=== PATIENT | female | born 1965 | race Caucasian/White ===

== ENCOUNTER → 2017-12-31 12:06 | Outpatient (CLI) | payer OTHER, SELFPAY ==
--- NOTE | 2017-12-31 12:18 | MRI_ITS ---
STUDY: MRI CERVICAL SPINE WITHOUT CONTRAST REASON FOR EXAM: Female, 52 years old. neck pain, arm pain,weakness. TECHNIQUE: Standardized fat and water weighted pulse sequences were obtained in the sagittal and axial planes. COMPARISON: November 05, 2014 FINDINGS: Normal foramen magnum and brainstem-cervical cord junction. Normal craniovertebral junction. Normal anterior atlantoaxial articulation. Normal odontoid process. Normal cervical lordosis. C2-3: Normal endplates. Normal disc height, signal and morphology. Normal central canal and intervertebral neural foramina. C3-4: There is minimal disc space narrowing and endplate spondylosis. There is a minimal disc osteophyte complex and uncovertebral arthropathy without significant central canal or foraminal stenosis. C4-5: There is mild disc space narrowing and endplate spondylosis. There is a minimal disc osteophyte complex without significant central canal stenosis. There is uncovertebral facet arthropathy with mild right and mild left foraminal stenosis. Findings are stable since prior examination C5-6: There is moderate disc space narrowing and endplate spondylosis. There is a minimal disc osteophyte complex with mild central canal stenosis. There is uncovertebral and facet arthropathy with mild right and moderate left foraminal stenosis. Findings are stable since prior examination C6-7: There is minimal disc space narrowing and endplate spondylosis. There is a minimal disc osteophyte complex and uncovertebral arthropathy without significant central canal or foraminal stenosis. C7-T1: Normal endplates. Normal disc height, signal and morphology. Normal central canal and intervertebral neural foramina. Normal cervical cord. Normal visualized soft tissue structures. MRI/Spine Cervical (Routine) IMPRESSION: Stable examination. C4/C5: Mild bilateral foraminal stenosis. C5/C6: Moderate left foraminal stenosis. Electronically Signed: Glenys Del Rosario MD at 9:27 EST Tel , Service support ,
== END ==
LOC: MRI 12:07
PROVIDERS: Family Provider Family Medicine; PCP Family Medicine; Visit Provider Anesthesiology Pain Medicine
DX: M54.2 Cervicalgia (principal); M79.601 Pain in right arm; R29.898 Other symptoms and signs involving the musculoskeletal system
CPT/HCPCS: 72141

== ENCOUNTER → 2018-03-08 12:49 | Outpatient (CLI) | payer OTHER, SELFPAY ==
--- NOTE | 2018-03-08 12:51 | CDU_ITS ---
Reason For Study: carotid stenosis Rt. Velocities/BP Lt. Velocities/BP Prox CCA 78.6/21.7 cm/sec. Prox CCA 83.8/25.2 cm/sec. Mid CCA 74.5/25.8 cm/sec. Mid CCA 89.1/28.7 cm/sec. Dist CCA 90.3/38.7 cm/sec. Dist CCA 92.0/31.7 cm/sec. Prox ICA 130.0/40.1 cm/sec. Prox ICA 85.6/27.6 cm/sec. Mid ICA 83.3/34.6 cm/sec. Mid ICA 92.6/32.8 cm/sec. Dist ICA 76.2/31.1 cm/sec. Dist ICA 99.1/35.2 cm/sec. Rt. ICA/CCA = 130.0/74.5=1.7. Lt. ICA/CCA = 99.1/89.1=1.1. Prox ECA 108.0/31.1 cm/sec. Prox ECA 157.0/32.2 cm/sec. Rt. Vert. 24.0/10.7 cm/sec. Lt. Vert. 45.6/12.2 cm/sec. Right Extracranial There is intimal thickening but no significant atherosclerotic plaque noted in the right common carotid artery. There is heterogeneous, irregular atherosclerotic plaque noted in the right internal carotid artery. There is no significant atherosclerotic plaque noted in the right external carotid artery. Antegrade flow is noted in the right vertebral artery. Left Extracranial There is intimal thickening but no significant atherosclerotic plaque noted in the left common carotid artery. There is heterogeneous, irregular atherosclerotic plaque noted in the left internal carotid artery. There is intimal thickening but no significant atherosclerotic plaque noted in the left external carotid artery. Antegrade flow is noted in the left vertebral artery. Procedure Carotid Duplex [id number]. The exam was diagnostic. Exam performed in department. Interpretation Summary Moderate (50-69%) stenosis right extracranial internal carotid. Mild (<50%) stenosis left extracranial internal carotid. Flow within the vertebral arteries is antegrade bilaterally. Ordering Physician: Wilbur Maldonado Referring Physician: Reynaldo Gregg Performed By: Esther Devlin, CARYN, RVT
--- NOTE | 2018-03-13 08:16 | UEAS ---
Arterial Study - Arterial Study Arterial Study: Date of scan 03/08/[address] Maldonado History: Patient with previous subclavian stenosis status post subclavian stent with also a history of hypertension hyperlipidemia and tobacco abuse. Interpretation: Right upper extremity normal pulsatile flow noted from the upper arm down to the forearm wrist and out through the digits segmental pressures throughout the arm are maintained all the way throughout with wrist brachial index of 1.02 and a digit brachial index 0.84 Left upper extremity with normal pulsatile flow from the upper arm down to the forearm wrist and digits segmental pressures are maintained throughout with wrist brachial index 1.01 and a digit brachial index 0.85 Impression: 1. Bilateral upper extremities with no evidence of significant arterial occlusive disease with normal wrist brachial index of 1.02 and 1.01
== END ==
LOC: CVS 12:50
PROVIDERS: Family Provider Family Medicine; PCP Family Medicine; Visit Provider Surgery Vascular Surgery
DX: I65.23 Occlusion and stenosis of bilateral carotid arteries (principal); I77.1 Stricture of artery; F17.200 Nicotine dependence, unspecified, uncomplicated; E78.00 Pure hypercholesterolemia, unspecified; Z96.89 Presence of other specified functional implants
CPT/HCPCS: 93880; 93923

== ENCOUNTER 2018-07-02 12:16 | Observation (INO) | payer OTHER, SELFPAY ==
[2018-07-02] VITALS (19 sets, daily range): BP systolic 125–154; BP diastolic 61–94; PULSE 82–108; RESP 16–24; TEMP 36.7–37.1; O2SAT 88–96; BMI 34.1; BMI 34.9
[2018-07-02] MEDS: Albuterol 2.5 MG/3 ML VIAL.NEB. INHALATION ×2 (13:12)
[2018-07-02] MEDS: Ipratropium/Albuterol Sulfate 3 ML AMPUL.NEB INHALATION ×3 (13:12→23:33)
[2018-07-02] MEDS: MethylPREDNISolone 125 MG/2 ML Vial IV (13:35)
[2018-07-02] MEDS: 0.9% Normal Saline 1,000 ML 150 ML IV (13:36)
[2018-07-02 13:40] LABS: Absolute Lymphocyte Count 2.07 X10^3/ul (0.83-4.51); Absolute Neutrophil Count 5.1 X10^3/uL (2.0-7.7); Basophil# 0.04 X10^3/uL; Basophil% 0.5 % (0-1); Eosinophil# 0.21 X10^3/uL; Eosinophils% 2.6 % (0-5); Hematocrit 43.1 % (37-47); Hemoglobin 13.8 g/dl (12.0-15.0); Lymphocyte # 2.07 X10^3/ul (4.0); Lymphocyte % 25.8 % (19-41); Mean Corpuscular Hgb 30.5 pg (27.0-32.0); Mean Corpuscular Volume 95.1 fL (81-99); Mean Platelet Vol. 10.4 fl (6.2-12.0); Monocyte% 7.5 % (0-10); Neutrophil # 5.09 X10^3/uL (2.7-7.7); Neutrophil % 63.4 % (47-70); POSITIVE COUNT NO; POSITIVE DIFFERENTIAL NO; POSITIVE MORPHOLOGY NO; Platelet Count 220 K/mm3 (150-450); RBC Distribution Width CV 14.2 % (11.6-14.6); RBC Distribution Width SD 48.9 fl (35.1-43.9); Red Blood Count 4.53 M/mm3 (4.2-5.4)
[2018-07-02 13:55] LABS: Anion Gap 10 (5-15); BUN 12 mg/dL (7-18); Calcium,Total 9.2 mg/dL (8.5-10.1); Chloride 107 mmol/L (98-107); Creatinine, Serum 0.67 mg/dL (0.55-1.02); EST Glomerular Filtration Rate 99 mL/min (>60); Est Glom Filt Rate - Afr Amer 120 mL/min (>60); Estimated Creatinine Clearance 120.21 ml/min; Glucose 123 mg/dL (74-106); Sodium Level 147 mmol/L (136-145)
--- NOTE | 2018-07-02 14:53 | ED.VISSUMM ---
- ER Visit Summary Date of Service: 07/02/18 Chief Complaint: Shortness of breath] History of Present Illness: The patient is a 52 F [presents the emergency department complaint of shortness of breath that started 8 days ago. Patient's been coughing but no sputum production. She has had fever at home and some chills with temperature up to 101. Patient describes chest tightness. Patient was seen in the urgent care and referred to the ER for a low O2 saturation of 82%. Patient denies any sick contacts. She describes exertional dyspnea. Patient did travel to [place] several weeks ago via car. Patient denies any swelling in her legs out of the ordinary. She denies any chest pain.] Physical Examination: [HEENT-PERRLA, EOMI. Cranial nerves II through XII grossly intact. TMs clear. Mucous membranes moist. No adenopathy. Cardiovascular-regular rate and rhythm without murmur or ectopy Lungs-decreased breath sounds bilaterally with rhonchi and expiratory wheezes bilaterally. Patient is tachypneic. No accessory muscle use or retractions. Abdomen-normoactive bowel sounds, soft, nontender, no rebound or rigidity, no peritoneal signs. Extremities-intact ?4, normal range of motion, normal pulses, atraumatic]. No edema. Negative Homans sign. Test Results: [EKG obtained arrival shows sinus rhythm with a ventricular rate of 91 bpm with some nonspecific ST changes. CBC with differential showed a white count of 8.0, hemoglobin 13.8, hematocrit 43, platelets 220. Chemistries unremarkable other than decreased potassium at 3.0. Troponin is less than 0.015. Lactate was 1.0. Chest x-ray showed some bibasilar atelectasis] Emergency Department Course and Treatment: [Patient was given DuoNeb aerosol as well as albuterol. She was started on Solu-Medrol 125 mill grams IV patient was placed on oxygen.] Treatment Plan: [Admit] Disposition: [Admit] Impression: [Asthmatic bronchitis Hypoxemia] This note was generated with [employer] .fr [place] dictation software. It may contain incorrect words, spelling, and punctuation that were not noted in review of the chart prior to signing ED Disposition - Plan for ED Patient: Chief Complaint: Shortness of Breath Referrals: Reynaldo Gregg MD [Primary Care Provider] -
--- NOTE | 2018-07-02 15:00 | PCM.HP.STD ---
<Susan Cardozo - Last Filed: 07/02/18 16:20> Problem List (1) Family history of colon cancer in father Status: Chronic (2) Carotid artery disease Status: Chronic (3) Hyperlipemia Status: Chronic (4) Subclavian arterial stenosis Status: Chronic Comment: s/p stent (5) Hypertension Status: Chronic (6) TIA (transient ischemic attack) Status: Chronic History of Present Illness Date of Admission: 07/02/18 Chief Complaint: Shortness of breath The patient is a 52 year old F who presents with shortness of breath, fever, cough and general malaise. Patient states symptoms began approximately 1 week ago after returning from a trip to [place]. She denies sick contacts. She states she went to urgent care today and was sent to ER due to oxygen level 82%. Patient complains of cough with chest tightness. No sputum production. She states she was placed on an inhaler in the past by her primary care physician for asthma. She has a [id number] smoking history and currently smokes 1 pack per day. Has never had pulmonary function testing. She states her max temperature at home has been 101. She denies dizziness, lightheadedness, presyncope. Her past medical history includes hypertension, hyperlipidemia, carotid artery disease/subclavian arterial stenosis status post stent, TIA, asthma. Past Medical History Past Medical History (Chronic Problems): Chronic Problems TIA (transient ischemic attack) (Chronic) Family history of colon cancer in father (Chronic) Carotid artery disease (Chronic) Hyperlipemia (Chronic) Subclavian arterial stenosis (Chronic) s/p stent Hypertension (Chronic) Allergies Penicillins Allergy (Unknown, Verified 07/02/18 12:20) Hives tramadol Allergy (Verified 07/02/18 12:20) Swelling Home Medications: Ambulatory Orders Medication Instructions Recorded Amlodipine [Norvasc] 5 mg PO DAILY 11/24/15 Lovastatin [Mevacor] 20 mg PO DAILY 11/24/15 Metoprolol Tartrate [Lopressor 50 mg PO DAILY 11/24/15 (beta noé)] Tizanidine HCl 4 mg PO DAILY 11/24/15 Triamterene 37.5MG/Hctz 25MG 1 cap PO DAILY 11/24/15 [Dyazide (G)] Celecoxib [Celebrex] 200 mg PO DAILY 05/28/17 Mupirocin [Bactroban] 1 applic TOPICAL TID #1 tube 03/25/17 Acetaminophen [Tylenol Arthritis] 1,300 mg PO PRN PRN 07/02/18 Albuterol Sulfate [Ventolin Hfa] 1 - 2 puff IH BID 07/02/18 Aspirin E.C. 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 Denies: Chest Pain, Edema, Light Headedness, Palpitations, Syncope Respiratory: Reports: Cough, Shortness of Breath, Wheezing. Denies: Sputum production Gastrointestinal: Denies: Abdominal Pain, Nausea, Vomiting Genitourinary: Denies: Dysuria Musculoskeletal: Denies: Joint Pain, Joint Tenderness Skin: Denies: Rash, Wounds Neurological: Denies: Numbness, Tingling, Focal weakness Psychiatric: Denies: Anxiety, Depression, Homicidal Ideations, Suicidal Ideations Hematologic/ Lymphatic: Denies: Easy Bruising, Easy Bleeding VTE Information - Inpt Only VTE Present on Admission: No VTE Mechan Device Prophylaxis: None VTE Pharm Prophylaxis ordered?: Yes - Physical Exam General: Alert, Oriented x3, Cooperative HEENT: Atraumatic, PERRLA, EOMI, Normocephalic Neck: Supple, No JVD, Negative Carotid Bruits Lungs: Diminished, Wheezes Cardiovascular: Regular Rhythm, Normal S1, Normal S2, No murmurs, Tachycardic Abdomen: Bowel Sounds Present, Soft, Non Tender, Non-Distended, Obese Extremities: No clubbing, No cyanosis, No edema, Capillary Refill Less than 3 Seconds Skin: No rashes, No breakdown Musculoskeletal: No Tenderness to Palpation of Joints or Extremities Neurological: Cranial nerves II-XII grossly intact, Neuro grossly intact Psych/Mental Status: Normal Affect, Appropriate Vital Signs Temp Pulse Resp BP Pulse Ox 98.7 F 102 H 20 H 138/87 H 92 07/02/18 12:17 07/02/18 14:00 07/02/18 14:00 07/02/18 14:00 07/02/18 14:45 Oxygen Flow Rate (L/min) 5 Oxygen Delivery Method Nasal Cannula Weight: 169 lb Body Mass Index (BMI) 34.1 Laboratory Tests Past 24 Hrs 07/02/18 07/02/18 07/02/18 13:29 13:29 13:29 WBC 8.0 RBC 4.53 Hgb 13.8 Hct 43.1 MCV 95.1 MCH 30.5 MCHC 32.0 RDW 14.2 RDW Differential 48.9 H Plt Count 220 MPV 10.4 Immature Gran % (Auto) 0.200 Neut % (Auto) 63.4 Lymph % (Auto) 25.8 [place] % (Auto) 7.5 Eos % (Auto) 2.6 Baso % (Auto) 0.5 Absolute Neuts (auto) 5.1 Absolute Lymphs (auto) 2.07 Total Counted Not Reportable Sodium 147 H Potassium 3.0 L Chloride 107 Carbon Dioxide 30.0 Anion Gap 10 BUN 12 Creatinine 0.67 Estim Creat Clear Calc 120.21 Est GFR (MDRD) Af Amer 120 Est GFR (MDRD) Non-Af 99 BUN/Creatinine Ratio 18.0 Glucose 123 H Lactic Acid 1.0 Calcium 9.2 Troponin I < 0.015 Assessment/Plan 1. Presumed COPD exacerbation with associated acute hypoxia-chest x-ray on admission with mild degree of increased markings at the lung bases suggestive of bibasilar scarring. No acute infiltrate. Check respiratory panel. IV Solu-Medrol. Albuterol and DuoNeb aerosol. Tylenol as needed for fever. Recommend outpatient follow-up with pulmonary medicine for pulmonary function testing. 2. Hypokalemia-suspect secondary to triamterene regimen, hold. Replace orally. Trend BMP. 3. Hypertension-stable, continue home amlodipine and metoprolol regimen. Hold triamterene regimen. 4. Hyperlipidemia-continue statin. 5. History of TIA-continue aspirin, statin. 6. Carotid artery stenosis/subclavian stenosis-subclavian stenosis status post subclavian stent. Follows with vascular, Dr. Maldonado. 7. Tobacco dependence-encourage smoking cessation. Nicotine replacement patch if desired. 8. Obesity-encourage diet and lifestyle modifications. Nutrition consult. This patient was seen by JOSE Schaefer under the supervision of Dr. Hill. <Anish Hill F - Last Filed: 07/02/18 16:46> History of Present Illness The patient is a 52 year old F [] Past Medical History Allergies Penicillins Allergy (Unknown, Verified 07/02/18 12:20) Hives tramadol Allergy (Verified 07/02/18 12:20) Swelling - Physical Exam Vital Signs Temp Pulse Resp BP Pulse Ox 98.0 F 103 H 20 H 147/94 H 90 07/02/18 16:33 07/02/18 16:33 07/02/18 16:33 07/02/18 16:33 07/02/18 16:33 Oxygen Flow Rate (L/min) 5 Oxygen Delivery Method Nasal Cannula Weight: 173 lb 4.533 oz Body Mass Index (BMI) 34.9 Assessment/Plan Addendum: Dr. Hill I personally examined the patient and reviewed the chart. I agree with the above. 52 yo F with a h/o tobacco use presents with a 1 week h/o SOB and a cough. she state that she has also had a fevers, however these were subjective and she has been afebrile in the ER and has no leukocytosis. She does not carry a COPD diagnosis formally but she is on albuterol. General: Alert, Oriented x3, Cooperative, No apparent distress HEENT: Atraumatic, EOMI, Normocephalic Oral: Moist Mucosa Neck: Supple, No JVD Lungs: Normal air movement with wheezing throughout Cardiovascular: tachycardic, Regular Rhythm, Normal S1, Normal S2, No murmurs Abdomen: Soft, Non Tender, Non-Distended, No Hepato-splenomegaly Extremities: No edema, Capillary Refill Less than 3 Seconds Skin: No rashes, No breakdown Psych/Mental Status: Normal Affect, Appropriate 1. COPD exacerbation - Given her PE findings and her h/o smoking this is the likely diagnosis - CXR negative for pneumonia - Solumedrol 40 mg BID - Jeff q4 [place] - She will need PFTs as an outpatient 2. Hypokalemia - Will replace and check a magnesium as well Diet: Cardiac DVT: Lovenox Code Visit Inpatient E&M: 81629 Init Hosp L3
[2018-07-02 16:29] LABS: Magnesium 2.1 mg/dL (1.6-2.6)
[2018-07-02] MEDS: Metoprolol Tartrate 50 MG Tablet PO (17:58)
[2018-07-02] MEDS: amLODIPine 5 MG Tablet PO (17:58)
[2018-07-02] MEDS: Acetaminophen 500 MG Tablet PO (20:08)
[2018-07-02] MEDS: Atorvastatin Calcium 10 MG Tablet 5 MG PO (22:09)
[2018-07-03] VITALS (12 sets, daily range): BP systolic 108–130; BP diastolic 62–72; PULSE 65–89; RESP 16–20; TEMP 36.6–37; O2SAT 90–99
[2018-07-03 05:29] LABS: Absolute Lymphocyte Count 0.82 X10^3/ul (0.83-4.51); Absolute Neutrophil Count 10.6 X10^3/uL (2.0-7.7); Eosinophil# 0.01 X10^3/uL; Eosinophils% 0.1 % (0-5); Hematocrit 45.4 % (37-47); Hemoglobin 14.6 g/dl (12.0-15.0); Lymphocyte # 0.82 X10^3/ul (4.0); Mean Corp Hgb Conc 32.2 g/gl (32-36); Mean Corpuscular Hgb 30.8 pg (27.0-32.0); Mean Corpuscular Volume 95.8 fL (81-99); Mean Platelet Vol. 10.8 fl (6.2-12.0); Monocyte# 0.33 X10^3/uL; Monocyte% 2.8 % (0-10); Neutrophil % 89.8 % (47-70); Platelet Count 272 K/mm3 (150-450); RBC Distribution Width CV 14.1 % (11.6-14.6); RBC Distribution Width SD 49.1 fl (35.1-43.9); Red Blood Count 4.74 M/mm3 (4.2-5.4); White Blood Count 11.8 K/mm3 (4.4-11.0)
[2018-07-03 05:30] LABS: POSITIVE COUNT NO; POSITIVE DIFFERENTIAL NO; POSITIVE MORPHOLOGY NO
[2018-07-03 06:50] LABS: Anion Gap 9 (5-15); BUN 14 mg/dL (7-18); BUN/Creat Ratio 20.4 RATIO (10-20); Calcium,Total 9.5 mg/dL (8.5-10.1); Chloride 106 mmol/L (98-107); Creatinine, Serum 0.69 mg/dL (0.55-1.02); EST Glomerular Filtration Rate 96 mL/min (>60); Est Glom Filt Rate - Afr Amer 116 mL/min (>60); Estimated Creatinine Clearance 119.69 ml/min; Glucose 188 mg/dL (74-106); Potassium 4.5 mmol/L (3.5-5.1); Sodium Level 144 mmol/L (136-145)
[2018-07-03] MEDS: Ipratropium/Albuterol Sulfate 3 ML AMPUL.NEB INHALATION ×5 (07:12→23:25)
[2018-07-03] MEDS: Metoprolol Tartrate 50 MG Tablet PO (08:04)
[2018-07-03] MEDS: Aspirin E.C. 81 MG Tablet PO (08:04)
[2018-07-03] MEDS: Celecoxib 200 MG Capsule PO (08:04)
[2018-07-03] MEDS: Acetaminophen 500 MG Tablet PO (08:04)
[2018-07-03] MEDS: amLODIPine 5 MG Tablet PO (08:05)
[2018-07-03] MEDS: Enoxaparin 40 MG/0.4 ML Syringe SC (08:06)
--- NOTE | 2018-07-03 10:14 | PCM.PN.HOSP ---
Subjective: Patient is short of breath. Coughing and wheezing. Patient has progressive worsening of shortness of breath for last 4 days, started with URI symptoms of sinusitis, sore throat, rhinorrhea and postnasal drip. Patient pulse ox in urgent care was 82% on room air. Vitals/I&O's: Vital Signs Temp Pulse Resp BP Pulse Ox 98.1 F 89 18 129/64 H 94 07/03/18 08:00 07/03/18 08:04 07/03/18 08:00 07/03/18 08:00 07/03/18 08:00 Oxygen Flow Rate (L/min) 3 Oxygen Delivery Method Nasal Cannula Weight: 173 lb 4.533 oz Body Mass Index (BMI) 34.9 Intake and Output for Last 24 Hours 07/01/18 07/02/18 07/03/18 23:59 23:59 23:59 Intake Total 270 / 270 400 / 400 Balance 270 / 270 400 / 400 General: Alert, Oriented x3, Cooperative HEENT: Atraumatic, PERRLA, EOMI, Normocephalic Oral: - - No deep oropharyngeal inflammation/ulcer noticed Neck: Supple, No JVD, Negative Carotid Bruits Lungs: Diminished, Rhonchi, Short of Breath, - Cardiovascular: Regular rate, Normal S1, Normal S2, No murmurs Abdomen: Bowel Sounds Present, Soft, Non Tender Extremities: Capillary Refill Less than 3 Seconds, Edema Skin: No rashes, No breakdown Musculoskeletal: No Tenderness to Palpation of Joints or Extremities, Arthritic Changes Neurological: Cranial nerves II-XII grossly intact, Neuro grossly intact Psych/Mental Status: Normal Affect, Appropriate Microbiology Past 72 Hours 07/02/18 19:45 Mucosa - Nose Respiratory Panel (PCR) - Final Rhinovirus Laboratory Results 07/03/18 05:00: WBC 11.8 H, RBC 4.74, Hgb 14.6, Hct 45.4, MCV 95.8, MCH 30.8, MCHC 32.2, RDW 14.1, RDW Differential 49.1 H, Plt Count 272, MPV 10.8, Immature Gran % (Auto) 0.300, Neut % (Auto) 89.8 H, Lymph % (Auto) 7.0 L, [place] % (Auto) 2.8, Eos % (Auto) 0.1, Baso % (Auto) 0.0, Absolute Neuts (auto) 10.6 H, Absolute Lymphs (auto) 0.82 L, Total Counted Not Reportable 07/03/18 05:00: Sodium 144, Potassium 4.5, Chloride 106, Carbon Dioxide 29.0, Anion Gap 9, BUN 14, Creatinine 0.69, Estim Creat Clear Calc 119.69, Est GFR (MDRD) Af Amer 116, Est GFR (MDRD) Non-Af 96, BUN/Creatinine Ratio 20.4 H, Glucose 188 H, Calcium 9.5 Current Medications Acetaminophen (Tylenol) 500 mg PO Q4H PRN PRN PRN Reason: FEVER Last Admin: 07/03/18 08:04 Dose: 500 mg Albuterol Sulfate (Ventolin Aerosols) 2.5 mg INHALATION Q2H PRN PRN PRN Reason: SHORTNESS OF BREATH Albuterol/Ipratropium (Duoneb) 3 ml INHALATION Q4HWA.RT [facility] Last Admin: 07/03/18 07:12 Dose: 3 ml Amlodipine Besylate (Norvasc) 5 mg PO DAILY [facility] Last Admin: 07/03/18 08:05 Dose: 5 mg Aspirin (Ecotrin) 81 mg PO DAILY@0800 [facility] Last Admin: 07/03/18 08:04 Dose: 81 mg Atorvastatin Calcium (Lipitor) 5 mg PO QHS [facility] Last Admin: 07/02/18 22:09 Dose: 5 mg Celecoxib (Celebrex) 200 mg PO DAILY [facility] Last Admin: 07/03/18 08:04 Dose: 200 mg Enoxaparin Sodium (Lovenox) 40 mg SC DAILY@1000 [facility] Last Admin: 07/03/18 08:06 Dose: 40 mg Loratadine (Claritin) 10 mg PO DAILY PRN PRN PRN Reason: ALLERGIES Magnesium Hydroxide (Milk Of Magnesia) 30 ml PO DAILY PRN PRN PRN Reason: Constipation Methylprednisolone (Solu-Medrol) 40 mg IV BID [facility] Last Admin: 07/02/18 22:06 Dose: 40 mg Metoprolol Tartrate (Lopressor (Beta Meeta)) 50 mg PO DAILY [facility] Last Admin: 07/03/18 08:04 Dose: 50 mg Nicotine (Nicoderm Cq (Pbkc)) 21 mg TRANSDERM. DAILY [facility] Last Admin: 07/03/18 08:06 Dose: Not Given Sodium Chloride () 5 - 30 ml IV UD PRN PRN Reason: SALINE FLUSH Tizanidine HCl (Zanaflex) 4 mg PO QHS [facility] Medical Necessity - Tobacco Use Smoking Status: Current every day smoker Tobacco Use: Cigarettes Assessment/Plan This is 52-year-old female with history of smoking cigarette is admitted with URI symptoms, shortness of breath and wheezing consistent with COPD exacerbation. 1. COPD exacerbation with associated acute hypoxia, secondary to rhinovirus viral bronchitis-chest x-ray on admission with mild degree of increased markings at the lung bases suggestive of bibasilar scarring. No acute infiltrate. IV Solu-Medrol. Albuterol and DuoNeb aerosol. Tylenol as needed for fever. Respiratory panel is positive of rhinovirus recommend outpatient follow-up with pulmonary medicine for pulmonary function testing. 2. Hypokalemia-suspect secondary to triamterene regimen, hold. Corrected. 3. Hypertension-stable, continue home amlodipine and metoprolol regimen. Hold triamterene regimen. 4. Hyperlipidemia-continue statin. 5. History of TIA-continue aspirin, statin. 6. Carotid artery stenosis/subclavian stenosis-subclavian stenosis status post subclavian stent. Follows with vascular, Dr. Maldonado. 7. Tobacco dependence-encourage smoking cessation. Nicotine replacement patch if desired. 8. Obesity-encourage diet and lifestyle modifications. Nutrition consult. Microbiology Past 72 Hours 07/02/18 19:45 Mucosa - Nose Respiratory Panel (PCR) - Final Rhinovirus Laboratory Results RD) Non-Af 99, BUN/Creatinine Ratio 18.0, Glucose 123 H, Calcium 9.2, Troponin I < 0.015 07/02/18 13:29: Lactic Acid 1.0 07/02/18 13:29: Magnesium 2.1 07/03/18 05:00: WBC 11.8 H, RBC 4.74, Hgb 14.6, Hct 45.4, MCV 95.8, MCH 30.8, MCHC 32.2, RDW 14.1, RDW Differential 49.1 H, Plt Count 272, MPV 10.8, Immature Gran % (Auto) 0.300, Neut % (Auto) 89.8 H, Lymph % (Auto) 7.0 L, [place] % (Auto) 2.8, Eos % (Auto) 0.1, Baso % (Auto) 0.0, Absolute Neuts (auto) 10.6 H, Absolute Lymphs (auto) 0.82 L, Total Counted Not Reportable 07/03/18 05:00: Sodium 144, Potassium 4.5, Chloride 106, Carbon Dioxide 29.0, Anion Gap 9, BUN 14, Creatinine 0.69, Estim Creat Clear Calc 119.69, Est GFR (MDRD) Af Amer 116, Est GFR (MDRD) Non-Af 96, BUN/Creatinine Ratio 20.4 H, Glucose 188 H, Calcium 9.5 Clinical Impression(s) from Imaging Studies Chest X-Ray 07/02/18 12:21 IMPRESSION: Mild degree of increased markings at the lung bases suggestive of bibasilar scarring. No acute infiltrate is seen. Active Medications Acetaminophen (Tylenol) 500 mg PO Q4H PRN PRN PRN Reason: FEVER Last Admin: 07/03/18 08:04 Dose: 500 mg Albuterol Sulfate (Ventolin Aerosols) 2.5 mg INHALATION Q2H PRN PRN PRN Reason: SHORTNESS OF BREATH Albuterol/Ipratropium (Duoneb) 3 ml INHALATION Q4HWA.RT [facility] Last Admin: 07/03/18 14:54 Dose: 3 ml Amlodipine Besylate (Norvasc) 5 mg PO DAILY [facility] Last Admin: 07/03/18 08:05 Dose: 5 mg Aspirin (Ecotrin) 81 mg PO DAILY@0800 [facility] Last Admin: 07/03/18 08:04 Dose: 81 mg Atorvastatin Calcium (Lipitor) 5 mg PO QHS [facility] Last Admin: 07/02/18 22:09 Dose: 5 mg Celecoxib (Celebrex) 200 mg PO DAILY [facility] Last Admin: 07/03/18 08:04 Dose: 200 mg Enoxaparin Sodium (Lovenox) 40 mg SC DAILY@1000 [facility] Last Admin: 07/03/18 08:06 Dose: 40 mg Loratadine (Claritin) 10 mg PO DAILY PRN PRN PRN Reason: ALLERGIES Magnesium Hydroxide (Milk Of Magnesia) 30 ml PO DAILY PRN PRN PRN Reason: Constipation Methylprednisolone (Solu-Medrol) 40 mg IV BID [facility] Last Admin: 07/03/18 10:52 Dose: 40 mg Metoprolol Tartrate (Lopressor (Beta Meeta)) 50 mg PO DAILY [facility] Last Admin: 07/03/18 08:04 Dose: 50 mg Nicotine (Nicoderm Cq (Pbkc)) 21 mg TRANSDERM. DAILY [facility] Last Admin: 07/03/18 08:06 Dose: Not Given Sodium Chloride () 5 - 30 ml IV UD PRN PRN Reason: SALINE FLUSH Last Admin: 07/03/18 10:52 Dose: 10 ml Tizanidine HCl (Zanaflex) 4 mg PO QHS [facility] Code Visit Inpatient E&M: 28939 Subs Hosp L2
[2018-07-03] MEDS: 0.9% NaCl Peripheral Flush Adult/Peds IV ×2 (10:52→21:24)
--- NOTE | 2018-07-03 11:25 | CASEMGMT ---
RN CM Face to Face with patient for initial transition planning/care coordination assessment. RN CM introduced self and role at [facility]. Patient sitting in chair, alert and oriented. Patient willing to participate in assessment and is able to answer all questions appropriately. Care providers, pharmacy, and demographics verified. Patient lives with sister in mobile home. Patient is independent at home. Patient states that she has a nebulizer at home. Patient wishes to discharge home, denies need for home health at this time. Patient states she has no further needs or concerns at this time. CM will monitor need for home oxygen. CM to follow for discharge planning needs that may arise. Disposition Plan: Patient to discharge home with family support and follow-up plans in place.
[2018-07-03] MEDS: tiZANidine HCl 2 MG Tablet 4 MG PO (21:22)
[2018-07-03] MEDS: Atorvastatin Calcium 10 MG Tablet 5 MG PO (21:22)
[2018-07-04] VITALS (11 sets, daily range): BP systolic 113–140; BP diastolic 65–89; PULSE 73–92; RESP 18; TEMP 36.5–37.2; O2SAT 92–96
[2018-07-04] MEDS: Ipratropium/Albuterol Sulfate 3 ML AMPUL.NEB INHALATION ×5 (07:55→23:01)
[2018-07-04] MEDS: 0.9% NaCl Peripheral Flush Adult/Peds IV ×2 (08:44→22:09)
[2018-07-04] MEDS: Aspirin E.C. 81 MG Tablet PO (08:44)
[2018-07-04] MEDS: amLODIPine 5 MG Tablet PO (08:45)
[2018-07-04] MEDS: Enoxaparin 40 MG/0.4 ML Syringe SC (08:45)
[2018-07-04] MEDS: Metoprolol Tartrate 50 MG Tablet PO (08:45)
[2018-07-04] MEDS: Celecoxib 200 MG Capsule PO (08:54)
--- NOTE | 2018-07-04 15:50 | PCM.PN.HOSP ---
Subjective: Patient is mild short of breath. Still wheezing. On 2 L of oxygen. Vitals/I&O's: Vital Signs Temp Pulse Resp BP Pulse Ox 97.7 F L 79 18 113/89 H 93 07/04/18 09:35 07/04/18 15:18 07/04/18 15:18 07/04/18 09:35 07/04/18 09:35 Oxygen Flow Rate (L/min) 1.5 Oxygen Delivery Method Nasal Cannula Weight: 173 lb 4.533 oz Body Mass Index (BMI) 34.9 Intake and Output for Last 24 Hours 07/02/18 07/03/18 07/04/18 23:59 23:59 23:59 Intake Total 270 / 270 400 / 400 1000 / 1000 Balance 270 / 270 400 / 400 1000 / 1000 General: Alert, Oriented x3, Cooperative HEENT: Atraumatic, PERRLA, EOMI, Normocephalic Neck: Supple, No JVD, Negative Carotid Bruits Lungs: Diminished, Rhonchi, Short of Breath, Wheezes Cardiovascular: Regular rate, Normal S1, Normal S2, No murmurs Abdomen: Bowel Sounds Present, Soft, Non Tender, Non-Distended Extremities: No edema, Capillary Refill Less than 3 Seconds Skin: No rashes, No breakdown Musculoskeletal: No Tenderness to Palpation of Joints or Extremities Neurological: Cranial nerves II-XII grossly intact Psych/Mental Status: Normal Affect, Appropriate Microbiology Past 72 Hours 07/02/18 19:45 Mucosa - Nose Respiratory Panel (PCR) - Final Rhinovirus Current Medications Acetaminophen (Tylenol) 500 mg PO Q4H PRN PRN PRN Reason: FEVER Last Admin: 07/03/18 08:04 Dose: 500 mg Albuterol Sulfate (Ventolin Aerosols) 2.5 mg INHALATION Q2H PRN PRN PRN Reason: SHORTNESS OF BREATH Albuterol/Ipratropium (Duoneb) 3 ml INHALATION Q4HWA.RT [facility] Last Admin: 07/04/18 15:17 Dose: 3 ml Amlodipine Besylate (Norvasc) 5 mg PO DAILY [facility] Last Admin: 07/04/18 08:45 Dose: 5 mg Aspirin (Ecotrin) 81 mg PO DAILY@0800 [facility] Last Admin: 07/04/18 08:44 Dose: 81 mg Atorvastatin Calcium (Lipitor) 5 mg PO QHS [facility] Last Admin: 07/03/18 21:22 Dose: 5 mg Celecoxib (Celebrex) 200 mg PO DAILY [facility] Last Admin: 07/04/18 08:54 Dose: 200 mg Enoxaparin Sodium (Lovenox) 40 mg SC DAILY@1000 [facility] Last Admin: 07/04/18 08:45 Dose: 40 mg Loratadine (Claritin) 10 mg PO DAILY PRN PRN PRN Reason: ALLERGIES Magnesium Hydroxide (Milk Of Magnesia) 30 ml PO DAILY PRN PRN PRN Reason: Constipation Methylprednisolone (Solu-Medrol) 40 mg IV BID [facility] Last Admin: 07/04/18 08:46 Dose: 40 mg Metoprolol Tartrate (Lopressor (Beta Meeta)) 50 mg PO DAILY [facility] Last Admin: 07/04/18 08:45 Dose: 50 mg Nicotine (Nicoderm Cq (Pbkc)) 21 mg TRANSDERM. DAILY [facility] Last Admin: 07/04/18 08:49 Dose: Not Given Sodium Chloride () 5 - 30 ml IV UD PRN PRN Reason: SALINE FLUSH Last Admin: 07/04/18 08:44 Dose: 10 ml Tizanidine HCl (Zanaflex) 4 mg PO QHS [facility] Last Admin: 07/03/18 21:22 Dose: 4 mg Medical Necessity - Tobacco Use Smoking Status: Current every day smoker Tobacco Use: Cigarettes Assessment/Plan This is 52-year-old female with history of smoking cigarette is admitted with URI symptoms, shortness of breath and wheezing consistent with COPD exacerbation. Patient requires oxygen consistent with acute hypoxic respiratory failure secondary to COPD exacerbation. Patient not on home oxygen. 1. COPD exacerbation with associated acute hypoxia, secondary to rhinovirus viral bronchitis-chest x-ray on admission with mild degree of increased markings at the lung bases suggestive of bibasilar scarring. No acute infiltrate. IV Solu-Medrol. Albuterol and DuoNeb aerosol. Tylenol as needed for fever. Respiratory panel is positive of rhinovirus recommend outpatient follow-up with pulmonary medicine for pulmonary function testing. 2. Acute hypoxic respiratory failure secondary to COPD exacerbation; present on admission: On day of admission, patient was on 3-5 L of oxygen which is new for her. Currently she is on about 2 L of oxygen. Walking pulse oximetry tomorrow and if it gets normal: Anticipate discharge tomorrow Hypokalemia-suspect secondary to triamterene regimen, hold. Corrected. 3. Hypertension-stable, continue home amlodipine and metoprolol regimen. Hold triamterene regimen. 4. Hyperlipidemia-continue statin. 5. History of TIA-continue aspirin, statin. 6. Carotid artery stenosis/subclavian stenosis-subclavian stenosis status post subclavian stent. Follows with vascular, Dr. Maldonado. 7. Tobacco dependence-encourage smoking cessation. Nicotine replacement patch if desired. 8. Obesity-encourage diet and lifestyle modifications. Nutrition consult. Microbiology Past 72 Hours 07/02/18 19:45 Mucosa - Nose Respiratory Panel (PCR) - Final Rhinovirus Laboratory Results RD) Non-Af 99, BUN/Creatinine Ratio 18.0, Glucose 123 H, Calcium 9.2, Troponin I < 0.015 07/02/18 13:29: Lactic Acid 1.0 07/02/18 13:29: Magnesium 2.1 07/03/18 05:00: WBC 11.8 H, RBC 4.74, Hgb 14.6, Hct 45.4, MCV 95.8, MCH 30.8, MCHC 32.2, RDW 14.1, RDW Differential 49.1 H, Plt Count 272, MPV 10.8, Immature Gran % (Auto) 0.300, Neut % (Auto) 89.8 H, Lymph % (Auto) 7.0 L, Butler % (Auto) 2.8, Eos % (Auto) 0.1, Baso % (Auto) 0.0, Absolute Neuts (auto) 10.6 H, Absolute Lymphs (auto) 0.82 L, Total Counted Not Reportable 07/03/18 05:00: Sodium 144, Potassium 4.5, Chloride 106, Carbon Dioxide 29.0, Anion Gap 9, BUN 14, Creatinine 0.69, Estim Creat Clear Calc 119.69, Est GFR (MDRD) Af Amer 116, Est GFR (MDRD) Non-Af 96, BUN/Creatinine Ratio 20.4 H, Glucose 188 H, Calcium 9.5 Clinical Impression(s) from Imaging Studies Chest X-Ray 07/02/18 12:21 IMPRESSION: Mild degree of increased markings at the lung bases suggestive of bibasilar scarring. No acute infiltrate is seen. Active Medications Acetaminophen (Tylenol) 500 mg PO Q4H PRN PRN PRN Reason: FEVER Last Admin: 07/03/18 08:04 Dose: 500 mg Albuterol Sulfate (Ventolin Aerosols) 2.5 mg INHALATION Q2H PRN PRN PRN Reason: SHORTNESS OF BREATH Albuterol/Ipratropium (Duoneb) 3 ml INHALATION Q4HWA.RT [facility] Last Admin: 07/03/18 14:54 Dose: 3 ml Amlodipine Besylate (Norvasc) 5 mg PO DAILY [facility] Last Admin: 07/03/18 08:05 Dose: 5 mg Aspirin (Ecotrin) 81 mg PO DAILY@0800 [facility] Last Admin: 07/03/18 08:04 Dose: 81 mg Atorvastatin Calcium (Lipitor) 5 mg PO QHS [facility] Last Admin: 07/02/18 22:09 Dose: 5 mg Celecoxib (Celebrex) 200 mg PO DAILY [facility] Last Admin: 07/03/18 08:04 Dose: 200 mg Enoxaparin Sodium (Lovenox) 40 mg SC DAILY@1000 [facility] Last Admin: 07/03/18 08:06 Dose: 40 mg Loratadine (Claritin) 10 mg PO DAILY PRN PRN PRN Reason: ALLERGIES Magnesium Hydroxide (Milk Of Magnesia) 30 ml PO DAILY PRN PRN PRN Reason: Constipation Methylprednisolone (Solu-Medrol) 40 mg IV BID [facility] Last Admin: 07/03/18 10:52 Dose: 40 mg Metoprolol Tartrate (Lopressor (Beta Meeta)) 50 mg PO DAILY [facility] Last Admin: 07/03/18 08:04 Dose: 50 mg Nicotine (Nicoderm Cq (Pbkc)) 21 mg TRANSDERM. DAILY [facility] Last Admin: 07/03/18 08:06 Dose: Not Given Sodium Chloride () 5 - 30 ml IV UD PRN PRN Reason: SALINE FLUSH Last Admin: 07/03/18 10:52 Dose: 10 ml Tizanidine HCl (Zanaflex) 4 mg PO QHS [facility] Code Visit Inpatient E&M: 59853 Subs Hosp L2
[2018-07-04] MEDS: tiZANidine HCl 2 MG Tablet 4 MG PO (22:08)
[2018-07-04] MEDS: Atorvastatin Calcium 10 MG Tablet 5 MG PO (22:08)
[2018-07-05] VITALS (8 sets, daily range): BP systolic 94–132; BP diastolic 63–83; PULSE 75–85; RESP 16–18; TEMP 36.4–36.7; O2SAT 87–96
[2018-07-05] MEDS: Ipratropium/Albuterol Sulfate 3 ML AMPUL.NEB INHALATION ×2 (07:23→11:05)
[2018-07-05] MEDS: Metoprolol Tartrate 50 MG Tablet PO (08:45)
[2018-07-05] MEDS: Aspirin E.C. 81 MG Tablet PO (08:45)
[2018-07-05] MEDS: Celecoxib 200 MG Capsule PO ×2 (08:45)
[2018-07-05] MEDS: amLODIPine 5 MG Tablet PO (08:46)
[2018-07-05] MEDS: 0.9% NaCl Peripheral Flush Adult/Peds IV (09:59)
[2018-07-05] MEDS: Enoxaparin 40 MG/0.4 ML Syringe SC (09:59)
--- NOTE | 2018-07-05 10:12 | PCM.DC ---
- Discharge Diagnoses Current Active Problems: Current Active and Chronic Problems TIA (transient ischemic attack) (Chronic) You will use the following diet at home:: Cardiac Your food should be the consistency of: Regular Discharge Activity: May not drive while taking narcotic pain medications. Call your doctor if you observe: Fever of 101 or Higher, Shortness of breath, Swelling in the ankles, Chest pain Allergies/Adverse Reactions: Allergies Penicillins Allergy (Unknown, Verified 07/02/18 12:20) Hives tramadol Allergy (Verified 07/02/18 12:20) Swelling Medications to take at Discharge Amlodipine [Norvasc] 5 mg PO DAILY 11/24/15 Lovastatin [Mevacor] 20 mg PO DAILY 11/24/15 Metoprolol Tartrate [Lopressor (beta noé)] 50 mg PO DAILY 11/24/15 Tizanidine HCl 4 mg PO DAILY 11/24/15 Triamterene 37.5MG/Hctz 25MG [Dyazide (G)] 1 cap PO DAILY 11/24/15 Celecoxib [Celebrex] 200 mg PO DAILY 03/25/17 Mupirocin [Bactroban] 1 applic TOPICAL TID #1 tube 03/25/17 Acetaminophen [Tylenol Arthritis] 1,300 mg PO PRN PRN 07/02/18 Aspirin E.C. [Ecotrin] 81 mg PO DAILY@0800 07/02/18 Loratadine 10 mg PO PRN PRN 07/02/18 Mv,Ca,Min/Folic Acid/Vit K1 [One-A-Day Women's 50 Plus Tab] 1 each PO DAILY 07/02/18 Albuterol Sulfate [Ventolin Hfa] 2 puff IH Q4H PRN PRN #1 hfa.aer.ad 07/05/18 Budesonide/Formoterol 80-4.5 [Symbicort 80-4.5 Mcg Inhaler] 2 puff INHALATION BID #1 inhaler 07/05/18 Nicotine [Nicoderm Cq] 21 mg TRANSDERM. DAILY patch 07/05/18 Prednisone 10 mg PO UD #30 tab 07/05/18 The following prescriptions were given: Albuterol Sulfate [Ventolin Hfa] 2 puff IH Q4H PRN PRN #1 hfa.aer.ad PRN Reason: sob/wheezing Prednisone 10 mg PO UD #30 tab Budesonide/Formoterol 80-4.5 [Symbicort 80-4.5 Mcg Inhaler] 2 puff INHALATION BID #1 inhaler Primary Care Physician: Reynaldo Gregg MD [Primary Care Provider] - Please follow up with your Primary Care Physician in: in 2 weeks Test Results: Test results from this visit will be discussed in further detail at your follow-up appointment, if applicable. Please Follow Up With: Joe Ocampo MD When: in 4 weeks for COPD with acute hypoxic resp failure
--- NOTE | 2018-07-05 10:14 | PCM.DC.SUM ---
Discharge Date and Diagnosis Date of Admission: 07/02/18 Date of Discharge: 07/05/18 - Primary Discharge Diagnosis 1. COPD exacerbation with associated acute hypoxic respiratory failure secondary to rhinovirus viral bronchitis- 2. Acute hypoxic respiratory failure secondary to COPD exacerbation; present on admission: Hypokalemia secondary to diuretic - Secondary Discharge Diagnosis Chronic Problems TIA (transient ischemic attack) (Chronic) Family history of colon cancer in father (Chronic) Carotid artery disease (Chronic) Hyperlipemia (Chronic) Subclavian arterial stenosis (Chronic) s/p stent Hypertension (Chronic) Hospital Course and Treatment Operations: None Summary of Care Provided: This is 52-year-old female with history of smoking cigarette is admitted with URI symptoms, shortness of breath and wheezing consistent with COPD exacerbation. Patient requires oxygen consistent with acute hypoxic respiratory failure secondary to COPD exacerbation. Patient not on home oxygen. Patient seen and examined today. Shortness of breath much better. Still on 1-2 L of oxygen through nasal cannula. General: Alert, Oriented x3, Cooperative HEENT: Atraumatic, PERRLA, EOMI, Normocephalic Neck: Supple, No JVD, Negative Carotid Bruits Lungs: Diminished, Rhonchi, mild expiratory wheezes Cardiovascular: Regular rate, Normal S1, Normal S2, No murmurs Abdomen: Bowel Sounds Present, Soft, Non Tender, Non-Distended Extremities: No edema, Capillary Refill Less than 3 Seconds Skin: No rashes, No breakdown Musculoskeletal: No Tenderness to Palpation of Joints or Extremities Neurological: Cranial nerves II-XII grossly intact Psych/Mental Status: Normal Affect, Appropriate 1. COPD exacerbation with associated acute hypoxia, secondary to rhinovirus viral bronchitis-chest x-ray on admission with mild degree of increased markings at the lung bases suggestive of bibasilar scarring. No acute infiltrate. IV Solu-Medrol. Albuterol and DuoNeb aerosol. Tylenol as needed for fever. Respiratory panel is positive of rhinovirus. recommend outpatient follow-up with pulmonary medicine for pulmonary function testing. 2. Acute hypoxic respiratory failure secondary to COPD exacerbation; present on admission: On day of admission, patient was on 3-5 L of oxygen which is new for her. Currently she is on about 1 to 2 L of oxygen. Walking pulse oximetry was done and patient dropped oxygen 87% on ambulation on room air and 88% at rest on room air. Patient requires portable home oxygen for ambulation at home and in community. Paperwork for oxygen supply signed. Hypokalemia-suspect secondary to triamterene regimen, hold. Corrected. 3. Hypertension-stable, continue home amlodipine and metoprolol regimen. Hold triamterene regimen. 4. Hyperlipidemia-continue statin. 5. History of TIA-continue aspirin, statin. 6. Carotid artery stenosis/subclavian stenosis-subclavian stenosis status post subclavian stent. Follows with vascular, Dr. Maldonado. 7. Tobacco dependence-encourage smoking cessation. Nicotine replacement patch if desired. 8. Obesity-encourage diet and lifestyle modifications. Nutrition consult. Discharge medication reconciliation done. Discharge follow-up which was completed. Total time spent, exact 35 minutes on discharge meds reconciliation, examination, review of imaging and blood test and discussion with the patient on follow-up instructions. Discharge Activity: May not drive while taking narcotic pain medications. Call your doctor if you observe: Fever of 101 or Higher, Shortness of breath, Swelling in the ankles, Chest pain Home Medications: Medications to take at Discharge RX: Amlodipine [Norvasc] 5 mg PO DAILY 11/24/15 RX: Lovastatin [Mevacor] 20 mg PO DAILY 11/24/15 RX: Metoprolol Tartrate [Lopressor (beta noé)] 50 mg PO DAILY 11/24/15 RX: Tizanidine HCl 4 mg PO DAILY 11/24/15 RX: Triamterene 37.5MG/Hctz 25MG [Dyazide (G)] 1 cap PO DAILY 11/24/15 RX: Celecoxib [Celebrex] 200 mg PO DAILY 03/25/17 RX: Mupirocin [Bactroban] 1 applic TOPICAL TID #1 tube 03/25/17 RX: Acetaminophen [Tylenol Arthritis] 1,300 mg PO PRN PRN 07/02/18 RX: Aspirin E.C. [Ecotrin] 81 mg PO DAILY@0800 07/02/18 RX: Loratadine 10 mg PO PRN PRN 07/02/18 RX: Mv,Ca,Min/Folic Acid/Vit K1 [One-A-Day Women's 50 Plus Tab] 1 each PO DAILY 07/02/18 Budesonide/Formoterol 80-4.5 [Symbicort 80-4.5 Mcg Inhaler] 2 puff INHALATION BID #1 inhaler 07/05/18 RX: Albuterol Sulfate [Ventolin Hfa] 2 puff IH Q4H PRN PRN #1 hfa.aer.ad 07/05/18 RX: Nicotine [Nicoderm Cq] 21 mg TRANSDERM. DAILY patch 07/05/18 RX: Prednisone 10 mg PO UD #30 tab 07/05/18 Following Prescrptions Were Given to Patient: RX: Albuterol Sulfate [Ventolin Hfa] 2 puff IH Q4H PRN PRN #1 hfa.aer.ad PRN Reason: sob/wheezing RX: Prednisone 10 mg PO UD #30 tab Budesonide/Formoterol 80-4.5 [Symbicort 80-4.5 Mcg Inhaler] 2 puff INHALATION BID #1 inhaler Primary Care Physician: Reynaldo Gregg MD [Primary Care Provider] - Please follow up with your Primary Care Physician in: in 2 weeks Please Follow Up With: Joe Ocampo MD When: in 4 weeks for COPD with acute hypoxic resp failure Medical Necessity - Tobacco Use Smoking Status: Current every day smoker Tobacco Use: Cigarettes Meaningful Use Info Meaningful Use Diagnoses (Choose all that apply): None applicable Code Visit Inpatient E&M: 31277 [facility] Hosp
--- NOTE | 2018-07-08 16:02 | CASEMGMT ---
MARVIN CONDON Discharge Follow-up Phone Call: SUSY: 11 Strata: 3 Call Date: 07/08/18 Discharge Date: 07/05/18 Time of Call: 1600 Duration: 1 min Admitting Diagnosis: COPD exacerbation MARVIN CONDON attempted to complete follow-up phone call after recent hospitalization. No answer, voice message left with return contact information.
== END 2018-07-05 13:26 | disposition home or self-care (01) | DRG 190 ==
LOC: ED 14:03 → MS3 16:06
PROVIDERS: Admitting Provider Family Medicine; Emergency Provider Emergency Medicine; Family Provider Family Medicine; PCP Family Medicine; Visit Provider Internal Medicine
DX: J44.1 Chronic obstructive pulmonary disease with (acute) exacerbation (principal); J96.01 Acute respiratory failure with hypoxia; J44.0 Chronic obstructive pulmonary disease with (acute) lower respiratory infection; I10 Essential (primary) hypertension; E87.6 Hypokalemia; E78.5 Hyperlipidemia, unspecified; E66.9 Obesity, unspecified; F17.210 Nicotine dependence, cigarettes, uncomplicated; I65.29 Occlusion and stenosis of unspecified carotid artery; J20.6 Acute bronchitis due to rhinovirus; Z95.828 Presence of other vascular implants and grafts; Z86.73 Personal history of transient ischemic attack (TIA), and cerebral infarction without residual deficits; Z79.82 Long term (current) use of aspirin; Z68.34 Body mass index [BMI] 34.0-34.9, adult; Z79.899 Other long term (current) drug therapy; T50.2X5A Adverse effect of carbonic-anhydrase inhibitors, benzothiadiazides and other diuretics, initial encounter
CPT/HCPCS: 36415; 71046; 80048; 83605; 83735; 84484; 85025; 87040; 87633; 93005; 94640; 96361; 96372; 96374; 96376; 99218; 99284; 99406; J7030; A4216; G0378

== ENCOUNTER → 2018-08-15 08:02 | Outpatient (CLI) | payer OTHER, SELFPAY ==
--- NOTE | 2018-08-15 16:08 | PFTCOMP_ITS ---
COMPLETE PULMONARY FUNCTION TEST INTERPRETATION Brief HPI: Patient is a 52 year old male, currently under the care of Dr. Gregg, who presents to [facility] for complete pulmonary function tests secondary to diagnosis of COPD. Respiratory therapist reports good effort and reproducible results. Interpretation: Forced expiration spirometry shows a severe large airways obstructive ventilatory defect with an FEV1 of 54% predicted. There is no significant bronchodilator response by strict ATS criteria. Spirograms are of good quality and plateau slowly, indicating slowly emptying areas of the lungs. The respiratory flow volume loop shows decreased expiratory flow rates at all lung volumes consistent with airway obstruction. Lung volumes by body plethysmography show a normal total lung capacity at 3.63 L, 92% predicted. FRC and RV are elevated out of proportion. Lung volume measurements are consistent with air-trapping. Diffusion capacity by carbon monoxide is decreased at 41% predicted. The airway resistance is elevated. No previous pulmonary function tests were available for review. Impression: Irreversible severe large airways obstructive ventilatory defect with a symmetric reduction diffusing capacity consistent with a diagnosis of COPD.
== END ==
LOC: PSN 08:03
PROVIDERS: Family Provider Family Medicine; PCP Family Medicine; Visit Provider Family Medicine
DX: J44.9 Chronic obstructive pulmonary disease, unspecified (principal)
CPT/HCPCS: 94060; 94726; 94729

== ENCOUNTER 2019-03-08 23:53 | Emergency (ER) | payer OTHER, SELFPAY ==
[2019-03-08 23:53] VITALS: BP 130/79; PULSE 105; RESP 18; TEMP 35.5; O2SAT 92; BMI 33.3
--- NOTE | 2019-03-09 01:35 | CT_ITS ---
STUDY: CT ABDOMEN AND PELVIS WITH CONTRAST REASON FOR EXAM: Female, 53 years old. Abdominal pain RADIATION DOSAGE (If Supplied By Facility): CTDIvol = ( 22.16 ) mGy, DLP = ( 1026.43 ) mGycm TECHNIQUE: Transaxial images were obtained from the dome of the diaphragm to the symphysis pubis without oral contrast. 100ml IV/Oral Isovue 300 was administered. Sagittal and coronal images were reconstructed. Individualized dose optimization techniques were used for this CT. COMPARISON: None. FINDINGS: There calcified granulomas at the LEFT lung base. The visualized portions of the heart are within normal limits. Normal liver. There has been a cholecystectomy. There calcified granulomas in the spleen. There is NO mass. Normal pancreas. Normal bilateral adrenal glands. There is a 1 cm cyst in the upper pole of the RIGHT kidney. There are NO kidney stones. There is NO hydronephrosis. Normal visualized stomach. There is thickening and distortion of the small bowel suggesting enteritis. There is NO obstruction. Normal colon. There is non-visualization of the appendix. Normal abdominal aorta. Normal inferior vena cava. There is minimal ascites. There is NO free air. There is NO abscess. Normal urinary bladder. There has been a hysterectomy. Normal abdominal wall. Normal osseous structures. CT/Abdomen/Pelvis WITH Contrast IMPRESSION: There has been a cholecystectomy. There is a 1 cm cyst in the upper pole of the RIGHT kidney. There are NO kidney stones. There is NO hydronephrosis. There is thickening and distortion of the small bowel suggesting enteritis. There is NO obstruction. There is minimal ascites. There is NO free air. There is NO abscess. Normal urinary bladder. There has been a hysterectomy. Electronically Signed: Ravin Ramsay MD at 4:46 EDT , Service support ,
[2019-03-09 01:53] VITALS: BP 110/65; PULSE 87; RESP 18; O2SAT 92
[2019-03-09 02:10] LABS: Absolute Lymphocyte Count 1.14 X10^3/ul (0.83-4.51); Absolute Neutrophil Count 11.5 X10^3/uL (2.0-7.7); Basophil# 0.02 X10^3/uL; Basophil% 0.1 % (0-1); Eosinophil# 0.05 X10^3/uL; Eosinophils% 0.4 % (0-5); Hematocrit 48.7 % (37-47); Hemoglobin 16.9 g/dl (12.0-15.0); Lymphocyte # 1.14 X10^3/ul (4.0); Lymphocyte % 8.2 % (19-41); Mean Corp Hgb Conc 34.7 g/gl (32-36); Mean Corpuscular Hgb 30.5 pg (27.0-32.0); Mean Corpuscular Volume 87.7 fL (81-99); Mean Platelet Vol. 11.2 fl (6.2-12.0); Monocyte# 1.17 X10^3/uL; Monocyte% 8.4 % (0-10); Neutrophil # 11.49 X10^3/uL (2.7-7.7); Neutrophil % 82.8 % (47-70); Platelet Count 271 K/mm3 (150-450); RBC Distribution Width CV 14.4 % (11.6-14.6); RBC Distribution Width SD 46.7 fl (35.1-43.9); Red Blood Count 5.55 M/mm3 (4.2-5.4); White Blood Count 13.9 K/mm3 (4.4-11.0)
[2019-03-09 02:16] LABS: POSITIVE COUNT NO; POSITIVE DIFFERENTIAL NO; POSITIVE MORPHOLOGY NO
[2019-03-09] MEDS: Morphine 4 MG/ML Syringe IV (02:46)
[2019-03-09] MEDS: Ondansetron 4 MG/2 ML Vial IV (02:47)
[2019-03-09] MEDS: 0.9% Normal Saline 1,000 ML 1000 ML IV (02:47)
[2019-03-09 03:00] VITALS: PULSE 87; RESP 18; O2SAT 92
[2019-03-09 03:43] LABS: ALB/GLOB Ratio 0.9 RATIO (0.9-2.4); AST(SGOT) 13 U/L (15-37); Alanine Aminotransfer ALT/SGPT 23 U/L (13-56); Albumin, Serum 3.7 g/dL (3.2-5.0); Alkaline Phosphatase 96 U/L (45-117); Anion Gap 9 (5-15); BUN 19 mg/dL (7-18); BUN/Creat Ratio 28.6 RATIO (10-20); Calcium,Total 9.7 mg/dL (8.5-10.1); Chloride 102 mmol/L (98-107); Creatinine, Serum 0.66 mg/dL (0.55-1.02); EST Glomerular Filtration Rate 99 mL/min (>60); Est Glom Filt Rate - Afr Amer 120 mL/min (>60); Estimated Creatinine Clearance 117.81 ml/min; Globulin 4.2 g/dL (2.2-4.2); Glucose 137 mg/dL (74-106); Lipase 84 U/L (73-393); Potassium 3.4 mmol/L (3.5-5.1); Protein, Total 7.9 g/dL (6.4-8.2); Sodium Level 138 mmol/L (136-145)
--- NOTE | 2019-03-09 04:58 | ED.DCSUM_ITS ---
- ER Visit Summary Date of Service: 03/09/19 Chief Complaint: Abdominal pain History of Present Illness: The patient is a 53 F who presents with abdominal pain. This is been present for 2 days. She describes it as mid abdominal cramping and twisting. It has become severe today. She reports mild nausea w ithout vomiting. She had a one episode of small amount of watery diarrhea today. No fevers chest pain shortness of breath. She has had prior cholecystectomy and . Physical Examination: Initial heart rate 105 vitals otherwise unremarkable No distress Moist mucous membranes Heart regular rhythm slightly tachycardic Lungs clear Abdomen soft nondistended she does have some diffuse abdominal tenderness without guarding without rebound Alert Test Results: Labs notable for white blood cell count 13.9. Total bilirubin 2.5 remainder of the LFTs and lipase normal. CT the abdomen shows prior cholecystectomy, right renal cyst there is some thickening of the small bowel most consistent with enteritis. Emergency Department Course and Treatment: Patient was treated here with IV fluids morphine and Zofran. Work-up as above. On reevaluation patient does feel better and is resting comfortably. We discussed hospital observation versus close outpatient follow-up. The patient feels better and would prefer to go home. However I did stress the importance of returning for any new or worsening symptoms including but not limited to fevers or vomiting. I advised she follow-up closely as an outpatient. Patient discharged home in improved condition. Treatment Plan: [] Disposition: Discharge Impression: Enteritis This note was generated with [employer] dictation software. It may contain incorrect words, spelling, and punctuation that were not noted in review of the chart prior to signing ED Disposition - Plan for ED Patient: Referrals: Reynaldo Gregg MD [Primary Care Provider] -
--- NOTE | 2019-03-09 05:02 | ED.DEP ---
ED Disposition - Plan for ED Patient: Instructions: ED Gastroenteritis Non Infec Referrals: Reynaldo Gregg MD [Primary Care Provider] -
[2019-03-09 05:11] VITALS: BP 117/69; PULSE 80; RESP 17; RESP 18; O2SAT 94
[2019-03-09] MEDS: Dicyclomine 10 MG Capsule 20 MG PO (05:12)
== END 2019-03-09 05:13 | disposition home or self-care (01) ==
PROVIDERS: Emergency Provider Emergency Medicine; Family Provider Family Medicine; PCP Family Medicine
DX: K52.9 Noninfective gastroenteritis and colitis, unspecified (principal); I10 Essential (primary) hypertension; Z72.0 Tobacco use; Z79.899 Other long term (current) drug therapy
CPT/HCPCS: 74177; 80053; 83690; 85025; 96374; 96375; 99285; J7030; Q9967; A4216; J2405

== ENCOUNTER → 2019-07-28 | Outpatient (CLI) | payer OTHER, SELFPAY ==
[2019-07-28 12:28] LABS: Absolute Neutrophil Count 3.8 X10^3/uL (2.0-7.7); Basophil# 0.07 X10^3/uL; Basophil% 1.1 % (0-1); Eosinophil# 0.22 X10^3/uL; Eosinophils% 3.3 % (0-5); Hematocrit 48.9 % (37-47); Hemoglobin 15.8 g/dL (12.0-15.0); Lymphocyte % 30.1 % (19-41); Mean Corp Hgb Conc 32.3 g/dL (32-36); Mean Corpuscular Hgb 30.7 pg (27.0-32.0); Mean Platelet Vol. 11.4 fl (6.2-12.0); Monocyte# 0.57 X10^3/uL; Monocyte% 8.6 % (0-10); NRBC Flagged by Analyzer 0 % (0-5); Neutrophil # 3.76 X10^3/uL (2.7-7.7); Neutrophil % 56.4 % (47-70); Platelet Count 271 K/mm3 (150-450); RBC Distribution Width CV 13.5 % (11.6-14.6); RBC Distribution Width SD 47.3 fl (35.1-43.9); Red Blood Count 5.15 M/mm3 (4.2-5.4); White Blood Count 6.7 K/mm3 (4.4-11.0)
[2019-07-28 13:03] LABS: Hemoglobin A1c 6.4 % (4.2-6.3)
[2019-07-28 13:25] LABS: ALB/GLOB Ratio 0.9 RATIO (0.9-2.4); AST(SGOT) 19 U/L (15-37); Alanine Aminotransfer ALT/SGPT 40 U/L (13-56); Albumin, Serum 3.7 g/dL (3.2-5.0); Alkaline Phosphatase 104 U/L (45-117); Anion Gap 5 (5-15); BUN 11 mg/dL (7-18); BUN/Creat Ratio 15.2 RATIO (10-20); Calcium,Total 9.7 mg/dL (8.5-10.1); Chloride 102 mmol/L (98-107); Cholesterol 152 mg/dL (200); Creatinine, Serum 0.72 mg/dL (0.55-1.02); EST Glomerular Filtration Rate 90 mL/min (>60); Est Glom Filt Rate - Afr Amer 108 mL/min (>60); Glucose 127 mg/dL (74-106); High Density Lipoprotein 32 mg/dL; Potassium 3.5 mmol/L (3.5-5.1); Protein, Total 7.7 g/dL (6.4-8.2); Sodium Level 138 mmol/L (136-145); Thyroid Stim Hormone (TSH) 1.71 uIU/mL (0.358-3.74); Triglycerides 501 mg/dL
== END | disposition home or self-care (01) ==
LOC: BFHLAB 08:10
PROVIDERS: Family Provider Family Medicine; PCP Family Medicine; Visit Provider Family Medicine
DX: R73.01 Impaired fasting glucose (principal); E78.5 Hyperlipidemia, unspecified; I10 Essential (primary) hypertension
CPT/HCPCS: 36415; 80053; 80061; 83036; 84443; 85025

== ENCOUNTER → 2019-08-02 | Outpatient (CLI) | payer OTHER, SELFPAY ==
--- NOTE | 2019-08-02 08:49 | BI_ITS ---
MAMMOGRAPHY - BILATERAL SCREENING 3-D TOMOSYNTHESIS REASON FOR EXAM: Female, 53 years old. Screening PERTINENT HISTORY: No significant family history. BILATERAL DIGITAL MAMMOGRAM WITH TOMOSYNTHESIS: Mediolateraloblique and craniocaudal views demonstrate no evidence of dominant parenchymal masses. No cluster of microcalcifications or architectural distortion is seen. No evidence of skin thickening is identified There has been no significant change since 02/02/2015 . Breast Density: The breast tissue is heterogeneously dense, which may obscure small masses. CAD was used to assist in final assessment. IMPRESSION: NORMAL MAMMOGRAM BILATERALLY. FINAL ASSESSMENT: BIRAD 1 (NEGATIVE) YEARLY MAMMOGRAM RECOMMENDED Approximately 10% of breast cancers are not detected by mammography. A normal mammogram should not delay biopsy of a clinically suspicious abnormality. Electronically Signed: Melvin Ruiz, at 9:15 EDT Tel , Service support , BI/SCREEN MAMM (CAD) W/JOSELIN VALDEZ
== END | disposition home or self-care (01) ==
LOC: OPBI 08:48
PROVIDERS: Family Provider Family Medicine; PCP Family Medicine; Referring Provider Family Medicine; Visit Provider Family Medicine
DX: Z12.31 Encounter for screening mammogram for malignant neoplasm of breast (principal)
CPT/HCPCS: 77063; 77067

== ENCOUNTER → 2019-11-05 09:21 | Outpatient (CLI) | payer OTHER, SELFPAY ==
[2019-11-05 12:33] LABS: Cholesterol 179 mg/dL (200); High Density Lipoprotein 35 mg/dL; Triglycerides 408 mg/dL
[2019-11-06 08:10] LABS: LDL, Direct 120295 83 mg/dL (0-99)
== END ==
LOC: LAB.FUTURE 09:22 → BFHLAB 09:23
PROVIDERS: Family Provider Family Medicine; PCP Family Medicine; Visit Provider Family Medicine
DX: E78.5 Hyperlipidemia, unspecified (principal)
CPT/HCPCS: 36415; 80061; 83721

== ENCOUNTER 2019-11-19 16:28 | Emergency (ER) | payer OTHER, SELFPAY ==
[2019-11-19 16:32] VITALS: BP 140/81; PULSE 72; RESP 18; TEMP 36.3; O2SAT 94; BMI 35.6
--- NOTE | 2019-11-19 17:17 | CT_ITS ---
STUDY: CT CERVICAL SPINE WITHOUT CONTRAST REASON FOR EXAM: Female, 53 years old. Trauma RADIATION DOSAGE (If Supplied By Facility): CTDIvol = ( 26.96 ) mGy, DLP = ( 607.65 ) mGycm TECHNIQUE: High resolution transaxial imaging was performed without contrast material. Sagittal and coronal images were reconstructed. Individualized dose optimization techniques were used for this CT. COMPARISON: 01/28/2014 FINDINGS: There is no evidence of fracture or dislocation in the cervical spine. The dens is intact. Alignment is normal. The vertebral body heights are well-maintained. There are stable mild degenerative changes. The visualized paraspinal soft tissues are within normal limits. CT/Spine Cervical without Contras IMPRESSION: No fracture or dislocation in the cervical spine. Stable mild degenerative changes. Electronically Signed: Azeem Ann, at 18:33 EST Tel , Service support ,
--- NOTE | 2019-11-19 17:17 | RAD_ITS ---
STUDY: X-RAY - RIGHT SHOULDER REASON FOR EXAM: Female, 53 years old. Trauma TECHNIQUE: 2 view(s) of the shoulder. COMPARISON: None. FINDINGS: There is no evidence of fracture or dislocation. There are mild degenerative changes in the glenohumeral joint and acromioclavicular joint. There are no radiodense foreign bodies. RAD/Shoulder min 2 Views IMPRESSION: No fracture or dislocation in the right shoulder. Mild degenerative change. Electronically Signed: Azeem Ann, at 18:41 EST Tel , Service support ,
--- NOTE | 2019-11-19 17:17 | CT_ITS ---
STUDY: CT BRAIN WITHOUT CONTRAST REASON FOR EXAM: Female, 53 years old. Trauma RADIATION DOSAGE (If Supplied By Facility): CTDIvol = ( 44.99 ) mGy, DLP = ( 779.24 ) mGycm TECHNIQUE: Transaxial CT imaging of the brain was performed without administration of intravenous contrast material. Individualized dose optimization techniques were used for this CT. COMPARISON: 11/24/2015. FINDINGS: There is no acute bleed or infarct. There are normal white matter tracts. The ventricles are normal in configuration. There is no hydrocephalus. The visualized paranasal sinuses are clear. The mastoid air cells are well aerated. There is no skull fracture. CT/Brain/Head without Contrast IMPRESSION: No acute intracranial abnormality. Electronically Signed: Azeem Ann, at 18:25 EST Tel , Service support ,
--- NOTE | 2019-11-19 17:17 | RAD_ITS ---
STUDY: X-RAY - UNILATERAL RIBS ( RIGHT ) WITH CHEST REASON FOR EXAM: Female, 53 years old. Trauma. Pain. TECHNIQUE - RIBS: 4 view(s) of the ribs. TECHNIQUE - CHEST: Frontal view COMPARISON: 07/02/2018 FINDINGS - RIBS: There are no displaced rib fractures identified. FINDINGS - CHEST: The lungs are clear. There are no pleural effusions. There is no pneumothorax. The heart is normal in size. RAD/Ribs Uni Min 3V w/PA Chest IMPRESSION: RIBS: No displaced rib fracture identified. CHEST: Clear lungs. Electronically Signed: Azeem Ann, at 18:40 EST Tel , Service support ,
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
[2019-11-19] MEDS: Morphine 4 MG/ML Syringe SC (17:36)
[2019-11-19 17:42] VITALS: O2SAT 97
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
[2019-11-19 19:21] VITALS: BP 144/67; PULSE 82; RESP 15; O2SAT 98
== END 2019-11-19 19:22 | disposition home or self-care (01) ==
PROVIDERS: Emergency Provider Emergency Medicine; PCP Family Medicine
DX: S16.1XXA Strain of muscle, fascia and tendon at neck level, initial encounter (principal); M79.18 Myalgia, other site; I10 Essential (primary) hypertension; Z86.73 Personal history of transient ischemic attack (TIA), and cerebral infarction without residual deficits; Z72.0 Tobacco use; V43.52XA Car driver injured in collision with other type car in traffic accident, initial encounter; Y93.I9 Activity, other involving external motion; Y92.410 Unspecified street and highway as the place of occurrence of the external cause; Y99.8 Other external cause status
CPT/HCPCS: 70450; 71101; 72125; 73030; 73564; 96372; 99282

== ENCOUNTER → 2020-03-03 | Outpatient (CLI) | payer OTHER, SELFPAY ==
--- NOTE | 2020-03-03 08:53 | CDU_ITS ---
Version 2 Reason For Study: Carotid stenosis Rt. Velocities/BP Lt. Velocities/BP Prox CCA 60.4/21.3 cm/sec. Prox CCA 84.9/31.1 cm/sec. Mid CCA 65.2/25.6 cm/sec. Mid CCA 75/30 cm/sec. Dist CCA 61.9/23.4 cm/sec. Dist CCA 75/32.2 cm/sec. Prox ICA 99.2/22.5 cm/sec. Prox ICA 94.9/32.3 cm/sec. Mid ICA 275.5/95.2 cm/sec. Mid ICA 87.6/31.1 cm/sec. Dist ICA 86.3/38.4 cm/sec. Dist ICA 91.2/34.8 cm/sec. Rt. ICA/CCA = 4.45. Lt. ICA/CCA = 1.27. Prox ECA 90.4/20.1 cm/sec. Prox ECA 135.7/35.3 cm/sec. Rt. Vert. 18.2 cm/sec. Lt. Vert. 48.3/15.1 cm/sec. Right Extracranial There is homogeneous, smooth atherosclerotic plaque noted in the right common carotid artery. There is heterogeneous, irregular atherosclerotic plaque noted in the right internal carotid artery. There is intimal thickening but no significant atherosclerotic plaque noted in the right external carotid artery. Antegrade flow is noted in the right vertebral artery. Left Extracranial There is homogeneous, smooth atherosclerotic plaque noted in the left common carotid artery. There is heterogeneous, irregular atherosclerotic plaque noted in the left internal carotid artery. There is intimal thickening but no significant atherosclerotic plaque noted in the left external carotid artery. Antegrade flow is noted in the left vertebral artery. Procedure Carotid Duplex 47733. Prelim to Erica. Exam performed in department. Interpretation Summary Severe (>70%) stenosis right extracranial internal carotid. Mild (<50%) stenosis left extracranial internal carotid. Flow within the vertebral arteries is antegrade bilaterally. Ordering Physician: Wilbur Maldonado Referring Physician: Reynaldo Gregg Performed By: Lisa Tuttle RVT
--- NOTE | 2020-03-03 08:54 | ART_ITS ---
Reason For Study: Subclavian stenosis Procedure A bilateral upper extremity continuous wave Doppler with analog waveform analysis and segmental pressures. Left Segmental Pressures Left brachial= 137mmHg. Left ulnar= 142mmHg. Left radial= 144mmHg. Left digit = 128 mmHg. The left radial waveforms are triphasic. The left ulnar waveforms are triphasic. Right Segmental Pressures Right brachial= 129mmHg. Right ulnar= 139mmHg. Right radial= 143mmHg. Right digit = 135 mmHg. The right radial waveforms are triphasic. The right ulnar waveforms are triphasic. Indices Right wrist brachial index by the radial artery is 1.04. Right wrist brachial index by the ulnar artery is 1.01. Right finger brachial index is 0.99. Left wrist brachial index by the radial artery is 1.05. Left wrist brachial index by the ulnar artery is 1.04. Left finger brachial index is 0.93. Interpretation Summary Bilateral triphasic flow and normal WBI. Ordering Physician: Wilbur Maldonado Referring Physician: Reynaldo Gregg Performed By: Lisa Tuttle RVT
== END | disposition home or self-care (01) ==
PROVIDERS: PCP Family Medicine; Referring Provider Surgery Vascular Surgery; Visit Provider Surgery Vascular Surgery
DX: I65.23 Occlusion and stenosis of bilateral carotid arteries (principal); I77.1 Stricture of artery; Z96.89 Presence of other specified functional implants; Z72.0 Tobacco use
CPT/HCPCS: 93880; 93922; 93931

== ENCOUNTER → 2020-04-01 | Outpatient (CLI) | payer OTHER, SELFPAY ==
--- NOTE | 2020-04-01 14:35 | CT_ITS ---
STUDY: CTA NECK WITH CONTRAST REASON FOR EXAM: Female, 54 years old. CAROTID STENOSIS RADIATION DOSAGE (If Supplied By Facility): CTDIvol = ( 14.45 ) mGy, DLP = ( 437.86 ) mGycm TECHNIQUE: CT angiography with multi-detector data acquisition was performed from the aortic arch to the skull base following intravenous administration of 100 CC ISOVUE 370. MIP images were reconstructed from the axial data set. Post-processing of the angiographic images was performed, with multiplanar reformation and 3D reconstruction. Individualized dose optimization techniques were used for this CT. COMPARISON: Comparison is made with prior study dated May 24, 2016. FINDINGS: There is evidence of a left-sided superior vena cava. Diffusely enlarged thyroid with heterogeneous appearance. AORTIC ARCH: There is mild atherosclerotic calcific plaque formation of the aortic arch and great vessels arising from the aortic arch, without a hemodynamically significant stenosis. There is a normal origin of the brachiocephalic, left common carotid, and left subclavian arteries. A covered stent is seen in the proximal portion of the right brachiocephalic artery. Once again, there is evidence of noncalcified plaque formation within the stent. RIGHT CAROTID ARTERIES: Normal right common carotid artery (CCA). Normal right common carotid bulb. There is extensive atherosclerotic plaque formation of the origin of the right internal carotid artery with an estimated stenosis of greater than 70%. Normal visualized cervical portion of the right internal carotid artery. Normal origin of the right external carotid artery (ECA). LEFT CAROTID ARTERIES: Normal left common carotid artery (CCA). Normal left common carotid bulb. There is mild atherosclerotic plaque formation of the origin of the left internal carotid artery with less than 50% cross sectional diameter stenosis. Normal visualized cervical portion of the left internal carotid artery. Normal origin of the left external carotid artery (ECA). VERTEBRAL ARTERIES: There is enhancement within the bilateral vertebral arteries with a small left vertebral artery, and a dominant right vertebral artery. CT/CTA Neck W/WO Contrast IMPRESSION: Greater than 70% narrowing at the origin of the right internal carotid arteries due to calcific plaque. Electronically Signed: Jagjit Garcia, at 15:54 EDT , Service support ,
== END | disposition home or self-care (01) ==
LOC: CT 14:34
PROVIDERS: PCP Family Medicine; Referring Provider Surgery Vascular Surgery; Visit Provider Surgery Vascular Surgery
DX: I65.23 Occlusion and stenosis of bilateral carotid arteries (principal)
CPT/HCPCS: 70498; Q9967

== ENCOUNTER → 2020-05-27 | Outpatient (CLI) | payer OTHER, SELFPAY ==
[2020-05-05 16:15] VITALS: BMI 35.7
--- NOTE | 2020-05-27 12:48 | ECHOCS_ITS ---
Reason For Study: CAD/ASHD Procedure This was a 2D Doppler, Color Flow transthoracic echocardiogram. Contrast injection was performed. Exam performed in department. Left Ventricle Normal LV size. Left ventricular systolic function is normal. The estimated ejection fraction is 65 %. Stage 1 diastolic dysfunction. No regional wall motion abnormalities noted. Right Ventricle Normal RV size. Normal systolic function. Atria Normal left atrium. Normal right atrium. Mitral Valve Normal mitral valve. Tricuspid Valve The tricuspid valve is not well visualized. Aortic Valve Trisinus/trileaflet aortic valve. Pulmonic Valve Normal pulmonic valve. Great Vessels Normal aortic root. The pulmonary artery is normal size. Normal inferior vena cava. Pericardium/Pleural No pericardial effusion. Medication Diluted definity 3ml given slow IV push to enhance endocardial definition. MMode/2D Measurements & Calculations LVIDd: 4.3 cm IVSd: 0.95 cm Ao root diam: 2.5 cm LVIDs: 2.7 cm LVPWd: 1.2 cm RVDd: 2.9 cm FS: 37.5 % LAV(MOD-bp): 16.5 ml LA A4 area: 11.6 cm2 LA dimension(2D): 3.1 cm LAV(MOD-bp) Indexed: 9.5 ml/m2 LAV(MOD-sp2): 11.9 ml LAV(MOD-sp4): 23.0 ml RA A4 area: 6.2 cm2 Doppler Measurements & Calculations MV E max robert: 88.4 cm/sec Lat Peak E' Robert: 9.0 cm/sec Med Peak E' Robert: 6.3 cm/sec MV A max robert: 107.3 cm/sec E/E' lat: 9.8 E/E' med: 14.1 MV E/A: 0.82 Ao V2 max: 174.3 cm/sec LV V1 max: 120.0 cm/sec PA V2 max: 96.4 cm/sec Ao max P.1 mmHg LV V1 max P.8 mmHg Ao V2 mean: 120.8 cm/sec Ao mean P.4 mmHg Ao V2 VTI: 28.1 cm Interpretation Summary Normal LV size. Left ventricular systolic function is normal. The estimated ejection fraction is 65 %. Stage 1 diastolic dysfunction. Contrast injection was performed. Ordering Physician: Marty Alcocer Referring Physician: Reynaldo Gregg Performed By: Cristy Rodríguez, CARYN, RVT
--- NOTE | 2020-05-27 16:58 | STRESSREP ---
Stress Test Report Exercise stress test. Preop evaluation. Medications: Metoprolol, Norvasc, Ecotrin, lovastatin. Stress protocol: Resting EKG demonstrates normal sinus rhythm with a rate of 88 bpm. Normal intervals are noted resting blood pressure is 124/80 mmHg. The patient exercised according to regular Joe protocol for total duration of 4 minutes and 30 seconds. The maximum heart rate attained 144 bpm which was 86% of maximum predicted heart rate the maximum workload was 6.4 metabolic equivalents. At rest there were no ST or T wave changes noted suggest ischemia at peak exercise there was approximately 1.[address] depression noted in lead II and III. The above that was suggestive but not diagnostic of ischemia there was rapid reversal to upward sloping. The resting blood pressure 124/80 with a peak blood pressure 148/74 mmHg. The test was terminated due to dyspnea and leg fatigue. Conclusion: Exercise stress test with nonspecific ST-T wave changes noted not suggestive of ischemia at a moderate workload of 6.4 metabolic equivalents.
== END | disposition home or self-care (01) ==
PROVIDERS: PCP Family Medicine; Referring Provider Internal Medicine Cardiovascular Disease; Visit Provider Internal Medicine Cardiovascular Disease
DX: Z01.810 Encounter for preprocedural cardiovascular examination (principal); R06.00 Dyspnea, unspecified; E78.5 Hyperlipidemia, unspecified; F17.200 Nicotine dependence, unspecified, uncomplicated; I65.21 Occlusion and stenosis of right carotid artery; I77.1 Stricture of artery; I10 Essential (primary) hypertension
CPT/HCPCS: 93017; 93306; Q9957; A4216; C8929

== ENCOUNTER → 2020-12-01 08:52 | Outpatient (CLI) | payer OTHER, SELFPAY ==
[2020-05-05 16:15] VITALS: BMI 35.7
[2020-12-01 12:11] LABS: Absolute Lymphocyte Count 1.23 X10^3/uL (0.83-4.51); Absolute Neutrophil Count 5.3 X10^3/uL (2.0-7.7); Basophil# 0.09 X10^3/uL; Basophil% 1.2 % (0-1); Eosinophil# 0.16 X10^3/uL; Eosinophils% 2.2 % (0-5); Hematocrit 47.1 % (37-47); Hemoglobin 15.8 g/dL (12.0-15.0); Lymphocyte # 1.23 X10^3/ul (4.0); Lymphocyte % 16.7 % (19-41); Mean Corp Hgb Conc 33.5 g/dL (32-36); Mean Corpuscular Hgb 31.5 pg (27.0-32.0); Mean Corpuscular Volume 93.8 fL (81-99); Mean Platelet Vol. 11.5 fl (6.2-12.0); Monocyte# 0.58 X10^3/uL; Monocyte% 7.9 % (0-10); NRBC Flagged by Analyzer 0 % (0-5); Neutrophil # 5.28 X10^3/uL (2.7-7.7); Neutrophil % 71.6 % (47-70); Platelet Count 243 K/mm3 (150-450); RBC Distribution Width CV 13.8 % (11.6-14.6); RBC Distribution Width SD 47.1 fl (35.1-43.9); Red Blood Count 5.02 M/mm3 (4.2-5.4); White Blood Count 7.4 K/mm3 (4.4-11.0)
[2020-12-01 12:42] LABS: ALB/GLOB Ratio 0.9 RATIO (0.9-2.4); AST(SGOT) 58 U/L (15-37); Alanine Aminotransfer ALT/SGPT 61 U/L (13-56); Albumin, Serum 3.7 g/dL (3.2-5.0); Alkaline Phosphatase 86 U/L (45-117); Anion Gap 4 (5-15); BUN 17 mg/dL (7-18); BUN/Creat Ratio 23.8 RATIO (10-20); Calcium,Total 9.6 mg/dL (8.5-10.1); Chloride 103 mmol/L (98-107); Cholesterol 196 mg/dL (200); Creatinine, Serum 0.71 mg/dL (0.55-1.02); EST Glomerular Filtration Rate 91 mL/min (>60); Est Glom Filt Rate - Afr Amer 110 mL/min (>60); Globulin 4.3 g/dL (2.2-4.2); Glucose 142 mg/dL (74-106); High Density Lipoprotein 29 mg/dL; Potassium 3.2 mmol/L (3.5-5.1); Sodium Level 136 mmol/L (136-145); Triglycerides 727 mg/dL
== END ==
PROVIDERS: PCP Family Medicine; Referring Provider Family Medicine; Visit Provider Family Medicine
DX: E11.9 Type 2 diabetes mellitus without complications (principal); E78.5 Hyperlipidemia, unspecified; I10 Essential (primary) hypertension; D72.829 Elevated white blood cell count, unspecified
CPT/HCPCS: 36415; 80053; 80061; 85025

== ENCOUNTER 2020-12-19 11:38 | Emergency (ER) | payer OTHER, SELFPAY ==
[2020-05-05 16:15] VITALS: BMI 35.7
[2020-12-19] VITALS (10 sets, daily range): BP systolic 121–160; BP diastolic 65–111; PULSE 90–109; RESP 16–94; TEMP 36.1–36.9; O2SAT 2–97; BMI 34.1
--- NOTE | 2020-12-19 11:55 | RAD_ITS ---
STUDY: X-RAY CHEST REASON FOR EXAM: Female, 54 years old. cough, food stuck in esophagus per patient TECHNIQUE: Single AP portable view of the chest. COMPARISON: 11/19/2019 FINDINGS: The lungs are clear and expanded. There is no demonstrated pleural abnormality. Normal size heart. Normal mediastinum and josy. Normal visualized pulmonary arteries. Normal visualized aortic arch and descending thoracic aorta. Normal visualized thoracic spine. Normal visualized ribs, clavicles, and shoulders. There is no demonstrated abnormality of the visualized soft tissue structures of the upper abdomen. RAD/Chest 1 View (Portable) IMPRESSION: Normal x-ray examination of the chest. Electronically Signed: Lexx Garcia MD at 12:52 EST Tel , Service support ,
--- NOTE | 2020-12-19 12:04 | ED.DCSUM_ITS ---
- ER Visit Summary Date of Service: 12/19/20 Chief Complaint: Esophageal food impaction History of Present Illness: The patient is a 54 F who presents with an esophageal food impaction that began yesterday. Patient states she was eating steak yesterday afternoon and felt something get stuck. Patient states she tried drinking soda and water. Patient states she has been unable to swallow anything since yesterday afternoon. Patient states she has an uncomfortable feeling in her chest. Patient denies any shortness of breath. Patient denies any fevers or chills. Patient denies any prior history of food impaction. Physical Examination: Vital signs are stable. Patient is afebrile. Patient is in no acute distress. Oral mucosa is pink and moist. Oropharynx is clear. Airway is patent. Neck is supple. Trachea is midline. There is no JVD noted. Heart was regular rate and rhythm. Lungs are clear and equal bilaterally. Abdomen is soft. Bowel sounds are normal. There is no tenderness. There is no rebound or guarding noted. Skin is warm dry. Cranial nerves II through XII are intact. There are no focal motor or sensory deficits noted. Extremities are intact. There is no calf tenderness or edema. Test Results: Portable 1 view chest x-ray was obtained. On my interpretation, lung goodwin are clear. There is normal cardiac silhouette. Bony thorax is normal. There is no acute process noted. Radiologist also interpreted the x- ray and agrees. Emergency Department Course and Treatment: Patient was given a dose of IV glucagon here. Patient had no improvement of her symptoms. Case was discussed with Dr. Cunningham. She will be in to perform endoscopy. Endoscopy was performed. Patient was given a total of 100 mg of propofol. Patient had a questionable hypoxic episode. Patient's oxygen saturation did drop however, the pulse oximeter was on the same hand as her blood pressure cuff. Patient's pulse oximeter improved after the low pressure cuff deflated. The food bolus was pushed into the stomach. Patient tolerated procedure well. Patient was awake and alert. Patient was given a dose of Pepcid here. Patient will be given a prescription for Pepcid. Patient was instructed to follow-up with her primary care physician in 5 to 7 days. Patient was instructed to return if worse in any way. Patient understood and was agreeable with the plan. All questions were answered. Disposition: Discharge home Impression: 1. Esophageal food impaction This note was generated with Dinn[employer] dictation software. It may contain incorrect words, spelling, and punctuation that were not noted in review of the chart prior to signing ED Disposition - Plan for ED Patient: Disposition: Home or Assisted Living Diagnosis: Esophageal obstruction due to food impaction Instructions: ED Esophageal Foreign Body, Resolved Prescriptions: Famotidine [Pepcid] 20 mg PO BID #28 tab Prescription Printed Referrals: Reynaldo Gregg MD [Primary Care Provider] - 5-7 Days
[2020-12-19] MEDS: Glucagon 1 MG/ML Syringe IV (12:15)
--- NOTE | 2020-12-19 13:20 | CON.PCM_ITS ---
Reason for Consult Date of Consultation: 12/19/20 History of Present Illness: The patient is a 54 year old F to the ER due to steak impaction in her esophagus. Was eating steak last night while swallowing small piece of the larger piece did go down her esophagus. Patient has been unable to swallow her saliva all night and was trying to get the large piece out but did not work. Patient is never had an EGD in the past. And denies any issues with dysphagia. Past Medical History Past Medical History (Chronic Problems): Chronic Problems (Last Reviewed 05/05/20 @ 16:[address] Marty Alcocer MD) Essential (primary) hypertension (Chronic) Hyperlipemia (Chronic) Carotid stenosis, right (Chronic) Subclavian arterial stenosis (Chronic) right subclavian 8 x 30 mm everflex stent 05/2015 Nicotine dependence (Chronic) Medical History: Medical History (Last Reviewed 05/05/20 @ 16:[address] Marty Alcocer MD) Essential (primary) hypertension (Chronic) I10 Hyperlipemia (Chronic) E78.5 Carotid stenosis, right (Chronic) I65.21 Subclavian arterial stenosis (Chronic) I77.1 right subclavian 8 x 30 mm everflex stent 05/2015 Nicotine dependence (Chronic) F17.200 COPD (chronic obstructive pulmonary disease) J44.9 Family history of colon cancer in father Z80.0 TIA (transient ischemic attack) G45.9 Allergies Penicillins Allergy (Unknown, Verified 12/19/20 11:39) Hives tramadol Allergy (Verified 12/19/20 11:39) Swelling Home Medications: Ambulatory Orders Medication Instructions Recorded Amlodipine [Norvasc] 5 mg PO DAILY 11/24/15 Metoprolol Tartrate [Lopressor 50 mg PO DAILY 11/24/15 (beta noé)] Tizanidine HCl 4 mg PO DAILY 11/24/15 Triamterene 37.5MG/Hctz 25MG 1 cap PO DAILY 11/24/15 [Dyazide (G)] Acetaminophen [Tylenol Arthritis] 1,300 mg PO PRN PRN 07/02/18 Aspirin E.C. [Ecotrin] 81 mg PO DAILY@0800 07/02/18 Multivit/Folic Acid/Vit K1 1 ea PO DAILY 07/02/18 [One-A-Day Women's 50 Plus Tab] Albuterol Sulfate [Ventolin Hfa] 2 puff IH Q4H PRN PRN #1 hfa.aer.ad 07/05/18 cycloBENZAPRine HCl [Flexeril] 10 mg PO TID PRN PRN #10 tab 11/19/19 budesonide-formoterol HFA 80 2 puff INHALATION BID inhaler 05/05/20 mcg-4.5 mcg/actuation aerosol inhaler celecoxib 200 mg capsule 200 mg PO DAILY 05/05/20 lovastatin 40 mg tablet 40 mg PO QHS tab 05/05/20 Surgical History: Surgical History (Last Reviewed 05/05/20 @ 16:[address] 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 Denies: Fever Eyes: Denies: Blurred vision HEENT: Reports: Dysphasia Cardiovascular: Reports: Chest Tightness Respiratory: Denies: Cough Gastrointestinal: Denies: Abdominal Pain Genitourinary: Denies: Dysuria Psychiatric: Denies: Depression Hematologic/ Lymphatic: Denies: Easy Bruising, Easy Bleeding Patient Problems: Active and Suspected Problems (Last Reviewed 05/05/20 @ 16:[address] Marty Alcocer MD) Esophageal obstruction due to food impaction (Acute) - Physical Exam Vitals/I&O's: Vital Signs Temp Pulse Resp BP Pulse Ox 97 F L 109 H 16 147/86 H 93 12/19/20 11:39 12/19/20 11:39 12/19/20 11:39 12/19/20 11:39 12/19/20 11:39 Oxygen Delivery Method Room Air Weight: 169 lb Body Mass Index (BMI) 34.1 General: Alert, Oriented x3, Cooperative, No apparent distress HEENT: Atraumatic Neck: Supple Lungs: Normal air movement Cardiovascular: Regular rate Abdomen: Soft, Non Tender, Non-Distended Extremities: No clubbing, No cyanosis, No edema Neurological: Cranial nerves II-XII grossly intact Assessment/Plan All Active Problems (Last Reviewed 05/05/20 @ 16:[address] Marty Alcocer MD) Esophageal obstruction due to food impaction (Acute) Preop cardiovascular exam (Acute) 54-year-old female with food impaction I have discussed the above with the patient. I have offered the patient EGD with possible removal of foreign body for evaluation. I have explained the risks/benefits of the procedure and described the procedure. I have discussed the risks with the patient, including but not limited to: infection, bleeding, perforation of the GI tract requiring emergency surgery, inability to complete the procedure, injury to any internal organs, complications of anesthesia, etc. - the patient understands and agrees to proceed. Also discussed patient unable to her move the food may need to be transferred to another hospital with GI. I have answered all the patient's questions to the patient's satisfaction and the patient has no further questions. Stacie Cunningham M.D. Pager: [phone] [facility] [address] [place] [address], [address] [place] [address] Office: [phone] Office Visits / Consults: [phone] OP Consult L3
[2020-12-19] MEDS: Propofol 200 MG/20 ML Vial IV BOLUS (13:34)
[2020-12-19] MEDS: Famotidine 200 MG/20 ML MDV 20 MG in 0.9% Normal Saline (Pres. free 8 ML 300 MG IV (14:32)
== END 2020-12-19 14:40 | disposition home or self-care (01) ==
PROVIDERS: Surgery; Emergency Provider Emergency Medicine; PCP Family Medicine
PROC: 0DJ08ZZ Inspection of Upper Intestinal Tract, Via Natural or Artificial Opening Endoscopic (ICD-10-PCS; CPT 43235; principal; 2020-12-19 14:00)
DX: T18.128A Food in esophagus causing other injury, initial encounter (principal); I10 Essential (primary) hypertension; E78.5 Hyperlipidemia, unspecified; J44.9 Chronic obstructive pulmonary disease, unspecified; F17.200 Nicotine dependence, unspecified, uncomplicated; Z79.51 Long term (current) use of inhaled steroids; Z79.899 Other long term (current) drug therapy
CPT/HCPCS: 43247; 71045; 96374; 96375; 99251; 99285; A4216; G0463; J1610; J3490

== ENCOUNTER → 2020-12-22 09:25 | Outpatient (CLI) | payer OTHER, SELFPAY ==
[2020-05-05 16:15] VITALS: BMI 35.7
[2020-12-19 11:39] VITALS: BMI 34.1
[2020-12-22 12:58] LABS: ALB/GLOB Ratio 0.9 RATIO (0.9-2.4); AST(SGOT) 49 U/L (15-37); Alanine Aminotransfer ALT/SGPT 59 U/L (13-56); Albumin, Serum 3.7 g/dL (3.2-5.0); Alkaline Phosphatase 88 U/L (45-117); Anion Gap 6 (5-15); BUN 16 mg/dL (7-18); BUN/Creat Ratio 20.5 RATIO (10-20); Calcium,Total 9.7 mg/dL (8.5-10.1); Chloride 103 mmol/L (98-107); Cholesterol 154 mg/dL (200); Creatinine, Serum 0.78 mg/dL (0.55-1.02); EST Glomerular Filtration Rate 82 mL/min (>60); Est Glom Filt Rate - Afr Amer 99 mL/min (>60); Globulin 3.9 g/dL (2.2-4.2); Glucose 124 mg/dL (74-106); High Density Lipoprotein 32 mg/dL; Lipase 128 U/L (73-393); Potassium 3.2 mmol/L (3.5-5.1); Protein, Total 7.6 g/dL (6.4-8.2); Sodium Level 138 mmol/L (136-145); Triglycerides 384 mg/dL; Very Low Density Lipoprotein 77 mg/dL (5-40)
[2020-12-23 08:19] LABS: LDL, Direct 120295 76 mg/dL (0-99)
== END ==
PROVIDERS: PCP Family Medicine; Visit Provider Family Medicine
DX: E78.1 Pure hyperglyceridemia (principal); R94.5 Abnormal results of liver function studies
CPT/HCPCS: 36415; 80053; 80061; 83690; 83721

== ENCOUNTER → 2020-12-31 09:40 | Outpatient (CLI) | payer OTHER, SELFPAY ==
[2020-12-19 11:39] VITALS: BMI 34.1
== END ==
PROVIDERS: PCP Family Medicine; Visit Provider Family Medicine
DX: N39.0 Urinary tract infection, site not specified (principal)
CPT/HCPCS: 87086; 87088

== ENCOUNTER → 2021-01-12 12:47 | Outpatient (CLI) | payer OTHER, SELFPAY ==
[2020-12-19 11:39] VITALS: BMI 34.1
--- NOTE | 2021-01-12 12:50 | CDU_ITS ---
Reason For Study: Carotid artery stenosis Rt. Velocities/BP Lt. Velocities/BP Prox CCA 69.5/23.9 cm/sec. Prox CCA 77.3/21.2 cm/sec. Mid CCA 65.6/23.9 cm/sec. Mid CCA 65.1/19 cm/sec. Dist CCA 93/33 cm/sec. Dist CCA 81.6/28.9 cm/sec. Prox ICA 66.3/13.3 cm/sec. Prox ICA 101/27.9 cm/sec. Mid ICA 79.1/26.1 cm/sec. Mid ICA 79.1/27.9 cm/sec. Dist ICA 65.4/28.6 cm/sec. Dist ICA 79.1/29.8 cm/sec. Rt. ICA/CCA = 1.1. Lt. ICA/CCA = 1.3. Prox ECA 122.9/26.1 cm/sec. Prox ECA 124.7/24.3 cm/sec. Rt. Vert. 23.3/8.7 cm/sec. Lt. Vert. 59/17 cm/sec. Right Extracranial There is homogeneous, smooth atherosclerotic plaque noted in the right common carotid artery. There is intimal thickening but no significant atherosclerotic plaque noted in the right internal carotid artery. There is intimal thickening but no significant atherosclerotic plaque noted in the right external carotid artery. Antegrade flow is noted in the right vertebral artery. Left Extracranial There is homogeneous, smooth atherosclerotic plaque noted in the left common carotid artery. There is heterogeneous, irregular atherosclerotic plaque noted in the left internal carotid artery. There is heterogeneous, irregular atherosclerotic plaque noted in the left external carotid artery. Antegrade flow is noted in the left vertebral artery. Procedure Carotid Duplex 89070. This is a Carotid Duplex examination using B-mode, color flow and specral Doppler. Exam performed in department. Interpretation Summary Mild (<50%) stenosis right extracranial internal carotid. Mild (<50%) stenosis left extracranial internal carotid. Flow within the vertebral arteries is antegrade bilaterally. Ordering Physician: Wilbur Maldonado Referring Physician: Reynaldo Gregg Performed By: Lisa Tuttle RVT
== END ==
PROVIDERS: PCP Family Medicine; Referring Provider Surgery Vascular Surgery; Visit Provider Surgery Vascular Surgery
DX: I65.23 Occlusion and stenosis of bilateral carotid arteries (principal); F17.200 Nicotine dependence, unspecified, uncomplicated
CPT/HCPCS: 93880

== ENCOUNTER → 2021-01-24 09:13 | Outpatient (CLI) | payer OTHER, SELFPAY ==
[2020-12-19 11:39] VITALS: BMI 34.1
[2021-01-24 10:30] LABS: Anion Gap 2 (5-15); BUN 21 mg/dL (7-18); BUN/Creat Ratio 27.2 RATIO (10-20); Calcium,Total 9.6 mg/dL (8.5-10.1); Chloride 101 mmol/L (98-107); Creatinine, Serum 0.77 mg/dL (0.55-1.02); EST Glomerular Filtration Rate 83 mL/min (>60); Est Glom Filt Rate - Afr Amer 100 mL/min (>60); Glucose 160 mg/dL (74-106); Potassium 3.4 mmol/L (3.5-5.1); Sodium Level 137 mmol/L (136-145)
== END ==
PROVIDERS: PCP Family Medicine; Referring Provider Family Medicine; Visit Provider Family Medicine
DX: E87.6 Hypokalemia (principal)
CPT/HCPCS: 36415; 80048

== ENCOUNTER → 2021-06-27 14:21 | Outpatient (CLI) | payer OTHER, SELFPAY ==
--- NOTE | 2021-06-27 14:24 | CT_ITS ---
STUDY: CT CHEST WITHOUT CONTRAST- LOW DOSE SCREENING PROTOCOL REASON FOR EXAM: Female, 55 years old. Current smoker. 35 pack per year history. No current symptoms of lung cancer or pulmonary infection. Shared decision-making with referring PCP documented in patient''s record. RADIATION DOSAGE (If Supplied By Facility): CTDIvol = ( 2.39 ) mGy, DLP = ( 69.68 ) mGycm TECHNIQUE: Low dose screening CT examination performed from the base of the neck to the upper abdomen. Sagittal and coronal reformatted images performed. Sagittal and coronal MIP images provided. The measurements provided are average, rounded measurements per ACR guidelines. COMPARISON: None. FINDINGS: Mild bilateral apical scarring. There is no demonstrated pleural abnormality. Normal heart and pericardium. There are calcifications of the coronary arteries. Normal mediastinum. Normal hilar regions. Normal unenhanced pulmonary arteries. Normal aorta arch and descending thoracic aorta. Mild pectus excavatum deformity of the chest wall. There is no demonstrated abnormality of the visualized upper abdomen. CT/Low Dose CT Lung Screening IMPRESSION: 1. No significant indeterminate incidental findings requiring additional imaging. 2. Incidental findings include mild bilateral apical scarring.. ASSESSMENT CATEGORY: LungRADS 1 - Negative. Continue annual screening with LDCT in 12 months, per established ACR guidelines. Electronically Signed: Lexx Garcia MD at 16:48 EDT Tel , Service support ,
== END ==
PROVIDERS: PCP Family Medicine; Referring Provider Family Medicine; Visit Provider Family Medicine
DX: Z72.0 Tobacco use (principal); Z12.2 Encounter for screening for malignant neoplasm of respiratory organs
CPT/HCPCS: 71271

== ENCOUNTER → 2021-07-08 15:25 | Outpatient (CLI) | payer OTHER, SELFPAY ==
--- NOTE | 2021-07-08 15:26 | BI_ITS ---
MAMMOGRAPHY - BILATERAL SCREENING REASON FOR EXAM: Female, 55 years old. Routine annual screening examination. PERTINENT HISTORY: Non-contributory. TECHNIQUE: Digital bilateral breast joselin (3D mammographic acquisition) in the CC and MLO projections. 2-D mediolateral oblique (MLO) and craniocaudad (CC) views of both breasts were obtained. CAD: Full Field Digital Mammography with Computer Added Detection was performed. COMPARISON: Comparison is made with prior study dated 08/02/2019 and 02/02/2015. FINDINGS: Breast Composition: There are scattered areas of fibroglandular density. There are no dominant masses or suspicious calcifications. No other significant abnormalities are identified. There has been no significant change since the prior study. BI/SCRN MAMM (CAD)W/JOSELIN BILAT IMPRESSION: Stable bilateral screening mammogram. Yearly follow-up mammogram recommended. (A) ASSESSMENT CATEGORY: BIRADS Category 2: Benign. A letter regarding these results will be sent to the patient by the facility within 30 days. Approximately 10% of breast cancers are not detected by mammography. A normal mammogram should not delay biopsy of a clinically suspicious abnormality. [id number] Electronically Signed: Jagjit Garcia MD at 8:59 EDT , Service support ,
== END ==
PROVIDERS: PCP Family Medicine; Visit Provider Family Medicine
DX: Z12.31 Encounter for screening mammogram for malignant neoplasm of breast (principal)
CPT/HCPCS: 77063; 77067

== ENCOUNTER → 2021-07-29 16:24 | Outpatient (CLI) | payer OTHER, SELFPAY ==
[2021-07-29 17:45] LABS: Absolute Neutrophil Count 4.5 X10^3/uL (2.0-7.7); Basophil# 0.06 X10^3/uL; Basophil% 0.8 % (0-1); Eosinophil# 0.15 X10^3/uL; Hematocrit 49.9 % (37-47); Hemoglobin 16.4 g/dL (12.0-15.0); Lymphocyte % 28.3 % (19-41); Mean Corp Hgb Conc 32.9 g/dL (32-36); Mean Corpuscular Hgb 31.5 pg (27.0-32.0); Mean Corpuscular Volume 95.8 fL (81-99); Mean Platelet Vol. 11.5 fl (6.2-12.0); Monocyte# 0.62 X10^3/uL; Monocyte% 8.3 % (0-10); NRBC Flagged by Analyzer 0 % (0-5); Neutrophil # 4.47 X10^3/uL (2.7-7.7); Neutrophil % 60.2 % (47-70); Platelet Count 244 K/mm3 (150-450); RBC Distribution Width CV 13.6 % (11.6-14.6); RBC Distribution Width SD 48.3 fl (35.1-43.9); Red Blood Count 5.21 M/mm3 (4.2-5.4); White Blood Count 7.4 K/mm3 (4.4-11.0)
[2021-07-29 17:51] LABS: AST(SGOT) 100 U/L (15-37); Alanine Aminotransfer ALT/SGPT 93 U/L (13-56); Albumin, Serum 3.6 g/dL (3.2-5.0); Alkaline Phosphatase 98 U/L (45-117); Anion Gap 8 (5-15); BUN 16 mg/dL (7-18); BUN/Creat Ratio 21.2 RATIO (10-20); Bilirubin, Direct 0.19 mg/dL (0.00-0.30); Calcium,Total 9.9 mg/dL (8.5-10.1); Chloride 100 mmol/L (98-107); Creatinine, Serum 0.75 mg/dL (0.55-1.02); EST Glomerular Filtration Rate 85 mL/min (>60); Est Glom Filt Rate - Afr Amer 103 mL/min (>60); Globulin 4.5 g/dL (2.2-4.2); Glucose 185 mg/dL (74-106); Potassium 3.6 mmol/L (3.5-5.1); Protein, Total 8.1 g/dL (6.4-8.2); Sodium Level 140 mmol/L (136-145)
[2021-08-01 09:27] LABS: Hepatitis B Surface Antibody Non-Reactive; Hepatitis B Surface Antigen Non-Reactive (Nonreactive); Hepatitis C Antibody Non-Reactive (Nonreactive)
[2021-08-04 18:08] LABS: QNTFERON TB Mitogen Value > 10.00 IU/mL (.); QNTFERON TB Nil Value 0.11 IU/mL (.); QNTFERON TB1+ Ag Value 0.06 IU/mL (.); QNTFERON TB2+ Ag Value 0.05 IU/mL (.)
[2021-08-04 18:22] LABS: Hepatitis B Core AB IgM Negative (Negative); QNTIFERON TB Positive Criteria Negative (Negative)
== END ==
PROVIDERS: PCP Family Medicine; Referring Provider Physician Assistant Medical; Visit Provider Physician Assistant Medical
DX: L40.8 Other psoriasis (principal); L40.0 Psoriasis vulgaris; Z79.899 Other long term (current) drug therapy
CPT/HCPCS: 36415; 80048; 80076; 85025; 86480; 86705; 86706; 86803; 87340

== ENCOUNTER → 2021-08-22 09:37 | Outpatient (CLI) | payer OTHER, SELFPAY ==
--- NOTE | 2021-08-22 09:40 | RAD_ITS ---
STUDY: X-RAY - LUMBAR SPINE REASON FOR EXAM: Female, 55 years old. SEVERE LOWER BACK/TAILBONE PAIN TECHNIQUE: 5 view(s) of the lumbar spine were obtained. COMPARISON: None FINDINGS: Normal lumbar lordosis. There is no substantial scoliosis. There is a normal alignment of the vertebrae. There is endplate spondylosis of the lumbar vertebrae. Mild degree of disc space narrowing at the L1-L2 level. The soft tissue structures are unremarkable. RAD/L/S Spine Min 4 Views IMPRESSION: Degenerative changes of the spine, as detailed above. Electronically Signed: Jagjit Garcia MD at 11:06 EDT , Service support ,
--- NOTE | 2021-08-22 09:40 | RAD_ITS ---
STUDY: X-RAY - SACRUM/COCCYX REASON FOR EXAM: Female, 55 years old. SEVERE LOWER BACK/TAILBONE PAIN TECHNIQUE: 3 view(s) of the sacrum and coccyx were obtained. COMPARISON: None. FINDINGS: Normal bilateral sacroiliac joints. Normal visualized sacral ala and fused sacral bodies. Normal sacrococcygeal junction with a normal angulation. Normal coccygeal segments. The presacral soft tissue structures are unremarkable. RAD/Sacrum-Coccyx min 2 Views IMPRESSION: Normal x-rays of the sacrum and coccyx. Electronically Signed: Lexx Garcia MD at 8:15 EDT Tel , Service support ,
== END ==
PROVIDERS: PCP Family Medicine; Referring Provider Family Medicine; Visit Provider Family Medicine
DX: M54.50 Low back pain, unspecified (principal); M53.3 Sacrococcygeal disorders, not elsewhere classified
CPT/HCPCS: 72110; 72220

== ENCOUNTER → 2022-05-08 | Outpatient (CLI) | payer OTHER, SELFPAY ==
--- NOTE | 2022-05-08 08:33 | ADUUE_ITS ---
Reason For Study: subclavian stent RIGHT Subclavian prox 76.4 cm/s. Subclavian mid 67.3 cm/s. Subclavian dist 96.0 cm/s. Right Axillary velocity = 74.5 cm/sec. Right Brachial velocity = 97.2 cm/sec. Right Radial velocity = 38.8 cm/sec. Right Ulnar velocity = 57.8 cm/sec. VL/US Art Duplex Unilat UP Extrem Interpretation Summary Right upper extremity with triphasic flow noted throughout no stenosis noted. Ordering Physician: Wilbur Maldonado Performed By: Pedro Martin, RVT
--- NOTE | 2022-05-08 08:33 | CDU_ITS ---
Reason For Study: carotid stenosis Rt. Velocities/BP Lt. Velocities/BP Prox CCA 85.1/20.0 cm/sec. Prox CCA 68.4/22.3 cm/sec. Mid CCA 61.7/25.2 cm/sec. Mid CCA 67.3/14.6 cm/sec. Dist CCA 60.4/23.9 cm/sec. Dist CCA 54.2/13.5 cm/sec. Prox ICA 73.4/27.8 cm/sec. Prox ICA 114.6/31.1 cm/sec. Mid ICA 57.8/13.4 cm/sec. Mid ICA 94.9/28.6 cm/sec. Dist ICA 74.7/29.1 cm/sec. Dist ICA 75.3/29.8 cm/sec. Rt. ICA/CCA = 1.2. Lt. ICA/CCA = 1.7. Prox ECA 85.2/17.3 cm/sec. Prox ECA 143.0/27.9 cm/sec. Rt. Vert. 22.3/8.0 cm/sec. Lt. Vert. 75.4/13.3 cm/sec. Right Extracranial There is homogeneous, smooth atherosclerotic plaque noted in the right common carotid artery. There is intimal thickening but no significant atherosclerotic plaque noted in the right internal carotid artery. There is intimal thickening but no significant atherosclerotic plaque noted in the right external carotid artery. Antegrade flow is noted in the right vertebral artery. Left Extracranial There is homogeneous, smooth atherosclerotic plaque noted in the left common carotid artery. There is heterogeneous, irregular atherosclerotic plaque noted in the left internal carotid artery. There is heterogeneous, irregular atherosclerotic plaque noted in the left external carotid artery. Antegrade flow is noted in the left vertebral artery. Procedure Carotid Duplex 09252. This is a Carotid Duplex examination using B-mode, color flow and specral Doppler. The exam was diagnostic. Exam performed in department. VL/Carotid Duplex Ultrasound Interpretation Summary Mild (<50%) stenosis right extracranial internal carotid. Mild (<50%) stenosis left extracranial internal carotid. Flow within the vertebral arteries is antegrade bilaterally. Ordering Physician: Wilbur Maldonado Performed By: Pedro Martin RVT
--- NOTE | 2022-05-08 08:33 | ART_ITS ---
Reason For Study: subclavian stenosis Procedure A bilateral upper extremity continuous wave Doppler with analog waveform analysis and segmental pressures. Left Segmental Pressures Left brachial= 139mmHg. Left radial= 139mmHg. Left ulnar= 151mmHg. The left radial waveforms are triphasic. The left ulnar waveforms are triphasic. Right Segmental Pressures Right brachial= 143mmHg. Right ulnar= 151mmHg. Right radial= 155mmHg. The right radial waveforms are triphasic. The right ulnar waveforms are triphasic. Indices The right wrist-brachial index is 1.08. The left wrist-brachial index is 1.06. VL/Ankle Brachial Index Interpretation Summary Bilateral upper extremities no significant occlusive disease at rest. Wrist bra chial index of 1.08 and 1.06. Ordering Physician: Wilbur Maldonado Performed By: Pedro Martin RVT
== END | disposition home or self-care (01) ==
LOC: CVS 08:30
PROVIDERS: PCP Family Medicine; Referring Provider Surgery Vascular Surgery; Visit Provider Surgery Vascular Surgery
DX: I65.23 Occlusion and stenosis of bilateral carotid arteries (principal); I77.1 Stricture of artery; F17.200 Nicotine dependence, unspecified, uncomplicated; Z98.890 Other specified postprocedural states
CPT/HCPCS: 93880; 93922; 93931

== ENCOUNTER → 2022-06-28 | Outpatient (CLI) | payer OTHER, SELFPAY ==
[2022-07-01 08:09] LABS: QNTFERON TB Mitogen Value > 10.00 IU/mL (.); QNTFERON TB Nil Value 0.02 IU/mL (.); QNTFERON TB1+ Ag Value 0.01 IU/mL (.); QNTFERON TB2+ Ag Value 0.01 IU/mL (.)
[2022-07-02 14:28] LABS: Hepatitis B Core Ab Total Negative (Negative); QNTIFERON TB Positive Criteria Negative (Negative)
== END | disposition home or self-care (01) ==
LOC: MTLAB 15:14
PROVIDERS: PCP Family Medicine; Referring Provider Physician Assistant Medical; Visit Provider Physician Assistant Medical
DX: L40.0 Psoriasis vulgaris (principal); L40.59 Other psoriatic arthropathy; Z79.899 Other long term (current) drug therapy
CPT/HCPCS: 36415; 86480; 86704

== ENCOUNTER → 2022-06-30 | Outpatient (CLI) | payer OTHER, SELFPAY | END | disposition home or self-care (01) | PROVIDERS: PCP Family Medicine; Visit Provider Family Medicine | DX: N39.0 Urinary tract infection, site not specified (principal) | CPT/HCPCS: 87077; 87086; 87088; 87186 ==

== ENCOUNTER 2022-08-14 08:07 | Day surgery (SDC) | payer OTHER, SELFPAY ==
[2022-08-14] VITALS (7 sets, daily range): BP systolic 105–128; BP diastolic 64–81; PULSE 63–67; RESP 16; TEMP 36.1–36.6; O2SAT 91–95; BMI 32.4
--- NOTE | 2022-08-14 | GASB_PTH ---
PATIENT: GRAHAM LOVING LOC: EN U#:[id number] AGE/SX: 56/F ROOM: RE08/14/[address]: Dr. Stacie Cunningham MD : 1965 BED: DIS: 08/14/2022 SPEC #: [id number] RECD: 08/14/22 10:54 STATUS: LOGAN BEULAH #: [id number] JOSHUA: 08/14/22 00:[address]: Stacie Cunningham DEPT: SURGICAL PATHOLOGY RECD BY: Peyman Bonner ENTERED: 08/14/22 10:54 SP TYPE: Gastric Bx OTHR DR: Dr. Reynaldo Gregg MD Tissues: A - Gastric mucous membrane B - Gastric mucous membrane C - Sigmoid colon biopsy D - Rectum, NOS Procedures: Special Stain Group II Surgery Specimen Level IV Alcian Blue/PAS (control) HEADER OPERATION: Colonoscopy, EGD ([facility]) with biopsies PRE-OP DIAGNOSIS: GERD, family history colon cancer TISSUE SUBMITTED: A - Pre-pyloric ulcer biopsy for H. pylori and path, B - Gastroesophageal junction biopsy, C - Sigmoid polyp biopsy, D - Rectum polyp biopsy MICROSCOPIC DIAGNOSIS A. Pre-pyloric ulcer, biopsy: Mild gastritis. See microscopic description and comment. B. Gastroesophageal junction, biopsy: A fragment of gastric mucosa with chronic inflammation. Intestinal metaplasia (goblet cell metaplasia) not identified. See comment. C. Sigmoid polyp, biopsy: Fragments of hyperplastic polyp. D. Rectum polyp, biopsy: Fragments of hyperplastic polyp. SJ:coral 08/15/2022 COMMENT A. The results of immunohistochemistry for Helicobacter pylori will be reported separately ([id number]). B. Alcian blue/PAS stain with matched control is used in the evaluation of the specimen. MICROSCOPIC DESCRIPTION Slides are reviewed. A. The specimen shows fragments of gastric mucosa with chronic inflammatory cell infiltrates in the lamina propria consisting of lymphocytes and plasma cells, consistent with mild chronic gastritis. GROSS DESCRIPTION A - Received in fixative is one container labeled with the patient's name and designated pre-pyloric ulcer biopsy. The specimen consists of one irregular fragment of light frias soft tissue that measures 0.4 x 0.2 x 0.1 cm. The specimen is totally submitted in one cassette. B - Received in fixative is one container labeled with the patient's name and designated GE junction biopsy. The specimen consists of one irregular fragment of light frias soft tissue that measures 0.3 x 0.3 x 0.1 cm. The specimen is totally submitted in one cassette. C - Received in fixative is one container labeled with the patient's name and designated sigmoid polyp biopsy. The specimen consists of multiple irregular fragments of light frias soft tissue that in aggregate measure 0.9 x 0.2 x 0. cm. The specimen is totally submitted in one cassette. D - Received in fixative is one container labeled with the patient's name and designated rectum polyp biopsy. The specimen consists of two irregular fragments of light frias soft tissue that in aggregate measure 0.5 x 0.4 x 0.1 cm. The specimen is totally submitted in one cassette. / SJ:rg 08/14/2022 TC:1 [facility]: [id number] x4, [id number]
--- NOTE | 2022-08-14 09:30 | HP.PCM_ITS ---
HPI - General HPI Narrative GRAHAM LOVING, is a 56 F who presents for an EGD and colonoscopy. Patient still denies any reflux or heartburn symptoms and is continued on her Pepcid. Patient's father diagnosed with colon cancer in his late 50s. Patient's last colonoscopy 5 years ago. Patient states she still has bowel moods about every other day denies any blood or chronic abdominal pain/nausea/vomiting/reflux. From office visit 07/10/2022. HPI: 56-year-old female presents for EGD and colonoscopy.? Patient previously had emergent EGD due to food impaction 12/19/2020 due to steak.? Patient states since then she has been taking Pepcid daily denies any symptoms on Pepcid.? Patient's last colonoscopy was 5 years ago she does have family history of colon cancer her father was in her late 50s when he was diagnosed.? Patient states her last colonoscopy was negative.? Patient has bowel movements about every other day denies any blood denies any chronic abdominal pain/nausea/vomiting/reflux. [facility] Medical History (Updated 08/10/22 @ 16:25 by Vicky Rossi) CAD (coronary artery disease) Cardiology follow-up encounter Carotid stenosis, right COPD (chronic obstructive pulmonary disease) Degenerative disc disease Essential (primary) hypertension Family history of colon cancer in father Gastric reflux Heartburn High cholesterol History of echocardiogram History of IBS History of stress test Hyperlipemia Hypertension Nicotine dependence Obesity Persistent left superior vena cava Post-menopausal Rheumatoid arthritis Smoker Subclavian arterial stenosis TIA (transient ischemic attack) Wears dentures Wears glasses Home Medications amlodipine 5 mg tablet 5 mg PO DAILY 11/24/15 [History Last Taken 11/19/19] metoprolol tartrate 50 mg tablet 50 mg PO DAILY 11/24/15 [History Last Taken 08/14/22 07:00] tizanidine 4 mg tablet 4 mg PO DAILY 11/24/15 [History Last Taken 11/18/19] triamterene 37.5 mg-hydrochlorothiazide 25 mg capsule 1 cap PO DAILY 11/24/15 [History Last Taken 11/19/19] acetaminophen 650 mg tablet,extended release 1,300 mg PO PRN PRN Pain 07/02/18 [History Last Taken 1 Week Ago ~03/02/19] aspirin 81 mg tablet,delayed release 81 mg PO DAILY@0800 [facility] 07/02/18 [History Last Taken 11/19/19] uggkcgdovsji-fktnpskg-ieuyzyx-folic acid 400 mcg-vit K1 20 mcg tablet 1 ea PO DAILY supplement 07/02/18 [History Last Taken 11/19/19] albuterol sulfate 90 mcg/actuation aerosol inhaler 2 puff IH Q4H PRN PRN sob/wheezing ##1 07/05/18 [Rx Last Taken 11/19/19] budesonide-formoterol HFA 80 mcg-4.5 mcg/actuation aerosol inhaler 2 puff inhalation BID 05/05/20 [History Last Taken Unknown] celecoxib 200 mg capsule 200 mg PO DAILY 05/05/20 [History Last Taken Unknown] lovastatin 40 mg tablet 40 mg PO QHS 05/05/20 [History Last Taken Unknown] famotidine 20 mg tablet 20 mg PO BID #28 tabs 12/19/20 [Rx Last Taken Unknown] cyclobenzaprine 10 mg tablet 10 mg PO HS Muscle Spasm 06/22/22 [History Last Taken Unknown] potassium chloride 8 mEq tablet,extended release 8 meq PO DAILY 06/22/22 [H istory Last Taken Unknown] Allergy/AdvReac Type Severity Reaction Status Date / Time Penicillins Allergy Unknown Hives Verified 08/14/22 09:18 tramadol Allergy Swelling Verified 08/14/22 09:18 Surgical History (Updated 08/10/22 @ 16:25 by Vicky Rossi) History of angioplasty of peripheral vessel (02/24/15) History of cardiac catheterization History of colonoscopy (~2016) History of coronary artery stent placement History of esophagogastroduodenoscopy (EGD) (~11/2020) History of right-sided carotid endarterectomy (06/2020) Social History Smoking Status: Current every day smoker tobacco type: cigarettes Tobacco: How many years used: 33 alcohol intake: never substance use type: does not use caffeine: No Past Medical/Surgical History Planned Operation Planned Operative Procedure/s: CSCOPE, EGD S.O.S: No Previous Hospitalizations/Surgeries HX Hospitalizations: No HX of Surgeries: CAESAREAN SECTION X 3 CHOLECYSTECTOMY-OPEN HERNORRHOIDECTOMY INTRAOCULAR LENS IMPLANT-RIGHT HYSTERECTOMY OVARY REMOVAL Any Problems With Anesthesia: No You/Your Family Experience Fever (Hyperthermia) With Anes: No Cholinesterase deficiency: No Cardiovascular Hx Chest Pain within Last 2 months: No Hx of Irregular Heartbeat and/or Afib: No Hx Heart Attack: No Hx Congestive Heart Failure: No Hx Rheumatic Fever: No Hx Hypertension: Yes (CONTROLLED WITH MED) Hx Internal Defibrillator: No Hx Pacemaker: No Hx Cardiac Catheterization: No Hx Cardiac Surgery/Stents/Etc.: Yes (STENT IN SUBCLAVIAN) Hx Stress Test: No Hx Pain in Legs when Walking/Leg Cramps: No Respiratory Chronic Cough: No HX of Shortness of Breath: No Hoarseness: No Hx Chronic Obstructive Pulmonary Disease (COPD): Yes Hx Asthma: Yes Hx Emphysema: No Hx Sleep Apnea: No CPAP: No BIPAP: No Hx Respiratory Tract Infection/Cold (presently): No Do You Snore Loudly (louder than talking or can be heard): No Do You Often Feel Tired/ Fatigued/ Sleepy Dring Daytime?: No Has Anyone Observed You Stop Breathing During Sleep?: No Result (for STOP score): Negative Hx Smoking: Yes Smoking Status: Current every day smoker Gastrointestinal Hx Gastroesophageal Reflux: No Hx Gastrointestinal Disorders: No Hx Gastrointestinal Bleed: No Hx Ulcer: No Hx Hiatal Hernia: No Difficulty Chewing/Swallowing: No Special diet followed at home: No Hx Unplanned Weight Loss of 20#: No HX Unplanned Weight Gain of 20#: No Neurological Hx Seizures: No HX Syncope/Blackout Spells/Unconsciousness: No Hx Transient Ischemic Attacks (TIA): No Hx Multiple Sclerosis: No Hx Parkinson's Disease: No Hx Head/Neck Injury: Yes Hx Headaches: No Hx Back Injury/Pain: No Recent Onset of Speech Difficulty: No Restless Legs: No Does patient have nerve stimulator: No Blood Disorder Hx Leukemia: No Bleeding Tendencies: No Hx Deep Vein Thrombosis: No Hx High Cholesterol: Yes Blood Transmitted Disease: No Hx Hepatitis: No Hx Cirrhosis: No Hx Anemia: Yes Hx Blood Disorders: No Reproduction : No Is Patient Lactating: No Hx Hysterectomy: Yes Hx Tubal Ligation: No Are You Post Menopause: Yes Genitourinary Hx Renal Disease: No Hx Dialysis: No Musculoskeletal Hx Arthritis: Yes Hx Rheumatoid Arthritis: No Hx Gout: No Recent Onset of an Orthopedic Problem: No Endocrine Hx Diabetes: No Thyroid Disease: No Hx Steroid Therapy: No Psycho/Social Hx Substance Use: No Hx Alcohol Use: No Hx Anxiety: No Hx Depression: No Mental Illness: No Hx Dementia: No Miscellaneous Hx Cancer: No Recent Exposure to Contagious Disease: No Hx of C-Diff: No Any Loose Teeth: Yes (DENTURES BUT DOESN'T WEAR) Allergies Penicillins Allergy (Unknown, Verified 08/14/22 09:18) Hives tramadol Allergy (Verified 08/14/22 09:18) Swelling Maternal: No pertinent history Paternal: No pertinent history Discharge Is Pt Admitted From a Correction, or a Senior Care: No After D/C, Where Do you Plan to Go: Return Home Vital Signs Vital Signs Vital Signs: 08/14/22 09:15 08/14/22 09:15 Temperature 97.8 F Temperature Source Temporal Pulse Rate 64 Respiratory Rate 16 Respiratory Pattern Normal Blood Pressure 128/81 H Blood Pressure Mean 96 Blood Pressure Source Monitor Blood Pressure Position Semi-Fowlers Blood Pressure Location Left Arm Pulse Ox 95 Oxygen Delivery Method Room Air Weight Weight: 160 lb 11.472 oz Body Mass Index (BMI) 32.4 Physical Exam Const alert, oriented x3 and no apparent distress HEENT normocephalic and head/scalp atraumatic Resp normal respiratory effort Cardio regular rate GI soft to palpation and non-tender; Negative for non-distended Palpation: Negative for guarding Extremity no clubbing, cyanosis or edema Neuro CN's II-XII intact bilaterally Psych mental status grossly normal Assessment & Plan Assessment/Plan (1) GERD (gastroesophageal reflux disease): (2) Family history of colon cancer: Surgery Risks - Colonoscopy Risks Include but are not Limited To: Risks include but are not limited to: Bleeding, perforation requiring further surgery, inability to complete colonoscopy requiring barium enema.
--- NOTE | 2022-08-14 09:45 | IMM_PTH ---
PATIENT: GRAHAM LOVING LOC: EN U#:[id number] AGE/SX: 56/F ROOM: RE08/14/[address]: Dr. Stacie Cunningham MD : 1965 BED: DIS: 08/14/2022 SPEC #: [id number] RECD: 08/14/22 11:30 STATUS: LOGAN REQ #: [id number] JOSHUA: 08/14/22 09:[address]: Stacie Cunningham DEPT: IMMUNOHISTOCHEMISTRY RECD BY: Loraine Guerrero ENTERED: 08/14/22 11:31 SP TYPE: IMMUNO OTHR DR: Dr. Reynaldo Gregg MD Tissues: A - Pyloric antrum Procedures: H Pylori (initial) PHYSICIAN & INSTITUTION [place] [id number] SPECIMEN INFORMATION: Tissue Source: A ? Pre-pyloric ulcer biopsy Clinical Info: GERD, family history colon cancer Specimen Number: [id number] CPT code: 00752 METHODOLOGY: Deparaffinized sections of prefer/formalin-fixed tissue or PAP/DQ stained slides are incubated with monoclonal/polyclonal antibodies/oligonucleotide probes. Localization is made via biotin free immunoperoxidase method. Appropriate controls are performed and reacted as expected. Results on target cell population are indicated in the following table: RESULTS: ANTIBODY / CLONE RESULT Block A H Pylori (polyclonal) negative These tests were developed and their performance characteristics determined by [facility]. They may not have been cleared or approved by the U.S. Food and Drug Administration. The FDA has determined that such clearance or approval is not necessary. The above immunohistochemical/dualISH markers are ordered and reviewed by the Pathologist. INTERPRETATION: A. Pre-pyloric ulcer, biopsy: Negative for Helicobacter pylori organisms. SJ:coral 08/15/2022
--- NOTE | 2022-08-14 10:22 | OP.CCLET_ITS ---
08/14/2022 Reynaldo Gregg Re : Upper GI endoscopy procedure for Neli Mauro Dear Cristino This procedure was performed on Sunday, August 14, 2022. My impressions and recommendations are as follows: Impressions : - Z-line variable, 37 cm from the incisors. Biopsied. - Non-bleeding gastric ulcer with adherent clot. Biopsied. - Normal examined duodenum. - Gastritis. Recommendations : - Await pathology results. - Discharge patient to home. - Resume previous diet. - Continue present medications. - Use Protonix (pantoprazole) 40 mg PO daily. - Use sucralfate tablets 1 gram PO QID for 4 weeks. My findings are described in the full procedure note, which is enclosed. If I can be of further assistance, please feel free to contact me at Doctor phone number(s): , Work: . Sincerely, MD Stacie Moreira MD 08/14/2022 10:21:52 AM This report has been signed electronically.
--- NOTE | 2022-08-14 10:22 | OP.EGD_ITS ---
Patient Name: Neli Mauro Procedure Date: 08/14/2022 9:39 AM Date of : 1965 Age: 56 Procedure: Upper GI endoscopy Indications: Heartburn Providers: Stacie Cunningham MD Medicines: Monitored Anesthesia Care Patient Profile: This is a 56 year old female. Complications: No immediate complications. Procedure: Pre-Anesthesia Assessment: - Prior to the procedure, a History and Physical was performed, and patient medications and allergies were reviewed. The patient's tolerance of previous anesthesia was also reviewed. The risks and benefits of the procedure and the sedation options and risks were discussed with the patient. All questions were answered, and informed consent was obtained. Prior Anticoagulants: The patient has taken aspirin, last dose was 1 day prior to procedure. ASA Grade Assessment: Per anesthesia. After reviewing the risks and benefits, the patient was deemed in satisfactory condition to undergo the procedure. After obtaining informed consent, the endoscope was passed under direct vision. Throughout the procedure, the patient's blood pressure, pulse, and oxygen saturations were monitored continuously. The Colonoscope was introduced through the mouth, and advanced to the second part of duodenum. The upper GI endoscopy was accomplished without difficulty. The patient tolerated the procedure well. Scope In: 9:46:49 AM Scope Out: 9:53:42 AM Total Procedure Duration Time 0 hours 6 minutes 53 seconds Findings: The Z-line was variable and was found 37 cm from the incisors. Biopsies were taken with a cold forceps for histology. One non-bleeding cratered and superficial gastric ulcer with adherent clot was found in the prepyloric region of the stomach. The lesion was 5 mm in largest dimension. Biopsies were taken with a cold forceps for histology. Biopsies were taken with a cold forceps for Helicobacter pylori cultures. The examined duodenum was normal. The cardia and gastric fundus were normal on retroflexion. Scattered moderate inflammation characterized by adherent blood and erythema was found in the gastric antrum and in the prepyloric region of the stomach. Impression: - Z-line variable, 37 cm from the incisors. Biopsied. - Non-bleeding gastric ulcer with adherent clot. Biopsied. - Normal examined duodenum. - Gastritis. Recommendation: - Await pathology results. - Discharge patient to home. - Resume previous diet. - Continue present medications. - Use Protonix (pantoprazole) 40 mg PO daily. - Use sucralfate tablets 1 gram PO QID for 4 weeks. Procedure Code(s): --- Professional --- 25989, Esophagogastroduodenoscopy, flexible, transoral; with biopsy, single or multiple Diagnosis Code(s): --- Professional --- K22.8, Other specified diseases of esophagus K25.4, Chronic or unspecified gastric ulcer with hemorrhage K29.70, Gastritis, unspecified, without bleeding R12, Heartburn CPT copyright 2017 [employer]. All rights reserved. The codes documented in this report are preliminary and upon contract preparer review may be revised to meet current compliance requirements. MD Stacie Moreira MD 08/14/2022 10:21:52 AM This report has been signed electronically. Number of Addenda: 0 Note Initiated On: 08/14/2022 9:39 AM
--- NOTE | 2022-08-14 10:28 | OP.COLON_ITS ---
Patient Name: Neli Mauro Procedure Date: 08/14/2022 9:53 AM Date of : 1965 Age: 56 Procedure: Colonoscopy Indications: Family history of colon cancer in a first-degree relative Providers: Stacie Cunningham MD Medicines: Monitored Anesthesia Care Patient Profile: This is a 56 year old female. Last Colonoscopy: 5 years ago. Complications: No immediate complications. Procedure: Pre-Anesthesia Assessment: - Prior to the procedure, a History and Physical was performed, and patient medications and allergies were reviewed. The patient's tolerance of previous anesthesia was also reviewed. The risks and benefits of the procedure and the sedation options and risks were discussed with the patient. All questions were answered, and informed consent was obtained. Prior Anticoagulants: The patient has taken aspirin, last dose was 1 day prior to procedure. ASA Grade Assessment: Per anesthesia. After reviewing the risks and benefits, the patient was deemed in satisfactory condition to undergo the procedure. After I obtained informed consent, the scope was passed under direct vision. Throughout the procedure, the patient's blood pressure, pulse, and oxygen saturations were monitored continuously. The Colonoscope was introduced through the anus and advanced to the cecum, identified by appendiceal orifice and ileocecal valve. The colonoscopy was performed without difficulty. The patient tolerated the procedure well. The quality of the bowel preparation was good. Scope In: 9:54:48 AM Scope Withdrawal Time 0 hours 14 minutes 40 seconds Scope Out: 10:15:28 AM Total Procedure Duration Time 0 hours 20 minutes 40 seconds Findings: Hemorrhoids were found on perianal exam. Non-bleeding internal hemorrhoids were found. The hemorrhoids were Grade I (internal hemorrhoids that do not prolapse). Two sessile polyps were found in the rectum and sigmoid colon. The polyps were less than 5 mm in size. These polyps were removed with a cold biopsy forceps. Resection and retrieval were complete. The exam was otherwise without abnormality. Impression: - Hemorrhoids found on perianal exam. - Non-bleeding internal hemorrhoids. - Two less than 5 mm polyps in the rectum and in the sigmoid colon, removed with a cold biopsy forceps. Resected and retrieved. - The examination was otherwise normal. Recommendation: - Discharge patient to home. - Resume previous diet. - Continue present medications. - Await pathology results. - Repeat colonoscopy in 3 years for surveillance based on pathology results. Procedure Code(s): --- Professional --- 72845, PT, Colonoscopy, flexible; with biopsy, single or multiple Diagnosis Code(s): --- Professional --- K64.0, First degree hemorrhoids K62.1, Rectal polyp D12.5, Benign neoplasm of sigmoid colon Z80.0, Family history of malignant neoplasm of digestive organs CPT copyright 2017 [employer]. All rights reserved. The codes documented in this report are preliminary and upon herbarium worker review may be revised to meet current compliance requirements. MD Stacie Moreira MD 08/14/2022 10:27:45 AM This report has been signed electronically. Number of Addenda: 0 Note Initiated On: 08/14/2022 9:53 AM
--- NOTE | 2022-08-14 10:28 | OP.CCLET_ITS ---
08/14/2022 Reynaldo Gregg Re : Colonoscopy procedure for Neli Mauro Dear Cristino This procedure was performed on Sunday, August 14, 2022. My impressions and recommendations are as follows: Impressions : - Hemorrhoids found on perianal exam. - Non-bleeding internal hemorrhoids. - Two less than 5 mm polyps in the rectum and in the sigmoid colon, removed with a cold biopsy forceps. Resected and retrieved. - The examination was otherwise normal. Recommendations : - Discharge patient to home. - Resume previous diet. - Continue present medications. - Await pathology results. - Repeat colonoscopy in 3 years for surveillance based on pathology results. My findings are described in the full procedure note, which is enclosed. If I can be of further assistance, please feel free to contact me at Doctor phone number(s): , Work: . Sincerely, MD Stacie Moreira MD 08/14/2022 10:27:45 AM This report has been signed electronically.
== END 2022-08-14 11:17 | disposition home or self-care (01) ==
LOC: EN 08:08 → AC 09:03
PROVIDERS: PCP Family Medicine; Referring Provider Family Medicine; Visit Provider Surgery
PROC: 0DJD8ZZ Inspection of Lower Intestinal Tract, Via Natural or Artificial Opening Endoscopic (ICD-10-PCS; CPT 45378; principal; 2022-08-14 09:40)
DX: K63.5 Polyp of colon (principal); M06.9 Rheumatoid arthritis, unspecified; J44.9 Chronic obstructive pulmonary disease, unspecified; E78.5 Hyperlipidemia, unspecified; K25.9 Gastric ulcer, unspecified as acute or chronic, without hemorrhage or perforation; K64.0 First degree hemorrhoids; K29.50 Unspecified chronic gastritis without bleeding; K62.1 Rectal polyp; K21.9 Gastro-esophageal reflux disease without esophagitis; I25.10 Atherosclerotic heart disease of native coronary artery without angina pectoris; I10 Essential (primary) hypertension; E66.9 Obesity, unspecified; F17.210 Nicotine dependence, cigarettes, uncomplicated; Z90.49 Acquired absence of other specified parts of digestive tract; Z79.899 Other long term (current) drug therapy; Z79.84 Long term (current) use of oral hypoglycemic drugs; Z80.0 Family history of malignant neoplasm of digestive organs; Z79.82 Long term (current) use of aspirin; Z78.0 Asymptomatic menopausal state; Z86.73 Personal history of transient ischemic attack (TIA), and cerebral infarction without residual deficits; Z68.32 Body mass index [BMI] 32.0-32.9, adult; Z95.5 Presence of coronary angioplasty implant and graft
CPT/HCPCS: 45380; 43239; 88305; 88313; 88342; J7120; J2405

== ENCOUNTER → 2023-03-06 | Outpatient (CLI) | payer OTHER, SELFPAY ==
[2023-03-06 12:36] LABS: Absolute Lymphocyte Count 2.97 X10^3/uL (0.83-4.51); Absolute Neutrophil Count 4.2 X10^3/uL (2.0-7.7); Basophil# 0.08 X10^3/uL; Eosinophil# 0.24 X10^3/uL; Eosinophils% 2.9 % (0-5); Hematocrit 49.9 % (37-47); Hemoglobin 16.5 g/dL (12.0-15.0); Lymphocyte # 2.97 X10^3/ul (0.83-4.51); Mean Corp Hgb Conc 33.1 g/dL (32-36); Mean Corpuscular Hgb 31.5 pg (27.0-32.0); Mean Corpuscular Volume 95.2 fL (81-99); Mean Platelet Vol. 11.6 fl (6.2-12.0); Monocyte# 0.77 X10^3/uL; Monocyte% 9.3 % (0-10); NRBC Flagged by Analyzer 0 % (0-5); Neutrophil # 4.16 X10^3/uL (2.7-7.7); Neutrophil % 50.3 % (47-70); Platelet Count 239 K/mm3 (150-450); RBC Distribution Width CV 13.6 % (11.6-14.6); RBC Distribution Width SD 47.6 fl (35.1-43.9); Red Blood Count 5.24 M/mm3 (4.2-5.4); White Blood Count 8.3 K/mm3 (4.4-11.0)
[2023-03-06 13:01] LABS: Vitamin D,25 Hydroxy 49.2 ng/mL
[2023-03-06 13:12] LABS: ALB/GLOB Ratio 0.8 RATIO (0.9-2.4); AST(SGOT) 49 U/L (15-37); Alanine Aminotransfer ALT/SGPT 53 U/L (13-56); Albumin, Serum 3.7 g/dL (3.2-5.0); Alkaline Phosphatase 81 U/L (45-117); Anion Gap 4 (5-15); BUN 16 mg/dL (7-18); BUN/Creat Ratio 20.4 RATIO (10-20); Calcium,Total 10.5 mg/dL (8.5-10.1); Chloride 103 mmol/L (98-107); Cholesterol 211 mg/dL (200); Creatinine, Serum 0.78 mg/dL (0.55-1.02); EST Glomerular Filtration Rate 81 mL/min (>60); Est Glom Filt Rate - Afr Amer 98 mL/min (>60); Globulin 4.5 g/dL (2.2-4.2); Glucose 151 mg/dL (74-106); High Density Lipoprotein 36 mg/dL; Potassium 3.7 mmol/L (3.5-5.1); Protein, Total 8.2 g/dL (6.4-8.2); Sodium Level 139 mmol/L (136-145); Triglycerides 554 mg/dL
== END | disposition home or self-care (01) ==
LOC: BFHLAB 11:09
PROVIDERS: PCP Nurse Practitioner Family; Referring Provider Nurse Practitioner Family; Visit Provider Nurse Practitioner Family
DX: Z00.00 Encounter for general adult medical examination without abnormal findings (principal); E11.9 Type 2 diabetes mellitus without complications; E55.9 Vitamin D deficiency, unspecified; E78.5 Hyperlipidemia, unspecified; I10 Essential (primary) hypertension
CPT/HCPCS: 36415; 80053; 80061; 82306; 85025

== ENCOUNTER → 2023-03-12 | Outpatient (CLI) | payer OTHER, SELFPAY ==
--- NOTE | 2023-03-12 14:59 | BI_ITS ---
MAMMOGRAPHY - BILATERAL SCREENING REASON FOR EXAM: Female, 57 years old. Routine annual screening examination. PERTINENT HISTORY: Non-contributory. TECHNIQUE: Digital bilateral breast joselin (3D mammographic acquisition) in the CC and MLO projections. 2-D mediolateral oblique (MLO) and craniocaudad (CC) views of both breasts were obtained. CAD: Full Field Digital Mammography with Computer Added Detection was performed. COMPARISON: Comparison is made with prior study July 08, 2021 and August 02, 2019. FINDINGS: Breast Composition: There are scattered areas of fibroglandular density. There are no dominant masses or suspicious calcifications. No other significant abnormalities are identified. There has been no significant change since the prior study. BI/SCRN MAMM (CAD)W/JOSELIN BILAT IMPRESSION: Stable bilateral screening mammogram. Yearly follow-up mammogram recommended. (A) ASSESSMENT CATEGORY: BIRADS Category 1: Negative. A letter regarding these results will be sent to the patient by the facility within 30 days. Approximately 10% of breast cancers are not detected by mammography. A normal mammogram should not delay biopsy of a clinically suspicious abnormality. [id number] Electronically Signed: Jagjit Garcia MD at 9:02 EDT ,
== END | disposition home or self-care (01) ==
LOC: OPBI 14:57
PROVIDERS: PCP Nurse Practitioner Family; Referring Provider Nurse Practitioner Family; Visit Provider Nurse Practitioner Family
DX: Z12.31 Encounter for screening mammogram for malignant neoplasm of breast (principal)
CPT/HCPCS: 77063; 77067

== ENCOUNTER → 2023-03-14 | Outpatient (CLI) | payer OTHER, SELFPAY ==
[2023-03-16 15:08] LABS: Hepatitis B Core Ab Total Negative (Negative); QNTFERON TB Mitogen Value > 10.00 IU/mL (.); QNTFERON TB Nil Value 0 IU/mL (.); QNTFERON TB1+ Ag Value 0 IU/mL (.); QNTFERON TB2+ Ag Value 0.01 IU/mL (.); QNTIFERON TB Positive Criteria Negative (Negative)
== END | disposition home or self-care (01) ==
LOC: MTLAB 15:06
PROVIDERS: PCP Nurse Practitioner Family; Referring Provider Physician Assistant Medical; Visit Provider Physician Assistant Medical
DX: L40.0 Psoriasis vulgaris (principal); L40.59 Other psoriatic arthropathy; F17.200 Nicotine dependence, unspecified, uncomplicated; Z79.899 Other long term (current) drug therapy
CPT/HCPCS: 36415; 86480; 86704

== ENCOUNTER → 2023-03-16 | Outpatient (CLI) | payer OTHER, SELFPAY ==
--- NOTE | 2023-03-16 10:21 | RAD_ITS ---
INDICATION: PAIN EXAMINATION/TECHNIQUE: X-RAY - XR Pelvis 1 or 2 Views COMPARISON: None. FINDINGS: Moderate left and mild right hip joint space narrowing. There is moderate osteophytic spurring of the lateral left acetabular roof and mild of the right lateral acetabular roof. Mild osteitis symphysis. SOFT TISSUES: No soft tissue swelling or gas. RAD/Pelvis 1 or 2 Views IMPRESSION: Degenerative changes as above. Electronically Signed: Yifan Haney MD, RADHA at 20:23 EDT ,
== END | disposition home or self-care (01) ==
LOC: MTRAD 10:20
PROVIDERS: PCP Nurse Practitioner Family; Referring Provider Internal Medicine Rheumatology; Visit Provider Internal Medicine Rheumatology
DX: L40.59 Other psoriatic arthropathy (principal); L40.8 Other psoriasis
CPT/HCPCS: 72170

== ENCOUNTER → 2023-03-31 | Outpatient (CLI) | payer OTHER, SELFPAY ==
--- NOTE | 2023-03-31 10:30 | US_ITS ---
EXAM: US ABDOMEN LIMITED, RIGHT UPPER QUADRANT CLINICAL INDICATION: ELEVATED LIVER ENZYMES TECHNIQUE: Real-time ultrasound of the right upper quadrant with image documentation. COMPARISON: No relevant prior studies available. FINDINGS: LIVER: Increased echogenicity of the liver is nonspecific but most commonly associated with hepatic steatosis. The liver is enlarged measuring 18.1 cm. Focal hypoechogenicity adjacent to the ladonna hepatis without mass effect, likely represents focal fatty sparing. GALLBLADDER: Gallbladder is absent. No gallbladder wall thickening is demonstrated. No pericholecystic fluid. Negative sonographic Aguirre''s sign. COMMON BILE DUCT: Unremarkable as visualized. The proximal common bile duct is within normal limits for the patient''s age. PANCREAS: Unremarkable as visualized. No focal abnormality is demonstrated in the pancreas. No pancreatic ductal dilatation. RIGHT KIDNEY: Hypoechoic cyst of the superior right kidney measures 1.7 cm with relatively well-defined margins and partial visualization of posterior acoustic enhancement, although is not well seen. The lesion is similar since cyst of the upper right kidney on CT 03/09/2019. No required imaging follow-up needed given high likelihood of benign nature. US/Abdomen Limited IMPRESSION: Increased echogenicity of the liver is nonspecific but most commonly associated with hepatic steatosis. Hepatomegaly. Electronically Signed: Mark Small (Brooks), at 17:02 EDT ,
[2023-03-31 11:17] LABS: Absolute Lymphocyte Count 2.84 X10^3/uL (0.83-4.51); Absolute Neutrophil Count 3.3 X10^3/uL (2.0-7.7); Basophil% 1.4 % (0-1); Eosinophil# 0.23 X10^3/uL; Eosinophils% 3.2 % (0-5); Hematocrit 45.5 % (37-47); Hemoglobin 14.6 g/dL (12.0-15.0); Lymphocyte # 2.84 X10^3/ul (0.83-4.51); Lymphocyte % 39.9 % (19-41); Mean Corp Hgb Conc 32.1 g/dL (32-36); Mean Corpuscular Hgb 31.3 pg (27.0-32.0); Mean Corpuscular Volume 97.6 fL (81-99); Mean Platelet Vol. 11.3 fl (6.2-12.0); Monocyte# 0.66 X10^3/uL; Monocyte% 9.3 % (0-10); NRBC Flagged by Analyzer 0 % (0-5); Neutrophil # 3.26 X10^3/uL (2.7-7.7); Neutrophil % 45.9 % (47-70); Platelet Count 189 K/mm3 (150-450); RBC Distribution Width CV 13.5 % (11.6-14.6); RBC Distribution Width SD 48.5 fl (35.1-43.9); Red Blood Count 4.66 M/mm3 (4.2-5.4); White Blood Count 7.1 K/mm3 (4.4-11.0)
[2023-03-31 11:29] LABS: Erythrocyte Sedimentation Rate 9 mm/hr (0-30)
[2023-03-31 11:49] LABS: AST(SGOT) 53 U/L (15-37); Alanine Aminotransfer ALT/SGPT 53 U/L (13-56); Albumin, Serum 3.6 g/dL (3.2-5.0); Alkaline Phosphatase 74 U/L (45-117); Anion Gap 6 (5-15); BUN 21 mg/dL (7-18); BUN/Creat Ratio 34.5 RATIO (10-20); CRP < 2.90 mg/L (0.0-3.0); Calcium,Total 9.1 mg/dL (8.5-10.1); Chloride 105 mmol/L (98-107); Creatinine, Serum 0.61 mg/dL (0.55-1.02); EST Glomerular Filtration Rate 108 mL/min (>60); Est Glom Filt Rate - Afr Amer 131 mL/min (>60); Globulin 3.7 g/dL (2.2-4.2); Glucose 164 mg/dL (74-106); Potassium 3.4 mmol/L (3.5-5.1); Protein, Total 7.3 g/dL (6.4-8.2); Rheumatoid Factor < 10.0 IU/mL (<15); Sodium Level 139 mmol/L (136-145)
[2023-04-02 09:00] LABS: Hepatitis B Surface Antibody Non-Reactive; Hepatitis B Surface Antigen Non-Reactive (Nonreactive); Hepatitis C Antibody Non-Reactive (Nonreactive)
[2023-04-02 17:07] LABS: ANTINUCLEAR ANTIBODIES DIRECT Negative (Negative)
== END | disposition home or self-care (01) ==
PROVIDERS: PCP Nurse Practitioner Family; Referring Provider Internal Medicine Rheumatology; Visit Provider Internal Medicine Rheumatology
DX: L40.59 Other psoriatic arthropathy (principal); L40.8 Other psoriasis
CPT/HCPCS: 36415; 76705; 80053; 85025; 85652; 86038; 86140; 86431; 86706; 86803; 87340

== ENCOUNTER → 2023-06-11 | Outpatient (CLI) | payer OTHER, SELFPAY ==
--- NOTE | 2023-06-11 07:39 | ADUUE_ITS ---
Reason For Study: Subclavian Stenosis RIGHT Right Subclavian velocity = 77 cm/sec. Right Axillary velocity = 69 cm/sec. Right Brachial velocity = 88 cm/sec. Right Radial velocity = 53 cm/sec. Right Ulnar velocity = 70 cm/sec. /US Art Duplex Unilat UP Extrem Interpretation Summary Right arm no stenosis and all triphasic flow. Ordering Physician: Wilbur Maldonado Referring Physician: Cristy Raphael Performed By: Cristy Rodríguez, RDALEYDA, RVT
--- NOTE | 2023-06-11 07:39 | ART_ITS ---
Reason For Study: Subclavian Stent Procedure A bilateral upper extremity continuous wave Doppler with analog waveform analysis and segmental pressures. Left Segmental Pressures Left brachial= 126mmHg. Left radial= 131mmHg. Left ulnar= 127mmHg. Left digit = 109 mmHg. Right Segmental Pressures Right brachial= 120mmHg. Right radial= 134mmHg. Right ulnar= 139mmHg. Right digit = 125 mmHg. Indices The right wrist-brachial index is 1.10. The right digital-brachial index is 0.99. The left wrist- brachial index is 1.04. The left digital-brachial index is 0.87. VL/Ankle Brachial Index Interpretation Summary Bilateral arms normal at rest with WBI 1.1 and 1.04. Ordering Physician: Wilbur Maldonado Referring Physician: Cristy Raphael Performed By: Cristy Rodríguez RDALEYDA/RVT
--- NOTE | 2023-06-11 07:39 | CDU_ITS ---
Reason For Study: Carotid Stenosis Rt. Velocities/BP Lt. Velocities/BP Prox CCA 87/23 cm/sec. Prox CCA 86/28 cm/sec. Mid CCA 70/21 cm/sec. Mid CCA 71/16 cm/sec. Dist CCA 71/27 cm/sec. Dist CCA 68/25 cm/sec. Prox ICA 56/16 cm/sec. Prox ICA 67/19 cm/sec. Mid ICA 75/30 cm/sec. Mid ICA 88/29 cm/sec. Dist ICA 75/31 cm/sec. Dist ICA 93/35 cm/sec. Rt. ICA/CCA = 1.1. Lt. ICA/CCA = 1.3. Prox ECA 89/13 cm/sec. Prox ECA 118/18 cm/sec. Rt. Vert. 18/8 cm/sec. Lt. Vert. 0 cm/sec. Right Extracranial There is heterogeneous, irregular atherosclerotic plaque noted in the right common carotid artery. There is heterogeneous, smooth atherosclerotic plaque noted in the right internal carotid artery. There is intimal thickening but no significant atherosclerotic plaque noted in the right external carotid artery. Antegrade flow is noted in the right vertebral artery. Left Extracranial There is heterogeneous, irregular atherosclerotic plaque noted in the left common carotid artery. There is heterogeneous, irregular atherosclerotic plaque noted in the left internal carotid artery. There is heterogeneous, irregular atherosclerotic plaque noted in the left external carotid artery. No flow noted Lt Vert A. Procedure Carotid Duplex 71078. This is a Carotid Duplex examination using B-mode, color flow and specral Doppler. Exam performed in department. VL/Carotid Duplex Ultrasound Interpretation Summary Mild (<50%) stenosis right extracranial internal carotid. Mild (<50%) stenosis left extracranial internal carotid. Flow within the right verterbral artery is antegrade. Left ve rtebral occluded. Ordering Physician: Wilbur Maldonado Referring Physician: Cristy Raphael Performed By: Cristy Rodríguez, RDCS, RVT
== END | disposition home or self-care (01) ==
LOC: CVS 07:37
PROVIDERS: PCP Nurse Practitioner Family; Referring Provider Surgery Vascular Surgery; Visit Provider Surgery Vascular Surgery
DX: I65.23 Occlusion and stenosis of bilateral carotid arteries (principal); I77.1 Stricture of artery; F17.200 Nicotine dependence, unspecified, uncomplicated; Z96.89 Presence of other specified functional implants
CPT/HCPCS: 93880; 93922; 93931

== ENCOUNTER → 2023-07-23 | Outpatient (CLI) | payer OTHER, SELFPAY ==
[2023-07-23 12:21] LABS: Absolute Lymphocyte Count 3.14 X10^3/uL (0.83-4.51); Absolute Neutrophil Count 5.2 X10^3/uL (2.0-7.7); Basophil# 0.11 X10^3/uL; Basophil% 1.1 % (0-1); Eosinophil# 0.29 X10^3/uL; Hematocrit 53.1 % (37-47); Hemoglobin 16.7 g/dL (12.0-15.0); Lymphocyte # 3.14 X10^3/ul (0.83-4.51); Lymphocyte % 32.7 % (19-41); Mean Corp Hgb Conc 31.5 g/dL (32-36); Mean Corpuscular Hgb 31.5 pg (27.0-32.0); Mean Platelet Vol. 11.4 fl (6.2-12.0); Monocyte# 0.82 X10^3/uL; Monocyte% 8.5 % (0-10); NRBC Flagged by Analyzer 0 % (0-5); Neutrophil # 5.21 X10^3/uL (2.7-7.7); Neutrophil % 54.3 % (47-70); Platelet Count 224 K/mm3 (150-450); RBC Distribution Width CV 13.8 % (11.6-14.6); RBC Distribution Width SD 50.4 fl (35.1-43.9); Red Blood Count 5.31 M/mm3 (4.2-5.4); White Blood Count 9.6 K/mm3 (4.4-11.0)
[2023-07-23 12:52] LABS: ALB/GLOB Ratio 0.9 RATIO (0.9-2.4); AST(SGOT) 36 U/L (15-37); Alanine Aminotransfer ALT/SGPT 47 U/L (13-56); Albumin, Serum 3.7 g/dL (3.2-5.0); Alkaline Phosphatase 85 U/L (45-117); Anion Gap 3 (5-15); BUN 15 mg/dL (7-18); BUN/Creat Ratio 21.7 RATIO (10-20); Chloride 106 mmol/L (98-107); Creatinine, Serum 0.69 mg/dL (0.55-1.02); EST Glomerular Filtration Rate 93 mL/min (>60); Est Glom Filt Rate - Afr Amer 113 mL/min (>60); Globulin 4.3 g/dL (2.2-4.2); Glucose 127 mg/dL (74-106); Potassium 3.3 mmol/L (3.5-5.1); Sodium Level 139 mmol/L (136-145)
== END | disposition home or self-care (01) ==
LOC: LAB 11:14
PROVIDERS: PCP Nurse Practitioner Family; Referring Provider Internal Medicine Rheumatology; Visit Provider Internal Medicine Rheumatology
DX: L40.59 Other psoriatic arthropathy (principal); L40.8 Other psoriasis; M79.7 Fibromyalgia
CPT/HCPCS: 36415; 80053; 85025

== ENCOUNTER → 2023-08-20 | Outpatient (CLI) | payer OTHER, SELFPAY ==
[2023-08-20 15:17] LABS: Absolute Lymphocyte Count 3.38 X10^3/uL (0.83-4.51); Absolute Neutrophil Count 4.4 X10^3/uL (2.0-7.7); Basophil# 0.09 X10^3/uL; Eosinophil# 0.24 X10^3/uL; Eosinophils% 2.7 % (0-5); Hematocrit 49.5 % (37-47); Hemoglobin 15.9 g/dL (12.0-15.0); Lymphocyte # 3.38 X10^3/ul (0.83-4.51); Lymphocyte % 37.7 % (19-41); Mean Corp Hgb Conc 32.1 g/dL (32-36); Mean Corpuscular Hgb 30.9 pg (27.0-32.0); Mean Corpuscular Volume 96.1 fL (81-99); Mean Platelet Vol. 11.8 fl (6.2-12.0); Monocyte# 0.78 X10^3/uL; Monocyte% 8.7 % (0-10); NRBC Flagged by Analyzer 0 % (0-5); Neutrophil # 4.43 X10^3/uL (2.7-7.7); Neutrophil % 49.5 % (47-70); Platelet Count 236 K/mm3 (150-450); RBC Distribution Width CV 13.4 % (11.6-14.6); RBC Distribution Width SD 48.1 fl (35.1-43.9); Red Blood Count 5.15 M/mm3 (4.2-5.4)
[2023-08-20 15:59] LABS: ALB/GLOB Ratio 0.9 RATIO (0.9-2.4); AST(SGOT) 31 U/L (15-37); Alanine Aminotransfer ALT/SGPT 42 U/L (13-56); Albumin, Serum 3.7 g/dL (3.2-5.0); Alkaline Phosphatase 84 U/L (45-117); Anion Gap 5 (5-15); BUN 19 mg/dL (7-18); BUN/Creat Ratio 25.7 RATIO (10-20); Chloride 102 mmol/L (98-107); Cholesterol 159 mg/dL (200); Creatinine, Serum 0.74 mg/dL (0.55-1.02); EST Glomerular Filtration Rate 86 mL/min (>60); Est Glom Filt Rate - Afr Amer 105 mL/min (>60); Globulin 4.3 g/dL (2.2-4.2); Glucose 122 mg/dL (74-106); High Density Lipoprotein 37 mg/dL; Sodium Level 139 mmol/L (136-145); Triglycerides 349 mg/dL; Very Low Density Lipoprotein 70 mg/dL (5-40)
== END | disposition home or self-care (01) ==
PROVIDERS: PCP Nurse Practitioner Family; Referring Provider Internal Medicine Rheumatology; Visit Provider Nurse Practitioner Family
DX: E78.5 Hyperlipidemia, unspecified (principal); L40.59 Other psoriatic arthropathy; L40.8 Other psoriasis; M79.7 Fibromyalgia; Z79.899 Other long term (current) drug therapy
CPT/HCPCS: 36415; 80053; 80061; 85025

== ENCOUNTER → 2023-11-19 | Outpatient (CLI) | payer OTHER, SELFPAY ==
[2023-11-19 16:09] LABS: ALB/GLOB Ratio 0.9 RATIO (0.9-2.4); AST(SGOT) 33 U/L (15-37); Alanine Aminotransfer ALT/SGPT 36 U/L (13-56); Albumin, Serum 3.6 g/dL (3.2-5.0); Alkaline Phosphatase 86 U/L (45-117); Anion Gap 6 (5-15); BUN 12 mg/dL (7-18); BUN/Creat Ratio 18.4 RATIO (10-20); Calcium,Total 9.8 mg/dL (8.5-10.1); Chloride 103 mmol/L (98-107); Creatinine, Serum 0.65 mg/dL (0.55-1.02); EST Glomerular Filtration Rate 100 mL/min (>60); Est Glom Filt Rate - Afr Amer 121 mL/min (>60); Globulin 4.1 g/dL (2.2-4.2); Glucose 164 mg/dL (74-106); Potassium 3.6 mmol/L (3.5-5.1); Protein, Total 7.7 g/dL (6.4-8.2); Sodium Level 137 mmol/L (136-145)
[2023-11-19 16:24] LABS: Absolute Neutrophil Count 5.9 X10^3/uL (2.0-7.7); Basophil# 0.08 X10^3/uL; Basophil% 0.8 % (0-1); Eosinophil# 0.18 X10^3/uL; Eosinophils% 1.8 % (0-5); Hematocrit 47.6 % (37-47); Hemoglobin 15.5 g/dL (12.0-15.0); Lymphocyte % 31.5 % (19-41); Mean Corp Hgb Conc 32.6 g/dL (32-36); Mean Corpuscular Hgb 30.9 pg (27.0-32.0); Mean Corpuscular Volume 94.8 fL (81-99); Monocyte# 0.74 X10^3/uL; Monocyte% 7.3 % (0-10); NRBC Flagged by Analyzer 0.2 % (0-5); Neutrophil # 5.92 X10^3/uL (2.7-7.7); Neutrophil % 58.1 % (47-70); Platelet Count 213 K/mm3 (150-450); RBC Distribution Width CV 13.9 % (11.6-14.6); RBC Distribution Width SD 48.4 fl (35.1-43.9); Red Blood Count 5.02 M/mm3 (4.2-5.4); White Blood Count 10.2 K/mm3 (4.4-11.0)
== END | disposition home or self-care (01) ==
PROVIDERS: PCP Nurse Practitioner Family; Visit Provider Internal Medicine Rheumatology
DX: L40.59 Other psoriatic arthropathy (principal); L40.8 Other psoriasis; M79.7 Fibromyalgia; Z79.899 Other long term (current) drug therapy
CPT/HCPCS: 36415; 80053; 85025

== ENCOUNTER → 2024-04-29 | Outpatient (CLI) | payer OTHER, SELFPAY ==
[2024-05-02 11:08] LABS: QNTFERON TB Mitogen Value > 10.00 IU/mL (.); QNTFERON TB Nil Value 0.01 IU/mL (.); QNTFERON TB1+ Ag Value 0.01 IU/mL (.); QNTFERON TB2+ Ag Value 0.01 IU/mL (.); QNTIFERON TB Positive Criteria Negative (Negative)
== END | disposition home or self-care (01) ==
LOC: MTLAB 09:50
PROVIDERS: PCP Nurse Practitioner Family; Referring Provider Physician Assistant Medical; Visit Provider Physician Assistant Medical
DX: L40.0 Psoriasis vulgaris (principal); Z79.899 Other long term (current) drug therapy
CPT/HCPCS: 36415; 86480

== ENCOUNTER 2024-05-20 08:18 | Emergency (ER) | payer OTHER, SELFPAY ==
[2024-05-20 08:20] VITALS: BP 124/69; PULSE 79; RESP 18; TEMP 36.1; O2SAT 80; BMI 32.5
--- NOTE | 2024-05-20 08:37 | EKG12_ITS ---
Test Reason : SOB Blood Pressure : / mmHG Vent. Rate : 075 BPM Atrial Rate : 075 BPM P-R Int : 136 ms QRS Dur : 082 ms QT Int : 408 ms P-R-T Axes : 076 044 066 degrees QTc Int : 455 ms Normal sinus rhythm Nonspecific ST abnormality Abnormal ECG Confirmed by ABRIL STUART, MARV ([id number]), editor managing newspaper SHEILA HIGGINS ([id number]) on 05/21/2024 10:17:17 AM Referred By: Confirmed By:MARV SAMUELS MD
--- NOTE | 2024-05-20 08:38 | EDS_ITS ---
HPI History of Present Illness Chief Complaint: Shortness of Breath Informant: patient Onset/Context/Timing Onset: Days Context: gradual Timing: Continuous Quality: Positive for Wheezing Current Severity: Moderate Maximum Severity: Moderate Worsened by: Coughing Relieved by: Rest and Oxygen Associated Symptoms cough and white sputum Chest Pain: Positive for None Narrative Narrative: 58-year-old female history of COPD on 2 L of oxygen at home. Said the last couple weeks she is in URI symptoms. And then since Sunday she has had increasing shortness of breath. Cough of cream-colored sputum. Intermittent fevers. No vomiting or diarrhea. No hemoptysis. No chest pain. No history of DVT or PE or risk factors. No cardiac history. PE Risk Factors: Negative for Cancer, OCP + Smoking + > 35, Prior DVT or PE, Recent immobilization, Recent surgery or Recent travel Prior similar symptoms: Yes Recent Illness/Hospitalization: No PFSH PFSH Medical History Wears glasses Wears dentures Post-menopausal Rheumatoid arthritis High cholesterol CAD (coronary artery disease) Degenerative disc disease History of IBS Heartburn Gastric reflux Smoker History of echocardiogram History of stress test Hypertension Cardiology follow-up encounter Persistent left superior vena cava Obesity Nicotine dependence COPD (chronic obstructive pulmonary disease) Carotid stenosis, right Essential (primary) hypertension TIA (transient ischemic attack) Family history of colon cancer in father Hyperlipemia Subclavian arterial stenosis Home Medications ?Medication ?Instructions ?Recorded ?Last Taken ?Type amlodipine 5 mg tablet 5 mg PO DAILY 11/24/15 11/19/19 History metoprolol tartrate 50 mg tablet 50 mg PO DAILY 11/24/15 08/14/22 07:00 History tizanidine 4 mg tablet 4 mg PO DAILY 11/24/15 11/18/19 History triamterene 37.5 1 cap PO DAILY 11/24/15 11/19/19 History mg-hydrochlorothiazide 25 mg capsule acetaminophen 650 mg 1,300 mg PO PRN PRN Pain 07/02/18 1 Week Ago History tablet,extended release ~03/02/19 aspirin 81 mg tablet,delayed 81 mg PO DAILY@0800 heart health 07/02/18 11/19/19 History release kegyrvvbqzza-wuwleqvk-whffqzw-folic 1 ea PO DAILY supplement 07/02/18 11/19/19 History acid 400 mcg-vit K1 20 mcg tablet albuterol sulfate 90 mcg/actuation 2 puff IH Q4H PRN PRN sob/wheezing 07/05/18 11/19/19 Rx aerosol inhaler ##1 budesonide-formoterol HFA 80 2 puff inhalation BID 05/05/20 Unknown History mcg-4.5 mcg/actuation aerosol inhaler celecoxib 200 mg capsule 200 mg PO DAILY 05/05/20 Unknown History lovastatin 40 mg tablet 40 mg PO QHS 05/05/20 Unknown History cyclobenzaprine 10 mg tablet 10 mg PO HS Muscle Spasm 06/22/22 Unknown History potassium chloride 8 mEq 8 meq PO DAILY 06/22/22 Unknown History tablet,extended release pantoprazole 40 mg tablet,delayed 40 mg PO DAILY #30 tabs 08/14/22 Unknown Rx release sucralfate 1 gram tablet 1 g PO 4X/DAY #120 tabs 08/14/22 Unknown Rx albuterol sulfate 2.5 mg/3 mL 2.5 mg (3 mL) inhalation Q4H PRN 05/20/24 Unknown Rx (0.083 %) solution for nebulization #25 vials prednisone 20 mg tablet 40 mg (2 x 20 mg) PO DAILY 7 days 05/20/24 Unknown Rx #14 tabs Allergy/AdvReac Type Severity Reaction Status Date / Time Penicillins Allergy Unknown Hives Verified 05/20/24 08:22 tramadol Allergy Swelling Verified 05/20/24 08:22 Surgical History History of coronary artery stent placement History of cardiac catheterization History of colonoscopy (~2016) History of esophagogastroduodenoscopy (EGD) (~11/2020) History of right-sided carotid endarterectomy (06/2020) History of angioplasty of peripheral vessel (02/24/15) Social History Smoking Status: Current every day smoker tobacco type: cigarettes Tobacco: How many years used: 33 alcohol intake: never substance use type: does not use caffeine: No ROS ROS ED ROS Narrative Cough. Shortness of breath. Wheezing. Review of Systems ROS Unobtainable: Denies due to encephalopathy Constitutional Constitutional ED: Reports fever(s); Denies chills Eyes Eyes: Denies blurry vision ENT ENT ED: Denies ear pain Cardiovascular Cardiovascular: Denies chest pain Respiratory/Chest Respiratory/Chest: Reports cough, dyspnea and sputum Gastrointestinal Gastrointestinal: Denies abdominal pain, constipation, diarrhea or melena Genitourinary Genitourinary ED: Denies dysuria or hematuria Musculoskeletal Musculoskeletal: Denies arthralgias Integumentary Denies abscess Neurologic Neurologic: Denies headache(s) Psychiatric Psychiatric: Denies anxiety Endocrine Endocrinology: Denies cold intolerance Hematologic/Lymphatic Hematologic/Lymphatic: Denies easy bleeding Allergic/Immunologic Allergic/Immunologic ED: Denies mouth swelling EXAM Physical Exam Narrative Exam Narrative: 58-year-old female vital signs are stable. Pulse ox on room air was 80% in triage on 2 L she is 91%. Is typically what she is on. Hypoxic without oxygen. H EENT exam unremarkable. Neck nontender. Lungs inspiratory expiratory wheezing throughout. Bilateral. No rales or rhonchi. Equal and symmetrical. Heart regular rhythm rate about 80 no murmur. Chest wall and ribs nontender. Abdomen soft nontender. Moving all 4 extremities. Calves are nontender without edema or cords. Normal strength. She is awake alert. Answering questions and following commands. Const Vital Signs: 05/20/24 08:19 05/20/24 08:20 05/20/24 08:37 Temperature 97.0 F L Temperature Source Temporal Pulse Rate 79 Respiratory Rate 18 Respiratory Effort Normal Non-Labored Respiratory Depth Normal Respiratory Pattern Normal Blood Pressure 124/69 H Blood Pressure Mean 87 Pulse Ox 80 Oxygen Delivery Method Nasal Cannula Room Air Room Air Oxygen Flow Rate (L/min) 2 05/20/24 08:48 05/20/24 08:56 05/20/24 09:08 Temperature Temperature Source Pulse Rate 72 76 80 Respiratory Rate 16 16 16 Respiratory Effort Respiratory Depth Respiratory Pattern Normal Normal Normal Blood Pressure Blood Pressure Mean Pulse Ox Oxygen Delivery Method Oxygen Flow Rate (L/min) Positive well nourished and well developed; Negative for obese, cachectic, contractures or unkempt General Appearance ED: well developed and NAD; Negative for unkempt, cachectic, contractures or pallor Nutritional Appearance: Negative for cachectic or obese HEENT Reports moist mucous membranes; Denies dry mucous membranes atraumatic; Negative for trauma or tenderness Mouth ED: No dry mucous membranes Mouth: No dry mucous membranes Eyes PERRL and EOMs intact bilaterally General Eye ED: Negative for pale conjunctiva, scleral icterus or other Neck no lymphadenopathy, supple, no meningeal signs and no JVD General: Negative for tenderness Lymph Lymphatic: Negative for other Chest Wall Chest: Negative for other Resp No normal respiratory effort and No clear to auscultation bilaterally Resp Narrative: Bilateral wheezing. Prolonged expiratory phase. Auscultation: wheezes Cardio regular rate, regular rhythm, S1 normal heart sound, S2 normal heart sound and no murmurs Rate: Negative for bradycardia or tachycardic Rhythm: Negative for abnormal rhythm GI non-tender, non-distended and no masses Inspection: Negative for other Palpation: soft; Negative for tender, guarding or rebound tenderness present Back/Spine no CVA tenderness and normal to inspection General Back: Negative for CVA tenderness Extremity normal to inspection General Extremety ED: Negative for edema or tenderness General Extremity: Negative for edema Neuro oriented x3 and CN's II-XII intact bilaterally Sensorium / Orientation: alert, oriented to person, oriented to place and oriented to time; Negative for orientation impaired, confused, lethargic or stuporous Speech: speech normal Motor Exam: strength 5/5 throughout Psych mental status grossly normal Appearance: Negative for unkempt Attitude: No agitated Mood & Affect: Negative for depressed Thought Process: normal thought process Skin no wounds and skin turgor normal General Skin Exam: Negative for jaundice or pallor Lesions: no lesions Rashes: no rashes MDM MDM MDM Narrative Medical decision making narrative: 58-year-old female history of COPD I suspect a COPD flare rule out pneumonia rule out COVID. Chest x-ray labs will be obtained. 125 IV Solu-Medrol and DuoNeb and albuterol aerosols. Repeat exam at 10:05 a.m. patient doing much better. Wheezing currently is resolved. She is comfortable being discharged home. We went over her test results. Possible nodule in the chest x-ray with follow-up evaluation for that in the future. Should be discharged home with prednisone. Albuterol for her nebulizer. She has an inhaler. She was encouraged to stop smoking. History & Record Review Discussion w/independent historian: Patient Additional record(s) reviewed:: Prior inpatient record, Prior outpatient record, Prior ED visit and Prior labs Lab Data Attestation: I reviewed the patient's lab results. Lab results narrative: CBC shows no elevated white count of 14.4. H&H is 16 and 46. Platelets 264. Chemistry shows a sodium 133. Potassium 2.7. Gap 7. Normal BUN and creatinine. Glucose 222. Troponin 6. Viral swab negative for COVID, flu and RSV. Labs: Laboratory Results - last 24 hr 05/20/24 08:40 WBC 14.4 H RBC 4.99 Hgb 16.0 H Hct 46.6 MCV 93.4 MCH 32.1 H MCHC 34.3 RDW Std Deviation 48.4 H RDW Coeff of Janett 14.4 Plt Count 264 MPV 10.5 Immature Gran % (Auto) 0.600 Neut % (Auto) 83.1 H Lymph % (Auto) 9.9 L [place] % (Auto) 5.5 Eos % (Auto) 0.3 Baso % (Auto) 0.6 Absolute Neuts (auto) 12.0 H Absolute Lymphs (auto) 1.42 Nucleated RBC % 0 Sodium 133 L Potassium 2.7 L* Chloride 95 L Carbon Dioxide 31.0 Anion Gap 7 BUN 18 Creatinine 0.94 Estim Creat Clear Calc 58.94 Est GFR (MDRD) Af Amer 79 Est GFR (MDRD) Non-Af 66 BUN/Creatinine Ratio 19.2 Glucose 222 H Calcium 10.3 H Troponin I High Sens 6 Radiography Chest X-Ray - ED: 2 View, Read by ED Physician, Normal, Heart, Lungs, Mediastinum, Bony Structures, No Acute Disease and Chronic Changes Diagnostic Testing: Clinical Impression(s) from Imaging Studies Chest X-Ray 05/20/24 09:30 IMPRESSION: Questionable 8.6 mm x 6.3 mm nodule in the lateral aspect of the right upper lobe. An IV tubing is seen overlying scattered calcified granulomas. Repeat PA chest radiograph recommended with the removing the overlying tubing from the chest radiograph. Electronically Signed: Jagjit Garcia MD at 9:46 EDT , Chest x-ray, 2 views, AP and lateral interpreted by myself and radiologist shows chronic changes consistent with COPD possible right upper lobe lung nodule was noted by the radiologist. No pneumonia. No pneumothorax. No effusions. Discharge Plan Triage Chief Complaint: Shortness of Breath ED Provider: Jose Elliott Dx/Rx/DC Orders Clinical Impression: COPD with acute exacerbation, History of psoriasis Instructions: COPD Quit Smoking, ED COPD Flare Prescriptions: New prednisone 20 mg tablet 40 mg PO DAILY 7 Days Qty: 14 0RF albuterol sulfate 2.5 mg /3 mL (0.083 %) solution for nebulization 2.5 mg inhalation Q4H PRN Qty: 25 0RF Rx Instructions: Use q4 hours and PRN for wheezing No Action budesonide-formoterol 80-4.5 mcg/actuation HFA aerosol inhaler 2 puff INHALATION BID lovastatin 40 mg tablet 40 mg PO QHS cyclobenzaprine 10 mg tablet 10 mg PO HS potassium chloride 8 mEq tablet extended release 8 meq PO DAILY tizanidine 4 MG tablet 4 mg PO DAILY Patient Comments: muscle relaxer amlodipine 5 MG tablet 5 mg PO DAILY Patient Comments: blood pressure/heart triamterene-hydrochlorothiazid 1 CAP capsule 1 cap PO DAILY Patient Comments: water pill/blood pressure metoprolol tartrate 50 MG tablet 50 mg PO DAILY Patient Comments: heart/blood pressure celecoxib 200 mg capsule 200 mg PO DAILY aspirin 81 MG tablet 81 mg PO DAILY@0800 acetaminophen 650 MG tablet extended release 1,300 mg PO PRN PRN (Reason: Pain) mv,Ca,min-folic acid-vit K1 1 EACH tablet 1 ea PO DAILY albuterol sulfate 18 GM HFA aerosol inhaler 2 puff IH Q4H PRN PRN (Reason: sob/wheezing) Qty: 1 0RF sucralfate [sucralfate] 1 gram tablet 1 g PO 4X/DAY Qty: 120 0RF Rx Instructions: Take 1 hour before meals and at bedtime pantoprazole 40 mg tablet,delayed release (DR/EC) 40 mg PO DAILY Qty: 30 5RF Primary Care Provider: Cristy Raphael Referrals: Cristy Raphael, [employer]OM WORKER-[employer] [Primary Care Provider] - 3-5 Days if not improving Activity Restrictions/Additional Instructions: Use your inhaler or nebulizer at home as needed. Follow-up with your primary care provider as needed. Daily prednisone 40 mg a day starting tomorrow to help decrease inflammation in your lungs, improve your breathing and stop the wheezing. Long-term try to stop smoking. There may or may not have been a nodule in your right upper lung. You should follow-up with your primary care provider they can get a repeat chest x-ray on that in the next month or so. Print Language: [place] Disposition Disposition: Home, Self Care
[2024-05-20] MEDS: Albuterol 2.5 MG/3 ML VIAL.NEB. INHALATION ×3 (08:43)
[2024-05-20] MEDS: Ipratropium/Albuterol Sulfate 3 ML AMPUL.NEB INHALATION (08:43)
[2024-05-20 08:48] VITALS: PULSE 72; RESP 16
[2024-05-20 08:48] LABS: Absolute Lymphocyte Count 1.42 X10^3/uL (0.83-4.51); Basophil# 0.09 X10^3/uL; Basophil% 0.6 % (0-1); Eosinophil# 0.05 X10^3/uL; Eosinophils% 0.3 % (0-5); Hematocrit 46.6 % (37-47); Lymphocyte # 1.42 X10^3/ul (0.83-4.51); Lymphocyte % 9.9 % (19-41); Mean Corp Hgb Conc 34.3 g/dL (32-36); Mean Corpuscular Hgb 32.1 pg (27.0-32.0); Mean Corpuscular Volume 93.4 fL (81-99); Mean Platelet Vol. 10.5 fl (6.2-12.0); Monocyte# 0.79 X10^3/uL; Monocyte% 5.5 % (0-10); NRBC Flagged by Analyzer 0 % (0-5); Neutrophil # 11.96 X10^3/uL (2.7-7.7); Neutrophil % 83.1 % (47-70); Platelet Count 264 K/mm3 (150-450); RBC Distribution Width CV 14.4 % (11.6-14.6); RBC Distribution Width SD 48.4 fl (35.1-43.9); Red Blood Count 4.99 M/mm3 (4.2-5.4); White Blood Count 14.4 K/mm3 (4.4-11.0)
[2024-05-20] MEDS: MethylPREDNISolone 125 MG/2 ML Vial IV (08:48)
[2024-05-20 08:56] VITALS: PULSE 76; RESP 16
[2024-05-20 09:08] VITALS: PULSE 80; RESP 16
[2024-05-20 09:23] LABS: Anion Gap 7 (5-15); BUN 18 mg/dL (7-18); BUN/Creat Ratio 19.2 RATIO (10-20); Calcium,Total 10.3 mg/dL (8.5-10.1); Chloride 95 mmol/L (98-107); Creatinine, Serum 0.94 mg/dL (0.55-1.02); EST Glomerular Filtration Rate 66 mL/min (>60); Est Glom Filt Rate - Afr Amer 79 mL/min (>60); Estimated Creatinine Clearance 58.94 ml/min; Glucose 222 mg/dL (74-106); Potassium 2.7 mmol/L (3.5-5.1); Sodium Level 133 mmol/L (136-145); Troponin-I HS 6 pg/mL (3.0-54.0)
--- NOTE | 2024-05-20 09:30 | RAD_ITS ---
STUDY: X-RAY CHEST REASON FOR EXAM: Female, 58 years old. Cough. TECHNIQUE: PA and lateral views of the chest. COMPARISON: Comparison is made with prior study dated December 19, 2020. FINDINGS: EKG electrodes are seen. Hyperinflation. Questionable 8.6 mm x 6.3 mm nodule in the lateral aspect of the right upper lobe. There is no demonstrated pleural abnormality. Normal size heart. Normal mediastinum and josy. Normal visualized pulmonary arteries. There is atherosclerotic calcification of the aortic arch with tortuosity. Normal visualized thoracic spine. Normal visualized ribs, clavicles, and shoulders. There is no demonstrated abnormality of the visualized soft tissue structures of the upper abdomen. RAD/Chest PA and Lateral IMPRESSION: Questionable 8.6 mm x 6.3 mm nodule in the lateral aspect of the right upper lobe. An IV tubing is seen overlying scattered calcified granulomas. Repeat PA chest radiograph recommended with the removing the overlying tubing from the chest radiograph. Electronically Signed: Jagjit Garcia MD at 9:46 EDT ,
[2024-05-20] MEDS: Potassium Chloride Oral Tablet 20 MEQ 40 MEQ PO (09:45)
[2024-05-20 10:19] VITALS: BP 123/77; PULSE 81; O2SAT 93
[2024-05-20 11:28] VITALS: BP 117/68; PULSE 78; RESP 19; TEMP 36.6; O2SAT 92
== END 2024-05-20 11:28 | disposition home or self-care (01) ==
PROVIDERS: Emergency Provider Emergency Medicine; PCP Nurse Practitioner Family; Visit Provider Emergency Medicine
DX: J44.1 Chronic obstructive pulmonary disease with (acute) exacerbation (principal); I10 Essential (primary) hypertension; R50.9 Fever, unspecified; I25.10 Atherosclerotic heart disease of native coronary artery without angina pectoris; F17.210 Nicotine dependence, cigarettes, uncomplicated; Z99.81 Dependence on supplemental oxygen; E78.00 Pure hypercholesterolemia, unspecified; K21.9 Gastro-esophageal reflux disease without esophagitis; J98.4 Other disorders of lung; Z87.2 Personal history of diseases of the skin and subcutaneous tissue
CPT/HCPCS: 71046; 80048; 84484; 85025; 87631; 93005; 94640; 96374; 99284; A4216

== ENCOUNTER 2024-05-24 07:04 | Inpatient (IN) | payer OTHER, SELFPAY ==
[2024-05-24] VITALS (16 sets, daily range): BP systolic 117–132; BP diastolic 60–74; PULSE 72–98; RESP 17–27; TEMP 36.3–36.7; O2SAT 88–95; BMI 34.0; BMI 32.1
--- NOTE | 2024-05-24 07:09 | EKG12_ITS ---
Test Reason : SOB Blood Pressure : / mmHG Vent. Rate : 092 BPM Atrial Rate : 092 BPM P-R Int : 124 ms QRS Dur : 070 ms QT Int : 376 ms P-R-T Axes : 073 038 050 degrees QTc Int : 464 ms Normal sinus rhythm Nonspecific ST and T wave abnormality Abnormal ECG Confirmed by TRISH STUART, RICHI ([id number]), primer expeditor and drier JOHN CASTILLO ([id number]) on 05/27/2024 2:06:44 PM Referred By: LORI Confirmed By:SAUL CHAMBERS MD
--- NOTE | 2024-05-24 07:10 | ED.VIS.DYS ---
HPI History of Present Illness Chief Complaint: Shortness of Breath Narrative Narrative: 58-year-old female past medical history of COPD, hypertension hyperlipidemia, presents with respiratory distress since this morning. She relates history that she has been sick for about 2 weeks with intermittent fevers and cough productive of yellow sputum. While she has history of COPD, she states she does not see a strategic [facility] specialist. She usually wears 2 to 3 L of oxygen at home. However, she states that she has been without oxygen for the last few days because her machine is broken. She continues to smoke. Per EMS, they found her with a pulse ox in the 60s with mild respiratory distress. She was given DuoNeb aerosolized treatments but no steroids because they were unable to obtain IV access. They put her on CPAP, and her pulse ox improved to 97%. She states she is never been intubated for her breathing difficulty, but was admitted 3 to 4 years ago. [facility] Medical History Wears glasses Wears dentures Post-menopausal Rheumatoid arthritis High cholesterol CAD (coronary artery disease) Degenerative disc disease History of IBS Heartburn Gastric reflux Smoker History of echocardiogram History of stress test Hypertension Cardiology follow-up encounter Persistent left superior vena cava Obesity Nicotine dependence COPD (chronic obstructive pulmonary disease) Carotid stenosis, right Essential (primary) hypertension TIA (transient ischemic attack) Family history of colon cancer in father Hyperlipemia Subclavian arterial stenosis Home Medications ?Medication ?Instructions ?Recorded ?Last Taken ?Type amlodipine 5 mg tablet 5 mg PO DAILY 11/24/15 05/24/24 History metoprolol tartrate 50 mg tablet 50 mg PO DAILY 11/24/15 05/24/24 History tizanidine 4 mg tablet 4 mg PO DAILY 11/24/15 05/24/24 History triamterene 37.5 1 cap PO DAILY 11/24/15 05/24/24 History mg-hydrochlorothiazide 25 mg capsule acetaminophen 650 mg 1,300 mg PO PRN PRN Pain 07/02/18 1 Week Ago History tablet,extended release ~03/02/19 aspirin 81 mg tablet,delayed 81 mg PO DAILY@0800 heart health 07/02/18 05/24/24 History release oilfzmlinjig-xykxvtjq-wrvwbbg-folic 1 ea PO DAILY supplement 07/02/18 05/24/24 History acid 400 mcg-vit K1 20 mcg tablet albuterol sulfate 90 mcg/actuation 2 puff IH Q4H PRN PRN sob/wheezing 07/05/18 11/19/19 Rx aerosol inhaler ##1 budesonide-formoterol HFA 80 2 puff inhalation BID 05/05/20 05/24/24 History mcg-4.5 mcg/actuation aerosol inhaler celecoxib 200 mg capsule 200 mg PO DAILY 05/05/20 Unknown History lovastatin 40 mg tablet 40 mg PO QHS 05/05/20 05/23/24 History cyclobenzaprine 10 mg tablet 10 mg PO HS Muscle Spasm 06/22/22 05/23/24 History potassium chloride 8 mEq 8 meq PO DAILY 06/22/22 05/24/24 History tablet,extended release pantoprazole 40 mg tablet,delayed 40 mg PO DAILY #30 tabs 08/14/22 Unknown Rx release albuterol sulfate 2.5 mg/3 mL 2.5 mg (3 mL) inhalation Q4H PRN 05/20/24 Unknown Rx (0.083 %) solution for nebulization #25 vials prednisone 20 mg tablet 40 mg (2 x 20 mg) PO DAILY 7 days 05/20/24 05/24/24 Rx #14 tabs clobetasol 0.05 % topical cream 1 applic topical DAILY 05/24/24 05/24/24 History duloxetine 20 mg capsule,delayed 20 mg PO DAILY 05/24/24 05/24/24 History release tramadol 50 mg tablet 50 mg PO TID PRN PRN pain 05/24/24 Unknown History Allergy/AdvReac Type Severity Reaction Status Date / Time Penicillins Allergy Unknown Hives Verified 05/24/24 07:15 tramadol Allergy Swelling Verified 05/24/24 07:15 Surgical History History of coronary artery stent placement History of cardiac catheterization History of colonoscopy (~2016) History of esophagogastroduodenoscopy (EGD) (~11/2020) History of right-sided carotid endarterectomy (06/2020) History of angioplasty of peripheral vessel (02/24/15) Social History Smoking Status: Current every day smoker tobacco type: cigarettes Tobacco: How many years used: 33 alcohol intake: never substance use type: does not use caffeine: No ROS ROS ED ROS Narrative Constitutional: Intermittent fever, no chills. HEENT: No sore throat. No neck pain. No loss of vision. No rhinorrhea. Cardiovascular: No chest pain. No palpitations. No pedal edema. Respiratory: Positive cough with yellow sputum production, positive shortness of breath. Abdominal: No abdominal pain. No nausea. No vomiting. Genitourinary: No dysuria. No hematuria. Musculoskeletal: No myalgias. No arthralgias. Neurologic: No headaches. No dizziness. No lightheadedness. Skin: No rash. No change in color. Psychiatric: No depression. No anxiety. EXAM Physical Exam Narrative Exam Narrative: Afebrile. Vital signs noted. Patient arrives on CPAP with positive tachypnea. Cardiovascular examination regular rate and rhythm. Respiratory examination does reveal moderate tachypnea with decreased breath sounds bilateral bases left greater than right with rales. She is in mild to moderate respiratory distress. Abdomen soft nontender with normal active bowel sounds. No pedal edema bilaterally. Neurological examination shows her to be awake, alert, and responsive. Const Vital Signs: 05/24/24 07:05 05/24/24 07:05 05/24/24 07:24 Temperature 97.4 F L Temperature Source Temporal Pulse Rate 98 Respiratory Rate 27 H Respiratory Effort Respiratory Depth Respiratory Pattern Blood Pressure Blood Pressure Mean Pulse Ox 92 88 94 Oxygen Delivery Method High Flow High Flow High Flow Oxygen Flow Rate (L/min) 8 8 6 05/24/24 07:24 05/24/24 07:28 05/24/24 07:31 Temperature Temperature Source Pulse Rate 81 86 Respiratory Rate 22 H 17 Respiratory Effort Respiratory Depth Respiratory Pattern Tachypnea Blood Pressure 122/63 H Blood Pressure Mean 82 Pulse Ox 94 94 Oxygen Delivery Method Nasal Cannula Nasal Cannula Oxygen Flow Rate (L/min) 4 4 05/24/24 07:37 05/24/24 08:00 05/24/24 08:09 Temperature 97.8 F Temperature Source Temporal Pulse Rate 74 72 Respiratory Rate 25 H 19 H Respiratory Effort Short of Breath Labored Respiratory Depth Shallow Respiratory Pattern Tachypnea Blood Pressure 117/66 132/74 H Blood Pressure Mean 81 93 Pulse Ox 91 92 Oxygen Delivery Method Nasal Cannula Nasal Cannula Oxygen Flow Rate (L/min) 4 5 05/24/24 09:00 Temperature 98.1 F Temperature Source Temporal Pulse Rate 74 Respiratory Rate 20 H Respiratory Effort Respiratory Depth Respiratory Pattern Blood Pressure 122/60 H Blood Pressure Mean 80 Pulse Ox 91 Oxygen Delivery Method Nasal Cannula Oxygen Flow Rate (L/min) 6 MDM MDM MDM Narrative Medical decision making narrative: In the differential diagnosis is COPD exacerbation versus pneumonia versus pneumothorax. I have low suspicion for pneumothorax because the history and physical does not support this. CHF is also in the differential but she does not have a history of this. She was changed from CPAP to high flow oxygen at 8 L and is satting around 92%. She will be given another DuoNeb aerosolized treatment and Solu-Medrol. Chest x-ray and laboratory work will be obtained including EKG. EKG obtained to rule out STEMI/non-STEMI, and was interpreted by myself independently as normal sinus rhythm at 92 bpm without ectopy or acute ST changes. No evidence of STEMI. I reviewed her laboratory work and she has a leukocytosis of 15.8, hemoglobin 14.9 with hematocrit 46.1, platelet count normal at 359. Sodium normal at 139 but potassium 3.2. In comparison with previous labs she always has a chronic hypokalemia. I did check a magnesium which is normal at 2.1. AST slightly elevated at 39 which I think is nonspecific. Glucose is elevated at 257, but anion gap low at 2 so I doubt diabetic ketoacidosis. High-sensitivity troponin is 6. I do not feel she needs serial enzymes, she states she has been short of breath and sick for 2 weeks. Her respiratory swabs are negative for COVID, influenza, and RSV. Chest x-ray in 1 view interpreted by myself independently shows bibasilar atelectasis versus pneumonia. Given her leukocytosis, she will be treated as pneumonia. I reviewed the radiology report which confirms my independent interpretation. I chose Levaquin and obtain blood cultures because she has allergy to penicillin which is hives. BNP is normal at 45 so I doubt CHF as a cause of her shortness of breath and hypoxia. Per respiratory therapy, she was able to be weaned down to nasal cannula oxygen. Repeat examination shows her resting comfortably. I discussed patient with the hospitalist, Dr. Gonzalez, for admission to the PCU. Patient is in stable condition. History & Record Review Discussion w/independent historian: Patient Lab Data Attestation: I reviewed the patient's lab results. Labs: Laboratory Results - last 24 hr 05/24/24 07:15 WBC 15.8 H RBC 4.73 Hgb 14.9 Hct 46.1 MCV 97.5 MCH 31.5 MCHC 32.3 D RDW Std Deviation 51.8 H RDW Coeff of Janett 14.6 Plt Count 359 MPV 9.9 Neut % (Auto) Not Reportable Absolute Neuts (auto) 11.9 H Absolute Lymphs (auto) 2.68 Total Counted 100 Neutrophils % (Manual) 73 H Band Neutrophils % 2 Lymphocytes % (Manual) 17 L Monocytes % (Manual) 6 Metamyelocytes % 1 Myelocytes % 1 H Diff Path Review May foll Platelet Estimate ADEQUATE RBC Morphology NORM C+C Sodium 139 Potassium 3.2 L Chloride 99 Carbon Dioxide 38.0 H Anion Gap 2 L BUN 18 Creatinine 0.85 Estim Creat Clear Calc 66.70 Est GFR (MDRD) Af Amer 89 Est GFR (MDRD) Non-Af 74 BUN/Creatinine Ratio 21.3 H Glucose 257 H Calcium 9.8 Magnesium 2.1 Total Bilirubin 1.10 H AST 39 H ALT 43 Alkaline Phosphatase 101 Troponin I High Sens 6 B-Natriuretic Peptide 45.5 Total Protein 8.1 Albumin 3.3 Globulin 4.8 H Albumin/Globulin Ratio 0.7 L Radiography Diagnostic Testing: Clinical Impression(s) from Imaging Studies Chest X-Ray 05/24/24 07:31 IMPRESSION: Subtle ill-defined opacities within the lower lung, may be secondary to confluence of shadows however cannot exclude atelectasis and/or pneumonia. Stable prominent interstitial markings, may reflect edema. Electronically Signed: Jewell Lima MD at 8:15 EDT , Management Discussion w/another healthcare provider: Hospitalist (Dr. Gonzalez) Discharge Plan Dx/Rx/DC Orders Clinical Impression: Pneumonia, Hypoxia, COPD (chronic obstructive pulmonary disease), Hypokalemia Disposition Disposition: Acute Care Hospital [facility]
[2024-05-24] MEDS: Ipratropium/Albuterol Sulfate 3 ML AMPUL.NEB INHALATION ×3 (07:23→19:19)
[2024-05-24] MEDS: MethylPREDNISolone 125 MG/2 ML Vial IV (07:23)
--- NOTE | 2024-05-24 07:31 | RAD_ITS ---
INDICATION: RESPIRATORY FAILURE EXAMINATION/TECHNIQUE: X-RAY - XR Chest 1 View COMPARISON: May 20, 2024 FINDINGS: LUNGS: There are few ill-defined opacities within the lower lungs. There are stable prominent interstitial markings. No pneumothorax. MEDIASTINUM AND CARDIOVASCULAR STRUCTURES: Cardiac silhouette not enlarged. There is a stable hazy opacity of the right cardiophrenic angle suggestive of a pericardial fat pad. Central airways and mediastinal contour are unremarkable. BONES AND SOFT TISSUES: Unremarkable. RAD/Chest 1 View (Portable) IMPRESSION: Subtle ill-defined opacities within the lower lung, may be secondary to confluence of shadows however cannot exclude atelectasis and/or pneumonia. Stable prominent interstitial markings, may reflect edema. Electronically Signed: Jewell Lima MD at 8:15 EDT ,
[2024-05-24 07:42] LABS: ALB/GLOB Ratio 0.7 RATIO (0.9-2.4); AST(SGOT) 39 U/L (15-37); Alanine Aminotransfer ALT/SGPT 43 U/L (13-56); Albumin, Serum 3.3 g/dL (3.2-5.0); Alkaline Phosphatase 101 U/L (45-117); Anion Gap 2 (5-15); BUN 18 mg/dL (7-18); BUN/Creat Ratio 21.3 RATIO (10-20); Calcium,Total 9.8 mg/dL (8.5-10.1); Chloride 99 mmol/L (98-107); Creatinine, Serum 0.85 mg/dL (0.55-1.02); EST Glomerular Filtration Rate 74 mL/min (>60); Est Glom Filt Rate - Afr Amer 89 mL/min (>60); Globulin 4.8 g/dL (2.2-4.2); Glucose 257 mg/dL (74-106); Potassium 3.2 mmol/L (3.5-5.1); Protein, Total 8.1 g/dL (6.4-8.2); Sodium Level 139 mmol/L (136-145); Troponin-I HS 6 pg/mL (3.0-54.0)
[2024-05-24 07:53] LABS: Hematocrit 46.1 % (37-47); Hemoglobin 14.9 g/dL (12.0-15.0); Mean Corp Hgb Conc 32.3 g/dL (32-36); Mean Corpuscular Hgb 31.5 pg (27.0-32.0); Mean Corpuscular Volume 97.5 fL (81-99); Mean Platelet Vol. 9.9 fl (6.2-12.0); POSITIVE COUNT YES; POSITIVE MORPHOLOGY YES; Platelet Count 359 K/mm3 (150-450); RBC Distribution Width CV 14.6 % (11.6-14.6); RBC Distribution Width SD 51.8 fl (35.1-43.9); Red Blood Count 4.73 M/mm3 (4.2-5.4); White Blood Count 15.8 K/mm3 (4.4-11.0)
[2024-05-24 07:54] LABS: Differential Indicated MANUAL DIFF
[2024-05-24 08:12] LABS: BNP,B-Type NATRIURETIC PEPTIDE 45.5 pg/mL (0-100)
[2024-05-24 08:15] LABS: Magnesium 2.1 mg/dL (1.6-2.6)
[2024-05-24 08:24] LABS: Lymphocyte 17 % (19-41); Metamyelocyte 1 % (0-1); Monocyte 6 % (0-10); Myelocyte 1 % (0-0); Neutrophil-Band 2 % (0-5); Neutrophil-Segmented 73 % (47-70); Platelet Estimate ADEQUATE (ADEQ); Red Cell Morphology NORM C+C NORMAL (NORM C&C); Total Cells Counted 100 (MANUAL DIFF)
[2024-05-24 08:25] LABS: Absolute Lymphocyte Count 2.68 X10^3/uL (0.83-4.51); Absolute Neutrophil Count 11.9 X10^3/uL (2.0-7.7)
--- NOTE | 2024-05-24 08:44 | HP.PCM.HOS_ITS ---
HPI - General General Date of Admission: 05/24/24 Date of Service: 05/24/24 Chief Complaint: shortness of breath HPI Narrative GRAHAM LOVING, is a 58 F with a PMH as outlined who presents via the ED on 05/24/2024 with a complaint of shortness of breath. She had not been feeling well for about 2 weeks, with intermittent fever and a cough productive of yellowish sputum. She says she usually wears oxygen at home but her oxygen machine broke at home a few days ago. SHe denied any chest pain, palpitations, dizziness, nausea, vomiting or any other symptoms. REview of systems was otherwise negative. When the squad found her, she was saturating at 62%on room air, and was immediately placed on BIPAP. Vitals in the ED where temperature of 98.1 Fahrenheit, pulse rate of 80, blood pressure of 118/62, respiratory rate of 20 and pulse ox of 92% on 10 L of oxygen. She has been weaned off of BiPAP to 10 L of oxygen at time of review. CBC showed hemoglobin of 14.9 with WBC of 15.8 and platelets of 359. Chemistry showed sodium of 139 with potassium of 3.2 and creatinine of 0.85 with bicarb of 38. Total bilirubin is 1.1 and AST slightly elevated at 39. ALT and ALP were within normal limits. Chest x-ray showed subtle ill-defined opacities within the lower lung which may be secondary to confluence of shadows however cannot exclude atelectasis and/or pneumonia. She has been admitted to be managed for acute hypoxic respiratory failure due to probable COPD exacerbation and community-acquired pneumonia. [facility] Medical History Wears glasses Wears dentures Post-menopausal Rheumatoid arthritis High cholesterol CAD (coronary artery disease) Degenerative disc disease History of IBS Heartburn Gastric reflux Smoker History of echocardiogram History of stress test Hypertension Cardiology follow-up encounter Persistent left superior vena cava Obesity Nicotine dependence COPD (chronic obstructive pulmonary disease) Carotid stenosis, right Essential (primary) hypertension TIA (transient ischemic attack) Family history of colon cancer in father Hyperlipemia Subclavian arterial stenosis Home Medications ?Medication ?Instructions ?Recorded ?Last Taken ?Type amlodipine 5 mg tablet 5 mg PO DAILY 11/24/15 05/24/24 History metoprolol tartrate 50 mg tablet 50 mg PO DAILY 11/24/15 05/24/24 History tizanidine 4 mg tablet 4 mg PO DAILY 11/24/15 05/24/24 History triamterene 37.5 1 cap PO DAILY 11/24/15 05/24/24 History mg-hydrochlorothiazide 25 mg capsule acetaminophen 650 mg 1,300 mg PO PRN PRN Pain 07/02/18 1 Week Ago History tablet,extended release ~03/02/19 aspirin 81 mg tablet,delayed 81 mg PO DAILY@0800 heart health 07/02/18 05/24/24 History release lfiyszplfasz-ediazldv-svmdazq-folic 1 ea PO DAILY supplement 07/02/18 05/24/24 History acid 400 mcg-vit K1 20 mcg tablet albuterol sulfate 90 mcg/actuation 2 puff IH Q4H PRN PRN sob/wheezing 07/05/18 11/19/19 Rx aerosol inhaler ##1 budesonide-formoterol HFA 80 2 puff inhalation BID 05/05/20 05/24/24 History mcg-4.5 mcg/actuation aerosol inhaler celecoxib 200 mg capsule 200 mg PO DAILY 05/05/20 Unknown History lovastatin 40 mg tablet 40 mg PO QHS 05/05/20 05/23/24 History cyclobenzaprine 10 mg tablet 10 mg PO HS Muscle Spasm 06/22/22 05/23/24 History potassium chloride 8 mEq 8 meq PO DAILY 06/22/22 05/24/24 History tablet,extended release pantoprazole 40 mg tablet,delayed 40 mg PO DAILY #30 tabs 08/14/22 Unknown Rx release albuterol sulfate 2.5 mg/3 mL 2.5 mg (3 mL) inhalation Q4H PRN 05/20/24 Unknown Rx (0.083 %) solution for nebulization #25 vials prednisone 20 mg tablet 40 mg (2 x 20 mg) PO DAILY 7 days 05/20/24 05/24/24 Rx #14 tabs clobetasol 0.05 % topical cream 1 applic topical DAILY 05/24/24 05/24/24 History duloxetine 20 mg capsule,delayed 20 mg PO DAILY 05/24/24 05/24/24 History release tramadol 50 mg tablet 50 mg PO TID PRN PRN pain 05/24/24 Unknown History Allergy/AdvReac Type Severity Reaction Status Date / Time Penicillins Allergy Unknown Hives Verified 05/24/24 07:15 tramadol Allergy Swelling Verified 05/24/24 07:15 Surgical History History of coronary artery stent placement History of cardiac catheterization History of colonoscopy (~2016) History of esophagogastroduodenoscopy (EGD) (~11/2020) History of right-sided carotid endarterectomy (06/2020) History of angioplasty of peripheral vessel (02/24/15) Social History Smoking Status: Current every day smoker tobacco type: cigarettes Tobacco: How many years used: 33 alcohol intake: never substance use type: does not use caffeine: No ROS Constitutional Constitutional: Reports fatigue, fever(s), malaise and weakness; Denies anorexia, change in weight or chills Eyes Eyes: Denies change in vision ENT HEENT: Denies dysphagia or headache(s) Cardiovascular Cardiovascular: Denies chest pain, dyspnea on exertion, edema, lightheadedness, orthopnea, palpitations, paroxysmal nocturnal dyspnea, rapid heart rate or syncope Respiratory/Chest Respiratory/Chest: Reports cough, dyspnea, productive cough, shortness of breath at rest and shortness of breath with exertion; Denies excessive phlegm production, hemoptysis or wheezing Gastrointestinal Gastrointestinal: Denies abdominal pain, constipation, diarrhea, nausea or vomiting Genitourinary Genitourinary: Denies dysuria Neurologic Neurologic: Denies confusion, dizziness, focal weakness, headache(s), numbness, seizure-like activity or seizures Psychiatric Psychiatric: Denies anxiety or depression Vital Signs Vital Signs Vital Signs: 05/24/24 07:05 05/24/24 07:05 05/24/24 07:24 Temperature 97.4 F L Temperature Source Temporal Pulse Rate 98 Respiratory Rate 27 H Respiratory Effort Respiratory Depth Respiratory Pattern Blood Pressure Blood Pressure Mean Pulse Ox 92 88 94 Oxygen Delivery Method High Flow High Flow High Flow Oxygen Flow Rate (L/min) 8 8 6 05/24/24 07:24 05/24/24 07:28 05/24/24 07:31 Temperature Temperature Source Pulse Rate 81 86 Respiratory Rate 22 H 17 Respiratory Effort Respiratory Depth Respiratory Pattern Tachypnea Blood Pressure 122/63 H Blood Pressure Mean 82 Pulse Ox 94 94 Oxygen Delivery Method Nasal Cannula Nasal Cannula Oxygen Flow Rate (L/min) 4 4 05/24/24 07:37 05/24/24 08:00 05/24/24 08:09 Temperature 97.8 F Temperature Source Temporal Pulse Rate 74 72 Respiratory Rate 25 H 19 H Respiratory Effort Short of Breath Labored Respiratory Depth Shallow Respiratory Pattern Tachypnea Blood Pressure 117/66 132/74 H Blood Pressure Mean 81 93 Pulse Ox 91 92 Oxygen Delivery Method Nasal Cannula Nasal Cannula Oxygen Flow Rate (L/min) 4 5 Weight Weight: 168 lb 6.931 oz Body Mass Index (BMI) 34.0 Physical Exam Const alert, oriented x3 and average body habitus Constitutional Narrative: frail General Appearance: cooperative HEENT normocephalic, head/scalp atraumatic, hearing grossly normal bilaterally and moist oral mucous membranes Eyes PERRL, EOMs intact bilaterally and conjunctivae normal Resp Resp Narrative: moderately diminished breath sounds bibasally, mild wheezes and few crackles bilaterally. On 10L of oxygen by nasal canula Cardio regular rate, regular rhythm, S1 normal heart sound, S2 normal heart sound and no murmurs GI normal to inspection, nondistended, normoactive bowel sounds, soft to palpation, non-tender and non-distended Extremity normal to inspection, full ROM and no clubbing, cyanosis or edema Neuro oriented x3, CN's II-XII intact bilaterally, moves all extremities and no focal motor deficits Sensorium / Orientation: awake and alert Motor Exam: strength 5/5 throughout Psych affect normal Results Lab / Micro Data 05/24/24 07:15 05/24/24 07:15 Labs: Laboratory Results - last 24 hr 05/24/24 07:15: WBC 15.8 H, RBC 4.73, Hgb 14.9, Hct 46.1, MCV 97.5, MCH 31.5, M CHC 32.3 D, RDW Std Deviation 51.8 H, RDW Coeff of Janett 14.6, Plt Count 359, MPV 9.9, Neut % (Auto) Not Reportable, Absolute Neuts (auto) 11.9 H, Absolute Lymphs (auto) 2.68, Total Counted 100, Neutrophils % (Manual) 73 H, Band Neutrophils % 2, Lymphocytes % (Manual) 17 L, Monocytes % (Manual) 6, Metamyelocytes % 1, M yelocytes % 1 H, Diff Path Review May foll, Platelet Estimate ADEQUATE, RBC Morphology NORM C+C, Sodium 139, Potassium 3.2 L, Chloride 99, Carbon Dioxide 38.0 H, Anion Gap 2 L, BUN 18, Creatinine 0.85, Estim Creat Clear Calc 66.70, Est GFR (MDRD) Af Amer 89, Est GFR (MDRD) Non-Af 74, BUN/Creatinine Ratio 21.3 H , Glucose 257 H, Calcium 9.8, Magnesium 2.1, Total Bilirubin 1.10 H, AST 39 H, ALT 43, Alkaline Phosphatase 101, Troponin I High Sens 6, B-Natriuretic Peptide 45.5, Total Protein 8.1, Albumin 3.3, Globulin 4.8 H, Albumin/Globulin Ratio 0.7 L Micro: Microbiology 05/24/24 07:30 Mucosa - Nose SARS-CoV-2, Influenza & RSV (PCR) - Final Imaging Radiology Impression Chest X-Ray 05/24/24 07:31 IMPRESSION: Subtle ill-defined opacities within the lower lung, may be secondary to confluence of shadows however cannot exclude atelectasis and/or pneumonia. Stable prominent interstitial markings, may reflect edema. Electronically Signed: Jewell Lima MD at 8:15 EDT , Assessment & Plan Assessment/Plan (1) Acute respiratory failure with hypoxia: (2) COPD exacerbation: (3) Pneumonia: (4) Hypoxia: (5) COPD with acute exacerbation: PLAN: Plan #Acute hypoxic respiratory failure * Likely due to COPD exacerbation, community-acquired pneumonia and malfunctioning oxygen cylinder. * Usually wears 2 to 3 L of oxygen at home but says oxygen machine has not been working for several days. She also developed a fever with chills as well as productive cough and also had some wheezing. * She was saturating at 69% on room air when the EMS arrived and she was immediately placed on BiPAP. * She is not being weaned to 10 L of oxygen. * Chest x-ray showed subtle ill-defined opacities within the lower lung which was secondary to confluence of shadows but could not exclude atelectasis and no pneumonia. * Patient allergic to penicillin so started on IV levofloxacin. * Hide on IV Solu-Medrol for COPD exacerbation. * Breathing treatments bronchodilators. Titrate oxygen to maintain saturation above 90%. * Urine for strep and Legionella. Sputum cultures. * #COPD exacerbation: As above #Community-acquired pneumonia: As above #Hypertension: on amlodipine and metoprolol as well as Maxzide #Hyperlipidemia: on statin #Depression; on duloxetine #Hyperglycemia: * A1c back in 2019 was 6.4. * Patient does not seem to be on any diabetes medications. * Blood sugar was 257 on admission. * However she has been on p.o. steroids and this could be contributing. Will check A1c. * DVT prophylaxis; lovenox CODE STATUS: Full code * Patient counseled extensively about different types of CODE STATUS including full code, DNR CCA and DNR CCA. Patient elects to be full code. * Total [id number] time 17 minutes. Charges/Coding Visit Charges Inpatient E&M: 77352 Init Hosp L3 Procedures Hospitalists Procedures: 19379 Advncd Care Plan 30 Min
[2024-05-24] MEDS: levoFLOXacin IV 750 MG in Empty Viaflex Q24 100 MG IV (09:12)
[2024-05-24] MEDS: Acetaminophen 325 MG Tablet 650 MG PO (09:56)
[2024-05-24] MEDS: Potassium Chloride Oral Tablet 20 MEQ 40 MEQ PO (12:18)
[2024-05-24] MEDS: 0.9% Normal Saline (1000mL) 1,000 ML 125 ML IV ×2 (12:19→19:32)
--- NOTE | 2024-05-24 12:31 | CASEMGMT ---
Social Work As per admitting RN, pt does not have LW/POA, declined further information at this time. ALEXANDRA Hodgson
[2024-05-24 12:33] LABS: Hemoglobin A1c 8.6 % (3.8-5.6)
[2024-05-24] MEDS: cycloBENZAPRine HCl 10 MG Tablet PO (21:02)
[2024-05-24] MEDS: 0.9% Saline Lock 10 ML Syringe IV (21:02)
[2024-05-24] MEDS: Atorvastatin Calcium 10 MG Tablet PO (21:03)
[2024-05-25] VITALS (12 sets, daily range): BP systolic 100–146; BP diastolic 56–72; PULSE 65–105; RESP 18–24; TEMP 36.1–37; O2SAT 89–95
[2024-05-25] MEDS: Ipratropium/Albuterol Sulfate 3 ML AMPUL.NEB INHALATION ×4 (01:42→17:49)
[2024-05-25] MEDS: 0.9% Saline Lock 10 ML Syringe IV ×4 (05:06→20:23)
[2024-05-25 05:13] LABS: Hematocrit 40.6 % (37-47); Mean Corp Hgb Conc 34.5 g/dL (32-36); Mean Corpuscular Hgb 35.2 pg (27.0-32.0); Mean Platelet Vol. 10.4 fl (6.2-12.0); POSITIVE COUNT YES; POSITIVE MORPHOLOGY YES; Platelet Count 318 K/mm3 (150-450); RBC Distribution Width CV 15.3 % (11.6-14.6); RBC Distribution Width SD 52.5 fl (35.1-43.9); Red Blood Count 3.98 M/mm3 (4.2-5.4); White Blood Count 15.9 K/mm3 (4.4-11.0)
[2024-05-25 05:24] LABS: Differential Indicated MANUAL DIFF
[2024-05-25 05:43] LABS: Anion Gap 2 (5-15); BUN 19 mg/dL (7-18); BUN/Creat Ratio 26.3 RATIO (10-20); Calcium,Total 9.5 mg/dL (8.5-10.1); Chloride 105 mmol/L (98-107); Creatinine, Serum 0.72 mg/dL (0.55-1.02); EST Glomerular Filtration Rate 88 mL/min (>60); Est Glom Filt Rate - Afr Amer 107 mL/min (>60); Estimated Creatinine Clearance 76.51 ml/min; Glucose 348 mg/dL (74-106); Sodium Level 139 mmol/L (136-145)
[2024-05-25 06:01] LABS: Neutrophil-Band 1 % (0-5); Neutrophil-Segmented 90 % (47-70); Total Cells Counted 100 (MANUAL DIFF)
[2024-05-25 06:02] LABS: Lymphocyte 5 % (19-41); Metamyelocyte 2 % (0-1); Myelocyte 2 % (0-0)
[2024-05-25 06:03] LABS: Platelet Estimate ADEQUATE (ADEQ); Red Cell Morphology NORM C+C NORMAL (NORM C&C)
[2024-05-25 06:04] LABS: Absolute Lymphocyte Count 0.79 X10^3/uL (0.83-4.51); Absolute Neutrophil Count 14.5 X10^3/uL (2.0-7.7)
[2024-05-25] MEDS: Triamterene 37.5MG/Hctz 25MG Capsule 1 CAP PO (10:21)
[2024-05-25] MEDS: Potassium Chloride Oral Tablet 10 MEQ PO (10:21)
[2024-05-25] MEDS: DULoxetine Hcl 20 MG Capsule PO (10:21)
[2024-05-25] MEDS: Celecoxib 200 MG Capsule PO (10:21)
[2024-05-25] MEDS: Aspirin E.C. 81 MG Tablet PO (10:21)
[2024-05-25] MEDS: levoFLOXacin IV 750 MG in Empty Viaflex Q24 100 MG IV (10:22)
[2024-05-25] MEDS: Metoprolol Tartrate 50 MG Tablet PO (10:22)
[2024-05-25] MEDS: Enoxaparin 40 MG/0.4 ML Syringe SC (10:22)
[2024-05-25] MEDS: tiZANidine HCl 2 MG Tablet 4 MG PO (10:23)
[2024-05-25] MEDS: amLODIPine 5 MG Tablet PO (10:23)
[2024-05-25] MEDS: Pantoprazole Sodium 40 MG Tablet PO (10:23)
--- NOTE | 2024-05-25 12:09 | PN_ITS ---
Subjective Subjective Patient seen and examined. She says she feels better today. She is still coughing, bringing up yellowish-greenish sputum. She denies any wheezing. Review of systems is otherwise negative. Objective Data Objective Data Vital Signs: Vital Signs Temp Pulse Resp BP Pulse Ox O2 Del Method O2 Flow Rate 97.9 F 100 18 120/56 L 94 Nasal Cannula 6 05/25/24 08:21 05/25/24 10:22 05/25/24 08:21 05/25/24 10:22 05/25/24 08:21 05/25/24 10:30 05/25/24 10:30 Oxygen Flow Rate (L/min) 6 Oxygen Delivery Method Nasal Cannula Weight: 159 lb 6.307 oz Body Mass Index (BMI) 32.1 Intake & Output: Intake and Output for Last 24 Hours 05/23/24 05/24/24 05/25/24 23:59 23:59 23:59 Intake Total 1892.08 / 1892.08 989.58 / 989.58 Output Total 200 / 500 300 / 300 Balance 1692.08 / 1392.08 689.58 / 689.58 Lab / Micro Data 05/25/24 04:25 05/25/24 04:25 Labs: Laboratory Results - last 24 hr 05/24/24 12:00: Hemoglobin A1c 8.6 H 05/25/24 04:25: WBC 15.9 H, RBC 3.98 L, Hgb 14.0, Hct 40.6, MCV 102.0 H, MCH 35.2 H, MCHC 34.5 D, RDW Std Deviation 52.5 H, RDW Coeff of Janett 15.3 H, Plt Count 318, MPV 10.4, Neut % (Auto) Not Reportable, Absolute Neuts (auto) 14.5 H, Absolute Lymphs (auto) 0.79 L, Total Counted 100, Neutrophils % (Manual) 90 H, Band Neutrophils % 1, Lymphocytes % (Manual) 5 L, Metamyelocytes % 2 H, M yelocytes % 2 H, Diff Path Review February, Platelet Estimate ADEQUATE, RBC Morphology NORM C+C, Sodium 139, Potassium 5.0, Chloride 105, Carbon Dioxide 32.0, Anion Gap 2 L, BUN 19 H, Creatinine 0.72, Estim Creat Clear Calc 76.51, Est GFR (MDRD) Af Amer 107, Est GFR (MDRD) Non-Af 88, BUN/Creatinine Ratio 26.3 H, Glucose 348 H, Calcium 9.5 Micro: Microbiology 05/24/24 20:00 Urine, Random Legionella Antigen - Final 05/24/24 20:00 Urine, Random Streptococcus pneumoniae Antigen (M - Final 05/24/24 12:45 Sputum, Expectorated/Coughed Gram Stain - Final 05/24/24 07:30 Mucosa - Nose SARS-CoV-2, Influenza & RSV (PCR) - Final Physical Exam Const alert, oriented x3 and average body habitus Constitutional Narrative: frail General Appearance: cooperative HEENT normocephalic, head/scalp atraumatic, hearing grossly normal bilaterally and moist oral mucous membranes Eyes PERRL, EOMs intact bilaterally and conjunctivae normal Resp Resp Narrative: moderately diminished breath sounds bibasally, mild wheezes and few crackles bilaterally. On 6 L of oxygen by nasal canula Cardio regular rate, regular rhythm, S1 normal heart sound, S2 normal heart sound and no murmurs GI normal to inspection, nondistended, normoactive bowel sounds, soft to palpation, non-tender and non-distended Extremity normal to inspection, full ROM and no clubbing, cyanosis or edema Skin General Skin Exam: no breakdown Neuro oriented x3, CN's II-XII intact bilaterally, moves all extremities and no focal motor deficits Sensorium / Orientation: awake and alert Motor Exam: strength 5/5 throughout Psych thought process normal, cooperative and affect normal Appearance: appropriate Assessment & Plan Assessment/Plan (1) Acute respiratory failure with hypoxia: (2) COPD exacerbation: (3) Pneumonia: (4) Hypoxia: (5) COPD with acute exacerbation: PLAN: Plan #Acute hypoxic respiratory failure * Likely due to COPD exacerbation, community-acquired pneumonia and malfunctioning oxygen cylinder. * Usually wears 2 to 3 L of oxygen at home but says oxygen machine has not been working for several days. She also developed a fever with chills as well as productive cough and also had some wheezing. * she is now on 6L of oxygen, down from 10L of oxygen on admission. * Chest x-ray showed subtle ill-defined opacities within the lower lung which was secondary to confluence of shadows but could not exclude atelectasis and no pneumonia. * now on IV levofloxacin. * on IV Solu-Medrol for COPD exacerbation. * Breathing treatments bronchodilators. Titrate oxygen to maintain saturation above 90%. * Urine for strep and Legionella. Sputum cultures. * #COPD exacerbation: As above #Community-acquired pneumonia: As above #Hypertension: on amlodipine and metoprolol as well as Maxzide #Hyperlipidemia: on statin #Depression; on duloxetine #Diabetes mellitus * A1c back in 2019 was 6.4. * Patient does not seem to be on any diabetes medications. * Blood sugar was 257 on admission. * However she has been on p.o. steroids and this could be contributing. * A1C is 8.6 * will start patient on PO metformin 500mg bid * ISS. Accuchecks ACHS * DVT prophylaxis; lovenox CODE STATUS: Full code * Charges/Coding Visit Charges Inpatient E&M: 38035 Subs Hosp L2
[2024-05-25 13:16] LABS: Bedside Glucose 346 mg/dL (74-106)
[2024-05-25] MEDS: Insulin Lispro 100 UNIT/ML INSULN.PEN SC ×3 (13:18→20:23)
[2024-05-25 17:05] LABS: Bedside Glucose 295 mg/dL (74-106)
--- NOTE | 2024-05-25 18:41 | NURSING ---
Reviewed and agreed on charting with Murray Farias RN
[2024-05-25] MEDS: Atorvastatin Calcium 10 MG Tablet PO (20:23)
[2024-05-25] MEDS: cycloBENZAPRine HCl 10 MG Tablet PO (20:23)
[2024-05-25 21:57] LABS: Bedside Glucose 398 mg/dL (74-106)
[2024-05-26] VITALS (14 sets, daily range): BP systolic 103–119; BP diastolic 57–75; PULSE 61–79; RESP 14–20; TEMP 36.4–36.7; O2SAT 91–98
[2024-05-26] MEDS: Ipratropium/Albuterol Sulfate 3 ML AMPUL.NEB INHALATION ×4 (02:19→19:16)
[2024-05-26] MEDS: 0.9% Saline Lock 10 ML Syringe IV (06:06)
[2024-05-26] MEDS: Insulin Lispro 100 UNIT/ML INSULN.PEN SC ×4 (06:06→23:46)
[2024-05-26 06:53] LABS: Bedside Glucose 280 mg/dL (74-106)
[2024-05-26] MEDS: levoFLOXacin IV 750 MG in Empty Viaflex Q24 100 MG IV (09:34)
[2024-05-26] MEDS: Metoprolol Tartrate 50 MG Tablet PO (09:36)
[2024-05-26] MEDS: Pantoprazole Sodium 40 MG Tablet PO (09:36)
[2024-05-26] MEDS: tiZANidine HCl 2 MG Tablet 4 MG PO (09:36)
[2024-05-26] MEDS: DULoxetine Hcl 20 MG Capsule PO (09:37)
[2024-05-26] MEDS: Aspirin E.C. 81 MG Tablet PO (09:37)
[2024-05-26] MEDS: Celecoxib 200 MG Capsule PO (09:37)
[2024-05-26] MEDS: Triamterene 37.5MG/Hctz 25MG Capsule 1 CAP PO (09:37)
[2024-05-26] MEDS: Enoxaparin 40 MG/0.4 ML Syringe SC (09:37)
[2024-05-26] MEDS: amLODIPine 5 MG Tablet PO (09:37)
[2024-05-26] MEDS: Potassium Chloride Oral Tablet 10 MEQ PO (09:37)
--- NOTE | 2024-05-26 10:22 | PN_ITS ---
Subjective Subjective Patient seen and examined. She feels much better. Her cough is improving. She is down to 4 L of oxygen. She denies any wheezing, fever or chills or any other symptoms. Review of systems otherwise negative. Objective Data Objective Data Vital Signs: Vital Signs Temp Pulse Resp BP Pulse Ox O2 Del Method O2 Flow Rate 98.0 F 79 18 117/70 92 Nasal Cannula 4 05/26/24 09:30 05/26/24 09:36 05/26/24 09:30 05/26/24 09:30 05/26/24 09:30 05/26/24 09:30 05/26/24 09:30 Oxygen Flow Rate (L/min) 4 Oxygen Delivery Method Nasal Cannula Weight: 159 lb 6.307 oz Body Mass Index (BMI) 32.1 Intake & Output: Intake and Output for Last 24 Hours 05/24/24 05/25/24 05/26/24 23:59 23:59 23:59 Intake Total 1892.08 / 1892.08 2039.58 / 2039.58 Output Total 200 / 500 300 / 300 Balance 1692.08 / 1392.08 1739.58 / 1739.58 Lab / Micro Data 05/25/24 04:25 05/25/24 04:25 Labs: Laboratory Results - last 24 hr 05/25/24 12:57: POC Glucose 346 H 05/25/24 16:48: POC Glucose 295 H 05/25/24 20:20: POC Glucose 398 H 05/26/24 06:04: POC Glucose 280 H Micro: Microbiology 05/24/24 20:00 Urine, Random Legionella Antigen - Final 05/24/24 20:00 Urine, Random Streptococcus pneumoniae Antigen (M - Final 05/24/24 12:45 Sputum, Expectorated/Coughed Gram Stain - Final 05/24/24 07:30 Mucosa - Nose SARS-CoV-2, Influenza & RSV (PCR) - Final Physical Exam Const alert, oriented x3 and average body habitus Constitutional Narrative: frail General Appearance: cooperative HEENT normocephalic, head/scalp atraumatic, hearing grossly normal bilaterally and moist oral mucous membranes Eyes PERRL, EOMs intact bilaterally and conjunctivae normal Resp Resp Narrative: moderately diminished breath sounds bibasally, mild wheezes and few crackles bilaterally. On 4 L of oxygen by nasal canula Cardio regular rate, regular rhythm, S1 normal heart sound, S2 normal heart sound and no murmurs GI normal to inspection, nondistended, normoactive bowel sounds, soft to palpation, non-tender and non-distended Extremity normal to inspection, full ROM and no clubbing, cyanosis or edema Skin General Skin Exam: no breakdown Neuro oriented x3, CN's II-XII intact bilaterally, moves all extremities and no focal motor deficits Sensorium / Orientation: awake and alert Motor Exam: strength 5/5 throughout Psych thought process normal, cooperative and affect normal Appearance: appropriate Assessment & Plan Assessment/Plan (1) Acute respiratory failure with hypoxia: (2) COPD exacerbation: (3) Pneumonia: (4) Hypoxia: (5) COPD with acute exacerbation: PLAN: Plan #Acute hypoxic respiratory failure * Likely due to COPD exacerbation, community-acquired pneumonia and malfunctioning oxygen cylinder. * Usually wears 2 to 3 L of oxygen at home but says oxygen machine has not been working for several days. * She is feeling much better, and is now down to 4L of oxygen. * Chest x-ray showed subtle ill-defined opacities within the lower lung which was secondary to confluence of shadows but could not exclude atelectasis and no pneumonia. * continue IV levofloxacin. * on IV Solu-Medrol for COPD exacerbation. * Breathing treatments bronchodilators. Titrate oxygen to maintain saturation above 90%. * Urine for strep and Legionella. Sputum cultures. * #COPD exacerbation: As above #Community-acquired pneumonia: As above #Hypertension: on amlodipine and metoprolol as well as Maxzide #Hyperlipidemia: on statin #Depression; on duloxetine #Diabetes mellitus * A1c back in 2019 was 6.4. * Patient does not seem to be on any diabetes medications. * Blood sugar was 257 on admission. * However she has been on p.o. steroids and this could be contributing. * A1C is 8.6 * Patient now says she is on glipizide and mounjaro * ISS. Accuchecks ACHS * DVT prophylaxis; lovenox CODE STATUS: Full code * Disposition: for likely dc over the next 1-2 days. Charges/Coding Visit Charges Inpatient E&M: 28050 Subs Hosp L2
--- NOTE | 2024-05-26 11:20 | CASEMGMT ---
RN CM Face to Face with patient for initial transition planning/care coordination assessment. RN CM introduced self and role at [facility]. Patient sitting in chair, alert and oriented. Patient willing to participate in assessment and is able to answer all questions appropriately. Care providers, pharmacy, and demographics verified. PCP: [facility] Specialists: RA Damir; [facility] Preferred Pharmacy: [facility] Insurance: MMO Prescription Benefit: yes Living Will/HPOA: none LNOK: sister Living Arrangements: Patient lives with sister in a mobile home with 3-4 steps and railing to enter the home. Patient states she is independent at home. Transportation: self, sister DME/HHC: Patient has nebulizer, pulse ox, and glucometer with supplies at home. Patient prefers [employer] for home oxygen, will monitor. Patient wishes to discharge home, denies need for home health at this time. Patient states he has no further needs or concerns at this time. CM to follow for discharge planning needs that may arise. Disposition Plan: Patient to discharge home with family support and follow-up plans in place. Lisa SEGAL, RN, CM
[2024-05-26 11:57] LABS: Bedside Glucose 333 mg/dL (74-106)
[2024-05-26 14:33] LABS: Pathologist Review Reviewed
[2024-05-26 14:35] LABS: Pathologist Review Reviewed
--- NOTE | 2024-05-26 15:25 | CHAPLAIN ---
Type of Pastoral Visit _x__ Initial Visit ___ Follow-up Visit ___ On-call Visit ___ General Patient Visit ___ Spiritual Assessment ___ Family Conference ___ Bereavement ___ Rapid Response ___ Code Blue ___ Other (describe below) Pastoral Care Referral From _x__ Patient ___ Family ___ Nurse ___ Physician ___ Commissioning Manager ___ Residential Supervisor ___ Other (describe below) Sacrament/Intervention _x__ Active listening ___ Anointing ___ Denominational ___ Bereavement ___ Communion ___ Ani exploration ___ ___ Life review _x__ Prayer ___ Reconciliation ___ Sacrament of Sick ___ Supportive presence ___ Wedding ___ Other (describe below) Pastoral Comments patient gives some life review and 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
[2024-05-26 16:47] LABS: Bedside Glucose 343 mg/dL (74-106)
[2024-05-26] MEDS: Atorvastatin Calcium 10 MG Tablet PO (21:48)
[2024-05-26] MEDS: cycloBENZAPRine HCl 10 MG Tablet PO (21:48)
[2024-05-27] VITALS (13 sets, daily range): BP systolic 108–137; BP diastolic 61–77; PULSE 60–88; RESP 14–20; TEMP 36.3–36.7; O2SAT 86–94
[2024-05-27] MEDS: Ipratropium/Albuterol Sulfate 3 ML AMPUL.NEB INHALATION ×3 (01:06→13:04)
[2024-05-27] MEDS: Insulin Lispro 100 UNIT/ML INSULN.PEN SC ×5 (05:51→20:56)
[2024-05-27 06:28] LABS: Bedside Glucose 334 mg/dL (74-106)
[2024-05-27 08:30] LABS: Absolute Lymphocyte Count 1.29 X10^3/uL (0.83-4.51); Absolute Neutrophil Count 14.5 X10^3/uL (2.0-7.7); Basophil# 0.09 X10^3/uL; Basophil% 0.5 % (0-1); Hematocrit 44.3 % (37-47); Hemoglobin 15.1 g/dL (12.0-15.0); Lymphocyte # 1.29 X10^3/ul (0.83-4.51); Lymphocyte % 7.5 % (19-41); Mean Corp Hgb Conc 34.1 g/dL (32-36); Mean Corpuscular Hgb 33.4 pg (27.0-32.0); Mean Platelet Vol. 10.1 fl (6.2-12.0); Monocyte# 0.65 X10^3/uL; Monocyte% 3.8 % (0-10); NRBC Flagged by Analyzer 0 % (0-5); Neutrophil # 14.53 X10^3/uL (2.7-7.7); Platelet Count 330 K/mm3 (150-450); RBC Distribution Width CV 14.8 % (11.6-14.6); RBC Distribution Width SD 47.9 fl (35.1-43.9); Red Blood Count 4.52 M/mm3 (4.2-5.4); White Blood Count 17.3 K/mm3 (4.4-11.0)
[2024-05-27] MEDS: levoFLOXacin IV 750 MG in Empty Viaflex Q24 100 MG IV (08:46)
[2024-05-27] MEDS: Triamterene 37.5MG/Hctz 25MG Capsule 1 CAP PO (08:46)
[2024-05-27] MEDS: Celecoxib 200 MG Capsule PO (08:46)
[2024-05-27] MEDS: Enoxaparin 40 MG/0.4 ML Syringe SC (08:47)
[2024-05-27] MEDS: amLODIPine 5 MG Tablet PO (08:47)
[2024-05-27] MEDS: Metoprolol Tartrate 50 MG Tablet PO (08:47)
[2024-05-27] MEDS: Potassium Chloride Oral Tablet 10 MEQ PO (08:47)
[2024-05-27] MEDS: DULoxetine Hcl 20 MG Capsule PO (08:47)
[2024-05-27] MEDS: tiZANidine HCl 2 MG Tablet 4 MG PO (08:47)
[2024-05-27] MEDS: glipiZIDE 5 MG Tablet PO (08:47)
[2024-05-27] MEDS: Pantoprazole Sodium 40 MG Tablet PO (08:47)
[2024-05-27] MEDS: Aspirin E.C. 81 MG Tablet PO (08:47)
[2024-05-27 08:52] LABS: Anion Gap 1 (5-15); BUN 28 mg/dL (7-18); BUN/Creat Ratio 28.7 RATIO (10-20); Calcium,Total 10.1 mg/dL (8.5-10.1); Chloride 96 mmol/L (98-107); Creatinine, Serum 0.97 mg/dL (0.55-1.02); EST Glomerular Filtration Rate 63 mL/min (>60); Est Glom Filt Rate - Afr Amer 76 mL/min (>60); Estimated Creatinine Clearance 56.79 ml/min; Glucose 337 mg/dL (74-106); Potassium 4.5 mmol/L (3.5-5.1); Sodium Level 134 mmol/L (136-145)
--- NOTE | 2024-05-27 11:36 | PN_ITS ---
Subjective Subjective Patient seen and examined. She had no active complaints and said she was feeling better. She denied any fever, chills, chest pain, nausea, vomiting or diarrhea. Review of systems is otherwise negative. She feels her breathing has improved. SHe wants to stay one more day to be better optimised. Objective Data Objective Data Vital Signs: Vital Signs Temp Pulse Resp BP Pulse Ox O2 Del Method O2 Flow Rate 97.6 F L 88 18 120/77 93 Nasal Cannula 4 05/27/24 08:39 05/27/24 08:47 05/27/24 08:39 05/27/24 08:39 05/27/24 08:39 05/27/24 08:39 05/27/24 08:39 Oxygen Flow Rate (L/min) [ 6 AMBULATING with Oxygen #4] Oxygen Flow Rate (L/min) [ 4 AMBULATING with Oxygen #3] Oxygen Flow Rate (L/min) [ 4 AMBULATING with Oxygen #2] Oxygen Flow Rate (L/min) [ 4 AMBULATING with Oxygen #1] Oxygen Flow Rate (L/min) [At 4 REST with Oxygen] Oxygen Flow Rate (L/min) 4 Oxygen Delivery Method Nasal Cannula Weight: 159 lb 6.307 oz Body Mass Index (BMI) 32.1 Intake & Output: Intake and Output for Last 24 Hours 05/25/24 05/26/24 05/27/24 23:59 23:59 23:59 Intake Total 2039.58 / 2039.58 150 / 150 150 / 150 Output Total 300 / 300 Balance 1739.58 / 1739.58 150 / 150 150 / 150 Lab / Micro Data 05/27/24 08:13 05/27/24 08:13 Labs: Laboratory Results - last 24 hr 05/24/24 07:15: Diff Path Review Reviewed 05/25/24 04:25: Diff Path Review Reviewed 05/26/24 11:26: POC Glucose 333 H 05/26/24 16:14: POC Glucose 343 H 05/27/24 05:49: POC Glucose 334 H 05/27/24 08:13: WBC 17.3 H, RBC 4.52, Hgb 15.1 H, Hct 44.3, MCV 98.0, MCH 33.4 H , MCHC 34.1, RDW Std Deviation 47.9 H, RDW Coeff of Janett 14.8 H, Plt Count 330, MPV 10.1, Immature Gran % (Auto) 4.200 H, Neut % (Auto) 84.0 H, Lymph % (Auto) 7.5 L, [place] % (Auto) 3.8, Eos % (Auto) 0.0, Baso % (Auto) 0.5, Absolute Neuts (auto) 14.5 H, Absolute Lymphs (auto) 1.29, Nucleated RBC % 0, Sodium 134 L, Potassium 4.5, Chloride 96 L, Carbon Dioxide 37.0 H, Anion Gap 1 L, BUN 28 H, Creatinine 0.97, Estim Creat Clear Calc 56.79, Est GFR (MDRD) Af Amer 76, Est GFR (MDRD) Non-Af 63, BUN/Creatinine Ratio 28.7 H, Glucose 337 H, Calcium 10.1 Micro: Microbiology 05/24/24 12:45 Sputum, Expectorated/Coughed Gram Stain - Final 05/24/24 12:45 Sputum, Expectorated/Coughed Respiratory Culture - Final Staphylococcus aureus 05/24/24 07:15 Blood Culture (Wb) - Anticubital Right Blood Culture - Preliminary No growth in 48 hours. 05/24/24 20:00 Urine, Random Legionella Antigen - Final 05/24/24 20:00 Urine, Random Streptococcus pneumoniae Antigen (M - Final 05/24/24 07:30 Mucosa - Nose SARS-CoV-2, Influenza & RSV (PCR) - Final Physical Exam Const alert, oriented x3, no apparent distress and average body habitus General Appearance: cooperative HEENT normocephalic, head/scalp atraumatic, hearing grossly normal bilaterally and moist oral mucous membranes Eyes PERRL, EOMs intact bilaterally and conjunctivae normal Resp Resp Narrative: moderately diminished breath sounds bibasally, mild wheezes and few crackles bilaterally. Still on 4 L of oxygen by nasal canula Cardio regular rate, regular rhythm, S1 normal heart sound, S2 normal heart sound and no murmurs GI normal to inspection, nondistended, normoactive bowel sounds, soft to palpation, non-tender and non-distended Extremity normal to inspection, full ROM and no clubbing, cyanosis or edema Skin General Skin Exam: no breakdown Neuro oriented x3, CN's II-XII intact bilaterally, moves all extremities and no focal motor deficits Sensorium / Orientation: awake and alert Motor Exam: strength 5/5 throughout Psych thought process normal, cooperative and affect normal Appearance: appropriate Assessment & Plan Assessment/Plan (1) Acute respiratory failure with hypoxia: (2) COPD exacerbation: (3) Pneumonia: (4) Hypoxia: (5) COPD with acute exacerbation: PLAN: Plan #Acute hypoxic respiratory failure * Likely due to COPD exacerbation, community-acquired pneumonia and malfunctioning oxygen cylinder. * Usually wears 2 to 3 L of oxygen at home but says oxygen machine has not been working for several days. * She is feeling much better, and remains on 4L of oxygen. * Chest x-ray showed subtle ill-defined opacities within the lower lung which was secondary to confluence of shadows but could not exclude atelectasis and no pneumonia. * continue IV levofloxacin. * on IV Solu-Medrol for COPD exacerbation. * Breathing treatments bronchodilators. Titrate oxygen to maintain saturation above 90%. * Urine for strep and Legionella. Sputum cultures are neative * She had walking pulse ox today and she required up to 6 L of oxygen with ambulation. Will therefore plan to discharge tomorrow and keep it today to further optimize her. * #COPD exacerbation: As above #Community-acquired pneumonia: As above #Hypertension: on amlodipine and metoprolol as well as Maxzide #Hyperlipidemia: on statin #Depression; on duloxetine #Diabetes mellitus * A1c back in 2019 was 6.4. * Patient does not seem to be on any diabetes medications. * Blood sugar was 257 on admission. * However she has been on p.o. steroids and this could be contributing. * A1C is 8.6 * Patient now says she is on glipizide and mounjaro. Glipizide resumed. Mounjaro held as it is not on formulary * ISS. Accuchecks ACHS * DVT prophylaxis; lovenox CODE STATUS: Full code * Disposition: Anticipate discharge tomorrow. Charges/Coding Visit Charges Inpatient E&M: 19544 Subs Hosp L2
[2024-05-27 11:47] LABS: Bedside Glucose 468 mg/dL (74-106)
[2024-05-27 12:08] LABS: Glucose 458 mg/dL (74-106)
[2024-05-27 12:40] LABS: Bedside Glucose 395 mg/dL (74-106)
[2024-05-27 16:50] LABS: Bedside Glucose 222 mg/dL (74-106)
[2024-05-27] MEDS: Albuterol 2.5 MG/3 ML VIAL.NEB. INHALATION (20:13)
[2024-05-27] MEDS: Atorvastatin Calcium 10 MG Tablet PO (20:56)
[2024-05-27] MEDS: cycloBENZAPRine HCl 10 MG Tablet PO (20:56)
[2024-05-27 22:55] LABS: Bedside Glucose 336 mg/dL (74-106)
[2024-05-28] VITALS (16 sets, daily range): BP systolic 108–149; BP diastolic 53–71; PULSE 66–89; RESP 14–18; TEMP 35.8–36.8; O2SAT 4–95
[2024-05-28] MEDS: Ipratropium/Albuterol Sulfate 3 ML AMPUL.NEB INHALATION ×4 (01:21→19:31)
[2024-05-28] MEDS: Insulin Lispro 100 UNIT/ML INSULN.PEN SC ×4 (06:25→22:21)
[2024-05-28 07:04] LABS: Bedside Glucose 299 mg/dL (74-106)
[2024-05-28] MEDS: Pantoprazole Sodium 40 MG Tablet PO (08:32)
[2024-05-28] MEDS: DULoxetine Hcl 20 MG Capsule PO (08:32)
[2024-05-28] MEDS: Furosemide 40 MG/4 ML Vial IV (08:32)
[2024-05-28] MEDS: Enoxaparin 40 MG/0.4 ML Syringe SC (08:33)
[2024-05-28] MEDS: amLODIPine 5 MG Tablet PO (08:33)
[2024-05-28] MEDS: tiZANidine HCl 2 MG Tablet 4 MG PO (08:33)
[2024-05-28] MEDS: Aspirin E.C. 81 MG Tablet PO (08:34)
[2024-05-28] MEDS: glipiZIDE 5 MG Tablet PO (08:34)
[2024-05-28] MEDS: Celecoxib 200 MG Capsule PO (08:34)
[2024-05-28] MEDS: Potassium Chloride Oral Tablet 10 MEQ PO (08:34)
[2024-05-28] MEDS: Triamterene 37.5MG/Hctz 25MG Capsule 1 CAP PO (08:34)
[2024-05-28] MEDS: 0.9% Saline Lock 10 ML Syringe IV (08:35)
[2024-05-28] MEDS: Metoprolol Tartrate 50 MG Tablet PO (08:36)
[2024-05-28] MEDS: levoFLOXacin IV 750 MG/150 ML BAG 100 MG IV (09:29)
[2024-05-28 11:28] LABS: Bedside Glucose 493 mg/dL (74-106)
--- NOTE | 2024-05-28 13:55 | PN_ITS ---
Subjective Subjective Patient seen and examined. She says she feels better and had no complaints. She is still coughing but it is improving and is not as productive. She denies any chills. Review of systems otherwise negative. She has remained hemodynamically stable. Objective Data Objective Data Vital Signs: Vital Signs Temp Pulse Resp BP Pulse Ox O2 Del Method O2 Flow Rate 97.2 F L 79 16 149/67 H 90 Nasal Cannula 2 05/28/24 08:28 05/28/24 12:32 05/28/24 12:32 05/28/24 08:28 05/28/24 11:21 05/28/24 10:00 05/28/24 11:21 Oxygen Flow Rate (L/min) [At 0 REST on Room Air] Oxygen Flow Rate (L/min) [ 6 AMBULATING with Oxygen #4] Oxygen Flow Rate (L/min) [ 6 AMBULATING with Oxygen #3] Oxygen Flow Rate (L/min) [ 4 AMBULATING with Oxygen #2] Oxygen Flow Rate (L/min) [ 3 AMBULATING with Oxygen #1] Oxygen Flow Rate (L/min) [At 2 REST with Oxygen] Oxygen Flow Rate (L/min) 2 Oxygen Delivery Method Nasal Cannula Weight: 159 lb 6.307 oz Body Mass Index (BMI) 32.1 Intake & Output: Intake and Output for Last 24 Hours 05/26/24 05/27/24 05/28/24 23:59 23:59 23:59 Intake Total 150 / 150 150 / 390 870 / 870 Output Total 0 / 0 Balance 150 / 150 150 / 390 870 / 870 Lab / Micro Data 05/27/24 08:13 05/27/24 11:25 Labs: Laboratory Results - last 24 hr 05/27/24 16:25: POC Glucose 222 H 05/27/24 20:53: POC Glucose 336 H 05/28/24 06:21: POC Glucose 299 H 05/28/24 11:06: POC Glucose 493 H* Micro: Microbiology 05/24/24 12:45 Sputum, Expectorated/Coughed Gram Stain - Final 05/24/24 12:45 Sputum, Expectorated/Coughed Respiratory Culture - Final Staphylococcus aureus 05/24/24 07:15 Blood Culture (Wb) - Anticubital Right Blood Culture - Preliminary No growth in 48 hours. 05/24/24 20:00 Urine, Random Legionella Antigen - Final 05/24/24 20:00 Urine, Random Streptococcus pneumoniae Antigen (M - Final 05/24/24 07:30 Mucosa - Nose SARS-CoV-2, Influenza & RSV (PCR) - Final Physical Exam Const alert, oriented x3, no apparent distress and average body habitus Constitutional Narrative: frail General Appearance: cooperative HEENT normocephalic, head/scalp atraumatic, hearing grossly normal bilaterally and moist oral mucous membranes Eyes PERRL, EOMs intact bilaterally and conjunctivae normal Resp Resp Narrative: moderately diminished breath sounds bibasally, mild wheezes and few crackles bilaterally. now on 2 L of oxygen by nasal canula Cardio regular rate, regular rhythm, S1 normal heart sound, S2 normal heart sound and no murmurs GI normal to inspection, nondistended, normoactive bowel sounds, soft to palpation, non-tender and non-distended Extremity normal to inspection, full ROM and no clubbing, cyanosis or edema Skin General Skin Exam: no breakdown Neuro oriented x3, CN's II-XII intact bilaterally, moves all extremities and no focal motor deficits Sensorium / Orientation: awake and alert Motor Exam: strength 5/5 throughout Psych thought process normal, cooperative and affect normal Appearance: appropriate Assessment & Plan Assessment/Plan (1) Acute respiratory failure with hypoxia: (2) COPD exacerbation: (3) Pneumonia: (4) Hypoxia: (5) COPD with acute exacerbation: PLAN: Plan #Acute hypoxic respiratory failure * Likely due to COPD exacerbation, community-acquired pneumonia and malfunctioning oxygen cylinder. * Usually wears 2 to 3 L of oxygen at home but says oxygen machine has not been working for several days. * now down to 2L of oxygen, though with ambulation she required 6L of oxygen again. * continue IV levofloxacin. * solu-medrol discontinued due to hyperglycemia. * Breathing treatments bronchodilators. Titrate oxygen to maintain saturation above 90%. * Urine for strep and Legionella. Sputum cultures are negative * She had walking pulse ox today and she required up to 6 L of oxygen with ambulation. Will therefore plan to discharge tomorrow and keep it today to further optimize her. * #COPD exacerbation: As above #Community-acquired pneumonia: As above #Hypertension: on amlodipine and metoprolol as well as Maxzide #Hyperlipidemia: on statin #Depression; on duloxetine #Diabetes mellitus * A1c back in 2019 was 6.4. * Patient does not seem to be on any diabetes medications. * has been hyperglycemic. Likely due to IV solumedrol. * solumedrol discontinued * A1C is 8.6. * ISS. Accuchecks ACHS * On glipizide and mounjaro. Mounjaro on hold as it is not on [facility] formulary. * * DVT prophylaxis; lovenox CODE STATUS: Full code * Disposition: Patient still requiring up to 6 L of oxygen with ambulation and tires out easily. Charges/Coding Visit Charges Inpatient E&M: 49638 Subs Hosp L2
[2024-05-28 16:23] LABS: Bedside Glucose 271 mg/dL (74-106)
[2024-05-28] MEDS: Atorvastatin Calcium 10 MG Tablet PO (22:21)
[2024-05-28] MEDS: cycloBENZAPRine HCl 10 MG Tablet PO (22:21)
[2024-05-28 22:42] LABS: Bedside Glucose 214 mg/dL (74-106)
[2024-05-29] VITALS (8 sets, daily range): BP systolic 115–126; BP diastolic 69–77; PULSE 75–86; RESP 16–18; TEMP 35.9–36.6; O2SAT 87–100
[2024-05-29] MEDS: Ipratropium/Albuterol Sulfate 3 ML AMPUL.NEB INHALATION ×3 (01:44→13:40)
[2024-05-29] MEDS: Insulin Lispro 100 UNIT/ML INSULN.PEN SC ×2 (06:46→12:15)
[2024-05-29 07:07] LABS: Bedside Glucose 191 mg/dL (74-106)
[2024-05-29] MEDS: glipiZIDE 5 MG Tablet PO (08:31)
[2024-05-29] MEDS: Enoxaparin 40 MG/0.4 ML Syringe SC (08:31)
[2024-05-29] MEDS: Potassium Chloride Oral Tablet 10 MEQ PO (08:31)
[2024-05-29] MEDS: DULoxetine Hcl 20 MG Capsule PO (08:31)
[2024-05-29] MEDS: amLODIPine 5 MG Tablet PO (08:31)
[2024-05-29] MEDS: Pantoprazole Sodium 40 MG Tablet PO (08:32)
[2024-05-29] MEDS: Metoprolol Tartrate 50 MG Tablet PO (08:32)
[2024-05-29] MEDS: Celecoxib 200 MG Capsule PO (08:32)
[2024-05-29] MEDS: Aspirin E.C. 81 MG Tablet PO (08:32)
[2024-05-29] MEDS: Triamterene 37.5MG/Hctz 25MG Capsule 1 CAP PO (08:32)
--- NOTE | 2024-05-29 09:58 | CASEMGMT ---
Addendum entered by Luther Kemp 05/29/24 13:00: Home O2 testing has been completed. Pt qualifies for O2 @ 2 L/M @ rest and 4 L/M w/exertion. Script for O2 sent to [employer] [facility] via [employer]. Call placed to Susan @ [employer] and she was made aware of need of portable O2 tank delivery to pt's room. Original Note: MARVIN CONDON NOTE: Per Dr Gonzalez note, pt states she had oxygen @ home but her machine is not working. MARVIN CONDON to room. Introduced self and role. Pt states she was using oxygen @ home, but the machine broke about 4 days ago. She states she had oxygen through a [facility] company that her physician had ordered years ago but then when the DME co removed her O2 from her home when she no longer needed it, she purchased one on her own (about 4 years ago) so she could use it as needed/when she had flare ups. She states she was wearing it @ 1-2 L/M PRN. She states she did let her PCP at that time, Dr Gregg, know. Pt is aware home O2 ambulatory testing will be completed on day of discharge. She was made aware of home O2 set-up process, if she qualifies for O2, and aware to call [facility] prior to leaving [facility] to have arrangements made for home O2 set-up/delivery. She verifies she would like to get it from [facility] [facility]. She confirms she has a pulse ox and nebulizer @ home. 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 Discussed Pt Link and she is interested in referral. Referral placed. She denies having other discharge needs/concerns. Yasmany THOMASN MARVIN CONDON
[2024-05-29] MEDS: levoFLOXacin IV 750 MG/150 ML BAG 100 MG IV (10:46)
[2024-05-29] MEDS: 0.9% Saline Lock 10 ML Syringe IV (10:46)
[2024-05-29 12:55] LABS: Bedside Glucose 197 mg/dL (74-106)
--- NOTE | 2024-05-29 13:42 | DS.PCM_ITS ---
Providers Date of Admission: 05/24/24 Date of Discharge: 05/29/24 Primary Care Physician: JOSE Maria Reason For Visit: ACUTE HYPOXIC RESP FAILURE, PNEUMONIA Diagnosis Discharge Diagnosis (1) Acute respiratory failure with hypoxia: Status: Acute Code(s): J96.01 - Acute respiratory failure with hypoxia (2) COPD exacerbation: Status: Chronic Code(s): J44.1 - Chronic obstructive pulmonary disease with (acute) exacerbation (3) Pneumonia: Status: Acute Code(s): J18.9 - Pneumonia, unspecified organism (4) Hypoxia: Status: Acute Code(s): R09.02 - Hypoxemia (5) COPD with acute exacerbation: Status: Inactive Code(s): J44.1 - Chronic obstructive pulmonary disease with (acute) exacerbation Plan #Acute hypoxic respiratory failure * Likely due to COPD exacerbation, community-acquired pneumonia and malfunctioning oxygen cylinder. * Usually wears 2 to 3 L of oxygen at home but says oxygen machine has not been working for several days. * now down to 2L of oxygen, though with ambulation she required 6L of oxygen again. * continue IV levofloxacin. * solu-medrol discontinued due to hyperglycemia. * Breathing treatments bronchodilators. Titrate oxygen to maintain saturation above 90%. * Urine for strep and Legionella. Sputum cultures are negative * She had walking pulse ox today and she required up to 6 L of oxygen with ambulation. Will therefore plan to discharge tomorrow and keep it today to further optimize her. * #COPD exacerbation: As above #Community-acquired pneumonia: As above #Hypertension: on amlodipine and metoprolol as well as Maxzide #Hyperlipidemia: on statin #Depression; on duloxetine #Diabetes mellitus * A1c back in 2019 was 6.4. * Patient does not seem to be on any diabetes medications. * has been hyperglycemic. Likely due to IV solumedrol. * solumedrol discontinued * A1C is 8.6. * ISS. Accuchecks ACHS * On glipizide and mounjaro. Mounjaro on hold as it is not on [facility] formulary. * * DVT prophylaxis; lovenox CODE STATUS: Full code * Disposition: Patient still requiring up to 6 L of oxygen with ambulation and tires out easily. Medications at Discharge Home Medications amlodipine 5 mg tablet 5 mg PO DAILY 11/24/15 metoprolol tartrate 50 mg tablet 50 mg PO DAILY 11/24/15 tizanidine 4 mg tablet 4 mg PO DAILY 11/24/15 triamterene 37.5 mg-hydrochlorothiazide 25 mg capsule 1 cap PO DAILY 11/24/15 acetaminophen 650 mg tablet,extended release 1,300 mg PO PRN PRN Pain 07/02/18 aspirin 81 mg tablet,delayed release 81 mg PO DAILY@0800 heart health 07/02/18 dfrykfmokmrx-xrxaxdoz-ichqlma-folic acid 400 mcg-vit K1 20 mcg tablet 1 ea PO DAILY supplement 07/02/18 albuterol sulfate 90 mcg/actuation aerosol inhaler 2 puff IH Q4H PRN PRN sob/wheezing ##1 07/05/18 budesonide-formoterol HFA 80 mcg-4.5 mcg/actuation aerosol inhaler 2 puff inhalation BID 05/05/20 celecoxib 200 mg capsule 200 mg PO DAILY 05/05/20 lovastatin 40 mg tablet 40 mg PO QHS 05/05/20 cyclobenzaprine 10 mg tablet 10 mg PO HS Muscle Spasm 06/22/22 potassium chloride 8 mEq tablet,extended release 8 meq PO DAILY 06/22/22 pantoprazole 40 mg tablet,delayed release 40 mg PO DAILY #30 tabs 08/14/22 albuterol sulfate 2.5 mg/3 mL (0.083 %) solution for nebulization 2.5 mg (3 mL) inhalation Q4H PRN #25 vials 05/20/24 prednisone 20 mg tablet 40 mg (2 x 20 mg) PO DAILY 7 days #14 tabs 05/20/24 clobetasol 0.05 % topical cream 1 applic topical DAILY 05/24/24 duloxetine 20 mg capsule,delayed release 20 mg PO DAILY 05/24/24 tramadol 50 mg tablet 50 mg PO TID PRN PRN pain 05/24/24 glipizide 5 mg tablet 5 mg PO DAILY diabetes 05/25/24 tirzepatide 5 mg/0.5 mL subcutaneous pen injector (Mounjaro) 5 mg subcut QWEEK diabetes 05/25/24 levofloxacin 750 mg tablet 750 mg PO DAILY #4 tabs 05/29/24 prednisone 5 mg tablets in a dose pack See Taper PO UD #21 tabs 05/29/24 Hospital Course Operations None Procedures None Summary of Care Provided Minutes Spent on Discharge: 55 Hospital Course: GRAHAM LOVING, is a 58 F with a PMH as outlined who presents via the ED on 05/24/2024 with a complaint of shortness of breath. She had not been feeling well for about 2 weeks, with intermittent fever and a cough productive of yellowish sputum. She says she usually wears oxygen at home but her oxygen machine broke at home a few days ago. SHe denied any chest pain, palpitations, dizziness, nausea, vomiting or any other symptoms. REview of systems was otherwise negative. When the squad found her, she was saturating at 62%on room air, and was immediately placed on BIPAP. Vitals in the ED where temperature of 98.1 Fahrenheit, pulse rate of 80, blood pressure of 118/62, respiratory rate of 20 and pulse ox of 92% on 10 L of oxygen. She has been weaned off of BiPAP to 10 L of oxygen at time of review. CBC showed hemoglobin of 14.9 with WBC of 15.8 and platelets of 359. Chemistry showed sodium of 139 with potassium of 3.2 and creatinine of 0.85 with bicarb of 38. Total bilirubin is 1.1 and AST slightly elevated at 39. ALT and ALP were within normal limits. Chest x-ray showed subtle ill-defined opacities within the lower lung which may be secondary to confluence of shadows however cannot exclude atelectasis and/or pneumonia. She has been admitted to be managed for acute hypoxic respiratory failure due to probable COPD exacerbation and community-acquired pneumonia. Patient was initially requiring BiPAP was weaned down to 10 L of oxygen. She was placed on IV Solu-Medrol and breathing treatments with bronchodilators. She was placed on IV levofloxacin. She was gently hydrated with IV fluids. Her shortness of breath improved and she was gradually weaned down on her oxygen to 6 L of oxygen and then 4 and then 2 L of oxygen. However she kept requiring up to 6 L of oxygen with ambulation. This led to a protracted hospital stay. Urine for strep and Legionella were negative and sputum cultures were negative. She eventually improved to the point where she required only 2 L of oxygen with ambulation. She was therefore discharged on 05/29/2024. She qualified for 2 to 3 L of oxygen at home with ambulation. She was discharged with a tapering dose of prednisone was also discharged with p.o. levofloxacin 750 mg daily for 4-day course to complete a 10-day course. She is to follow-up with her primary care doctor and pulmonology within 1 to 2 weeks. Patient seen and examined prior to discharge. She had no complaints and had an uneventful night. Review of systems otherwise negative. Labs and vitals reviewed. Home medication reviewed and reconciled. Physical Exam Const alert, oriented x3, no apparent distress and average body habitus Constitutional Narrative: frail General Appearance: cooperative and comfortable Orientation / Consciousness: awake HEENT normocephalic, head/scalp atraumatic, hearing grossly normal bilaterally and moist oral mucous membranes Mouth: oral and palatal mucosa normal Eyes PERRL, EOMs intact bilaterally and conjunctivae normal Resp Resp Narrative: moderately diminished breath sounds bibasally, mild wheezes and few crackles bilaterally. now on 2 L of oxygen by nasal canula Cardio regular rate, regular rhythm, S1 normal heart sound, S2 normal heart sound and no murmurs GI normal to inspection, nondistended, normoactive bowel sounds, soft to palpation, non-tender and non-distended Extremity normal to inspection, full ROM and no clubbing, cyanosis or edema Skin no rashes or lesions noted General Skin Exam: no breakdown Neuro oriented x3, CN's II-XII intact bilaterally, moves all extremities and no focal motor deficits Sensorium / Orientation: awake and alert Motor Exam: strength 5/5 throughout Psych thought process normal, cooperative and affect normal Appearance: appropriate Weight / BMI Weight Weight: 159 lb 6.307 oz Body Mass Index (BMI) 32.1 ABG / Lab / Microbiology Data 05/27/24 08:13 05/27/24 11:25 Laboratory: Laboratory Results - last 24 hr 05/28/24 16:05: POC Glucose 271 H 05/28/24 22:17: POC Glucose 214 H 05/29/24 06:42: POC Glucose 191 H 05/29/24 12:12: POC Glucose 197 H Microbiology: Microbiology 05/24/24 07:15 Blood Culture (Wb) - Anticubital Right Blood Culture - Final No growth in 5 days. 05/24/24 12:45 Sputum, Expectorated/Coughed Gram Stain - Final 05/24/24 12:45 Sputum, Expectorated/Coughed Respiratory Culture - Final Staphylococcus aureus 05/24/24 20:00 Urine, Random Legionella Antigen - Final 05/24/24 20:00 Urine, Random Streptococcus pneumoniae Antigen (M - Final 05/24/24 07:30 Mucosa - Nose SARS-CoV-2, Influenza & RSV (PCR) - Final D/C Instructions Discharge Diet: Low fat / Low cholesterol Discharge Activity: Return to Normal Activity Weight Bearing Status: Weight bearing as tolerated Call your doctor if you observe: Fever of 101 or Higher, Shortness of breath, Dizziness, Swelling in the ankles and Chest pain Meaningful Use Info Meaningful Use Meaningful Use Diagnoses (Choose all that apply): None applicable Ischemic Stroke Statin Dosing Therapy Reference: STATIN DOSE THERAPY REFERENCE: * Patients > 75 years receive moderate or high dose statin therapy. * Patients 75 years or YOUNGER should receive HIGH intensity statin dose unless contraindicated. You will be required to document reason for non-treatment if statin daily dose does not meet guidelines. HIGH DOSE STATIN THERAPY DAILY Atorvastatin > than or = to 40 mg Rosuvastatin > than or = to 20 mg Amlodipine + Atorvastatin > than or = to 2.5/40 mg Ezetimibe + Simvastatin 10/80 mg Simvastatin 80mg Discharge Plan Admission Admit Date/Time: 05/24/24 09:13 Primary Reason for Your Visit: pneumonia, hypoxia, COPD excerbation Attending Provider: Barbie Gonzalez Primary Care Provider: Cristy Raphael Instructions Patient Instructions: ED Pneumonia (Adult) Discharge Orders/Prescriptions Prescriptions: New levofloxacin 750 mg tablet 750 mg PO DAILY Qty: 4 0RF prednisone 5 mg tablets,dose pack See Taper PO UD Qty: 21 0RF Taper: Prednisone Taper 60 mg WITH BREAKFAST for 3 Days and 0 Hour 50 mg WITH BREAKFAST for 3 Days and 0 Hour 40 mg WITH BREAKFAST for 3 Days and 0 Hour 30 mg WITH BREAKFAST for 3 Days and 0 Hour 20 mg WITH BREAKFAST for 3 Days and 0 Hour 10 mg WITH BREAKFAST for 3 Days and 0 Hour Continued budesonide-formoterol 80-4.5 mcg/actuation HFA aerosol inhaler 2 puff INHALATION BID lovastatin 40 mg tablet 40 mg PO QHS cyclobenzaprine 10 mg tablet 10 mg PO HS potassium chloride 8 mEq tablet extended release 8 meq PO DAILY tizanidine 4 MG tablet 4 mg PO DAILY Patient Comments: muscle relaxer amlodipine 5 MG tablet 5 mg PO DAILY Patient Comments: blood pressure/heart triamterene-hydrochlorothiazid 1 CAP capsule 1 cap PO DAILY Patient Comments: water pill/blood pressure metoprolol tartrate 50 MG tablet 50 mg PO DAILY Patient Comments: heart/blood pressure celecoxib 200 mg capsule 200 mg PO DAILY aspirin 81 MG tablet 81 mg PO DAILY@0800 acetaminophen 650 MG tablet extended release 1,300 mg PO PRN PRN (Reason: Pain) mv,Ca,min-folic acid-vit K1 1 EACH tablet 1 ea PO DAILY albuterol sulfate 18 GM HFA aerosol inhaler 2 puff IH Q4H PRN PRN (Reason: sob/wheezing) Qty: 1 0RF pantoprazole 40 mg tablet,delayed release (DR/EC) 40 mg PO DAILY Qty: 30 5RF prednisone 20 mg tablet 40 mg PO DAILY 7 Days Qty: 14 0RF Patient Comments: pt started med on 05/21/24 albuterol sulfate 2.5 mg /3 mL (0.083 %) solution for nebulization 2.5 mg inhalation Q4H PRN Qty: 25 0RF Rx Instructions: Use q4 hours and PRN for wheezing clobetasol 0.05 % cream 1 applic topical DAILY tramadol 50 mg tablet 50 mg PO TID PRN PRN (Reason: pain) duloxetine 20 mg capsule,delayed release(DR/EC) 20 mg PO DAILY glipizide 5 mg tablet 5 mg PO DAILY Mounjaro 5 mg/0.5 mL pen injector 5 mg subcut QWEEK Patient Comments: takes on mondays Referrals / Follow Up: Cristy Raphael NP-C [Primary Care Provider] - 06/02/24 1:50 pm Disposition Disposition (needs filled in before D/C Order can be placed): Home, Self Care Charges/Coding Visit Charges Inpatient E&M: 81403 Disch Hosp >30min
== END 2024-05-29 15:44 | disposition home or self-care (01) | DRG 177 ==
LOC: ED 09:14 → PCU 09:23
PROVIDERS: Admitting Provider Student in an Organized Health Care Education/Training Program; Emergency Provider Emergency Medicine; PCP Nurse Practitioner Family; Visit Provider Student in an Organized Health Care Education/Training Program
DX: J15.211 Pneumonia due to Methicillin susceptible Staphylococcus aureus (principal); J96.21 Acute and chronic respiratory failure with hypoxia; J44.0 Chronic obstructive pulmonary disease with (acute) lower respiratory infection; J44.1 Chronic obstructive pulmonary disease with (acute) exacerbation; Z99.81 Dependence on supplemental oxygen; E11.65 Type 2 diabetes mellitus with hyperglycemia; I10 Essential (primary) hypertension; F32.A Depression, unspecified; E78.5 Hyperlipidemia, unspecified; E87.6 Hypokalemia; I25.10 Atherosclerotic heart disease of native coronary artery without angina pectoris; F17.210 Nicotine dependence, cigarettes, uncomplicated; Z95.5 Presence of coronary angioplasty implant and graft; Z79.82 Long term (current) use of aspirin; Z79.84 Long term (current) use of oral hypoglycemic drugs; Z79.85 Long-term (current) use of injectable non-insulin antidiabetic drugs; Z79.899 Other long term (current) drug therapy; Z86.73 Personal history of transient ischemic attack (TIA), and cerebral infarction without residual deficits
CPT/HCPCS: 36415; 71045; 80048; 80053; 82947; 82962; 83036; 83735; 83880; 84484; 85025; 87040; 87070; 87077; 87186; 87205; 87449; 87631; 93005; 94640; 97116; 97161; 97166; 97530; 97535; 97802; 97803; 99285; J7030; J7050; A4216; J1940

== ENCOUNTER → 2024-06-12 | Outpatient (CLI) | payer OTHER, SELFPAY ==
[2024-06-12 15:20] LABS: Absolute Lymphocyte Count 2.31 X10^3/uL (0.83-4.51); Absolute Neutrophil Count 4.9 X10^3/uL (2.0-7.7); Basophil# 0.09 X10^3/uL; Basophil% 1.1 % (0-1); Eosinophil# 0.31 X10^3/uL; Eosinophils% 3.7 % (0-5); Hematocrit 44.5 % (37-47); Hemoglobin 14.3 g/dL (12.0-15.0); Lymphocyte # 2.31 X10^3/ul (0.83-4.51); Lymphocyte % 27.8 % (19-41); Mean Corp Hgb Conc 32.1 g/dL (32-36); Mean Corpuscular Hgb 30.4 pg (27.0-32.0); Mean Corpuscular Volume 94.7 fL (81-99); Mean Platelet Vol. 10.7 fl (6.2-12.0); Monocyte# 0.62 X10^3/uL; Monocyte% 7.5 % (0-10); NRBC Flagged by Analyzer 0 % (0-5); Neutrophil # 4.94 X10^3/uL (2.7-7.7); Neutrophil % 59.3 % (47-70); Platelet Count 192 K/mm3 (150-450); RBC Distribution Width CV 14.1 % (11.6-14.6); RBC Distribution Width SD 48.8 fl (35.1-43.9); White Blood Count 8.3 K/mm3 (4.4-11.0)
[2024-06-12 15:45] LABS: ALB/GLOB Ratio 0.8 RATIO (0.9-2.4); AST(SGOT) 26 U/L (15-37); Alanine Aminotransfer ALT/SGPT 36 U/L (13-56); Albumin, Serum 3.1 g/dL (3.2-5.0); Alkaline Phosphatase 97 U/L (45-117); Anion Gap 8 (5-15); BUN 14 mg/dL (7-18); BUN/Creat Ratio 16.7 RATIO (10-20); Calcium,Total 9.8 mg/dL (8.5-10.1); Chloride 98 mmol/L (98-107); Creatinine, Serum 0.84 mg/dL (0.55-1.02); EST Glomerular Filtration Rate 74 mL/min (>60); Est Glom Filt Rate - Afr Amer 90 mL/min (>60); Globulin 3.9 g/dL (2.2-4.2); Glucose 319 mg/dL (74-106); Potassium 3.4 mmol/L (3.5-5.1); Sodium Level 135 mmol/L (136-145)
== END | disposition home or self-care (01) ==
PROVIDERS: PCP Nurse Practitioner Family; Referring Provider Internal Medicine Rheumatology; Visit Provider Internal Medicine Rheumatology
DX: L40.59 Other psoriatic arthropathy (principal); J44.9 Chronic obstructive pulmonary disease, unspecified; E11.9 Type 2 diabetes mellitus without complications; L40.8 Other psoriasis; M79.7 Fibromyalgia; M47.892 Other spondylosis, cervical region; M47.897 Other spondylosis, lumbosacral region; I10 Essential (primary) hypertension; E78.5 Hyperlipidemia, unspecified; K21.9 Gastro-esophageal reflux disease without esophagitis; K76.0 Fatty (change of) liver, not elsewhere classified
CPT/HCPCS: 36415; 80053; 85025

== ENCOUNTER → 2024-06-23 | Outpatient (CLI) | payer OTHER, SELFPAY ==
--- NOTE | 2024-06-23 08:57 | ART_ITS ---
Reason For Study: Subclavian stenosis Procedure A bilateral upper extremity continuous wave Doppler with analog waveform analysis and segmental pressures. Left Segmental Pressures Left brachial= 134mmHg. Left ulnar= 157mmHg. Left radial= 145mmHg. The left radial waveforms are triphasic. The left ulnar waveforms are triphasic. Right Segmental Pressures Right brachial= 136mmHg. Right ulnar= 151mmHg. Right radial= 140mmHg. The right radial waveforms are triphasic. The right ulnar waveforms are triphasic. Indices The right wrist-brachial index by the radial artery is 1.03. The right wrist-brachial index by the ulnar artery is 1.11. The left wrist-brachial index by the radial artery is 1.07. The left wrist- brachial index by the ulnar artery is 1.15. VL/Ankle Brachial Index Interpretation Summary Resting ankle-brachial indices appear bilaterally normal. Ordering Physician: Wilbur Maldonado Referring Physician: Cristy Raphael Performed By: Lisa Tuttle RVT
--- NOTE | 2024-06-23 08:57 | ADUUE_ITS ---
Reason For Study: Subclavian stenosis RIGHT Right Subclavian velocity = 88 cm/sec. Right Axillary velocity = 91.2 cm/sec. Right Brachial velocity = 86.3 cm/sec. Right Radial velocity = 56.9 cm/sec. Right Ulnar velocity = 86.3 cm/sec. /US Art Duplex Unilat UP Extrem Interpretation Summary Right arm with no stenosis. Ordering Physician: Wilbur Maldonado Referring Physician: Cristy Raphael Performed By: Lisa Tuttle RVT
--- NOTE | 2024-06-23 08:57 | CDU_ITS ---
Reason For Study: Carotid stenosis Rt. Velocities/BP Lt. Velocities/BP Prox CCA 68.3/22 cm/sec. Prox CCA 67.4/19 cm/sec. Mid CCA 62.6/22 cm/sec. Mid CCA 74/23.4 cm/sec. Dist CCA 64.5/21.1 cm/sec. Dist CCA 67.4/19 cm/sec. Prox ICA 57/14.5 cm/sec. Prox ICA 88.5/24.8 cm/sec. Mid ICA 75.9/21.1 cm/sec. Mid ICA 84.1/24.8 cm/sec. Dist ICA 71.1/24.8 cm/sec. Dist ICA 64.3/20.4 cm/sec. Rt. ICA/CCA = 1.21. Lt. ICA/CCA = 1.20. Prox ECA 85.3/15.4 cm/sec. Prox ECA 165.3/27 cm/sec. Rt. Vert. 21/9.2 cm/sec. Lt. Vert. 79.5/20.1 cm/sec. Right Extracranial There is heterogeneous, irregular atherosclerotic plaque noted in the right common carotid artery. There is homogeneous, smooth atherosclerotic plaque noted in the right internal carotid artery. There is intimal thickening but no significant atherosclerotic plaque noted in the right external carotid artery. Antegrade flow is noted in the right vertebral artery. Left Extracranial There is heterogeneous, irregular atherosclerotic plaque noted in the left common carotid artery. There is heterogeneous, irregular atherosclerotic plaque noted in the left internal carotid artery. There is heterogeneous, irregular atherosclerotic plaque noted in the left external carotid artery. Antegrade flow is noted in the left vertebral artery. Procedure Carotid Duplex [id number]. This is a Carotid Duplex examination using B-mode, color flow and specral Doppler. Exam performed in department. VL/Carotid Duplex Ultrasound Interpretation Summary Mild (<50%) stenosis right extracranial internal carotid. Mild (<50%) stenosis left extracranial internal carotid. Patent and antegrade vertebrals bilaterally. Ordering Physician: Wilbur Maldonado Referring Physician: Cristy Raphael Performed By: Lisa Tuttle RVT
== END | disposition home or self-care (01) ==
LOC: CVS 08:54
PROVIDERS: PCP Nurse Practitioner Family; Referring Provider Surgery Vascular Surgery; Visit Provider Surgery Vascular Surgery
DX: I65.23 Occlusion and stenosis of bilateral carotid arteries (principal); I77.71 Dissection of carotid artery; Z96.89 Presence of other specified functional implants; F17.200 Nicotine dependence, unspecified, uncomplicated
CPT/HCPCS: 93880; 93922; 93931

== ENCOUNTER → 2024-09-09 | Outpatient (CLI) | payer MEDICAID, SELFPAY ==
--- NOTE | 2024-09-09 13:45 | CT_ITS ---
STUDY: LOW DOSE CT LUNG CANCER SCREENING REASON FOR EXAM: Female, 58 years old. Lung cancer screening -- and gt;20 pk yr hx/current smoker/asymptomatic RADIATION DOSAGE (If Supplied By Facility): CTDIvol = ( 3.02 ) mGy, DLP = ( 90.63 ) mGycm TECHNIQUE: No contrast was administered. Low dose technique was utilized (average mAS-38 and kVp 120). 1.25 mm axial source images with a slice interval of 1.25-mm were reconstructed in lung windows. 2.5 mm axial source images with a slice interval of 2.5-mm were reconstructed in lung windows. 5.0 mm axial source images with a slice interval of 5.0-mm were reconstructed in soft tissue windows. COMPARISON: Comparison is made with prior study dated June 27, 2021. NODULES: No suspicious nodules are seen. Calcified granulomas in the left lower lobe. Emphysema: Mild degree of emphysematous changes. Endobronchial lesion: None Aorta: Atherosclerotic plaque formation. CORONARY ARTERIES: Coronary artery calcification is seen. Heart: Unremarkable Pulmonary artery: Unremarkable Mediastinal nodes: Calcified left hilar lymph nodes. Other chest and abdominal findings: CT/Low Dose CT Lung Screening IMPRESSION: Lung-RADS category 2 - Continue annual screening with LDCT in 12 months. IMPORTANT NOTES FOR USE: ACR Lung-RADS Version 1.1 Assessment Categories Release Date: 2018 Category: Coded 0-4 bases on nodule(s) with highest degree of suspicion. Negative screen is defined as categories 1 and 2; a positive screen is defined as categories 3 and 4. Category 3 and 4A nodules that are unchanged on interval CT should be coded as category 2, and individuals returned to screening in 12 months. Category 4X: Category 3 or 4 nodules with additional imaging findings that increase the suspicion of lung cancer, such as spiculation, GGN that doubles in size in 1 year, enlarged lymph notes, etc. Category Modifiers: S (significant finding unrelated to lung cancer) Electronically Signed: Jagjit Garcia MD at 14:21 EST ,
== END | disposition home or self-care (01) ==
LOC: CT 13:45
PROVIDERS: PCP Nurse Practitioner Family; Referring Provider Nurse Practitioner Family; Visit Provider Nurse Practitioner Family
DX: Z12.2 Encounter for screening for malignant neoplasm of respiratory organs (principal); Z87.891 Personal history of nicotine dependence
CPT/HCPCS: 71271

== ENCOUNTER 2025-05-19 14:32 | Emergency (ER) | payer MEDICAID, SELFPAY ==
[2025-05-19 14:33] VITALS: BP 156/85; PULSE 73; RESP 20; TEMP 36.2; O2SAT 94; BMI 32.9
--- NOTE | 2025-05-19 14:45 | RAD_ITS ---
EXAM: XR Left Ribs and AP Chest, 3 or More Views CLINICAL INDICATION: FALL, LEFT RIB PAIN TECHNIQUE: Frontal and oblique views of the left ribs and frontal view of the chest. COMPARISON: No relevant prior studies available. FINDINGS: LUNGS AND PLEURAL SPACES: Unremarkable. No consolidation. No pneumothorax. HEART: Unremarkable. No cardiomegaly. MEDIASTINUM: Unremarkable. Normal mediastinal contour. BONES/JOINTS: Unremarkable. No displaced rib fractures. RAD/Ribs Uni Min 3V w/PA Chest IMPRESSION: No displaced rib fractures. Reading [facility]
[2025-05-19] MEDS: HYDROcodone Bitartrate/Apap 5/325 Tablet PO (15:13)
--- NOTE | 2025-05-19 15:15 | ED.VIS.FALL ---
HPI HPI - Fall History of Present Illness Chief Complaint: Fall Informant: patient Occured/Mechanism Occurred: Days Usually ambulates: Without assistance Pain/Injury Pain Location: chest (Left lateral rib cage.) Quality of Pain: Sharp Current Severity: Moderate Maximum Severity: Moderate Associated Symptoms Associated Symptoms: Negative for Parasthesias, Weakness, Loss of function, Inability to ambulate or Amnesia Narrative Narrative: 59-year-old female says she was sitting in the stool about 1 foot off the ground last Sunday the stool broke she fell landing on the trailer floor injuring her left lateral rib cage. Said since that time she has had rib pain. This is about 6 days ago. Denies other complaints. No blood thinners. She has a history of COPD on her 2 L she said she feels her baseline. Prior similar symptoms: No Recent Illness/Hospitalization: No PFSH PFSH Medical History Encounter for screening for malignant neoplasm of lung COPD exacerbation Acute respiratory failure with hypoxia Hypokalemia COPD (chronic obstructive pulmonary disease) Hypoxia Pneumonia Wears glasses Wears dentures Post-menopausal Rheumatoid arthritis High cholesterol CAD (coronary artery disease) Degenerative disc disease History of IBS Heartburn Gastric reflux Smoker History of echocardiogram History of stress test Hypertension Cardiology follow-up encounter Persistent left superior vena cava Obesity Nicotine dependence COPD (chronic obstructive pulmonary disease) Carotid stenosis, right Essential (primary) hypertension TIA (transient ischemic attack) Family history of colon cancer in father Hyperlipemia Subclavian arterial stenosis Home Medications ?Medication ?Instructions ?Recorded ?Last Taken ?Type amlodipine 5 mg tablet 5 mg PO DAILY 11/24/15 05/24/24 History metoprolol tartrate 50 mg tablet 50 mg PO DAILY 11/24/15 05/24/24 History tizanidine 4 mg tablet 4 mg PO DAILY 11/24/15 05/24/24 History triamterene 37.5 1 cap PO DAILY 11/24/15 05/24/24 History mg-hydrochlorothiazide 25 mg capsule acetaminophen 650 mg 1,300 mg PO PRN PRN Pain 07/02/18 1 Week Ago History tablet,extended release ~03/02/19 aspirin 81 mg tablet,delayed 81 mg PO DAILY@0800 heart health 07/02/18 05/24/24 History release nlgmsfsoekrw-jrkspgpz-wtjlrxa-folic 1 ea PO DAILY supplement 07/02/18 05/24/24 History acid 400 mcg-vit K1 20 mcg tablet albuterol sulfate 90 mcg/actuation 2 puff IH Q4H PRN PRN sob/wheezing 07/05/18 11/19/19 Rx aerosol inhaler ##1 budesonide-formoterol HFA 80 2 puff inhalation BID 05/05/20 05/24/24 History mcg-4.5 mcg/actuation aerosol inhaler celecoxib 200 mg capsule 200 mg PO DAILY 05/05/20 Unknown History cyclobenzaprine 10 mg tablet 10 mg PO HS Muscle Spasm 06/22/22 05/23/24 History potassium chloride 8 mEq 8 meq PO DAILY 06/22/22 05/24/24 History tablet,extended release pantoprazole 40 mg tablet,delayed 40 mg PO DAILY #30 tabs 08/14/22 Unknown Rx release albuterol sulfate 2.5 mg/3 mL 2.5 mg (3 mL) inhalation Q4H PRN 05/20/24 Unknown Rx (0.083 %) solution for nebulization #25 vials clobetasol 0.05 % topical cream 1 applic topical DAILY 05/24/24 05/24/24 History duloxetine 20 mg capsule,delayed 20 mg PO DAILY 05/24/24 05/24/24 History release tramadol 50 mg tablet 50 mg PO TID PRN PRN pain 05/24/24 Unknown History glipizide 5 mg tablet 5 mg PO DAILY diabetes 05/25/24 Unknown History levofloxacin 750 mg tablet 750 mg PO DAILY #4 tabs 05/29/24 Unknown Rx prednisone 5 mg tablets in a dose See Taper PO UD #21 tabs 05/29/24 Unknown Rx pack oxycodone-acetaminophen 5 mg-325 1 tab PO Q4H PRN pain 4 days #14 05/19/25 Unknown Rx mg tablet (Percocet) tabs Allergy/AdvReac Type Severity Reaction Status Date / Time Penicillins Allergy Unknown Hives Verified 05/19/25 14:34 tramadol Allergy Swelling Verified 05/19/25 14:34 Surgical History History of coronary artery stent placement History of cardiac catheterization History of colonoscopy (~2016) History of esophagogastroduodenoscopy (EGD) (~11/2020) History of right-sided carotid endarterectomy (06/2020) History of angioplasty of peripheral vessel (02/24/15) Social History Smoking Status: Current every day smoker tobacco type: cigarettes Tobacco: How many years used: 40 alcohol intake: never substance use type: does not use caffeine: No ROS ROS ED ROS Narrative Denies recent illness. Left lateral rib cage after fall. Worse with movement or coughing. Constitutional Constitutional ED: Denies chills or fever(s) Eyes Eyes: Denies blurry vision ENT ENT ED: Reports other; Denies ear pain Cardiovascular Cardiovascular: Reports other Details: Left lateral rib cage pain post fall 6 days ago. ; Denies chest pain Respiratory/Chest Respiratory/Chest: Denies cough or dyspnea Gastrointestinal Gastrointestinal: Denies abdominal pain Genitourinary Genitourinary ED: Denies dysuria or hematuria Musculoskeletal Musculoskeletal: Denies arthralgias Integumentary Denies abscess Neurologic Neurologic: Denies headache(s) Psychiatric Psychiatric: Denies anxiety or depression Endocrine Endocrinology: Denies polydipsia Hematologic/Lymphatic Hematologic/Lymphatic: Denies easy bleeding Allergic/Immunologic Allergic/Immunologic ED: Denies mouth swelling EXAM Physical Exam Narrative Exam Narrative: Present at [facility] sitting upright in bed. Oxygen on. Vital signs are stable she is afebrile. On her 2 L she is 94%. H EENT exam pupils round react light. No signs of trauma to face or scalp. Nontender no hematoma. C-spine and neck nontender. Back and spine nontender. Lungs clear to auscultation bilaterally. Heart regular rhythm rate about 75 no murmur. Chest wall and ribs she has a small bruise on left lateral rib cage. Tenderness along his ribs. No crepitus or subcu air. No bony deformity. Right side of her chest and ribs are nontender. Abdomen soft nontender. Pelvic girdle intact. Moving all 4 extremities. Normal strength. Normal range of motion. Back and spine nontender. Neurologically she is awake and alert. Answering questions following commands. Const Vital Signs: 05/19/25 14:33 Temperature 97.1 F L Temperature Source Temporal Pulse Rate 73 Respiratory Rate 20 H Blood Pressure 156/85 H Blood Pressure Mean 108 Pulse Ox 94 Oxygen Delivery Method Nasal Cannula Oxygen Flow Rate (L/min) 2 Positive well nourished and well developed; Negative for cachectic, contractures or unkempt General Appearance ED: well developed and NAD; Negative for unkempt, cachectic or contractures Nutritional Appearance: Negative for cachectic HEENT Reports normocephalic atraumatic; Negative for contusion, hematoma or tenderness Eyes PERRL and EOMs intact bilaterally Neck full ROM, no lymphadenopathy and supple Chest Wall Negative for inspection of chest normal or palpation of chest normal Chest Narrative: Bruise left lateral rib cage. Small. Tenderness along the left lateral rib cage. No crepitance. No subcu air. No bony deformity. Resp normal respiratory effort, no retractions and clear to auscultation bilaterally Cardio regular rate, regular rhythm, S1 normal heart sound, S2 normal heart sound and no murmurs GI non-tender, non-distended and no masses Auscultation: normoactive bowel sounds Palpation: soft; Negative for guarding or rebound tenderness present Back/Spine no CVA tenderness General Back: Negative for CVA tenderness Cervical Spine: Negative for cervical spine tenderness Lumbar Spine / Lower Back: Negative for lumbar spinal tenderness Neuro oriented x3, CN's II-XII intact bilaterally, moves all extremities and no focal motor deficits Sensorium / Orientation: alert, oriented to person, oriented to place and oriented to time; Negative for confused, lethargic or stuporous Motor Exam: strength 5/5 throughout Psych mental status grossly normal and thought process normal Appearance: Negative for unkempt Mood & Affect: Negative for depressed, anxious or tearful Skin Lesions: no lesions Rashes: no rashes Trauma: Negative for abrasion or laceration MDM MDM MDM Narrative Medical decision making narrative: 59-year-old female fell a week ago off footstool that she was seated on complaint left lateral rib cage pain. X-ray was obtained. Shows no obvious rib fracture. No pneumothorax. No hemo-. She has a known history of COPD. I went over her x-rays with her I explained her that on a plain film you could miss rib fractures she may have a rib fracture. She is comfortable with not getting a CT at this time. To be treated as rib contusions versus nondisplaced rib fractures. She be given a [place] here. Written for prescription for Percocet at home for pain and Motrin. Ice and use a pillow. Follow-up with her primary care provider if not improving. History & Record Review Discussion w/independent historian: Patient Additional record(s) reviewed:: Prior inpatient record, Prior outpatient record, Prior ED visit and Prior labs Radiography Chest X-Ray - ED: 2 View, Read by ED Physician, Heart, Lungs, Mediastinum, Bony Structures, No Acute Disease and Chronic Changes Diagnostic Testing: Chest x-ray, 2 views plus rib films. Showed normal cardiac silhouette. Normal lung [place] consistent with COPD chronic changes. No obvious rib fractures. No pneumothorax. Interpreted by myself. Patient and I went over the x-rays. And limitations of plain films on potential rib fractures. Discharge Plan Triage Chief Complaint: Fall ED Provider: Jose Elliott Dx/Rx/DC Orders Clinical Impression: Fall, Contusion of rib on left side, History of COPD Instructions: ED Rib Contusion or Minor Fracture Prescriptions: New oxycodone-acetaminophen [Percocet] 5-325 mg tablet 1 tab PO Q4H PRN (Reason: pain) 4 Days Qty: 14 0RF No Action budesonide-formoterol 80-4.5 mcg/actuation HFA aerosol inhaler 2 puff INHALATION BID cyclobenzaprine 10 mg tablet 10 mg PO HS potassium chloride 8 mEq tablet extended release 8 meq PO DAILY tizanidine 4 MG tablet 4 mg PO DAILY Patient Comments: muscle relaxer amlodipine 5 MG tablet 5 mg PO DAILY Patient Comments: blood pressure/heart triamterene-hydrochlorothiazid 1 CAP capsule 1 cap PO DAILY Patient Comments: water pill/blood pressure metoprolol tartrate 50 MG tablet 50 mg PO DAILY Patient Comments: heart/blood pressure celecoxib 200 mg capsule 200 mg PO DAILY aspirin 81 MG tablet 81 mg PO DAILY@0800 acetaminophen 650 MG tablet extended release 1,300 mg PO PRN PRN (Reason: Pain) mv,Ca,min-folic acid-vit K1 1 EACH tablet 1 ea PO DAILY albuterol sulfate 18 GM HFA aerosol inhaler 2 puff IH Q4H PRN PRN (Reason: sob/wheezing) Qty: 1 0RF pantoprazole 40 mg tablet,delayed release (DR/EC) 40 mg PO DAILY Qty: 30 5RF albuterol sulfate 2.5 mg /3 mL (0.083 %) solution for nebulization 2.5 mg inhalation Q4H PRN Qty: 25 0RF Rx Instructions: Use q4 hours and PRN for wheezing clobetasol 0.05 % cream 1 applic topical DAILY tramadol 50 mg tablet 50 mg PO TID PRN PRN (Reason: pain) duloxetine 20 mg capsule,delayed release(DR/EC) 20 mg PO DAILY glipizide 5 mg tablet 5 mg PO DAILY levofloxacin 750 mg tablet 750 mg PO DAILY Qty: 4 0RF prednisone 5 mg tablets,dose pack See Taper PO UD Qty: 21 0RF Taper: Prednisone Taper 60 mg WITH BREAKFAST for 3 Days and 0 Hour 50 mg WITH BREAKFAST for 3 Days and 0 Hour 40 mg WITH BREAKFAST for 3 Days and 0 Hour 30 mg WITH BREAKFAST for 3 Days and 0 Hour 20 mg WITH BREAKFAST for 3 Days and 0 Hour 10 mg WITH BREAKFAST for 3 Days and 0 Hour Primary Care Provider: Cristy Raphael Referrals: Cristy Raphael, [employer] [Primary Care Provider] - 1 Week if not improving Activity Restrictions/Additional Instructions: You either have bruised ribs or broken ribs on your left side that we cannot see on the x-ray. Ice to your chest wall. Motrin for pain and inflammation. Percocet for more severe pain. CAT scan was a large aneurysm brace to the rib cage on the left with a pillow. You can use the tape also. Follow-up with your primary care provider if not improving or return to emergency department if you are feeling worse. Later the 12 Print Language: [place] Disposition Disposition: Home, Self Care
[2025-05-19 15:17] VITALS: BP 152/84; PULSE 73; RESP 20; TEMP 36.2; O2SAT 94
== END 2025-05-19 15:19 | disposition home or self-care (01) ==
PROVIDERS: Emergency Provider Emergency Medicine; PCP Nurse Practitioner Family; Visit Provider Emergency Medicine
DX: S20.212A Contusion of left front wall of thorax, initial encounter (principal); J44.9 Chronic obstructive pulmonary disease, unspecified; I25.10 Atherosclerotic heart disease of native coronary artery without angina pectoris; E78.00 Pure hypercholesterolemia, unspecified; I10 Essential (primary) hypertension; F17.210 Nicotine dependence, cigarettes, uncomplicated; W19.XXXA Unspecified fall, initial encounter
CPT/HCPCS: 71101; 99282

== ENCOUNTER → 2025-07-13 | Outpatient (CLI) | payer MEDICAID, SELFPAY ==
--- NOTE | 2025-07-13 15:44 | BI_ITS ---
EXAM: SCRN MAMM (CAD)W/JOSELIN BILAT DATE: 07/13/2025 CLINICAL HISTORY: F, Age 59 y/o , SCREENING No family history. TECHNIQUE: Procedure Code: [id number] Modality: MG Procedure: SCRN MAMM (CAD)W/JOSELIN BILAT COMPARISON: Prior exam(s) dated March 12, 2023.. FINDINGS: TISSUE DENSITY: There are scattered areas of fibroglandular density. Bilateral Breast Mammographic Findings: No significant masses, calcifications or other abnormalities are identified. No suspicious masses, areas of developing architectural distortion, or suspicious calcifications. There has been no significant interval change. BI/SCRN MAMM (CAD)W/JOSELIN BILAT IMPRESSION: Stable bilateral screening mammogram. OVERALL FINAL ASSESSMENT BI-RADS 1: NEGATIVE. RECOMMENDATION: Routine annual follow-up in 1 Year A letter with findings and recommendations will be mailed to the patient. Reading Location: [place] [id number]
== END | disposition home or self-care (01) ==
LOC: OPBI 15:43
PROVIDERS: PCP Nurse Practitioner Family; Referring Provider Nurse Practitioner Family; Visit Provider Nurse Practitioner Family
DX: Z12.31 Encounter for screening mammogram for malignant neoplasm of breast (principal)
CPT/HCPCS: 77063; 77067

== ENCOUNTER → 2025-10-13 | Outpatient (CLI) | payer MEDICAID, SELFPAY ==
--- NOTE | 2025-10-13 14:48 | CT_ITS ---
PROCEDURE: LOW DOSE CT LUNG SCREENING 10/13/2025 REASON FOR EXAM: LUNG CANCER SCREENING Current smoker. Patient has smoked 1 pack per day for 39 years. TECHNIQUE: Procedure Code: [id number] Modality: CT Procedure: LOW DOSE CT LUNG SCREENING Coronal and Sagittal reconstruction series were provided. One or more dose reduction techniques were used (e.g., Automated exposure control, adjustment of the mA and/or kV according to patient size, use of iterative reconstruction technique). REFERENCE LINK: IND [employer] Lung-RADS RADIATION DOSE SUMMARY: CTDlvol: 2.39 mGy DLP: 77.73 mGycm COMPARISON: September 09, 2024. FINDINGS: PULMONARY NODULES: (Only nodules >3mm are reported) Nodules described below are on series 1 unless otherwise specified. Pulmonary Nodules: No suspicious pulmonary nodules are seen. Calcified granulomas in the left lower lobe. Hardware:None Lymph Nodes:No suspicious lymph nodes are seen. Calcified hilar lymph nodes. Heart and Vasculature:The heart is nonenlarged.Atherosclerotic calcifications of the thoracic aorta. Thoracic aorta and pulmonary arteries have normal contours; noncontrast technique limits evaluation. Coronary Artery Calcifications: Present Lungs and Airways: Mild emphysematous changes are present. Pleura:No pleural effusion. Upper Abdomen:Unremarkable Bones:Degenerative changes of the thoracic spine. CT/Low Dose CT Lung Screening IMPRESSION: Stable examination. Coronary artery calcification (CAC) is is present Lung-RADS Category: 2 BENIGN (BASED ON IMAGING FEATURES OR INDOLENT BEHAVIOR). RECOMMEND 12-MONTH SCREENING LDCT. Other Significant Findings: Reading Location: [facility]
--- OUTSIDE RECORDS SUMMARY | 2025-10-13 20:05 | XMS RPT_ITS | CCD ---
Author Organization [facility] Care Team Providers Care Lathe Mechanic Name Role Phone Polina Oneal Unavailable Unavailable Polina Oneal Unavailable Unavailable Reynaldo Gregg MD Primary Care Provider REYNALDO GREGG MD Consulting Unavailable MARCELL TAVERAS MD Attending Unavailable MARCELL TAVERAS MD Primary Care Unavailable MARCELL TAVERAS MD Admitting Unavailable PROVIDER, UNKNOWN Consulting Unavailable Dr. Reynaldo Gregg Primary Care Provider [phone] Dr. Reynaldo Gregg Referring Provider Roof CRATE LINER, CRATE LINER-C Melvin Bañuelos Attending Provider Dr. Stacie Cunningham Attending Provider Dr. Stacie Cunningham Other Provider REYNALDO GREGG Primary Care Unavailable REYNALDO GREGG Primary Care Unavailable REYNALDO GREGG Primary Care Unavailable Arian CRATE LINER-CJohn Primary Care Provider [phone] Earl STUART, Dr. Garcia Emergency Provider [phone] John Murphy Primary Care Provider [phone] FALLS, LIANG MARGARET Referring Unavailabl e FALLS, LIANGPer JOHNS Attending Unavailabl e ISAEL, JOHN R Primary Care Unavailable FALLS, LIANG MARGARET Referring Unavailabl e FALLS, LIANG MARGARET Attending Unavailabl e ISAEL, JOHN R Primary Care Unavailable FALLS, LIANG MARGARET Referring Unavailabl e FALLS, LIANG MARGARET Attending Unavailabl e ISAEL, JOHN R Primary Care Unavailable FALLS, LIANG MARGARET Referring Unavailabl e ISAEL, JOHN R Primary Care Unavailable FALLS, LIANG MARGARET Attending Unavailabl e FALLS, LIANGPer JOHNS Attending Unavailabl e PROVIDER, [facility] Referring Unavailabl e ARIAN, JOHN Admitting Unavailable ISAEL, JOHN R Primary Care Unavailable ISAEL, JOHN R Primary Care Unavailable LIANG LOPEZ Attending UnavailJose Conway Attending Unavailable Arian, John Primary Care Unavailable Arian, John Primary Care Unavailable Radha CRATE LINER, Argelia Attending Unavailable Radha CRATE LINER, Argelia Referring Unavailable Arian, John Attending Unavailable Arian, John Referring Unavailable Arian, John Primary Care Unavailable Radha CRATE LINER, Argelia Attending Unavailable Radha CRATE LINER, Argelia Referring Unavailable Arian, John Primary Care Unavailable Arian CRATE LINER-C, John Primary Care Physician Earl STUART, Dr. Garcia Attending Physician [phone] Dr. Jose Elliott MD Emergency Department Physici an Arian CRATE LINER-C, John Attending Physician Arian CRATE LINER-C, John Referring Provider Allergies Allergy Classification Reported Allergen(s) Allergy Type Date of Onset Reaction(s) Facility (2 sources) Penicillin V Drug Allergy 7 [facility] Work Phone: (2 sources) traMADol Drug Allergy 7 [facility] Work Phone: (5 sources) Penicillins; Translations: [PENICILLINS] Drug Allergy 1 [facility] Work Phone: (20 sources) traMADol; Translations: [TRAMADOL] Drug Allergy 1 Rash, Swelling [facility] Work Phone: (1 source) PEN-VK Drug allergy (disorder) [facility] (11 sources) Penicillins Allergy to substance 2 [facility] (6 sources) Penicillins Propensity to adverse reactions to drug 7 [facility] (1 source) Penicillins Drug allergy (disorder) 5 [facility] (1 source) traMADol Drug Allergy 5 [facility] Medications Current Medications Medication Drug Class(es) Dates Sig (Normalized) Sig (Original) 8 hr acetaminophen 650 mg extended release oral tablet (17 sources) Start: 07-02-2018 acetaminophen (TYLENOL ER) 650 MG CR tablet Take 2 (two) tablets (1,300 mg total) by mouth . 07/02/2018 Active Start: 07-02-2018 Acetaminophen Active 1300 MG PO NEEDED July 02, 2018 12:00am acetaminophen 325 mg / oxyCODONE hydrochloride 5 mg oral tablet (2 sources) Opioid Agonist Start: 05-19-2025 take 1 tablet by mouth every four hours as needed for pain [id number] 200 actuat albuterol 0.09 mg/actuat metered dose inhaler (20 sources) beta2-Adrenerg ic Agonist Start: 05-05-2025 take 2 puff(s) by inhalation every four hours as needed albuterol 90 mcg/actuation inhaler Inhale 2 (two) puffs every 4 (four) hours as needed . 05/05/2025 Active Start: 05-20-2024 take 2.5 mg by inhal ation every four hours as needed for wheezing Start: 07-05-2018 Start: 07-05-2018 Albuterol Sulf ate 18 GM HFA aerosol inhaler Active 2 NMA IH EVERY 4 HOURS NEEDED as needed for sob/wheezing 1 0 July 05, 2018 10:11am Start: 07-05-2018 take 1 puff(s) by in halation every four hours as needed Albuterol Sulfate Active 2 PUFF IH EVERY 4 HOURS NEEDED July 05, 2018 10:11am Start: 07-05-2018 take 1 puff(s) by in halation every four hours as needed Albuterol Sulfate Active 2 PUFF IH EVERY 4 HOURS NEEDED July 05, 2018 10:11am Start: 07-05-2018 End: 07-05-2018 Albuterol Sulfate (Ventolin Hfa) 18 GM Hfa.Aer.Ad Discontinued 2 NMA IH EVERY 4 HOURS NEEDED as needed for sob/wheezing 0 0 July 05, 2018 10:10am July 05, 2018 10:11am Start: 07-05-2018 End: 07-05-2018 take 1 puff(s) by inhalation every four hours as needed Albuterol Sulfate (Ventolin Hfa) 18 GM Hfa.Aer.Ad Discontinued 2 PUFF IH EVERY 4 HOURS NEEDED 0 July 05, 2018 10:10am July 05, 2018 10:11am Start: 07-02-2018 End: 07-05-2018 Albuterol Sulfate (Ventolin Hfa) 18 GM Hfa.Aer.Ad Discontinued 1 - 2 NMA IH TWICE A DAY July 02, 2018 12:00am July 05, 2018 10:10am sob Start: 07-02-2018 End: 07-05-2018 take 1 puff(s) by inhalation twice daily Albuterol Sulfate (Ventolin Hfa) 18 GM Hfa.Aer.Ad Discontinued 1 - 2 PUFF IH TWICE A DAY July 02, 2018 12:00am July 05, 2018 10:10am ALBUTEROL INHALA TION Inhale 2 Puffs as instructed as needed. 0 Active Comment on above: Inhale 2 Puffs as in structed as needed. amLODIPine 5 mg oral tablet (20 sources) Dihydropyridine Calcium Channel Meeta Start: 11-24-2015 take 1 tablet by mouth once daily take 1 tablet by mouth once saurabh y AMLODIPINE BESYLATE (AMLODIPINE ORAL) Take 1 tablet by mouth once daily. 0 Active Comment on above: Take 1 tablet by demarcus th once daily. aspirin 81 mg delayed release oral tablet (20 sources) Platelet Aggregation Inhibitor, Nonsteroidal Anti-inflammatory Drug Start: 08-01-2017 take 1 tablet by mouth once daily ASPIRIN 81 MG TABS One tablet by mouth daily ASPIRIN [id number] Twan Patricio MD Start: 11-24-2015 take 1 tablet by demarcus th once daily aspirin 81 MG EC tablet Take 1 (one) tablet (81 mg total) by mouth daily . 11/24/2015 Active take 1 tablet by demarcus th once daily aspirin 81 mg chewable tablet Take 81 mg by mouth once daily. 0 Active Comment on above: Take 81 mg by mouth once daily. 60 actuat budesonide 0.08 mg/actuat / formoterol fumarate 0.0045 mg/actuat metered dose inhaler (20 sources) Corticosteroid, beta2-Adrenergic Agonist Start: 05-18-2025 take 2 puff(s) by inhalation twice daily Symbicort 80-4.5 mcg/actuation inhaler Inhale 2 (two) puffs 2 (two) times a day . 05/18/2025 Active Start: 05-05-2020 Start: 05-05-2020 Budesonide-For moterol 80-4.5 mcg/actuation HFA aerosol inhaler Active 2 NMA INHALATION TWICE A DAY May 05, 2020 4:18pm Start: 05-05-2020 take 1 puff(s) by in halation twice daily Budesonide-Formoterol Active 2 PUFF INHALATION TWICE A DAY May 05, 2020 4:18pm Start: 07-05-2018 End: 05-05-2020 Budesonide-Formoterol 1 INHA LER inhaler Discontinued 2 NMA INHALATION TWICE A DAY 1 July 05, 2018 12:00am May 05, 2020 4:20pm Start: 07-05-2018 End: 05-05-2020 take 1 puff(s) by inhalation twice daily Budesonide-Formoterol Discontinued 2 PUFF INHALATION TWICE A DAY July 05, 2018 12:00am May 05, 2020 4:20pm celecoxib 200 mg oral capsule (20 sources) Nonsteroidal Anti-inflammatory Drug Start: 05-14-2025 take 1 capsule by mouth once daily celecoxib (CELEBREX) 200 MG capsule Take 1 (one) capsule (200 mg total) by mouth daily . 05/14/2025 Active Start: 03-25-2017 End: 05-05-2020 take 1 capsule by mouth once daily celecoxib (CELEBREX) 200 MG capsule Take 1 (one) capsule (200 mg total) by mouth daily . 05/14/2025 Active clobetasol propionate 0.5 mg/ml topical cream (8 sources) Corticosteroid Start: 05-24-2024 clobetasoL (TE MOVATE) 0.05 % cream Apply topically 2 (two) times a day . 05/24/2024 Active Start: 05-24-2024 cyclobenzaprine hydrochloride 10 mg oral tablet (20 sources) Muscle Relaxant Start: 11-19-2019 End: 06-22-2022 take 1 tablet by mouth at bedtime 0.5 ml dulaglutide 1.5 mg/ml auto-injector (6 sources) GLP-1 Receptor Agonist Start: 05-16-2025 Trulicity 0.75 mg/0.5 mL Pen Inject under the skin . 05/16/2025 Active DULoxetine 20 mg delayed release oral capsule (2 sources) Serotonin and Norepinephrine Reuptake Inhibitor Start: 05-24-2024 take 1 capsule by mouth once daily glipiZIDE er 5 mg 24 hr extended release oral tablet (8 sources) Sulfonylurea Start: 03-17-2025 take 1 tablet by mouth once daily glipiZIDE (GLUCOTROL XL) 5 MG 24 hr tablet Take 1 (one) tablet (5 mg total) by mouth daily . 03/17/2025 Active Start: 05-25-2024 take 1 tablet by mouth once da mike hydroCHLOROthiazide 25 mg / triamterene 37.5 mg oral tablet (20 sources) Potassium-sparing Diuretic, Thiazide Diuretic Start: 11-24-2015 take 1 tablet by mouth once daily triamterene-hydrochlorothiazide (MAXZIDE-25) 37.5-25 mg per tablet Take 1 (one) tablet by mouth daily . 11/24/2015 Active Start: 11-24-2015 take 1 capsule by mouth once daily Triamterene-Hydrochlorothiazid Active 1 CAP PO DAILY November 24, 2015 1:00am Start: 12-13-2011 End: 05-29-2025 Comment on above: Take 1 capsule by [facility] once daily. levoFLOXacin 750 mg oral tablet (2 sources) Quinolone Antimicrobial Start: 4 take 1 tablet by mouth once daily lovastatin 40 mg oral tablet (20 sources) HMG-CoA Reductase Inhibitor Start: 5 take 1 tablet by mouth once daily lovastatin (MEVACOR) 40 MG tablet Take 1 (one) tablet (40 mg total) by mouth nightly . 05/14/2025 Active Start: 05-05-2020 End: 09-09-2024 take 1 tablet by mouth at bedtime Lovastatin 40 mg tablet Discontinued 40 mg PO AT BEDTIME May 05, 2020 12:00am September 09, 2024 2:20pm Start: 11-24-2015 End: 05-05-2020 take 1 tablet by mouth once daily Lovastatin 20 MG tablet Discontinued 20 mg PO DAILY November 24, 2015 1:00am May 05, 2020 4:20pm Comment on above: Take 20 mg by mouth daily at bedtime. metoprolol tartrate 50 mg oral tablet (20 sources) beta-Adrenergic Meeta Start: 11-24-2015 take 1 tablet by mouth once daily Start: 07-10-2012 take 1 tablet by demarcus once daily metoprolol succinate XL, long acting, (TOPROL XL) 50 mg 24 hr tablet Indications: Hypertension Take 1 tablet by mouth once daily. 30 tablet 0 07/10/2012 Active metoprolol tartr ate (LOPRESSOR) 50 MG tablet Take by mouth 2 (two) times a day . Active Comment on above: Take 1 tablet by demarcus th once daily. multivitamin per tablet (6 sources) take 1 tablet by mouth once daily multivitamin per tablet Take 1 (one) tablet by mouth daily . Active Mv,Ca,Min-Folic Acid-Vit K1 (9 sources) Start: 07-02-2018 Mv,Ca,Min-Folic Acid-Vit K1 Active 1 EACH PO DAILY July 02, 2018 12:00am Mv,Ca,Min-Folic Acid-Vit K1 1 EACH tablet (2 sources) Start: 07-02-2018 take 1 tablet by mouth once daily Start: 07-02-2018 take 1 tablet by demarcus th once daily Mv,Ca,Min-Folic Acid-Vit K1 1 EACH tablet Active 1 NMA PO DAILY July 02, 2018 12:00am supplement nystatin [id number] unt/ml oral suspension (1 source) Polyene Antifungal Start: 03-29-2022 End: 04-12-2022 nystatin (MYCOSTATIN) 100,000 unit/mL suspension Take 5 mL by mouth four times daily for 14 days. 1tsp swish in mouth for several minutes, then swallow (or expectorate) 4 times daily until gone. 280 mL 0 03/29/2022 04/12/2022 Active Comment on above: Take 5 mL by mouth f our times daily for 14 days. 1tsp swish in mouth for several minutes, then swallow (or expectorate) 4 times daily until gone. pantoprazole 40 mg delayed release oral tablet (15 sources) Proton Pump Inhibitor Start: 08-14-2022 take 1 tablet by mouth once daily as needed pantoprazole (PROTONIX) 40 MG tablet Take 1 (one) tablet (40 mg total) by mouth daily as needed . 08/14/2022 Active potassium chloride 8 meq extended release oral tablet (17 sources) Start: 06-22-2022 take 1 tablet by mouth once daily potassium chloride (KLOR-CON) 8 MEQ CR tablet Take 1 (one) tablet (8 mEq total) by mouth daily . 06/22/2022 Active predniSONE 5 mg oral tablet (4 sources) Start: 05-29-2024 Start: 05-29-2024 Prednisone 5 m g tablets,dose pack Active 0 mg PO DIRECTED May 29, 2024 12:00am Please contact the information source for Taper Schedule details. Start: 05-20-2024 End: 09-09-2024 take 2 tablets by mouth once daily Prednisone 20 mg tablet Discontinued 40 mg PO DAILY 14 7 0 May 20, 2024 12:00am September 09, 2024 2:21pm 1 ml secukinumab 150 mg/ml auto-injector (11 sources) Interleukin-17A Antagonist Start: 07-28-2025 secukinumab (Cosentyx Pen, 2 Pens,) 150 mg/mL Pen Indications: Psoriasis , PSA (psoriatic arthritis) ([facility]) Inject 2 mL (300 mg total) under the skin every 28 days Start: 07/28/25. 2 mL 07/28/2025 Active Start: 07-28-2025 secukinumab (C osentyx Pen, 2 Pens,) 150 mg/mL Pen Indications: Psoriasis , PSA (psoriatic arthritis) (HCC) Inject 2 mL (300 mg total) under the skin every 28 days Start: 07/28/25. 2 mL 11 07/28/2025 Active Start: 07-28-2025 secukinumab (C osentyx Pen, 2 Pens,) 150 mg/mL Pen Indications: Psoriasis , PSA (psoriatic arthritis) (HCC) Inject 2 mL (300 mg total) under the skin every 28 days Start: 07/28/25. 2 mL 11 07/28/2025 Active Start: 07-28-2025 secukinumab (C osentyx Pen, 2 Pens,) 150 mg/mL Pen Indications: Psoriasis , PSA (psoriatic arthritis) (HCC) Inject 2 mL (300 mg total) under the skin every 28 days Start: 07/28/25. 2 mL 11 07/28/2025 Active Start: 07-28-2025 secukinumab (C osentyx Pen, 2 Pens,) 150 mg/mL Pen Indications: Psoriasis , PSA (psoriatic arthritis) (HCC) Inject 2 mL (300 mg total) under the skin every 28 days Start: 07/28/25. 2 mL 11 07/28/2025 Active Start: 06-02-2025 secukinumab (C osentyx Pen, 2 Pens,) 150 mg/mL Pen Indications: Psoriasis , PSA (psoriatic arthritis) ([facility]) Take 300 mg once weekly at week 0, 1, 2, 3, 4 and every 28 days thereafter. . 10 mL 06/02/2025 Active secukinumab (COS ENTYX SUBCUTANEOUS) Inject subcutaneously. 0 Active Comment on above: Inject subcutaneousl y. tiZANidine 4 mg oral tablet (19 sources) Central alpha-2 Adrenergic Agonist Start: 05-27-2025 tiZANidine (ZANAFLEX) 4 MG tablet Take by mouth . 05/27/2025 Active Start: 08-01-2017 take 1 tablet by demarcus th twice daily TIZANIDINE HCL 4 MG TABS One tablet by mouth twice daily TIZANIDINE HCL [id number] Twan Patricio MD Start: 11-24-2015 take 1 tablet by demarcus th once daily traMADol hydrochloride 50 mg oral tablet (3 sources) Opioid Agonist Start: 05-24-2024 End: 05-29-2025 take 1 tablet by mouth three times daily as needed for pain VIT D3-FOLIC [id number] ORAL (6 sources) VIT D3-FOLIC UDER-[id number]-B12 ORAL Take by mouth daily . Active Completed/Discontinued Medications Medication Drug Class(es) Dates Sig (Normalized) Sig (Original) COMPOUNDED PRESCRIPTION (2 sources) COMPOUNDED PRESCRIPTION Take 1 tablet by mouth as needed. Taking muscle relaxant prn unsure of name 0 Active Comment on above: Take 1 tablet by demarcus th as needed. Taking muscle relaxant prn unsure of name etodolac 400 mg oral tablet (2 sources) Nonsteroidal Anti-inflammatory Drug Start: 06-13-2012 take 1 tablet by mouth twice daily etodolac 400 mg tablet Take 1 tablet by mouth twice daily. 60 tablet 0 06/13/2012 Active Comment on above: Take 1 tablet by demarcus th twice daily. famotidine 20 mg oral tablet (13 sources) Histamine-2 Receptor Antagonist Start: 12-19-2020 End: 08-14-2022 take 1 tablet by mouth twice daily Famotidine 20 MG tablet Discontinued 20 mg PO TWICE A DAY 28 0 December 19, 2020 1:00am August 14, 2022 10:22am famotidine (PEPC ID ORAL) Take by mouth. 0 Active Comment on above: Take by mouth. fluconazole 100 mg oral tablet (1 source) Azole Antifungal Start: 2 fluconazole (DIFLUCAN) 100 mg tablet Indications: Oral thrush Initial loading dose of 200 mg on day 1, then 100 mg days 2-7 8 tablet 1 04/15/2022 Active Comment on above: Initial loading dose of 200 mg on day 1, then 100 mg days 2-7 linseed oil 1300 mg oral capsule (2 sources) Start: 7 take 1 tablet by mouth once daily FLAX SEED OIL 1300 MG CAPS One tablet by mouth daily FLAXSEED (LINSEED) [id number] Twan Patricio MD Multivitamin preparation (2 sources) MULTIVITAMIN (MULTIPLE VITAMIN ORAL) Take by mouth once daily. 0 Active Comment on above: Take by mouth once d aily. sucralfate 1000 mg oral tablet (9 sources) Aluminum Complex Start: 2 End: 4 take 1 tablet by mouth four times daily 1 hour(s) before bedtime Sucralfate 1 gram tablet Discontinued 1 g PO 4 TIMES DAILY 120 0 August 14, 2022 12:00am May 24, 2024 8:41am Take 1 hour before meals and at bedtime Tirzepatide (1 source) Start: 4 End: 4 Tirzepatide (Mounjaro) 5 mg/0.5 mL pen injector Discontinued 5 mg SC EVERY WEEK May 25, 2024 12:00am September 09, 2024 2:21pm diabetes Tirzepatide (Mounjaro) 5 mg/0.5 mL pen injector (1 source) Start: 4 End: 4 Tirzepatide (Mounjaro) 5 mg/0.5 mL pen injector Discontinued 5 mg SC EVERY WEEK May 25, 2024 12:00am September 09, 2024 2:21pm diabetes Problems Active Problems Problem Classification Problem Date Documented Da te Episodic/Chronic Adjustment disorders (2 sources) Adjustment disorder with mixed anxiety and depressed mood; Translations: [Adjustment disorder with mixed anxiety and depressed mood] Onset: 1 11-16-2010 Chronic Asthma (2 sources) Asthma; Translations: [Unspecified asthma, uncomplicated] Onset: 5 12-31-2014 Chronic Cardiac and circulatory congenital anomalies (11 sources) Persistent left superior vena cava; Translations: [Persistent left superior vena cava] 05-29-2022 Chronic Chronic obstructive pulmonary disease and bronchiectasis (6 sources) Acute exacerbation of chronic obstructive airways disease; Translations: [Chronic obstructive pulmonary disease with (acute) exacerbation] 05-28-2024 Chronic Coronary atherosclerosis and other heart disease (2 sources) Coronary arteriosclerosis; Translations: [Atherosclerotic heart disease of [place] coronary artery without angina pectoris] Onset: 7 08-01-2017 Chronic Disorders of lipid metabolism (16 sources) Hyperlipidemia; Translations: [Hyperlipidemia, unspecified] Onset: 7 08-01-2017 Chronic E Codes: Fall (2 sources) Fall; Translations: [Unspecified fall, initial encounter] 05-19-2025 Episodic Esophageal disorders (19 sources) Obstruction of esophagus; Translations: [Esophageal obstruction] Chronic Essential hypertension (18 sources) Hypertensive disorder; Translations: [Essential (primary) hypertension] Onset: 1 08-01-2017 Chronic Fluid and electrolyte disorders (2 sources) Hypokalemia; Translations: [Hypokalemia] 06-06-2024 Episodic Mycoses (2 sources) Candidiasis of mouth; Translations: [Candidal stomatitis] Episodic Occlusion or stenosis of precerebral arteries (11 sources) Right carotid artery stenosis; Translations: [Occlusion and stenosis of right carotid artery] 05-05-2020 Chronic Other aftercare (3 sources) Other manager intermediate (current) drug therapy; Translations: [Other manager intermediate (current) drug therapy] Onset: 2 Episodic Other aftercare (1 source) Taking high risk medication; Translations: [Other manager intermediate (current) drug therapy] 05-29-2025 Episodic Other gastrointestinal disorders (2 sources) Irritable bowel syndrome; Translations: [Irritable bowel syndrome without diarrhea] Onset: 1 11-16-2010 Chronic Other inflammatory condition of skin (2 sources) Psoriatic arthritis; Translations: [Arthropathic psoriasis, unspecified] 05-29-2025 Chronic Other inflammatory condition of skin (2 sources) Psoriasis; Translations: [Psoriasis, unspecified] 05-29-2025 Chronic Other inflammatory condition of skin (4 sources) Arthropathic psoriasis, unspecified; Translations: [Arthropathic psoriasis, unspecified] Onset: 5 Chronic Other inflammatory condition of skin (2 sources) Psoriasis, unspecified; Translations: [Psoriasis, unspecified] Onset: 5 Chronic Other injuries and conditions due to external causes (3 sources) Obstruction of esophagus; Translations: [Food in esophagus causing other injury, initial encounter] 12-20-2020 Episodic Other injuries and conditions due to external causes (2 sources) Other specified injuries of thorax, initial encounter; Translations: [Contusion of rib on left side] 05-19-2025 Episodic Other injuries and conditions due to external causes (1 source) Encounter for examination and observation following other accident; Translations: [Encounter for examination and observation following other accident] Onset: 5 Episodic Other lower respiratory disease (2 sources) History of chronic obstructive airway disease; Translations: [Personal history of other diseases of the respiratory system] 05-19-2025 Episodic Other lower respiratory disease (2 sources) Hypoxia; Translations: [Hypoxemia] 06-06-2024 Episodic Other nutritional; endocrine; and metabolic disorders (11 sources) Obesity; Translations: [Obesity, unspecified] 05-29-2022 Chronic Other screening for suspected conditions (not mental disorders or infectious disease) (4 sources) Patient encounter status; Translations: [Encounter for screening for malignant neoplasm of respiratory organs] Onset: 5 09-09-2024 Episodic Other skin disorders (2 sources) H/O: psoriasis; Translations: [Personal history of diseases of the skin and subcutaneous tissue] 05-28-2024 Episodic Peripheral and visceral atherosclerosis (13 sources) Subclavian artery stenosis; Translations: [Stricture of artery] Onset: 7 08-01-2017 Chronic Comment on above: right subclavian 8 x 30 mm everflex stent 05/2015 Pneumonia (except that caused by tuberculosis or sexually transmitted disease) (2 sources) Pneumonia; Translations: [Pneumonia, unspecified organism] 06-06-2024 Episodic Residual codes; unclassified (3 sources) Tobacco use and exposure - finding; Translations: [Tobacco use] Onset: 5 12-31-2014 Episodic Residual codes; unclassified (11 sources) Family history of cancer of colon; Translations: [Family history of malignant neoplasm of digestive organs] 06-06-2022 Episodic Residual codes; unclassified (3 sources) Other specified postprocedural states; Translations: [Other postprocedural status] Episodic Residual codes; unclassified (2 sources) Family history of malignant neoplasm of digestive organs; Translations: [Family history of malignant neoplasm of gastrointestinal tract] Episodic Respiratory failure; insufficiency; arrest (adult) (2 sources) Acute respiratory failure; Translations: [Acute respiratory failure with hypoxia] 06-06-2024 Episodic Spondylosis; intervertebral disc disorders; other back problems (4 sources) Inflammation of sacroiliac joint; Translations: [Sacroiliitis, not elsewhere classified] Onset: 1 11-16-2010 Chronic Substance-related disorders (12 sources) Nicotine dependence; Translations: [Nicotine dependence, unspecified, uncomplicated] Onset: 4 12-19-2020 Chronic Unclassified (1 source) ENCOUNTER FOR SCREENING FOR COVID-19; Translations: [ENCOUNTER FOR SCREENING FOR COVID-19] Onset: 2 Viral infection (1 source) COVID-19; Translations: [COVID-19] Onset: 2 Past or Other Problems Problem Classification Problem Date Documented Date Episodic/Chronic Headache; including migraine (2 sources) Headache; Translations: [Headache] Onset: 06-19-2011 06-19-2011 Episodic Other female genital disorders (2 sources) H/O gynecological disorder; Translations: [Personal history of other diseases of the female genital tract] Onset: 08-01-2017 08-01-2017 Episodic Spondylosis; intervertebral disc disorders; other back problems (6 sources) Sciatica; Translations: [Sciatica, unspecified side] Onset: 11-16-2010 11-16-2010 Episodic Unclassified (1 source) ENCOUNTER FOR SCREENING FOR COVID-19; Translations: [ENCOUNTER FOR SCREENING FOR COVID-19] Onset: 05-14-2022 Results Test Name Value Interpretation Reference Range Facility Breast imaging reportOrdered By: Jagjit Garcia on 07-14-2025 Study report [facility] Imaging Services [address] [place], [place] [address] SCRN MAMM (CAD)W/JOSELIN BILAT MR#: [id number] Acct: [id number] Name: NELI LOVING Rep #: [id number] : 1965 F 59 From: Solitario Garcia MD PCP: JOSE Maria Status: REG CLI Study:SCRN MAMM (CAD)W/JOSELIN BILAT Date of Exa m: 07/13/25 Exam# [id number] Ordering Dr: Ra mckenna Raphael EXAM: SCRN MAMM (CAD)W/JOSELIN BILAT DATE: 07/13/2025 CLINICAL HISTORY: F, Age 59 y/o , SCREENING No family history. TECHNIQUE: Procedure Code: BISMWCADBTOM Modality: MG Procedure: SCRN MAMM (CAD)W/JOSELIN BILAT COMPARISON: Prior exam(s) dated March 12, 2023.. FINDINGS: TISSUE DENSITY: There are scattered areas of fibroglandular density. Bilateral Breast Mammographic Findings: No significant masses, calcifications or other abnormalities are identified. No suspicious masses, areas of developing architectural distortion, or suspicious calcifications. There has been no significant interval change. BI/SCRN MAMM (CAD)W/JOSELIN BILAT IMPRESSION: Stable bilateral screening mammogram. OVERALL FINAL ASSESSMENT BI-RADS 1: NEGATIVE. RECOMMENDATION: Routine annual follow-up in 1 Year A letter with findings and recommendations will be mailed to the patient. Reading Location: [facility]- CC: JOSE Raphael ~ Food Manager: Signed [facility] SCRN MAMM (CAD)W/JOSELIN BILATo n 07-13-2025 SCRN MAMM (CAD)W/JOSELIN BILAT [facility] Imaging Services [address] [place] [address] SCRN MAMM (CAD)W/JOSELIN BILAT MR#: [id number] Acct: [id number] Name: NELI LOVING Rep #: [id number] : 1965 F 59 From: Jagjit merrill MD PCP: JOSE Maria Status: REG CLI Study: SCRN MAMM (CAD)W/JOSELIN BILAT Date of Exam: 06/29 03/22 Exam# [id number] Ordering Dr: John Raphael EXAM: SCRN MAMM (CAD)W/JOSELIN BILAT DATE: 07/13/2025 CLINICAL HISTORY: F, Age 59 y/o , SCREENING No family history. TECHNIQUE: Procedure Code: BISMWCADBTOM Modality: MG Procedure: SCRN MAMM (CAD)W/JOSELIN BILAT COMPARISON: Prior exam(s) dated March 12, 2023.. FINDINGS: TISSUE DENSITY: There are scattered areas of fibroglandular density. Bilateral Breast Mammographic Findings: No significant masses, calcifications or other abnormalities are identified. No suspicious masses, areas of developing architectural distortion, or suspicious calcifications. There has been no significant interval change. BI/SCRN MAMM (CAD)W/JOSELIN BILAT IMPRESSION: Stable bilateral screening mammogram. OVERALL FINAL ASSESSMENT BI-RADS 1: NEGATIVE. RECOMMENDATION: Routine annual follow-up in 1 Year A letter with findings and recommendations will be mailed to the patient. Reading Location: [place] [address] CC: JOSE Raphael Food Manager: Signed Normal [facility] MTB SCREENon 05-29-2025 MITOGEN-NIL 9.989 IU/mL Normal [facility] Comment on above: Performed By: #### L [id number] #### [facility] [address] [place] [address] Anish Montgomery M.D. [id number] MTB SCREEN INTERPRETATION Negative Normal Negative [facility] Comment on above: Result Comment: No I FN-gamma response to M tuberculosis antigens was detected. Latent infection with M tuberculosis is unlikely. A single negative result does not exclude infection with M tuberculosis. In patients at high risk for M tuberculosis infection,a second test should be considered Performed By: #### L [id number] #### [facility] [address] [place] [address] Anish Montgomery M.D. [id number] NIL 0.0110 IU/mL Normal [facility] Comment on above: Performed By: #### L [id number] #### [facility] [address] [place] [address] Anish Montgomery M.D. [id number] TB1-NIL -0.24368 IU/mL Normal 0.00 0.34 [facility] Comment on above: Performed By: #### L [id number] #### [facility] [address] [place] [address] Anish Montgomery M.D. [id number] TB2-NIL -0.53783 IU/mL Normal 0.00 0.34 [facility] Comment on above: Result Comment: Inte rferon gamma release is measured for specimens from each of the four collection tubes. A qualitative result (Negative, Positive, or Indeterminate) is based on interpretation of the four values, NIL, MITOGEN minus NIL (MITOGEN-NIL), TB1 minus NIL (TB1-NIL), and TB2 minus NIL (TB2-NIL). The NIL value represents nonspecific reactivity produced by the patient specimen. The MITOGEN-NIL value serves as the positive control for the patient specimen, demonstrating successful lymphocyte reactivity. The TB1-NIL tube specifically detects CD4+ lymphocyte reactivity, specifically stimulated by the TB1 antigens. The TB2-NIL tube detects both CD4+ and CD8+ lymphocyte reactivity, stimulated by the TB2 antigens. An overall Negative result does not completely rule out TB Infection. Performed By: #### L [id number] #### [facility] [address] [place] [address] Anish Montgomery M.D. [id number] XR FOOT LEFT 3+ VIEWS (STAND ROSALIA)on 05-29-2025 XR FOOT LEFT 3+ VIEWS (STANDARD) EXAMINATION: XR HANDS BILATERAL BALL CATCHERS 2 VIEWS; XR FOOT LEFT 3+ VIEWS (STANDARD); XR FOOT RIGHT 3+ VIEWS (STANDARD); XR SI JOINTS 3+ VIEWS HISTORY: ORDERING SYSTEM PROVIDED HISTORY: PSA (psoriatic arthritis) ([facility] TECHNOLOGIST PROVIDED HISTORY: Illness/Other Reason for exam: pain, swelling, hx of arthritis Cancer History: u Surgery, RadiationHistory: u Encounter Type: Initial Additional signs and symptoms: Please evalaute for inflammatory arthritis ORDERING SYSTEM PROVIDED DIAGNOSIS CODES: L40.50 PSA (psoriatic arthritis) ([facility]) TECHNIQUE: Routine views were obtained for bilateral hands, bilateral feet and sacroiliac joints. IMPRESSION: FINDINGS/ Bilateral hands: 1. There are peripheral and subchondral erosions at the radiocarpal, intercarpal at the metacarpophalangeal joints. This is concerning for possible early rheumatoid arthritic changes and can be correlated clinically. 2. There is evidence of mild polyarticular osteoarthritic changes most prominent at the 1st carpometacarpal, 1st metacarpophalangeal and interphalangeal the fingers and thumb. Sacroiliac joints: 1. There is moderate bilateral sacroiliac joint osteoarthritis. 2. Moderate bilateral hip joint osteoarthritis. 3. No acute fracture or traumatic subluxation. 4. Multifocal enthesopathic changes are seen. Bilateral feet: 1. There is no acute fracture or traumatic subluxation. 2. Mild bilateral polyarticular osteoarthritic changes are seen. KA/alt Workstation ID: [id number] Dictated by: SHERIF CANTRELL on SunMay 29, 2025 6:46:14 PM EDT Transcribed by: JOSUE WILLIAMSON on SunMay 29, 2025 6:55:36 PM EDT Finalized by: SHERIF CANTRELL on SunMay 29, 2025 6:58:58 PM EDT Normal [facility] Comment on above: Order Comment: Injur y/Trauma or Illness?:Illness/Other How long have you had these symptoms (acute/chronic)?:Chronic Reason for exam?:pain, swelling, hx of arthritis History of cancer?:u Surgeries, chemotherapy, or radiation?:u Type of Exam?:Initial Additional signs and symptoms?:Please evalaute for inflammatory arthritis XR FOOT RIGHT 3+ VIEWS (ELI SHAIKH)on 05-29-2025 XR FOOT RIGHT 3+ VIEWS (STANDARD) EXAMINATION: XR HANDS BILATERAL BALL CATCHERS 2 VIEWS; XR FOOT LEFT 3+ VIEWS (STANDARD); XR FOOT RIGHT 3+ VIEWS (STANDARD); XR SI JOINTS 3+ VIEWS HISTORY: ORDERING SYSTEM PROVIDED HISTORY: PSA (psoriatic arthritis) ([facility]), TECHNOLOGIST PROVIDED HISTORY: Illness/Other Reason for exam: pain, swelling, hx of arthritis Cancer History: u Surgery, RadiationHistory: u Encounter Type: Initial Additional signs and symptoms: Please evalaute for inflammatory arthritis ORDERING SYSTEM PROVIDED DIAGNOSIS CODES: L40.50 PSA (psoriatic arthritis) ([facility]) TECHNIQUE: Routine views were obtained for bilateral hands, bilateral feet and sacroiliac joints. IMPRESSION: FINDINGS/ Bilateral hands: 1. There are peripheral and subchondral erosions at the radiocarpal, intercarpal at the metacarpophalangeal joints. This is concerning for possible early rheumatoid arthritic changes and can be correlated clinically. 2. There is evidence of mild polyarticular osteoarthritic changes most prominent at the 1st carpometacarpal, 1st metacarpophalangeal and interphalangeal the fingers and thumb. Sacroiliac joints: 1. There is moderate bilateral sacroiliac joint osteoarthritis. 2. Moderate bilateral hip joint osteoarthritis. 3. No acute fracture or traumatic subluxation. 4. Multifocal enthesopathic changes are seen. Bilateral feet: 1. There is no acute fracture or traumatic subluxation. 2. Mild bilateral polyarticular osteoarthritic changes are seen. KA/alt Workstation ID: [id number] Dictated by: SHERIF CANTRELL on SunMay 29, 2025 6:46:14 PM EDT Transcribed by: OJSUE WILLIAMSON on SunMay 29, 2025 6:55:36 PM EDT Finalized by: SHERIF CANTRELL on SunMay 29, 2025 6:58:58 PM EDT Normal [facility] Comment on above: Order Comment: Injur y/Trauma or Illness?:Illness/Other How long have you had these symptoms (acute/chronic)?:Chronic Reason for exam?:pain, swelling hx of arthritis History of cancer?:u Surgeries, chemotherapy, or radiation?:u Type of Exam?:Initial Additional signs and symptoms?:Please evalaute for inflammatory arthritis XR HANDS BILATERAL BALL CATC HERS 2 VIEWSon 05-29-2025 XR HANDS BILATERAL BALL CATCHERS 2 VIEWS EXAMINATION: XR HANDS BILATERAL BALL CATCHERS 2 VIEWS; XR FOOT LEFT 3+ VIEWS (STANDARD); XR FOOT RIGHT 3+ VIEWS (STANDARD); XR SI JOINTS 3+ VIEWS HISTORY: ORDERING SYSTEM PROVIDED HISTORY: PSA (psoriatic arthritis) ([facility]), TECHNOLOGIST PROVIDED HISTORY: Illness/Other Reason for exam: pain, swelling, hx of arthritis Cancer History: u Surgery, RadiationHistory: u Encounter Type: Initial Additional signs and symptoms: Please evalaute for inflammatory arthritis ORDERING SYSTEM PROVIDED DIAGNOSIS CODES: L40.50 PSA (psoriatic arthritis) ([facility]) TECHNIQUE: Routine views were obtained for bilateral hands, bilateral feet and sacroiliac joints. IMPRESSION: FINDINGS/ Bilateral hands: 1. There are peripheral and subchondral erosions at the radiocarpal, intercarpal at the metacarpophalangeal joints. This is concerning for possible early rheumatoid arthritic changes and can be correlated clinically. 2. There is evidence of mild polyarticular osteoarthritic changes most prominent at the 1st carpometacarpal, 1st metacarpophalangeal and interphalangeal the fingers and thumb. Sacroiliac joints: 1. There is moderate bilateral sacroiliac joint osteoarthritis. 2. Moderate bilateral hip joint osteoarthritis. 3. No acute fracture or traumatic subluxation. 4. Multifocal enthesopathic changes are seen. Bilateral feet: 1. There is no acute fracture or traumatic subluxation. 2. Mild bilateral polyarticular osteoarthritic changes are seen. [employer] Workstation ID: [id number] Dictated by: SHERIF CANTRELL on SunMay 29, 2025 6:46:14 PM EDT Transcribed by: JOSUE WILLIAMSON on SunMay 29, 2025 6:55:36 PM EDT Finalized by: SHERIF CANTRELL on SunMay 29, 2025 6:58:58 PM EDT [facility] Comment on above: Order Comment: Injur y/Trauma or Illness?:Illness/Other How long have you had these symptoms (acute/chronic)?:Chronic Reason for exam?:pain, swelling, hx of arthritis History of cancer?:u Surgeries, chemotherapy, or radiation?:u Type of Exam?:Initial Additional signs and symptoms?:Please evalaute for inflammatory arthritis XR SI JOINTS 3+ VIEWSon XR SI JOINTS 3+ VIEWS EXAMINATION: XR HANDS BILATERAL BALL CATCHERS 2 VIEWS; XR FOOT LEFT 3+ VIEWS (STANDARD); XR FOOT RIGHT 3+ VIEWS (STANDARD); XR SI JOINTS 3+ VIEWS HISTORY: ORDERING SYSTEM PROVIDED HISTORY: PSA (psoriatic arthritis) ([facility]), TECHNOLOGIST PROVIDED HISTORY: Illness/Other Reason for exam: pain, swelling, hx of arthritis Cancer History: u Surgery, RadiationHistory: u Encounter Type: Initial Additional signs and symptoms: Please evalaute for inflammatory arthritis ORDERING SYSTEM PROVIDED DIAGNOSIS CODES: L40.50 PSA (psoriatic arthritis) ([facility]) TECHNIQUE: Routine views were obtained for bilateral hands, bilateral feet and sacroiliac joints. IMPRESSION: FINDINGS/ Bilateral hands: 1. There are peripheral and subchondral erosions at the radiocarpal, intercarpal at the metacarpophalangeal joints. This is concerning for possible early rheumatoid arthritic changes and can be correlated clinically. 2. There is evidence of mild polyarticular osteoarthritic changes most prominent at the 1st carpometacarpal, 1st metacarpophalangeal and interphalangeal the fingers and thumb. Sacroiliac joints: 1. There is moderate bilateral sacroiliac joint osteoarthritis. 2. Moderate bilateral hip joint osteoarthritis. 3. No acute fracture or traumatic subluxation. 4. Multifocal enthesopathic changes are seen. Bilateral feet: 1. There is no acute fracture or traumatic subluxation. 2. Mild bilateral polyarticular osteoarthritic changes are seen. KA/katrina Workstation ID: [id number] Dictated by: SHERIF CANTRELL on SunMay 29, 2025 6:46:14 PM EDT Transcribed by: JOSUE WILLIAMSON on SunMay 29, 2025 6:55:36 PM EDT Finalized by: SHERIF CANTRELL on SunMay 29, 2025 6:58:58 PM EDT [facility] Comment on above: Order Comment: Injur y/Trauma or Illness?:Illness/Other How long have you had these symptoms (acute/chronic)?:Chronic Reason for exam?:pain, hx of arthritis History of cancer?:u Surgeries, chemotherapy, or radiation?:u Type of Exam?:Initial Additional signs and symptoms?:Please evalaute for inflammatory arthritis Emergency Department Summary on 05-19-2025 Emergency Department Summary [facility] Medical Records Department [address] [place] [address] Emergency Department Summary 05/19/25 MR#: [id number] Acct: [id number] Name: NELI LOVING Rep #: [id number] : 1965 59 From: Jose Elliott MD PCP: JOSE Maria Status:DEP ER Location: ED HPI HPI - Fall History of Present Illness Chief Complaint: Fall Informant: patient Occured/Mechanism Occurred: Days Usually ambulates: Without assistance Pain/Injury Pain Location: chest (Left lateral rib cage.) Quality of Pain: Sharp Current Severity: Moderate Maximum Severity: Moderate Associated Symptoms Associated Symptoms: Negative for Parasthesias, Weakness, Loss of function, Inability to ambulate or Amnesia Narrative Narrative: 59-year-old female says she was sitting in the stool about 1 foot off the ground last Sunday the stool broke she fell landing on the trailer floor injuring her left lateral rib cage. Said since that time she has had rib pain. This is about 6 days ago. Denies other complaints. No blood thinners. She has a history of COPD on her 2 L she said she feels her baseline. Prior similar symptoms: No Recent Illness/Hospitalization: No [facility] Medical History Encounter for screening for malignant neoplasm of lung COPD exacerbation Acute respiratory failure with hypoxia Hypokalemia COPD (chronic obstructive pulmonary disease) Hypoxia Pneumonia Wears glasses Wears dentures Post-menopausal Rheumatoid arthritis High cholesterol CAD (coronary artery disease) Degenerative disc disease History of IBS Heartburn Gastric reflux Smoker History of echocardiogram History of stress test Hypertension Cardiology follow-up encounter Persistent left superior vena cava Obesity Nicotine dependence COPD (chronic obstructive pulmonary disease) Carotid stenosis, right Essential (primary) hypertension TIA (transient ischemic attack) Family history of colon cancer in father Hyperlipemia Subclavian arterial stenosis Home Medications ???Medication ???Instructions ???Recorded ???Last Taken ???Type amlodipine 5 mg tablet 5 mg PO DAILY 11/24/15 05/24/24 Hi story metoprolol tartrate 50 mg tablet 50 mg PO DAILY 11/24/15 05/24/24 H istory tizanidine 4 mg tablet 4 mg PO DAILY 11/24/15 05/24/24 Hi story triamterene 37.5 1 cap PO DAILY 11/24/15 05/24/24 H istory mg-hydrochlorothiazide 25 mg capsule acetaminophen 650 mg 1,300 mg PO PRN PRN Pain 07/02/18 1 Week Ago History tablet,extended release 03/02/19 aspirin 81 mg tablet,delayed 81 mg PO DAILY@0800 heart health 0 07/02/18 05/24/24 History release thubvbxewoui-lqhdzlkk-xjadl um-folic 1 ea PO DAILY supplement 05/24/24 History acid 400 mcg-vit K1 20 mcg tablet albuterol sulfate 90 mcg/actuation 2 puff IH Q4H PRN PRN sob/wheezi ng 07/05/18 11/19/19 Rx aerosol inhaler ##1 budesonide-formoterol HFA 80 2 puff inhalation BID 05/05/20 History mcg-4.5 mcg/actuation aerosol inhaler celecoxib 200 mg capsule 200 mg PO DAILY 05/05/20 Unknown H istory cyclobenzaprine 10 mg tablet 10 mg PO HS Muscle Spasm 06/22/22 05/23/24 History potassium chloride 8 mEq 8 meq PO DAILY 06/22/22 05/24/24 H istory tablet,extended release pantoprazole 40 mg tablet,delayed 40 mg PO DAILY #30 tabs 08/14/22 Unknown Rx release albuterol sulfate 2.5 mg/3 mL 2.5 mg (3 mL) inhalation Q4H PRN 0 05/20/24 Unknown Rx (0.083 %) solution for nebulization #25 vials clobetasol 0.05 % topical cream 1 applic topical DAILY 05/24/24 History duloxetine 20 mg capsule,delayed 20 mg PO DAILY 05/24/24 05/24/24 H istory release tramadol 50 mg tablet 50 mg PO TID PRN PRN pain 05/24/24 Unknown History glipizide 5 mg tablet 5 mg PO DAILY diabetes 05/25/24 Un known History levofloxacin 750 mg tablet 750 mg PO DAILY #4 tabs 05/29/24 U nknown Rx prednisone 5 mg tablets in a dose See Taper PO UD #21 tabs 05/29/24 Unknown Rx pack oxycodone-acetaminophen 5 mg-325 1 tab PO Q4H PRN pain 4 days #14 0 05/19/25 Unknown Rx mg tablet (Percocet) tabs Allergy/AdvReac Type Severity Reaction Status Date / Time Penicillins Allergy Unknown Hives Verified 05/19/25 14:34 tramadol Allergy Swelling Verified 05/19/25 14:34 Surgical History History of coronary artery stent placement History of cardiac catheterization History of colonoscopy ( 2016) History of esophagogastroduodenoscopy (EGD) ( 11/2020) History of right-sided carotid endarterectomy (06/2020) History of angioplasty of peripheral vessel (02/24/15) Social History Smoking Status: Current every day smoker tobacco type: cigar (more content not included)... Normal [facility] Ribs Uni Min 3V w/PA Cheston 05-19-2025 Ribs Uni Min 3V w/PA Chest [facility] Imaging Services [address] [place], [place] [id number] Ribs Uni Min 3V w/PA Chest MR#: [id number] Acct: [id number] Name: NELI LOVING Rep #: [id number] : 1965 F 59 From: Yifan Meier MD PCP: JOSE Maria Status: DEP ER Study: Ribs Uni Min 3V w/PA Chest Date of Exam: 05/19 Exam# [id number] Ordering Dr: Jose Elliott MD EXAM: XR Left Ribs and AP Chest, 3 or More Views CLINICAL INDICATION: FALL, LEFT RIB PAIN TECHNIQUE: Frontal and oblique views of the left ribs and frontal view of the chest. COMPARISON: No relevant prior studies available. FINDINGS: LUNGS AND PLEURAL SPACES: Unremarkable. No consolidation. No pneumothorax. HEART: Unremarkable. No cardiomegaly. MEDIASTINUM: Unremarkable. Normal mediastinal contour. BONES/JOINTS: Unremarkable. No displaced rib fractures. RAD/Ribs Uni Min 3V w/PA Chest IMPRESSION: No displaced rib fractures. Reading Location: [facility] CC: CRATE LINER-C John Raphael; Dr. Jose Elliott MD Food Manager: Signed Normal [facility] Low Dose CT Lung Screeningon 09-09-[address] Lung Screening [facility] Imaging Services [address] [place], [place] [id number] Low Dose CT Lung Screening MR#: [id number] Acct: [id number] Name: NELI LOVING Rep #: [id number] : 1965 F 58 From: Jagjit merrill MD PCP: John Raphael NP-C Status: REG [facility] Study: Low Dose CT Lung Screening Date of Exam: 09/09 Exam# [id number] Ordering Dr: Argelia Garcia NP [facility]ER -C 3:[id number] STUDY: LOW DOSE CT LUNG CANCER SCREENING REASON FOR EXAM: Female, 58 years old. Lung cancer screening -- and gt;20 pk yr hx/current smoker/asymptomatic RADIATION DOSAGE (If Supplied By Facility): CTDIvol = ( 3.02 ) mGy, DLP = ( 90.63 ) mGycm TECHNIQUE: No contrast was administered. Low dose technique was utilized (average mAS-38 and kVp 120). 1.25 mm axial source images with a slice interval of 1.25-mm were reconstructed in lung windows. 2.5 mm axial source images with a slice interval of 2.5-mm were reconstructed in lung windows. 5.0 mm axial source images with a slice interval of 5.0-mm were reconstructed in soft tissue windows. COMPARISON: Comparison is made with prior study dated June 27, 2021. NODULES: No suspicious nodules are seen. Calcified granulomas in the left lower lobe. Emphysema: Mild degree of emphysematous changes. Endobronchial lesion: None Aorta: Atherosclerotic plaque formation. CORONARY ARTERIES: Coronary artery calcification is seen. Heart: Unremarkable Pulmonary artery: Unremarkable Mediastinal nodes: Calcified left hilar lymph nodes. Other chest and abdominal findings: CT/Low Dose CT Lung Screening IMPRESSION: Lung-RADS category 2 - Continue annual screening with LDCT in 12 months. IMPORTANT NOTES FOR USE: ACR Lung-RADS Version 1.1 Assessment Categories Release Date: 2018 Category: Coded 0-4 bases on nodule(s) with highest degree of suspicion. Negative screen is defined as categories 1 and 2; a positive screen is defined as categories 3 and 4. Category 3 and 4A nodules that are unchanged on interval CT should be coded as category 2, and individuals returned to screening in 12 months. Category 4X: Category 3 or 4 nodules with additional imaging findings that increase the suspicion of lung cancer, such as spiculation, GGN that doubles in size in 1 year, enlarged lymph notes, etc. Category Modifiers: S (significant finding unrelated to lung cancer) Electronically Signed: Jagjit Garcia MD at 14:21 EST Reading Location ID and State: [facility] / [place] , Service support , CC: JOSE Raphael; JOSE Garcia Food Manager: Signed Normal [facility] Oncology Visit Reporton 08-29 Oncology Visit Report [facility] [address] [place], [place] [address] OFFICE VISIT Date of Service: 09/09/24 1317 MR#: [id number] Acct: [id number] Name: NELI LOVING Rep #: [id number] : 1965 From: Argelia Thomas Age/Sex: 58/F [place] [facility] [place]: Signed HPI HPI Reviewed eligibility criteria: 58 year old F with a 38 pack year smoking history (1 ppd x 38 years) Smoking Status: Current every day smoker Decision Making Engaged in shared decision making visit utilizing a visual aid. Discussed the risks and benefits of lung cancer screening including the total radiation exposure, false positive rate, over diagnosis and potential need for follow-up diagnostic testing all associated with low-dose chest CT. Comorbidities Hypertension, hyperlipidemia, obesity, ROS Const Denies anorexia, Denies fatigue, Denies headache(s), Denies poor appetite and Denies weight loss ENT Denies headache(s) Card Denies chest pain, Reports dyspnea on exertion (uses rescue inhaler 2-3 times per week ) and Denies palpitations Resp Denies cough, Reports dyspnea on exertion (uses rescue inhaler 2-3 times per week ), Denies hemoptysis and Denies wheezing GI Reports system reviewed and no additional complaints, except as documented Musc Reports system reviewed and no additional complaints, except as documented Skin/Breast Reports system reviewed and no additional complaints, except as documented Neuro Yes system reviewed and no additional complaints, except as documented and No headache(s) Psych Reports system reviewed and no additional complaints, except as documented Endo Reports system reviewed and no additional complaints, except as documented, Denies fatigue and Denies palpitations Boaz/Lymph Reports system reviewed and no additional complaints, except as documented Aller/Immun Denies wheezing Exam Const General: not in acute distress Orientation: alert and oriented x3 HENMT Head: normocephalic and atraumatic Neck Neck: supple and no lymphadenopathy noted Resp Effort Inspection: normal respiratory effort Auscultation: Bilateral: Clear to Auscultation and Diminished Lung Sounds Cardio Rate: regular rate Rhythm: regular rhythm Heart Sounds: S1 normal and S2 normal Psych Affect: normal affect Speech and Movement: speech and movement normal Results Results September 09, [address] Lung Screening COMPARISON: Comparison is made with prior study dated June 27, 2021. NODULES: No suspicious nodules are seen. Calcified granulomas in the left lower lobe. Emphysema: Mild degree of emphysematous changes. Endobronchial lesion: None Aorta: Atherosclerotic plaque formation. CORONARY ARTERIES: Coronary artery calcification is seen. Heart: Unremarkable Pulmonary artery: Unremarkable Mediastinal nodes: Calcified left hilar lymph nodes. Other chest and abdominal findings: IMPRESSION: Lung-RADS category 2 - Continue annual screening with LDCT in 12 months. Intake Vital Signs 05/27/24 10:28 09/09/24 13:19 Height 4 ft 11 in 4 ft 11 in Weight: 160 lb BMI 32.3 BP 144/80 H Blood Pressure Location Lt brachial Position Sitting Respiration 18 Pulse 73 Pulse Source Monitor Temp 96.9 F L Temp Source Temporal Pulse Oximetry (%) 91 Oxygen Delivery Method room air Intake Visit Reasons: Lung Cancer Screening Chief Complaint: colonoscopy--family history Allergies Penicillins Allergy (Unknown, Verified 09/09/24 13:19) Hives tramadol Allergy (Verified 09/09/24 13:19) Swelling Medications ???Medication ???Instructions ???Recorded ???Confirmed ???Type amlodipine 5 mg tablet 5 mg PO DAILY 11/24/15 09/09/24 History metoprolol tartrate 50 mg tablet 50 mg PO DAILY 11/24/15 09/09/24 History tizanidine 4 mg tablet 4 mg PO DAILY 11/24/15 09/09/24 History triamterene 37.5 1 cap PO DAILY 11/24/15 09/09/24 History mg-hydrochlorothiazide 25 mg capsule acetaminophen 650 mg 1,300 mg PO PRN PRN Pain 07/02/18 09/09/24 History tablet,extended release aspirin 81 mg tablet,delayed 81 mg PO DAILY@0800 heart health 07/02/18 09/09/24 History release pkszypqyyezv-fyakvszt-hiqvz um-folic 1 ea PO DAILY supplement 07/02/18 09/09/24 History acid 400 mcg-vit K1 20 mcg tablet albuterol sulfate 90 mcg/actuation 2 puff IH Q4H PRN PRN sob/wheezing 07/05/18 09/09/24 Rx aerosol inhaler ##1 budesonide-formoterol HFA 80 2 puff inhalation BID 05/05/20 09/09/24 History mcg-4.5 mcg/actuation aerosol inhaler celecoxib 200 mg capsule 200 mg PO DAILY 05/05/20 09/09/24 History cyclobenzaprine 10 mg tablet 10 mg PO HS Muscle Spasm 06/22/22 09/09/24 History potassium chloride 8 mEq 8 meq PO DAILY 06/22/22 09/09/24 History tablet,extended release pantopraz (more content not included)... Normal [facility] Absolute lymphocyte countOrd ered By: John Raphael on 08-20-2023 Lymphocytes Auto (Unsp spec) [#/Vol] 3.38 10*3/uL 0.83-4.51 [facility] Basophil percentageOrdered B y: John Berkowitzgar on 08-20-2023 Basophils/100 WBC (Bld) 1.0 % 0-1 [facility] Bilirubin [Mass/Vol] 1.10 mg/dL 0.20-1.00 [facility] Comment on above: For patients on eltr ombopag therapy, use of Dimension Mcdonough TBIL is not recommended. Chloride [Moles/Vol] 102 mmol/L 98-107 [facility] Cholesterol [Mass/Vol] 159 mg/dL <200 [facility] Comment on above: <200 mg/dL Desirable 200-240 mg/dL Borderline >240 mg/dL High Risk Eosinophils/100 WBC (Bld) 2.7 % 0-5 [facility] Glucose [Mass/Vol] 122 mg/dL 74-106 [facility] Comment on above: Fasting Glucose resu lt from 100 to 125 mg/dL suggests IMPAIRED HOMEOSTASIS per A.D.A. criteria. Neutrophils (Bld) [#/Vol] 4.4 10*3/uL 2.0-7.7 [facility] Neutrophils/100 WBC (Bld) 49.5 % 47-70 [facility] Potassium [Moles/Vol] 4.0 mmol/L 3.5-5.1 [facility] Protein [Mass/Vol] 8.0 g/dL 6.4-8.2 [facility] Sodium [Moles/Vol] 139 mmol/L 136-145 [facility] Triglyceride [Mass/Vol] 349 mg/dL <199 [facility] Comment on above: The drugs N-Acetylcy steine and Metamizole may falsely depress this assay.Serum Triglycerides Reference Interval Normal <150 mg/dL Borderline high 150 - 199 mg/dL High 200 - 499 mg/dL Very High > or = 500 mg/dL WBC (Bld) [#/Vol] 9.0 10*3/uL 4.4-11.0 [facility] Blood erythrocytes count (nu mber/volume)Ordered By: John Raphael on 08-20-2023 RBC (Bld) [#/Vol] 5.15 10*6/uL 4.2-5.4 [facility] Blood hemoglobin measurement (mass/volume)Ordered By: John Raphael on 08-20-2023 Hemoglobin (Bld) [Mass/Vol] 15.9 g/dL 12.0-15.0 [facility] Blood lymphocytes/100 leukoc ytesOrdered By: John Raphael on 08-20-2023 Lymphocytes/100 WBC (Bld) 37.7 % 19-41 [facility] Blood monocytes/100 leukocyt esOrdered By: John Raphael on 08-20-2023 Monocytes/100 WBC (Bld) 8.7 % 0-10 [facility] Blood platelet mean volumeOr dered By: John Raphael on 08-20-2023 Platelet mean volume (Bld) [Entitic vol] 11.8 fL 6.2-12.0 [facility] Determination of erythrocyte mean corpuscular volume (MCV)Ordered By: John Raphael on 08-20-2023 MCV (RBC) [Entitic vol] 96.1 fL 81-99 [facility] Hematocrit Auto (Bld) [Volum e fraction]Ordered By: John Raphael on 08-20-2023 Hematocrit (Bld) [Volume fraction] 49.5 % 37-47 [facility] - Chemistry and C hemistry - challengeOrdered By: John Raphael on 08-20-2023 ALP [Catalytic activity/Vol] 84 U/L 45-117 [facility] ALT [Catalytic activity/Vol] 42 U/L 13-56 [facility] CO2 [Moles/Vol] 32.0 mmol/L 21.0-32.0 [facility] Globulin (S) [Mass/Vol] 4.3 g/dL 2.2-4.2 [facility] Urea nitrogen/Creatinine [Mass ratio] 25.7 mg/mg 10-20 [facility] - Hematology and Cell countsOrdered By: John Raphael on 08-20-2023 Erythrocyte distribution width (RBC) [Entitic vol] 48.1 fL 35.1-43.9 [facility] Erythrocyte distribution width (RBC) [Ratio] 13.4 % 11.6-14.6 [facility] Immature granulocytes/100 WBC (Bld) 0.400 % 0.0-0.9 [facility] Comment on above: IG% - Immature Granu locytes (promyelocytes, myelocytes and metamyelocytes) > 1% indicates that a LEFT SHIFT is Present. MCH (RBC) [Entitic mass] 30.9 pg 27.0-32.0 [facility] Nucleated RBC/100 WBC (Bld) [Ratio] 0 % 0-5 [facility] MCHC Auto (RBC) [Mass/Vol]Or dered By: John Raphael on 08-20-2023 MCHC (RBC) [Mass/Vol] 32.1 g/dL 32-36 [facility] No Panel InformationOrdered By: John Raphael on 08-20-2023 Estimated GFR (MDRD) Amer 105 mL/min >60 [facility] Comment on above: GFR Calc Estimated GFR (MDRD) Non-Af Amer 86 mL/min >60 [facility] Comment on above: Non- GFR Calc Platelets bldOrdered By: Christina Raphael on 08-20-2023 Platelets (Bld) [#/Vol] 236 10*3/uL 150-450 [facility] Serum or plasma albumin clary urement (mass/volume)Ordered By: John Raphael on 08-20-2023 Albumin [Mass/Vol] 3.7 g/dL 3.2-5.0 [facility] Serum or plasma albumin/glob ulin mass ratioOrdered By: Johnkamran Raphael on 08-20-2023 Albumin/Globulin [Mass ratio] 0.9 {ratio} 0.9-2.4 [facility] Serum or plasma calcium clary urement (mass/volume)Ordered By: John Raphael on 08-20-2023 Calcium [Mass/Vol] 10.0 mg/dL 8.5-10.1 [facility] Serum or plasma cholesterol in HDL measurement (mass/volume)Ordered By: Johnkmaran Raphael on 08-20-2023 Cholesterol in HDL [Mass/Vol] 37 mg/dL >40 [facility] Comment on above: The drugs N-Acetylcy steine and Metamizole may falsely depress this assay. Reference Range HDL <40 mg/dL Low HDL Cholesterol HDL >or= 60 mg/dL High HDL Cholesterol Serum or plasma cholesterol in VLDL measurement (mass/volume)Ordered By: Johnkamran Raphael on 08-20-2023 Cholesterol in VLDL [Mass/Vol] 70 mg/dL 5-40 [facility] Serum or plasma creatinine m easurement (mass/volume)Ordered By: John Raphael on 08-20-2023 Creatinine [Mass/Vol] 0.74 mg/dL 0.55-1.02 [facility] Comment on above: The validity of the calculated GFR & GFRAA in patients over 70 years has not been determined. Clinical correlation is essential. Serum or plasma low density lipoprotein (LDL) cholesterol measurement (mass/volume)Ordered By: John Raphael on 08-20-2023 Cholesterol in LDL [Mass/Vol] 52 mg/dL 0-130 [facility] Serum or plasma urea nitroge n measurement (mass/volume)Ordered By: John Raphael on 08-20-2023 Urea nitrogen [Mass/Vol] 19 mg/dL 7-18 [facility] Thin prep Papanicolaou smear with manual screeningOrdered By: John Raphael on 08-20-2023 Thin prep Papanicolaou smear with manual screening 31 U/L 15-37 [facility] Thin prep Papanicolaou smear with manual screening 5 5-15 [facility] Absolute lymphocyte countOrd ered By: Arti Reich on 07-23-2023 Lymphocytes Auto (Unsp spec) [#/Vol] 3.14 10*3/uL 0.83-4.51 [facility] Basophil percentageOrdered B y: Arti Reich on 07-23-2023 Basophils/100 WBC (Bld) 1.1 % 0-1 [facility] Bilirubin [Mass/Vol] 0.90 mg/dL 0.20-1.00 [facility] Comment on above: For patients on eltr ombopag therapy, use of Dimension Mcdonough TBIL is not recommended. Chloride [Moles/Vol] 106 mmol/L 98-107 [facility] Eosinophils/100 WBC (Bld) 3.0 % 0-5 [facility] Glucose [Mass/Vol] 127 mg/dL 74-106 [facility] Comment on above: Fasting Glucose resu lt greater than or equal to 126 mg/dL suggests DIABETES MELLITUS per A.D.A. criteria. Neutrophils (Bld) [#/Vol] 5.2 10*3/uL 2.0-7.7 [facility] Neutrophils/100 WBC (Bld) 54.3 % 47-70 [facility] Potassium [Moles/Vol] 3.3 mmol/L 3.5-5.1 [facility] Protein [Mass/Vol] 8.0 g/dL 6.4-8.2 [facility] Sodium [Moles/Vol] 139 mmol/L 136-145 [facility] WBC (Bld) [#/Vol] 9.6 10*3/uL 4.4-11.0 [facility] Blood erythrocytes count (nu mber/volume)Ordered By: Arti Reich on 07-23-2023 RBC (Bld) [#/Vol] 5.31 10*6/uL 4.2-5.4 [facility] Blood hemoglobin measurement (mass/volume)Ordered By: Arti Reich on 07-23-2023 Hemoglobin (Bld) [Mass/Vol] 16.7 g/dL 12.0-15.0 [facility] Blood lymphocytes/100 leukoc ytesOrdered By: Arti Reich on 07-23-2023 Lymphocytes/100 WBC (Bld) 32.7 % 19-41 [facility] Blood monocytes/100 leukocyt esOrdered By: Artikacy Reich on 07-23-2023 Monocytes/100 WBC (Bld) 8.5 % 0-10 [facility] Blood platelet mean volumeOr dered By: Arti eRich on 07-23-2023 Platelet mean volume (Bld) [Entitic vol] 11.4 fL 6.2-12.0 [facility] Determination of erythrocyte mean corpuscular volume (MCV)Ordered By: Arti Reich on 07-23-2023 MCV (RBC) [Entitic vol] 100.0 fL 81-99 [facility] Hematocrit Auto (Bld) [Volum e fraction]Ordered By: Arti Damir on 07-23-2023 Hematocrit (Bld) [Volume fraction] 53.1 % 37-47 [facility] - Chemistry and C hemistry - challengeOrdered By: [facility] Damir on 07-23-2023 ALP [Catalytic activity/Vol] 85 U/L 45-117 [facility] ALT [Catalytic activity/Vol] 47 U/L 13-56 [facility] CO2 [Moles/Vol] 30.0 mmol/L 21.0-32.0 [facility] Globulin (S) [Mass/Vol] 4.3 g/dL 2.2-4.2 [facility] Urea nitrogen/Creatinine [Mass ratio] 21.7 mg/mg 10-20 [facility] - Hematology and Cell countsOrdered By: Artikacy Reich on 07-23-2023 Erythrocyte distribution width (RBC) [Entitic vol] 50.4 fL 35.1-43.9 [facility] Erythrocyte distribution width (RBC) [Ratio] 13.8 % 11.6-14.6 [facility] Immature granulocytes/100 WBC (Bld) 0.400 % 0.0-0.9 [facility] Comment on above: IG% - Immature Granu locytes (promyelocytes, myelocytes and metamyelocytes) > 1% indicates that a LEFT SHIFT is Present. MCH (RBC) [Entitic mass] 31.5 pg 27.0-32.0 [facility] Nucleated RBC/100 WBC (Bld) [Ratio] 0 % 0-5 [facility] MCHC Auto (RBC) [Mass/Vol]Or dered By: Arti Reich on 07-23-2023 MCHC (RBC) [Mass/Vol] 31.5 g/dL 32-36 [facility] No Panel InformationOrdered By: Arti Reich on 07-23-2023 Estimated GFR (MDRD) Amer 113 mL/min >60 [facility] Comment on above: GFR Calc Estimated GFR (MDRD) Non-Af Amer 93 mL/min >60 [facility] Comment on above: Non- GFR Calc Platelets bldOrdered By: Joana Reich on 07-23-2023 Platelets (Bld) [#/Vol] 224 10*3/uL 150-450 [facility] Serum or plasma albumin clary urement (mass/volume)Ordered By: Arti Reich on 07-23-2023 Albumin [Mass/Vol] 3.7 g/dL 3.2-5.0 [facility] Serum or plasma albumin/glob ulin mass ratioOrdered By: Arti Reich on 07-23-2023 Albumin/Globulin [Mass ratio] 0.9 {ratio} 0.9-2.4 [facility] Serum or plasma calcium clary urement (mass/volume)Ordered By: Arti Reich on 07-23-2023 Calcium [Mass/Vol] 10.0 mg/dL 8.5-10.1 [facility] Serum or plasma creatinine m easurement (mass/volume)Ordered By: Arti Reich on 07-23-2023 Creatinine [Mass/Vol] 0.69 mg/dL 0.55-1.02 [facility] Comment on above: The validity of the calculated GFR & GFRAA in patients over 70 years has not been determined. Clinical correlation is essential. Serum or plasma urea nitroge n measurement (mass/volume)Ordered By: Arti Reich on 07-23-2023 Urea nitrogen [Mass/Vol] 15 mg/dL 7-18 [facility] Thin prep Papanicolaou smear with manual screeningOrdered By: Arti Reich on 07-23-2023 Thin prep Papanicolaou smear with manual screening 36 U/L 15-37 [facility] Thin prep Papanicolaou smear with manual screening 3 5-15 [facility] Absolute lymphocyte countOrd ered By: Dr. Reich on 03-31-2023 Lymphocytes Auto (Unsp spec) [#/Vol] 2.84 10*3/uL 0.83-4.51 [facility] Basophil percentageOrdered B y: Dr. Reich on 03-31-2023 Basophils/100 WBC (Bld) 1.4 % 0-1 [facility] Bilirubin [Mass/Vol] 0.90 mg/dL 0.20-1.00 [facility] Comment on above: For patients on eltr ombopag therapy, use of Dimension Mcdonough TBIL is not recommended. Chloride [Moles/Vol] 105 mmol/L 98-107 [facility] Eosinophils/100 WBC (Bld) 3.2 % 0-5 [facility] Glucose [Mass/Vol] 164 mg/dL 74-106 [facility] Comment on above: Fasting Glucose resu lt greater than or equal to 126 mg/dL suggests DIABETES MELLITUS per A.D.A. criteria. Neutrophils (Bld) [#/Vol] 3.3 10*3/uL 2.0-7.7 [facility] Neutrophils/100 WBC (Bld) 45.9 % 47-70 [facility] Potassium [Moles/Vol] 3.4 mmol/L 3.5-5.1 [facility] Comment on above: Slight Hemolysis, Re sult may be falsely increased. Protein [Mass/Vol] 7.3 g/dL 6.4-8.2 [facility] Sodium [Moles/Vol] 139 mmol/L 136-145 [facility] WBC (Bld) [#/Vol] 7.1 10*3/uL 4.4-11.0 [facility] Blood erythrocytes count (nu mber/volume)Ordered By: Dr. Reich on 03-31-2023 RBC (Bld) [#/Vol] 4.66 10*6/uL 4.2-5.4 [facility] Blood hemoglobin measurement (mass/volume)Ordered By: Dr. Reich on 03-31-2023 Hemoglobin (Bld) [Mass/Vol] 14.6 g/dL 12.0-15.0 [facility] Blood lymphocytes/100 leukoc ytesOrdered By: Dr. Reich on 03-31-2023 Lymphocytes/100 WBC (Bld) 39.9 % 19-41 [facility] Blood monocytes/100 leukocyt esOrdered By: Dr. Reich on 03-31-2023 Monocytes/100 WBC (Bld) 9.3 % 0-10 [facility] Blood platelet mean volumeOr dered By: Dr. Reich on 03-31-2023 Platelet mean volume (Bld) [Entitic vol] 11.3 fL 6.2-12.0 [facility] Determination of erythrocyte mean corpuscular volume (MCV)Ordered By: Dr. Reich on 03-31-2023 MCV (RBC) [Entitic vol] 97.6 fL 81-99 [facility] Erythrocyte sedimentation ra teOrdered By: Dr. Reich on 03-31-2023 ESR (Bld) [Velocity] 9 mm/h 0-30 [facility] Hematocrit Auto (Bld) [Volum e fraction]Ordered By: Dr. Reich on 03-31-2023 Hematocrit (Bld) [Volume fraction] 45.5 % 37-47 [facility] - Chemistry and C hemistry - challengeOrdered By: Dr. Reich on 03-31-2023 ALP [Catalytic activity/Vol] 74 U/L 45-117 [facility] ALT [Catalytic activity/Vol] 53 U/L 13-56 [facility] CO2 [Moles/Vol] 28.0 mmol/L 21.0-32.0 [facility] Globulin (S) [Mass/Vol] 3.7 g/dL 2.2-4.2 [facility] Urea nitrogen/Creatinine [Mass ratio] 34.5 mg/mg 10-20 [facility] - Hematology and Cell countsOrdered By: Dr. Reich on 03-31-2023 Erythrocyte distribution width (RBC) [Entitic vol] 48.5 fL 35.1-43.9 [facility] Erythrocyte distribution width (RBC) [Ratio] 13.5 % 11.6-14.6 [facility] Immature granulocytes/100 WBC (Bld) 0.300 % 0.0-0.9 [facility] Comment on above: IG% - Immature Granu locytes (promyelocytes, myelocytes and metamyelocytes) > 1% indicates that a LEFT SHIFT is Present. MCH (RBC) [Entitic mass] 31.3 pg 27.0-32.0 [facility] Nucleated RBC/100 WBC (Bld) [Ratio] 0 % 0-5 [facility] MCHC Auto (RBC) [Mass/Vol]Or dered By: Dr. Reich on 03-31-2023 MCHC (RBC) [Mass/Vol] 32.1 g/dL 32-36 [facility] No Panel InformationOrdered By: Dr. Reich on 03-31-2023 Anti-Nuclear Antibody Screen Negative Negative [facility] Comment on above: Performed at: [facility] [employer] [place] [id number] Director: Josue Hernandez PhD, Phone: [phone] Estimated GFR (MDRD) Amer 131 mL/min >60 [facility] Comment on above: GFR Calc Estimated GFR (MDRD) Non-Af Amer 108 mL/min >60 [facility] Comment on above: Non- GFR Calc Hepatitis B Surface Antigen Non-Reactive Nonreactive [facility] Hepatitis C Antibody Non-Reactive Nonreactive [facility] Comment on above: Non Reactive: < 0.8 Equivocal: >/= 0.8 to < 1.0 Reactive: >/= 1.0The CDC recommends that a reactive/equivocal HCV antibody result be followed up by the HCV Nucleic Acid Amplificationtest (819594) Platelets bldOrdered By: Dr. Reich on 03-31-2023 Platelets (Bld) [#/Vol] 189 10*3/uL 150-450 [facility] Serum hepatitis B virus surf shelia antibody IgG detectionOrdered By: Dr. Reich on 03-31-2023 HBV surface IgG Ql (S) Non-Reactive [facility] Comment on above: Non Reactive: Incons istent with immunity less than <10 mIU/mL Reactive: Consistent with immunity greater than or equal to 10 mIU/mL Serum or plasma C reactive p rotein measurement (mass/volume)Ordered By: Dr. Reich on 03-31-2023 CRP [Mass/Vol] mg/L 0.0-3.0 [facility] Comment on above: C-Reactive Protein ( CRP) provides useful information for thediagnosis, therapy and monitoring of inflammatory processesand associated diseases. For the evaluation of Relative Riskfor Cardiovascular Disease, a High Sensitivity CRP (HSCRP)should be ordered. Serum or plasma albumin clary urement (mass/volume)Ordered By: Dr. Reich on 03-31-2023 Albumin [Mass/Vol] 3.6 g/dL 3.2-5.0 [facility] Serum or plasma albumin/glob ulin mass ratioOrdered By: Dr. Reich on 03-31-2023 Albumin/Globulin [Mass ratio] 1.0 {ratio} 0.9-2.4 [facility] Serum or plasma calcium clary urement (mass/volume)Ordered By: Dr. Reich on 03-31-2023 Calcium [Mass/Vol] 9.1 mg/dL 8.5-10.1 [facility] Serum or plasma creatinine m easurement (mass/volume)Ordered By: Dr. Reich on 03-31-2023 Creatinine [Mass/Vol] 0.61 mg/dL 0.55-1.02 [facility] Comment on above: The validity of the calculated GFR & GFRAA in patients over 70 years has not been determined. Clinical correlation is essential. Serum or plasma urea nitroge n measurement (mass/volume)Ordered By: Dr. Reich on 03-31-2023 Urea nitrogen [Mass/Vol] 21 mg/dL 7-18 [facility] Serum rheumatoid factor dete ctionOrdered By: Dr. Reich on 03-31-2023 Rheumatoid factor Ql (S) < 10.0 IU/mL <15 [facility] Thin prep Papanicolaou smear with manual screeningOrdered By: Dr. Reich on 03-31-2023 Thin prep Papanicolaou smear with manual screening 53 U/L 15-37 [facility] Comment on above: Slight Hemolysis, Re sult may be falsely increased. Thin prep Papanicolaou smear with manual screening 6 5-15 [facility] Qualitative QuantiFERON-TB g old in tube testOrdered By: Lazaro Campos on 03-14-2023 M. tuberculosis tuberculin stim IFN-g Ql (Bld) 0 IU/mL . [facility] Serum hepatitis B virus core antibody detectionOrdered By: Lazaro Campos on 03-14-2023 HBV core Ab Ql (S) Negative Negative [facility] Comment on above: Performed at: [address] [id number] Director: Josue Hernandez PhD, Phone: [phone] Thin prep Papanicolaou smear with manual screeningOrdered By: Lazaro Campos on 03-14-2023 Thin prep Papanicolaou smear with manual screening Comment . [facility] Comment on above: QuantiFERON-TB Gold Plus is a qualitative indirect test forM tuberculosis infection (including disease) and isintended for use in conjunction with risk assessment,radiography, and other medical and diagnostic evaluations.The QuantiFERON-TB Gold Plus result is determined bysubtracting the Nil value from either TB antigen (Ag)value. The Mitogen tube serves as a control for the test. Thin prep Papanicolaou smear with manual screening 0.01 IU/mL . [facility] Thin prep Papanicolaou smear with manual screening 0 IU/mL . [facility] Thin prep Papanicolaou smear with manual screening > 10.00 IU/mL . [facility] Thin prep Papanicolaou smear with manual screening Negative Negative [facility] Comment on above: No response to M tub erculosis antigens detected.Infection with M tuberculosis is unlikely, but high riskindividuals should be considered for additional testing(ATS/IDSA/CDC Clinical Practice Guidelines, 2017). Thereference range is an Antigen minus Nil result of <0.35IU/mL.The specimen received for QuantiFERON testing was incubatedby the ordering institution. Specific procedures outlinedin our Directory of Services and in the package insert forthe QuantiFERON Gold (In Tube) test must be followed toenable for proper stimulation of cells for the productionof interferon gamma. Chemiluminescence immunoassaymethodology Absolute lymphocyte countOrd ered By: John Raphael on 03-06-2023 Lymphocytes Auto (Unsp spec) [#/Vol] 2.97 10*3/uL 0.83-4.51 [facility] Basophil percentageOrdered B y: John Raphael on 03-06-2023 Basophils/100 WBC (Bld) 1.0 % 0-1 [facility] Bilirubin [Mass/Vol] 1.00 mg/dL 0.20-1.00 [facility] Comment on above: For patients on eltr ombopag therapy, use of Dimension Mcdonough TBIL is not recommended. Chloride [Moles/Vol] 103 mmol/L 98-107 [facility] Cholesterol [Mass/Vol] 211 mg/dL <200 [facility] Comment on above: <200 mg/dL Desirable 200-240 mg/dL Borderline >240 mg/dL High Risk Eosinophils/100 WBC (Bld) 2.9 % 0-5 [facility] Glucose [Mass/Vol] 151 mg/dL 74-106 [facility] Comment on above: Fasting Glucose resu lt greater than or equal to 126 mg/dL suggests DIABETES MELLITUS per A.D.A. criteria. Neutrophils (Bld) [#/Vol] 4.2 10*3/uL 2.0-7.7 [facility] Neutrophils/100 WBC (Bld) 50.3 % 47-70 [facility] Potassium [Moles/Vol] 3.7 mmol/L 3.5-5.1 [facility] Protein [Mass/Vol] 8.2 g/dL 6.4-8.2 [facility] Sodium [Moles/Vol] 139 mmol/L 136-145 [facility] Triglyceride [Mass/Vol] 554 mg/dL <199 [facility] Comment on above: The drugs N-Acetylcy steine and Metamizole may falsely depress this assay. TRIGLYCERIDE IS GREATER THAN 400 mg/dL. LDL RESULT IS INVALID AND WILL NOT BE REPORTED.Serum Triglycerides Reference Interval Normal <150 mg/dL Borderline high 150 - 199 mg/dL High 200 - 499 mg/dL Very High > or = 500 mg/dL WBC (Bld) [#/Vol] 8.3 10*3/uL 4.4-11.0 [facility] Blood erythrocytes count (nu mber/volume)Ordered By: John Raphael on 03-06-2023 RBC (Bld) [#/Vol] 5.24 10*6/uL 4.2-5.4 [facility] Blood hemoglobin measurement (mass/volume)Ordered By: Johnkamran Raphael on 03-06-2023 Hemoglobin (Bld) [Mass/Vol] 16.5 g/dL 12.0-15.0 [facility] Blood lymphocytes/100 leukoc ytesOrdered By: Sedona Arian on 03-06-2023 Lymphocytes/100 WBC (Bld) 36.0 % 19-41 [facility] Blood monocytes/100 leukocyt esOrdered By: [place] Arian on 03-06-2023 Monocytes/100 WBC (Bld) 9.3 % 0-10 [facility] Blood platelet mean volumeOr dered By: [place] Arian on 03-06-2023 Platelet mean volume (Bld) [Entitic vol] 11.6 fL 6.2-12.0 [facility] Determination of erythrocyte mean corpuscular volume (MCV)Ordered By: [facility] MCV (RBC) [Entitic vol] 95.2 fL 81-99 [facility] Hematocrit Auto (Bld) [Volum e fraction]Ordered By: [facility] 03-06-2023 Hematocrit (Bld) [Volume fraction] 49.9 % 37-47 [facility] - Chemistry and C hemistry - challengeOrdered By: [facility] 03-06-2023 ALP [Catalytic activity/Vol] 81 U/L 45-117 [facility] ALT [Catalytic activity/Vol] 53 U/L 13-56 [facility] CO2 [Moles/Vol] 32.0 mmol/L 21.0-32.0 [facility] Globulin (S) [Mass/Vol] 4.5 g/dL 2.2-4.2 [facility] Urea nitrogen/Creatinine [Mass ratio] 20.4 mg/mg 10-20 [facility] - Hematology and Cell countsOrdered By: [facility]23 Erythrocyte distribution width (RBC) [Entitic vol] 47.6 fL 35.1-43.9 [facility] Erythrocyte distribution width (RBC) [Ratio] 13.6 % 11.6-14.6 [facility] Immature granulocytes/100 WBC (Bld) 0.500 % 0.0-0.9 [facility] Comment on above: IG% - Immature Granu locytes (promyelocytes, myelocytes and metamyelocytes) > 1% indicates that a LEFT SHIFT is Present. MCH (RBC) [Entitic mass] 31.5 pg 27.0-32.0 [facility] Nucleated RBC/100 WBC (Bld) [Ratio] 0 % 0-5 [facility] MCHC Auto (RBC) [Mass/Vol]Or dered By: John Raphael on 03-06-2023 MCHC (RBC) [Mass/Vol] 33.1 g/dL 32-36 [facility] No Panel InformationOrdered By: John Raphael on 03-06-2023 Estimated GFR (MDRD) Amer 98 mL/min >60 [facility] Comment on above: GFR Calc Estimated GFR (MDRD) Non-Af Amer 81 mL/min >60 [facility] Comment on above: Non- GFR Calc Vitamin D 25-Hydroxy 49.2 ng/mL [facility] Comment on above: Vitamin D 25(OH) Sta tus Range Deficiency <20 ng/mL (50nmol/L) Insufficiency 20 - 30 ng/mL (50 - 75 nmol/L) Sufficiency 30 - 100 ng/mL (75 - 250 nmol/L) Toxicity >100 ng/mL (>250 nmol/L) Platelets bldOrdered By: Christina Raphael on 03-06-2023 Platelets (Bld) [#/Vol] 239 10*3/uL 150-450 [facility] Serum or plasma albumin clary urement (mass/volume)Ordered By: John Raphael on 03-06-2023 Albumin [Mass/Vol] 3.7 g/dL 3.2-5.0 [facility] Serum or plasma albumin/glob ulin mass ratioOrdered By: John Raphael on 03-06-2023 Albumin/Globulin [Mass ratio] 0.8 {ratio} 0.9-2.4 [facility] Serum or plasma calcium clary urement (mass/volume)Ordered By: John Raphael on 03-06-2023 Calcium [Mass/Vol] 10.5 mg/dL 8.5-10.1 [facility] Serum or plasma cholesterol in HDL measurement (mass/volume)Ordered By: John Raphael on 03-06-2023 Cholesterol in HDL [Mass/Vol] 36 mg/dL >40 [facility] Comment on above: The drugs N-Acetylcy steine and Metamizole may falsely depress this assay. Reference Range HDL <40 mg/dL Low HDL Cholesterol HDL >or= 60 mg/dL High HDL Cholesterol Serum or plasma cholesterol in VLDL measurement (mass/volume)Ordered By: John Raphael on 03-06-2023 Cholesterol in VLDL [Mass/Vol] [facility] Comment on above: Test not performed Serum or plasma creatinine m easurement (mass/volume)Ordered By: John Raphael on 03-06-2023 Creatinine [Mass/Vol] 0.78 mg/dL 0.55-1.02 [facility] Comment on above: The validity of the calculated GFR & GFRAA in patients over 70 years has not been determined. Clinical correlation is essential. Serum or plasma low density lipoprotein (LDL) cholesterol measurement (mass/volume)Ordered By: John Raphael on 03-06-2023 Cholesterol in LDL [Mass/Vol] [facility] Comment on above: Test not performed Serum or plasma urea nitroge n measurement (mass/volume)Ordered By: John Raphael on 03-06-2023 Urea nitrogen [Mass/Vol] 16 mg/dL 7-18 [facility] Thin prep Papanicolaou smear with manual screeningOrdered By: John Raphael on 03-06-2023 Thin prep Papanicolaou smear with manual screening 49 U/L 15-37 [facility] Thin prep Papanicolaou smear with manual screening 4 5-15 [facility] CNOVon 02-12-2023 CNOV Office Visit ([facility]WSTR ) NELI LOVING ([id number]) 1965 F Date Time Provider Department 02/12/23 3:15 PM MATT MONTESINOS [facility] During your visit today, we recorded the following information about you: Temperature Pulse Respiration Blood pressure 97.4 degrees 76/minute 18/minute 130/84 Weight 77.1 kg COLE Garduno 02/12/2023 3:18 PM Signed This note was created using tipple.meriter. Subjective Neli Loving is a 57 year old female. HPI 57-year-old female presents for sinus congestion, headaches x2 weeks. Patient states she has had a lot of nasal congestion, sinus pressure and pain for the past 2 weeks. She has not had any fevers. She has a very mild cough, but nothing severe. No shortness of breath. No wheezing. She does have COPD. O2 baseline is 91 to 92%. She does wear oxygen at bedtime. She has not had any increase in cough, sputum production or shortness of breath. No sick contacts that she is aware of. No fevers. No vomiting or diarrhea. PAST MEDICAL HISTORY Diagnosis Date HTN (hypertension) PAST SURGICAL HISTORY Procedure Laterality Date APPENDECTOMY with csection remotely DELIVERY ONLY , low transverse x 3 PAST SURGICAL HISTORY OF 1986 gallbladder removed open PAST SURGICAL HISTORY OF 2008 HIWOT - still has ovaries-fibroid cysts PAST SURGICAL HISTORY OF 2012 BSO for cysts benign SOMMER bowel injury incidental PAST SURGICAL HISTORY OF 10/2014 right cataract extraction with IOL ALLERGIES Penicillins and Tramadol MEDICATIONS adalimumab (HUMIRA) 40 mg/0.8 mL injection Inject 40 mg subcutaneously one time only. famotidine (PEPCID ORAL) Take by mouth. aspirin 81 mg chewable tablet Take 81 mg by mouth once daily. AMLODIPINE BESYLATE (AMLODIPINE ORAL) Take 1 tablet by mouth once daily. ALBUTEROL INHALATION Inhale 2 Puffs as instructed as needed. lovastatin (MEVACOR) 20 mg tablet Take 20 mg by mouth daily at bedtime. MULTIVITAMIN (MULTIPLE VITAMIN ORAL) Take by mouth once daily. metoprolol succinate XL, long acting, (TOPROL XL) 50 mg 24 hr tablet Take 1 tablet by mouth once daily. triamterene-hydrochlorothia zide (DYAZIDE) 37.5-25 mg ORAL per capsule Take 1 capsule by mouth once daily. doxycycline monohydrate 100 mg tablet Take 1 tablet by mouth twice daily for 5 days. secukinumab (COSENTYX SUBCUTANEOUS) Inject subcutaneously. (Patient not taking: Reported on 02/12/2023) fluconazole (DIFLUCAN) 100 mg tablet Initial loading dose of 200 mg on day 1, then 100 mg days 2-7 COMPOUNDED PRESCRIPTION Take 1 tablet by mouth as needed. Taking muscle relaxant prn unsure of name etodolac 400 mg tablet Take 1 tablet by mouth twice daily. (Patient not taking: Reported on 07/02/2018 ) FAMILY HISTORY Problem Relation Age of Onset Arthritis Maternal Grandmother Colon Cancer Father Cancer Father liver Hypertension Brother Stroke Brother Social History Tobacco Use Smoking status: Every Day Packs/day: 1.00 Years: 20.00 Pack years: 20.00 Types: Cigarettes Smokeless tobacco: Never Tobacco comments: Quit previously. Substance Use Topics Alcohol use: No Drug use: No Review of Systems Constitutional: Negative for chills and fever. HENT: Positive for congestion, postnasal drip, sinus pressure and sinus pain. Negative for ear pain and sore throat. Respiratory: Negative for cough and shortness of breath. Cardiovascular: Negative for chest pain. Gastrointestinal: Negative for diarrhea and vomiting. Neurological: Positive for headaches. Objective BP 130/84 Pulse 76 Temp 36.3 ?C (97.4 ?F) Resp 18 Wt 77.1 kg (170 lb) SpO2 91% BMI 34.34 kg/m? Physical Exam Vitals and nursing note reviewed. Constitutional: General: She is not in acute distress. Appearance: Normal appearance. She is not toxic-appearing. HENT: Right Ear: Tympanic membrane and ear canal normal. Left Ear: Tympanic membrane and ear canal normal. Nose: Mucosal edema and congestion present. Right Sinus: Maxillary sinus tenderness present. Left Sinus: Maxillary sinus tenderness present. Mouth/Throat: Mouth: Mucous membranes are moist. Pharynx: No oropharyngeal exudate or posterior oropharyngeal erythema. Eyes: Conjunctiva/sclera: Conjunctivae normal. Cardiovascular: Rate and Rhythm: Normal rate and regular rhythm. Pulmonary: Effort: Pulmonary effort is normal. Breath sounds: Normal breath sounds. Neurological: Mental Status: She is alert. Assessment and Plan ASSESSMENT/PLAN: 1. Bacterial sinusitis - ICD9: 473.9, 041.9, ICD10: J32.9, B96.89 - Will begin treatment with Doxycycline - The patient should also be given OTC decongestants prn for the first 5-7 days of treatment. - Supportive care with plenty of fluids, rest, and analgesia prn. -Oxygen 91 to 92% on room air. Patient states this is her baseline. She uses O2 at bedtime. She has (more content not included)... Normal [facility] Qualitative QuantiFERON-TB g old in tube teston 06-28-2022 M. tuberculosis tuberculin stim IFN-g Ql (Bld) 0.01 IU/mL . [facility] Work Phone: Serum hepatitis B virus core antibody detectionon 06-28-2022 HBV core Ab Ql (S) Negative Negative [facility] Work Phone: Comment on above: Performed at: [place] [id number] Director: Josue Hernandez PhD, Phone: [phone] Thin prep Papanicolaou smear with manual screeningon 06-28-2022 Thin prep Papanicolaou smear with manual screening Comment . [facility] Work Phone: Comment on above: QuantiFERON-TB Gold Plus is a qualitative indirect test forM tuberculosis infection (including disease) and isintended for use in conjunction with risk assessment,radiography, and other medical and diagnostic evaluations.The QuantiFERON-TB Gold Plus result is determined bysubtracting the Nil value from either TB antigen (Ag)value. The Mitogen tube serves as a control for the test. Thin prep Papanicolaou smear with manual screening 0.01 IU/mL . [facility] Work Phone: Thin prep Papanicolaou smear with manual screening 0.02 IU/mL . [facility] Work Phone: Thin prep Papanicolaou smear with manual screening > 10.00 IU/mL . [facility] Work Phone: Thin prep Papanicolaou smear with manual screening Negative Negative [facility] Work Phone: Comment on above: No response to M tub erculosis antigens detected.Infection with M tuberculosis is unlikely, but high riskindividuals should be considered for additional testing(ATS/IDSA/CDC Clinical Practice Guidelines, 2017). Thereference range is an Antigen minus Nil result of <0.35IU/mL.The specimen received for QuantiFERON testing was incubatedby the ordering institution. Specific procedures outlinedin our Directory of Services and in the package insert forthe QuantiFERON Gold (In Tube) test must be followed toenable for proper stimulation of cells for the productionof interferon gamma. Chemiluminescence immunoassaymethodology CORONAVIRUS PCR - [facility] 05-14-2022 SARS-CoV-2 (COVID-19) RNA SEFERINO+probe Ql (Unsp spec) Positive Abnormal NORMAL: NEGATIVE [facility] Comment on above: Result Comment: { CA LLED TO FAXED TO IC { READ BACK BY Performed By: #### [id number] #### [facility],[address] [place] [address] SEND TO IC? YES Normal [facility] Comment on above: Result Comment: RESU LTS FAXED TO INFECTION CONTROL. SARS-CoV-2 THIS TEST IS BEING USED UNDER THE FDA EUA PROCEDURE. THIS ASSAY HAS BEEN VALIDATED IN THE [facility] FOR USE WITH NASOPHARYNGEAL SPECIMENS IN [facility]. INTERPRETIVE DATA LABORATORY TEST RESULTS SHOULD ALWAYS BE CONSIDERED IN THE CONTEXT OF CLINICAL OBSERVATIONS AND EPIDEMIOLOGICAL DATA IN MAKING FINAL DIAGNOSIS AND PATIENT MANAGEMENT DECISIONS. PATIENT MANAGEMENT SHOULD FOLLOW CURRENT CDC GUIDELINES. A POSITIVE TEST RESULT FOR COVID-19 INDICATES THAT RNA FROM SARS-CoV-2 WAS DETECTED, AND THE PATIENT IS INFECTED WITH THE VIRUS AND PRESUMED TO BE CONTAGIOUS. A NEGATIVE TEST RESULT FOR THIS TEST MEANS THAT SARS-CoV-2 RNA WAS NOT PRESENT IN THE SPECIMEN ABOVE THE LIMIT OF DETECTION. HOWEVER, A NEGATVIE RESULT DOES NOT RULE OUT COVID-19 AND SHOULD NOT BE USED THE SOLE BASIS FOR TREATMENT OR PATIENT MANAGEMENT DECISIONS. A NEGATIVE RESULT DOES NOT EXCLUDE THE POSSIBILITY OF COVID-19. WHEN DIAGNOSTIC TESTING IS NEGATIVE, THE POSSIBLILTY OF A FALSE NEGATIVE RESULT SHOULD BE CONSIDERED IN THE CONTEXT OF A PATIENT'S RECENT EXPOSURES AND THE PRESENCE OF CLINICAL SIGNS AND SYMPTOMS CONSISTENT WITH COVID-19. THE POSSIBILITY OF A FALSE NEGATIVE RESULT SHOULD ESPECIALLY BE CONSIDERED IF THE PATIENT'S RECENT EXPOSURES OR CLINICAL PRESENTATION INDICATE THAT COVID-19 IS LIKELY, AND DIAGNOSTIC TESTS FOR OTHER CAUSES OF ILLNESS (e.g., OTHER RESPIRATORY ILLNESS) ARE NEGATIVE. IF COVID-19 IS STILL SUSPECTED BASED ON EXPOSURE HISTORY TOGETHER WITH OTHER CLINICAL FINDINGS, RE-TESTED SHOULD BE CONSIDERED BY HEALTHCARE PROVIDERS IN CONSULTATION WITH PUBLIC HEALTH AUTHORITIES. Performed By: #### [id number] #### [facility],[address] [place] [id number] CNOVon 04-15-2022 CNOV Office Visit ([facility]WSTR ) NELI LOVING ([id number]) 1965 F Date Time Provider Department 04/15/22 11:45 AM JOHN ALICIA WSTR During your visit today, we recorded the following information about you: Temperature Pulse Respiration Blood pressure 96.9 degrees 62/minute 16/minute 124/72 Weight 74.8 kg John Alicia PA-C 04/15/2022 12:33 PM Signed Subjective HPI HPI Neli Mclean Nj is a 56 year old female who presents today for CC of sores in mouth that started ~1 month ago. Pt is adentulous. She no longer wears her dentures as they were too big, despite having them realigned them 3 times. She tried nystatin rinse on a consistent basis until it was finished, and it didn't seem to eradicate it. It helped temporarily and made it so she could eat softer foods, but seems to be worse again. Pt reports that it's painful when she eats or drinks, and causes burning. She has also made changes to her diet, and is mostly having clear liquids and mashed potatoes, cottage cheese, etc. Does note a hx of fatty liver, for which she ended up seeing a liver specialist. States she will be due for routine bloodwork in about a week and a half. BP 124/72 Pulse 62 Temp 36.1 ?C (96.9 ?F) Resp 16 Wt 74.8 kg (164 lb 12.8 oz) SpO2 94% BMI 33.29 kg/m? ALLERGIES Allergen Reactions - Penicillins Swelling - Tramadol Rash ACTIVE PROBLEM LIST Hypertension Sciatica Sacroiliitis (Hcc) Adjustment Disorder With Mixed Anxiety and Depressed Mood Irritable Bowel Headache(784.0) Asthma Tobacco Use Spinal Stenosis in Cervical Region Displacement of Cervical Intervertebral Disc Without Myelopathy Brachial Neuritis Or Radiculitis NOS Family History Problem Relation Age of Onset - Arthritis Maternal Grandmother - Colon Cancer Father - Cancer Father liver - Hypertension Brother - Stroke Brother Social History Tobacco Use - Smoking status: Current Every Day Smoker Packs/day: 1.00 Years: 20.00 Pack years: 20.00 Types: Cigarettes - Smokeless tobacco: Never Used - Tobacco comment: Quit previously. Substance Use Topics - Alcohol use: No - Drug use: No Review of Systems Constitutional: Negative for chills, fever and malaise/fatigue. Objective BP 124/72 Pulse 62 Temp 36.1 ?C (96.9 ?F) Resp 16 Wt 74.8 kg (164 lb 12.8 oz) SpO2 94% BMI 33.29 kg/m? Physical Exam HENT: Head: Normocephalic. Right Ear: Tympanic membrane, ear canal and external ear normal. No drainage. No middle ear effusion. Tympanic membrane is not perforated, erythematous, retracted or bulging. Left Ear: Tympanic membrane and ear canal normal. No drainage. No middle ear effusion. Tympanic membrane is not perforated, erythematous, retracted or bulging. Nose: Mucosal edema present. No rhinorrhea. Right Sinus: No maxillary sinus tenderness or frontal sinus tenderness. Left Sinus: No maxillary sinus tenderness or frontal sinus tenderness. Mouth/Throat: Pharynx: Uvula midline. Tonsils: No tonsillar abscesses. Comments: White exudated noted on superior aspect of tongue, and left buccal mucosa with superficial apthous ulcer along L buccal lining (~6-7 mm) Eyes: General: Lids are normal. Conjunctiva/sclera: Conjunctivae normal. Cardiovascular: Rate and Rhythm: Normal rate and regular rhythm. Heart sounds: S1 normal and S2 normal. No friction rub. Pulmonary: Effort: Pulmonary effort is normal. Breath sounds: Normal breath sounds. No wheezing, rhonchi or rales. Lymphadenopathy: Head: Right side of head: No submental, submandibular, tonsillar, preauricular, posterior auricular or occipital adenopathy. Left side of head: No submental, submandibular, tonsillar, preauricular, posterior auricular or occipital adenopathy. Cervical: Right cervical: No superficial or posterior cervical adenopathy. Left cervical: No superficial or posterior cervical adenopathy. Neurological: Mental Status: She is oriented to person, place, and time. ASSESSMENT/PLAN: 1. Oral thrush - ICD9: 112.0, ICD10: B37.0 Did not resolve with nystatin rinse Will start on on short course of oral diflucan. .Discussed medication indications, proper use, and potential adverse effects. All questions and concerns addressed to patient satisfaction. Advised close f/u with PCP for repeat labs to monitor liver function, especially due to the fact that she has a history of fatty liver - FLUCONAZOLE 100 MG TABLET Pt advised to see PCP if symptoms persist or progress. Reviewed red flags with patient and when to seek care sooner. The patient indicates understanding of these issues and agrees with the plan. John Alicia PA-C Referring Provider: SELF [[id number]] Allergies As of Date: 04/15/2022 Noted Allergy Reaction PENICILLINS 11/16/2010 7 - Swelling TRAMADOL 06/16/2011 2 - Rash Date Reviewed: 04/15/2022 Reviewed by: Gaby (more content not included)... Normal [facility] CNOVon 03-29-2022 CNOV Office Visit ([facility]STR ) NELI LOVING ([id number]) 1965 F Date Time Provider Department 03/29/22 5:00 PM JEAN MARIE PYLE WSTR During your visit today, we recorded the following information about you: Temperature Pulse Respiration Blood pressure 97.9 degrees 76/minute 18/minute 122/70 Weight 74.7 kg Jean Marie Pyle PA-C 03/29/2022 6:09 PM Signed This note was created using NoteWriter. Subjective Neli Vinay Nj is a 56 year old female. HPI Patient presents with mouth pain with a white film over the past couple of weeks. She states the past 2 days is gotten significantly worse so she came in for evaluation. She is a smoker. She does use her albuterol inhaler frequently. Denies recent antibiotics or steroids. She has tried mouthwashes without any relief. No fevers or chills. No cough or congestion. Denies history of thrush. She is not diabetic. Review of Systems Constitutional: Negative. HENT: Positive for mouth sores. Negative for congestion, rhinorrhea, sinus pressure, sinus pain and trouble swallowing. Respiratory: Negative. Cardiovascular: Negative. Gastrointestinal: Negative. Genitourinary: Negative. Musculoskeletal: Negative. All other systems reviewed and are negative. PAST MEDICAL HISTORY Diagnosis Date - HTN (hypertension) Current Outpatient Medications Medication Sig Dispense Refill - famotidine (PEPCID ORAL) Take by mouth. - aspirin 81 mg chewable tablet Take 81 mg by mouth once daily. - AMLODIPINE BESYLATE (AMLODIPINE ORAL) Take 1 tablet by mouth once daily. - COMPOUNDED PRESCRIPTION Take 1 tablet by mouth as needed. Taking muscle relaxant prn unsure of name - ALBUTEROL INHALATION Inhale 2 Puffs as instructed as needed. - lovastatin (MEVACOR) 20 mg tablet Take 20 mg by mouth daily at bedtime. - MULTIVITAMIN (MULTIPLE VITAMIN ORAL) Take by mouth once daily. - metoprolol succinate XL, long acting, (TOPROL XL) 50 mg 24 hr tablet Take 1 tablet by mouth once daily. 30 tablet 0 - triamterene-hydrochlorothia zide (DYAZIDE) 37.5-25 mg ORAL per capsule Take 1 capsule by mouth once daily. 30 capsule 5 - nystatin (MYCOSTATIN) 100,000 unit/mL suspension Take 5 mL by mouth four times daily for 14 days. 1tsp swish in mouth for several minutes, then swallow (or expectorate) 4 times daily until gone. 280 mL 0 - etodolac 400 mg tablet Take 1 tablet by mouth twice daily. (Patient not taking: Reported on 07/02/2018 ) 60 tablet 0 No current facility-administered medications for this visit. PAST SURGICAL HISTORY Procedure Laterality Date - APPENDECTOMY with csection remotely - DELIVERY ONLY , low transverse x 3 - PAST SURGICAL HISTORY OF 1986 gallbladder removed open - PAST SURGICAL HISTORY OF 2008 HIWOT - still has ovaries-fibroid cysts - PAST SURGICAL HISTORY OF 2012 BSO for cysts benign SOMMER bowel injury incidental - PAST SURGICAL HISTORY OF 10/2014 right cataract extraction with IOL FAMILY HISTORY Problem Relation Age of Onset - Arthritis Maternal Grandmother - Colon Cancer Father - Cancer Father liver - Hypertension Brother - Stroke Brother Social History Tobacco Use - Smoking status: Current Every Day Smoker Packs/day: 1.00 Years: 20.00 Pack years: 20.00 Types: Cigarettes - Smokeless tobacco: Never Used - Tobacco comment: Quit previously. Substance Use Topics - Alcohol use: No - Drug use: No Objective BP 122/70 Pulse 76 Temp 36.6 ?C (97.9 ?F) (Tympanic) Resp 18 Wt 74.7 kg (164 lb 9.6 oz) SpO2 93% BMI 33.25 kg/m? Physical Exam Vitals reviewed. Constitutional: Appearance: Normal appearance. HENT: Head: Normocephalic and atraumatic. Mouth/Throat: Comments: Diffuse white film with erythema over the mucosal surfaces of the cheeks, soft palate and tongue. Skin: General: Skin is warm and dry. Findings: No rash. Neurological: Mental Status: She is alert. Assessment and Plan ASSESSMENT/PLAN: 1. Thrush - ICD9: 112.0, ICD10: B37.0 Will treat with nystatin mouthwash. If not improving in one week follow up with pcp. Discussed washing mouth out after inhaler use each time. Jean Marie Pyle PA-C Referring Provider: SELF [[id number]] Allergies As of Date: 03/29/2022 Noted Allergy Reaction PENICILLINS 11/16/2010 7 - Swelling TRAMADOL 06/16/2011 2 - Rash Date Reviewed: 03/29/2022 Reviewed by: Kate Sherman LPN - Fully Assessed Reason for Visit: Mouth Sores [839] Cmt: x 2 weeks Primary Visit Diagnosis:Thrush [B37.0] Order(s):nystatin (MYCOSTATIN) 100,000 unit/mL suspensionTake 5 mL by mouth four times daily for 14 days. 1tsp swish in mouth for several minutes, then swallow (or expectorate) 4 times daily until gone.Disp: 280 mLRfl: 0 Prescriptions as of 03/29/2022 - famotidine (PEPCID ORAL) Take by mouth. - nystatin (MYCOSTATIN) 100,000 unit/mL suspension Take 5 mL by mouth four times daily for 1 (more content not included)... Normal [facility] Coronavirus 2019on 0 COVID 19 Result [facility] Normal Negative for COVID19 (SARS CoV2) by PCR. [facility] Comment on above: Result Comment: Nega tive for This test was developed and its performance characteristics determined by [facility] [employer]. This test has been authorized by FDA under an Emergency Use Authorization (EUA). This test has been validated in accordance with the FDA's Guidance Document Policy for Diagnostics Testing in Laboratories Certified to Perform High Complexity Testing under CLIA prior to Emergency use Authorization for Coronavirus Disease 2019 during the Public Health Emergency issued on 2019. COVID19 (SARS This test was developed and its performance characteristics determined by [facility] [employer]. This test has been authorized by FDA under an Emergency Use Authorization (EUA). This test has been validated in accordance with the FDA's Guidance Document Policy for Diagnostics Testing in Laboratories Certified to Perform High Complexity Testing under CLIA prior to Emergency use Authorization for Coronavirus Disease 2019 during the Public Health Emergency issued on 2019. CoV2) by PCR. This test was developed and its performance characteristics determined by [facility] Pathology and Laboratory Medicine [facility]. This test has been authorized by FDA under an Emergency Use Authorization (EUA). This test has been validated in accordance with the FDA's Guidance Document Policy for Diagnostics Testing in Laboratories Certified to Perform High Complexity Testing under CLIA prior to Emergency use Authorization for Coronavirus Disease 2019 during the Public Health Emergency issued on 2019. Performed By: #### C OVID #### [facility] [address] [place], [place] [address] COVID 19 Source CRATE LINER Normal [facility] Comment on above: Result Comment: Naso pharyngeal Corrected on 08/16 AT 1017: Previously reported as CRATE LINER SWAB Swab Corrected on 08/16 AT 1017: Previously reported as CRATE LINER SWAB Performed By: #### C OVID #### [facility] [address] [place], [place] [address] [facility] 06-22-2020 Anion gap [Moles/Vol] 5 mmol/L Normal 5-16 [facility] Comment on above: Order Comment: Campu s: M Performed By: #### L 500.42661, L500.30191 #### [facility] [place] [address] Calcium [Mass/Vol] 9.9 mg/dL Normal 8.5-10.5 [facility] Comment on above: Order Comment: Campu s: M Result Comment: NOTE NEW NORMAL RANGE DUE TO REAGENT CHANGE Performed By: #### L 500.20669, L500.82605 #### [facility] [address] [place], [place] [id number] Chloride [Moles/Vol] 106 mmol/L Normal 98-107 [facility] Comment on above: Order Comment: Campu s: M Performed By: #### L 500.29791, L500.06888 #### [facility] [address] [place] [address] CO2 [Moles/Vol] 28.0 mmol/L Normal 21-32 [facility] Comment on above: Order Comment: Campu s: M Performed By: #### L 500.95099, L500.35441 #### [facility] [address] [place] [address] Creatinine [Mass/Vol] 0.45 mg/dL Low 0.510-0.950 [facility] Comment on above: Order Comment: Campu s: M Result Comment: Alice ents receiving either N-Acetylcysteine (NAC) or Metamizole prior to venipuncture, may have falsely depressed results. Performed By: #### L 500.51669, L500.71078 #### [facility] [address] [place] [address] Glucose [Mass/Vol] 131 mg/dL High 70-100 [facility] Comment on above: Order Comment: Campu s: M Result Comment: 70-1 00- Normal Fasting; 100-125 Impaired Fasting; greater than 126 on more than one result- Diabetes. ADA guidelines. Results may be falsely elevated after the administration of Sulfapyridine. Results may be falsely depressed after the administration of Sulfasalazine. Performed By: #### L 500.25372, L500.21909 #### [facility] [place] [address] Potassium [Moles/Vol] 3.2 mmol/L Low 3.5-5.1 [facility] Comment on above: Order Comment: Campu s: M Result Comment: Slig ht Hemolysis, Result may be affected. Performed By: #### L 500.85809, L500.83726 #### [facility] [address] [place] [address] Sodium [Moles/Vol] 139 mmol/L Normal 136-145 [facility] Comment on above: Order Comment: Campu s: M Performed By: #### L 500.65341, L500.13335 #### [facility] [address] [place] [address] Urea nitrogen [Mass/Vol] 17 mg/dL Normal 7-26 [facility] Comment on above: Order Comment: Campu s: M Performed By: #### L 500.24499, L500.37701 #### [facility] [address] [place] [address] Urea nitrogen/Creatinine [Mass ratio] 38 mg/mg High 15-24 [facility] Comment on above: Order Comment: Campu s: M Performed By: #### L 500.48087, L500.72982 #### [facility] [address] [place] [address] CBC W/DIFFon 06-22-2020 BASO ABS 0.10 K/CU MM Normal 0-0.2 [facility] Comment on above: Order Comment: Campu s: M Performed By: #### L 200.88627 #### [facility] [address] [place] [address] Basophils/100 WBC (Bld) 0.7 % Normal 0-2 [facility] Comment on above: Order Comment: Campu s: M Performed By: #### L 200.87021 #### [facility] [address] [place] [address] EOS ABS 0.20 K/CU MM Normal 0-0.5 [facility] Comment on above: Order Comment: Campu s: M Performed By: #### L 200.44845 #### [facility] [address] [place] [address] Eosinophils/100 WBC (Bld) 2.0 % Normal 0-5 [facility] Comment on above: Order Comment: Campu s: M Performed By: #### L 200.69354 #### [facility] [address] [place] [address] Erythrocyte distribution width (RBC) [Ratio] 14.1 % Normal 11-14.5 [facility] Comment on above: Order Comment: Campu s: M Performed By: #### L 200.09908 #### [facility] [address] [place] [address] Hematocrit (Bld) [Volume fraction] 43.4 % Normal 35.0-47.0 [facility] Comment on above: Order Comment: Campu s: M Performed By: #### L 200.40991 #### [facility] [address] [place] [address] Hemoglobin (Bld) [Mass/Vol] 15.1 g/dL Normal 11.5-15.5 [facility] Comment on above: Order Comment: Campu s: M Performed By: #### L 200.06989 #### [facility] [address] [place] [address] IMMATR GRAN ABS 0.10 K/CU MM Normal Less than 2 [facility] Comment on above: Order Comment: Campu s: M Performed By: #### L 200.71920 #### [facility] [address] [place] [address] IMMATURE GRAN % 0.6 % Normal Less than 2 [facility] Comment on above: Order Comment: Campu s: M Performed By: #### L 200.06648 #### [facility] [address] [place] [address] Lymphocytes (Bld) [#/Vol] 2.10 K/CU MM Normal 0.9-4.4 [facility] Comment on above: Order Comment: Campu s: M Performed By: #### L 200.53676 #### [facility] [address] [place] [address] Lymphocytes/100 WBC (Bld) 24.4 % Normal 20-40 [facility] Comment on above: Order Comment: Campu s: M Performed By: #### L 200.79798 #### [facility] [address] [place] [address] MCHC (RBC) [Mass/Vol] 34.8 g/dL Normal 32.0-36.0 [facility] Comment on above: Order Comment: Campu s: M Performed By: #### L 200.53856 #### [facility] [address] [place] [address] MCV (RBC) [Entitic vol] 92.5 fL Normal 80.0-99.0 [facility] Comment on above: Order Comment: Campu s: M Performed By: #### L 200.77886 #### [facility] [address] [place] [address] MONO ABS 0.70 K/CU MM Normal 0.1-1.1 [facility] Comment on above: Order Comment: Campu s: M Performed By: #### L 200.78960 #### [facility] [address] [place] [address] Monocytes/100 WBC (Bld) 8.1 % Normal 2-10 [facility] Comment on above: Order Comment: Campu s: M Performed By: #### L 200.04820 #### [facility] [address] [place] [address] NEUTROPHIL ABS 5.50 K/CU MM Normal 2.0-8.3 [facility] Comment on above: Order Comment: Campu s: M Performed By: #### L 200.47690 #### [facility] [address] [place] [address] Neutrophils/100 WBC (Bld) 64.2 % Normal 45-75 [facility] Comment on above: Order Comment: Campu s: M Performed By: #### L 200.46705 #### [facility] [address] [place] [address] Nucleated RBC/100 WBC (Bld) [Ratio] 0.0 % Normal Less than 1 [facility] Comment on above: Order Comment: Campu s: M Performed By: #### L 200.53709 #### [facility] [address] [place] [address] Platelet mean volume (Bld) [Entitic vol] 11.0 fL Normal 9.4-12.4 [facility] Comment on above: Order Comment: Campu s: M Performed By: #### L 200.55999 #### [facility] [address] [place] [address] Platelets (Bld) [#/Vol] 227 K/CU MM Normal 150-450 [facility] Comment on above: Order Comment: Campu s: M Performed By: #### L 200.21041 #### [facility] [address] [place] [address] RBC (Bld) [#/Vol] 4.69 M/CU MM Normal 3.90-5.30 [facility] Comment on above: Order Comment: Campu s: M Performed By: #### L 200.80224 #### [facility] [address] [place] [address] WBC (Bld) [#/Vol] 8.5 K/CUMM Normal 4.5-11.0 [facility] Comment on above: Order Comment: Campu s: M Performed By: #### L 200.63924 #### [facility] [address] [place] [address] GFR ESTon 06-22-2020 IF AMER Greater than 60 Normal [facility] Comment on above: Order Comment: Campu s: M Performed By: #### L 500.50812, L500.72776 #### [facility] [address] [place] [address] IF non-AFR AMER Greater than 60 Normal [facility] Comment on above: Order Comment: Campu s: M Performed By: #### L 500.49693, L500.11406 #### [facility] [address] [place] [address] OR.OPRPTon 06-22-2020 Operative Report Normal [facility] OR.OPRPT [facility] Patient Name: NELI LOVING [address] [place] [address] Date of : [address] [address] Unit Number: [id number] Operative Report Patient Status: [facility] Attending Doctor: Wilbur Madlonado MD Service Date: 06/22/20 1021 Operative Report Procedure Date: 06/22/20 Attending Physician: Wilbur Maldonado MD Procedure: Preoperative Diagnosis: Carotid stenosis Postoperative Diagnosis: Same Procedure Type: Right carotid endarterectomy with bovine patch angioplasty Anesthesia: General Estimated Blood Loss: 50 cc Complications: None Procedure Details: Patient brought to the operating room. Underwent the appropriate timeout consent. Underwent general anesthesia. Prepped and draped in a sterile fashion. We gave patient appropriate antibiotics. We then did an incision in the right neck dissected down onto the common carotid artery. She had a very stiff neck that made this difficult throughout. We got control in the common carotid artery and then control up through the external and internal carotid artery, past the area of the plaque. We gave 8000 units of heparin. We then clamped off made arteriotomy extended up with Rey scissors. We did endarterectomy with good endpoint distally and proximally and also off the external carotid artery. There is good backbleeding we did not shunt through this. We then cleaned up the endarterectomy site and irrigated copiously with heparinized saline. We then sewed in a patch first going distally with 6-0 Prolene and then cut it to the appropriate length and sewed up proximally with 6-0 Prolene. Before completing the anastomosis we flushed out the internal and the external and the common carotid artery. We again irrigated with heparinized saline. We then completed the anastomosis with good hemostasis. We reversed with 50 of protamine after the Doppler showed good signals throughout. We put in a 7 flat MAGUI drain. We closed with running 2-0 Vicryl and then 4-0 Monocryl and Dermabond. We secured the drain down. Patient then awoken moved all 4 extremities. Tongue was midline. Brought to recovery stable condition. Disclaimer This dictation was created using voice recognition software. Phonetic and/or minor grammatical errors may exist. eSign Date and Time Wilbur Maldonado MD Verified/Reviewed by 06/22/20 1026 Normal [facility] [id number] 06-22-2020 SARS-CoV-2 Negative [facility] Comment on above: Order Comment: Beth s: M Result Comment: RESU LTS CALLED TO NALLELY ONEAL AT 0721 06/22/20 BY CHANTELLE RON Negative results do not preclude SARS-CoV-2 infection and should not be used as the sole basis for treatment or other patient management decisions. Negative results must be combined with clinical observation, patient history, and epidemiological information. This test has been authorized by the FDA under the Emergency Use Authorization (EUA) for use by authorized laboratories. This test was performed by PCR. Performed By: #### L 770.99657 #### [facility] [address] [place] [address] SURGon 06-22-2020 SURG ------- Patient: NELI LOVING SPECIMEN: [id number] Collection Date: 06/22/20 Received: 06/22/20 Status: LOGAN Rod Dr.: Wilbur Maldonado MD Ph# Othr. Dr.: Reynaldo Gregg MD Material for Examination: A RIGHT CAROTID ARTERY PLAQUE PRE-OP DIAGNOSIS: RIGHT CAROTID ARTERY STENOSIS POST-OP DIAGNOSIS: SAME SURGICAL PROCEDURE: RIGHT CAROTID ENDARTERECTOMY DIAGNOSIS A. Right carotid artery plaque: - Calcified atherosclerotic plaque. - Gross examination only. GROSS DESCRIPTION The specimen is received in formalin and labeled with the patient's name, ID and designated right carotid plaque, is a frias cylindrical portion of tissue that has been previously incised longitudinally, 2.8 x 1.0 x 0.7 cm. Cut section reveals that at least 60% of the specimen is calcified. Gross only. MICROSCOPIC DESCRIPTION Gross examination only. COPIES TO: Wilbur Maldonado MD, Scott A MD Signed Verified/Reviewed by CHIVO PRECIADO D.O. 06/22/20 This dictation was created using voice recognition software. Phonetic and/or minor grammatical errors may exist. [facility] NAME: NELI LOVING Pathology and Laboratory Medicine UNIT#: [id number] LOC: [facility] Retail Leader: Amy Brock M.D. [facility]#: [id number] ROOM/BED: [place] [address] Setup : 67 AGE/SEX: 54/F ORD.Wilbur Koo MD END OF REPORT Normal [facility] 06-22-2020 ABO and Rh group Nom (Bld) A POSITIVE Normal [facility] Comment on above: Order Comment: Heribertou s: M Patient transfused or in the past 3 months: NO Is This Patient Going To Surgery? Y Surgery Date: 06/22/20 Coronavirus 2019on 0 COVID 19 Result CRATE LINER Normal Negative for COVID19 (SARS CoV2) by PCR. [facility] Comment on above: Result Comment: Nega tive for This test was developed and its performance characteristics determined by [facility]ology [facility] Laboratory [facility]. This test has been authorized by FDA under an Emergency Use Authorization (EUA). This test has been validated in accordance with the FDA's Guidance Document Policy for Diagnostics Testing in Laboratories Certified to Perform High Complexity Testing under CLIA prior to Emergency use Authorization for Coronavirus Disease 2019 during the Public Health Emergency issued on 2019. COVID19 (SARS This test was developed and its performance characteristics determined by [facility]. This test has been authorized by FDA under an Emergency Use Authorization (EUA). This test has been validated in accordance with the FDA's Guidance Document Policy for Diagnostics Testing in Laboratories Certified to Perform High Complexity Testing under CLIA prior to Emergency use Authorization for Coronavirus Disease 2019 during the Public Health Emergency issued on 2019. CoV2) by PCR. This test was developed and its performance characteristics determined by [facility]. This test has been authorized by FDA under an Emergency Use Authorization (EUA). This test has been validated in accordance with the FDA's Guidance Document Policy for Diagnostics Testing in Laboratories Certified to Perform High Complexity Testing under CLIA prior to Emergency use Authorization for Coronavirus Disease 2019 during the Public Health Emergency issued on 2019. Coronavirus 2019on 0 COVID 19 Source CRATE LINER Normal [facility] Comment on above: Result Comment: Naso pharyngeal Corrected on 05/12 AT 0725: Previously reported as NASAL SWAB Swab Corrected on 05/12 AT 0725: Previously reported as NASAL SWAB Office Visit: Colonoscopy co nsulton 08-01-2017 Fall risk assessment No Invalid Interpretation Code [facility] [employer] Work Phone: Protein mass conc Done Invalid Interpretation Code [facility] Work Phone: Tobacco smoking status NHIS Never Invalid Interpretation Code [facility] Work Phone: Tobacco smoking status NHIS Current every day smoker Invalid Interpretation Code [facility] [employer] Work Phone: Office Visit: Colonoscopy co nsulton 08-29-2015 MG Breast screening Normal Bilateral Invalid Interpretation Code [facility] Work Phone: Office Visit: Colonoscopy co nsulton 01-27-2010 General categories Cyto stain Interp (Cervical or vaginal smear or scraping) Normal Invalid Interpretation Code [facility] Work Phone: Culture, urine Bacteria identified Cx Nom (U) Escherichia coli [facility] Work Phone: Vital Signs Date Time Vital Sign Value Performing Clinician Facility 05-29-2025 08:00-0400 Body weight 72.58 kg Liang Hanwha [employer] DO Work Phone: [facility] 05-29-2025 08:00-0400 Diastolic blood pressure 84 mm[Hg] Liang Hanwha [employer] DO Work Phone: [facility] 05-29-2025 08:00-0400 Heart rate 84 /min Liang Hanwha [employer] DO Work Phone: [facility] 05-29-2025 08:00-0400 Systolic blood pressure 149 mm[Hg] [place]ang [place] DO Work Phone: [facility] 05-19-2025 15:17-0400 Body temperature 97.1 [degF] Johnkamran Raphael [facility] [employer]C Work Phone: [facility] 05-19-2025 15:17-0400 Diastolic blood pressure 84 mm[Hg] John Arian [facility]C Work Phone: [facility] 05-19-2025 15:17-0400 Heart rate 73 /min John Arian [facility] [employer]C Work Phone: [facility] 05-19-2025 15:17-0400 Respiratory rate 20 /min John Raphael [facility] [employer]C Work Phone: [facility] 05-19-2025 15:17-0400 SaO2% (BldA) [Mass fraction] 94 % Johnkamran Rapheal [facility]ATE [facility]-C Work Phone: [facility] 05-19-2025 15:17-0400 Systolic blood pressure 152 mm[Hg] John Raphael [facility]-C Work Phone: [facility] 05-19-2025 14:33-0400 Body height 149.86 cm John Raphael [facility]C Work Phone: [facility] 05-19-2025 14:33-0400 Body mass index (BMI) [Ratio] 32.9 kg/m2 John Arian [employer]C Work Phone: [facility] 05-19-2025 14:33-0400 Body weight 73.98 kg Johnkamran Raphael [facility] [employer]C Work Phone: [facility] 05-19-2025 14:33-0400 Inhaled oxygen flow rate 2 L/min John Berkowitzgar CRATE LINER-C Work Phone: [facility] 08-14-2022 10:36-0400 Body temperature 96.9 [degF] Dr. Reynaldo Gregg Work Phone: [facility] Work Phone: 08-14-2022 10:36-0400 Diastolic blood pressure 66 mm[Hg] Dr. Reynaldo Gregg Work Phone: [facility] Work Phone: 08-14-2022 10:36-0400 Heart rate 64 /min Dr. Reynaldo Gregg Work Phone: [facility] Work Phone: 08-14-2022 10:36-0400 Respiratory rate 16 /min Dr. Reynaldo Gregg Work Phone: [facility] Work Phone: 08-14-2022 10:36-0400 SaO2% (BldA) [Mass fraction] 95 % Dr. Reynaldo Gregg Work Phone: [facility] Work Phone: 08-14-2022 10:36-0400 Systolic blood pressure 108 mm[Hg] Dr. Reynaldo Gregg Work Phone: [facility] Work Phone: 08-14-2022 09:15-0400 Body height 149.[address] Reynaldo Gregg Work Phone: [facility] Work Phone: 08-14-2022 09:15-0400 Body mass index (BMI) [Ratio] 32.4 kg/m2 Dr. Reynaldo Gregg Work Phone: [facility] Work Phone: 08-14-2022 09:15-0400 Body weight 72.[address] Reynaldo Gregg Work Phone: [facility] Work Phone: 07-10-2022 09:03-0400 Body mass index (BMI) [Ratio] 33.5 kg/m2 Dr. Reynaldo Gregg Work Phone: [facility] Work Phone: 07-10-2022 09:03-0400 Body temperature 97.7 [degF] Dr. Reynaldo Gregg Work Phone: [facility] Work Phone: 07-10-2022 09:03-0400 Body weight 75.[address] Reynaldo Gregg Work Phone: [facility] Work Phone: 07-10-2022 09:03-0400 Diastolic blood pressure 69 mm[Hg] Dr. Reynaldo Gregg Work Phone: [facility] Work Phone: 07-10-2022 09:03-0400 Heart rate 63 /min Dr. Reynaldo Gregg Work Phone: [facility] Work Phone: 07-10-2022 09:03-0400 Respiratory rate 18 /min Dr. Reynaldo Gregg Work Phone: [facility] Work Phone: 07-10-2022 09:03-0400 SaO2% (BldA) [Mass fraction] 93 % Dr. Reynaldo Gregg Work Phone: [facility] Work Phone: 07-10-2022 09:03-0400 Systolic blood pressure 110 mm[Hg] Dr. Reynaldo Gregg Work Phone: [facility] Work Phone: 06-22-2022 15:25-0400 Body height 149.[address] Reynaldo Gregg Work Phone: [facility] Work Phone: 06-22-2022 15:25-0400 Body mass index (BMI) [Ratio] 32.5 kg/m2 Dr. Reynaldo Gregg Work Phone: [facility] Work Phone: 06-22-2022 15:25-0400 Body weight 73.[address] Reynaldo Gregg Work Phone: [facility] Work Phone: 06-22-2022 15:25-0400 Diastolic blood pressure 76 mm[Hg] Dr. Reynaldo Gregg Work Phone: [facility] Work Phone: 06-22-2022 15:25-0400 Heart rate 71 /min Dr. Reynaldo Gregg Work Phone: [facility] Work Phone: 06-22-2022 15:25-0400 Respiratory rate 18 /min Dr. Reynaldo Gregg Work Phone: [facility] Work Phone: 06-22-2022 15:25-0400 Systolic blood pressure 118 mm[Hg] Dr. Reynaldo Gregg Work Phone: [facility] Work Phone: 04-15-2022 11:52-0400 Body temperature 96.91 [degF] John Denbow PA-C Work Phone: [facility] 04-15-2022 11:52-0400 Body weight 74.75 kg John Denbow PA-C Work Phone: [facility] 04-15-2022 11:52-0400 Diastolic blood pressure 72 mm[Hg] John Denbow PA-C Work Phone: [facility] 04-15-2022 11:52-0400 Heart rate 62 /min John Denbow PA-C Work Phone: [facility] 04-15-2022 11:52-0400 Respiratory rate 16 /min John Denbow PA-C Work Phone: [facility] 04-15-2022 11:52-0400 SaO2% (BldA) [Mass fraction] 94 % John Denbow PA-C Work Phone: [facility] 04-15-2022 11:52-0400 Systolic blood pressure 124 mm[Hg] John Denbow PA-C Work Phone: [facility] 06-01-2022 17:06-0400 Body temperature 97.9 [degF] Jean Marie Athy PA-C Work Phone: [facility] 03-29-2022 17:06-0400 Body weight 74.66 kg Jean Marie Athy PA-C Work Phone: [facility] 03-29-2022 17:06-0400 Diastolic blood pressure 70 mm[Hg] Jean Marie Athy PA-C Work Phone: [facility] 03-29-2022 17:06-0400 Heart rate 76 /min Jean Marie Athy PA-C Work Phone: [facility] 03-29-2022 17:06-0400 Respiratory rate 18 /min Jean Marie Athy PA-C Work Phone: [facility] 03-29-2022 17:06-0400 SaO2% (BldA) [Mass fraction] 93 % Jean Marie Athy PA-C Work Phone: [facility] 03-29-2022 17:06-0400 Systolic blood pressure 122 mm[Hg] Jean Marie Athy PA-C Work Phone: [facility] 08-01-2017 14:36-0400 BMI (Body Mass Index) 34.53 kg/m2 [facility] Work Phone: 08-01-2017 14:36-0400 Body Temperature 97.6 [degF] [facility] Work Phone: 08-01-2017 14:36-0400 Body Temperature 97.59 [degF] [facility] Work Phone: 08-01-2017 14:36-0400 BP Diastolic 84 mm[Hg] Polina [facility] Work Phone: 08-01-2017 14:36-0400 BP Systolic 119 mm[Hg] Polina [facility] Work Phone: 08-01-2017 14:36-0400 Height 149.86 cm Polina [facility] Work Phone: 08-01-2017 14:36-0400 Pulse (Heart Rate) 72 /min [facility]ina [facility] [facility] Work Phone: 08-01-2017 14:36-0400 Respiratory Rate 18 /min Polina Oneal [facility] Work Phone: 08-01-2017 14:36-0400 Weight 77.57 kg Polina [facility] Work Phone: 08-01-2017 14:36-0400 Weight 77.56 kg Polina [facility] Work Phone: Encounters Encounter Date Encounter Type Care Provider Facility Start: 07-13-2025 End: 07-13-2025 ambulatory John Raphael [facility]-C Work Phone: -Outpatient Breast Imaging Start: 07-13-2025 End: 07-13-2025 Patient encounter procedure John Raphael [facility]-C -Outpatient Breast Imaging Work Phone: Start: 07-13-2025 End: 07-13-2025 ambulatory John Raphael Facility:[facility] Start: 06-04-2025 End: 06-04-2025 Documentation procedure Toby Ellington LPN [facility] Start: 06-02-2025 [facility] Start: 06-01-2025 End: 08-01-2025 Follow-up encounter Liang Johns Worton Work Phone: [facility] Comment on above: XR SI Joints 3+ View s, Creatinine, serum, Hepatic Function Panel, Additional followed-up results: 14 Start: 05-29-2025 End: 05-29-2025 ambulatory [facility] Start: 05-29-2025 End: 05-29-2025 Office outpatient new 45 minutes John Raphael EQUITY SALES ASSISTANT Work Phone: [facility] Rhe[facility] Comment on above: PSA (psoriatic arthr itis) ([facility]) (Primary Dx); Psoriasis; High risk medication use; Tobacco use Start: 05-29-2025 End: 05-29-2025 [facility] Start: 05-19-2025 End: 05-19-2025 Emergency department patient visit John Raphael [facility]-C Work Phone: -Emergency Department Work Phone: Start: 09-09-2024 End: 09-09-2024 ambulatory Argelia Garcia [facility] Start: 09-09-2024 End: 09-09-2024 ambulatory John Raphael Facility:[facility] Start: 08-20-2023 End: 08-20-2023 ambulatory [facility] Work Phone: Start: 08-20-2023 End: 08-20-2023 Patient encounter procedure [facility] Francis Yanesgabrielle [facility] Start: 07-23-2023 End: 07-23-2023 ambulatory [facility] Work Phone: Start: 07-23-2023 End: 07-23-2023 Patient encounter procedure [facility] Work Phone: Start: 06-11-2023 End: 06-11-2023 ambulatory [facility] Work Phone: Start: 06-11-2023 End: 06-11-2023 Patient encounter procedure [facility]-Cardiovascular Services Work Phone: Start: 03-31-2023 End: 03-31-2023 ambulatory [facility] Work Phone: Start: 03-31-2023 End: 03-31-2023 Patient encounter procedure [facility]-Ultrasound, [facility] Start: 03-16-2023 End: 03-16-2023 ambulatory [facility] Work Phone: Start: 03-16-2023 End: 03-16-2023 Patient encounter procedure [facility]-Radiology, [place] Start: 03-14-2023 End: 03-14-2023 Patient encounter procedure [facility], [place] Start: 03-12-2023 End: 03-12-2023 Patient encounter procedure [facility]-Outpatient Breast Imaging Start: 03-06-2023 End: 03-06-2023 ambulatory [facility] Work Phone: Start: 03-06-2023 End: 03-06-2023 Patient encounter procedure [facility]-Ronal Francis Torres [facility] Start: 02-12-2023 End: 02-12-2023 ambulatory REYNALDO GREGG Facility:[facility] Start: 08-14-2022 Non-patient / Non-visit Dr. Johnny Gregg Work Phone: [facility] Start: 08-14-2022 End: 08-14-2022 Admission to same day surgery center Dr. Reynaldo Gregg Work Phone: [facility]Endoscopy Start: 08-14-2022 End: 08-14-[address] Reynaldo Gregg Work Phone: [facility] Work Phone: Start: 07-10-2022 End: 07-10-[address] Reynaldo Gregg Work Phone: [facility] Start: 06-30-2022 End: 06-30-[address] Reynaldo Gregg Work Phone: [facility] Work Phone: Start: 06-30-2022 End: 06-30-[address] Reynaldo Gregg Work Phone: [facility], [facility] Start: 06-28-2022 End: 06-28-[address] Reynaldo Gregg Work Phone: [facility] Work Phone: Start: 06-28-2022 End: 06-28-[address] [facility] Start: 06-22-2022 End: 06-22-[address] Reynaldo Gregg Work Phone: [facility] Start: 05-14-2022 End: 05-14-2022 ambulatory REYNALDO GREGG [facility] Start: 05-08-2022 End: 05-08-[address] Reynaldo Gregg Work Phone: [facility]Cardiovascular Services Start: 04-15-2022 End: 04-15-2022 ambulatory REYNALDO GREGG Facility:[facility] Start: 04-15-2022 End: 04-15-2022 Patient encounter procedure John Alicia PA-C Work Phone: [facility] Comment on above: Oral thrush (Primary Dx) Start: 03-29-2022 End: 03-29-2022 ambulatory REYNALDO GREGG Facility:[facility] Start: 03-29-2022 End: 03-29-2022 Patient encounter procedure Jean Marie Pyle PA-C Work Phone: [facility] Comment on above: Thrush (Primary Dx) Start: 05-05-[address] Blas Gregg Work Phone: [facility] Procedures Date Procedure Procedure Detail Performing Clinician Start: 07-13-2025 Screening mammography Santiago Raphael NP-[facility] Work Phone: Start: 05-19-2025 X-ray of chest posteroanterior view John GARCIA Work Phone: Start: 03-31-2023 Ultrasonography of abdomen Start: 03-16-2023 Pelvis X-ray Start: 03-12-2023 Screening mammography Start: 08-14-2022 End: 08-14-[address] Reynaldo Gregg Work Phone: Start: 06-22-2020 Antibody screen Comment on above: Order Comment: Heribertou s: M Patient transfused or in the past 3 months: NO Is This Patient Going To Surgery? Y Surgery Date: 06/22/20 Start: 08-01-2017 Screening for malign ant neoplasm of colon Screening for colon cancer Polina Oneal Start: 09-15-2011 Mammography Jean Marie Pyle PA-C Work Phone: History of carotid endarterectomy S/P carotid endarterectomy Dr. Reynaldo Gregg Work Phone: Urine culture Dr. Reynaldo olivera Work Phone: Plan of Treatment Date Care Activity Detail Author Start: 08-14-2032 Screening for malign ant neoplasm of colon [facility] Start: 09-30-2025 End: 09-30-2025 Patient encounter procedure 09/30/2025 10:00 AM EST Office Visit [facility] [address] [place] [address] Lisbet Liang Margaret, DO [address] [place] [address] [facility] Start: 06-29-2025 COVID-19 Vaccine ( season) COVID-19 Vaccine ( season) [facility] Start: 06-29-2025 Influenza vaccination Influenza Vacc ine (#1) [facility] Start: 05-19-2025 End: 05-19-2025 [facility] Start: 05-19-2025 X-ray of chest posteroanterior view Ribs Uni Min 3V w/PA Chest [facility] Start: 05-19-2025 XR Ribs GE 3 Views a nd Chest PA [facility] Start: 06-29-2024 COVID-19 Vaccine ( season) COVID-19 Vaccine ( season) [facility] Start: 06-22-2023 DIABETES SCREEN DIABETES SCREEN [facility] Start: 04-15-2023 BP CONTROLLED (<130/80) BP CON TROLLED (<130/80) [facility] Start: 03-31-2023 Procedure [facility] Start: 03-29-2023 BP CONTROLLED (<130/80) BP CON TROLLED (<130/80) [facility] Start: 08-14-2022 Patient discharge [facility] Work Phone: Start: 06-29-2022 Influenza vaccination INFLUENZ A (Season Ended) [facility] Start: 08-17-2017 End: 08-17-2017 Appointment [facility] Work Phone: Start: 08-01-2017 End: 08-02-2017 Colonoscopy flx dx w/collj spec when pfrmd Colonoscopy [facility] Work Phone: Start: 2016 Administration of he rpes zoster vaccine Zoster Vaccines (1 of 2) [facility] Start: 2016 Influenza vaccination LUNG CANCER [facility] Start: 2016 Screening for malign ant neoplasm of colon Flexible sigmoidoscopy [facility] Start: 2016 SHINGRIX VACCINE (1 of 2) BARON GRIX VACCINE (1 of 2) [facility] Start: 12-17-2015 LIPID SCREEN LIPID SCREEN [facility] Start: 12-17-2013 DIABETES SCREEN DIABETES SCREEN [facility] Start: 09-15-2012 Mammography MAMMOGRAM [facility] Start: 12-28-2011 COLOGUARD (FIT-DNA) COLOGUARD (FIT-D NA) [facility] Start: 12-28-2011 Colonoscopy COLONOSCOPY [facility] Start: 12-28-2011 COLORECTAL CANCER SCREENING COLORECTAL CANCER SCREENING [facility] Start: 12-28-[address] COLONOGRAPHY [facility] Start: 12-28-2011 FECAL OCCULT BLOOD FECAL OCCULT BLOO D [facility] Start: 12-28-2011 SIGMOIDOSCOPY SIGMOIDOSCOPY [facility] Start: 2006 Screening for malign ant neoplasm of breast Mammogram [facility] Start: 1985 Pneumococcal Vaccine : Age 50+ (1 of 2 - PCV) Pneumococcal Vaccine: Age 50+ (1 of 2 - PCV) 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 Start: 1984 SPIROMETRY SPIROMETRY [facility] Start: 1981 HIV screening HIV Screening [facility] Start: 1978 Adult depression screening assessment [facility] Start: 1972 PNEUMOCOCCAL (1 - PCV) PNEUMOCOCCAL (1 - PCV) [facility] Start: 12-28-1971 COVID-19 VACCINE (#1) COVID-19 VACCI NE (#1) [facility] Start: 1969 History and physical examination, annual for health maintenance Wellness Visit [facility] Start: 1966 Screening for malign ant neoplasm of colon [facility] Start: 1966 Tetanus vaccination Tetanus: Every [address] [facility] End: 05-29-2026 WM measurement WM Lab Routine PSA (psoriatic arthritis) ([facility]) 1 Occurrences starting 05/29/2025 until 05/29/2026 [facility] Comment on above: 1 Occurrences starti ng 05/29/2025 until 05/29/2026 End: 05-29-2026 Anti-cyclic citrullinated peptide antibody level CCP Antibody Lab Routine PSA (psoriatic arthritis) ([facility]) 1 Occurrences starting 05/29/2025 until 05/29/2026 [facility] Comment on above: 1 Occurrences starti ng 05/29/2025 until 05/29/2026 End: 05-29-2026 C reactive protein [Mass/volume] in Serum or Plasma CRP, Inflammation Lab Routine PSA (psoriatic arthritis) ([facility]) High risk medication use 1 Occurrences starting 05/29/2025 until 05/29/2026 [facility] Comment on above: 1 Occurrences starti ng 05/29/2025 until 05/29/[address] [facility] Work Phone: End: 05-29-2026 Complete blood count with white cell differential, manual CBC and Differential Lab Routine PSA (psoriatic arthritis) ([facility]) High risk medication use 1 Occurrences starting 05/29/2025 until 05/29/2026 [facility] Work Phone: Comment on above: 1 Occurrences starti ng 05/29/2025 until 05/29/2026 End: 05-29-2026 Creatinine [Mass/volume] in Serum or Plasma Creatinine, serum Lab Routine PSA (psoriatic arthritis) ([facility]) High risk medication use 1 Occurrences starting 05/29/2025 until 05/29/2026 [facility] Comment on above: 1 Occurrences starti ng 05/29/2025 until 05/29/2026 End: 05-29-2026 Erythrocyte sedimentation rate Sedimentation Rate Lab Routine PSA (psoriatic arthritis) (HCC) High risk medication use 1 Occurrences starting 05/29/2025 until 05/29/2026 [facility] Comment on above: 1 Occurrences starti ng 05/29/2025 until 05/29/2026 End: 05-29-2026 Extractable nuclear antigen antibody screening test JACQUELINE Screen (Ro52,Ro60,SSB,SM,CLASSIFIER OPERATOR, SCL-70,JO1) Lab Routine PSA (psoriatic arthritis) (HCC) 1 Occurrences starting 05/29/2025 until 05/29/2026 [facility] Comment on above: 1 Occurrences starti ng 05/29/2025 until 05/29/2026 End: 05-29-2026 Hepatic function 2000 panel - Serum or Plasma Hepatic Function Panel Lab Routine PSA (psoriatic arthritis) (HCC) High risk medication use 1 Occurrences starting 05/29/2025 until 05/29/2026 [facility] Comment on above: 1 Occurrences starti ng 05/29/2025 until 05/29/2026 End: 05-29-2026 Hepatitis B core antibody measurement Hepatitis B Core Antibody, Total Lab Routine High risk medication use 1 Occurrences starting 05/29/2025 until 05/29/2026 [facility] Comment on above: 1 Occurrences starti ng 05/29/2025 until 05/29/2026 End: 05-29-2026 Hepatitis B surface antibody measurement Hepatitis B Surface Antibody Lab Routine High risk medication use 1 Occurrences starting 05/29/2025 until 05/29/2026 [facility] Comment on above: 1 Occurrences starti ng 05/29/2025 until 05/29/2026 End: 05-29-2026 Hepatitis B surface antigen measurement Hepatitis B Surface Antigen Lab Routine High risk medication use 1 Occurrences starting 05/29/2025 until 05/29/2026 [facility] Comment on above: 1 Occurrences starti ng 05/29/2025 until 05/29/2026 End: 05-29-2026 Hepatitis C Ab with Reflex to HCV Virus Quantitation Hepatitis C Ab with Reflex to HCV Virus Quantitation Lab Routine High risk medication use 1 Occurrences starting 05/29/2025 until 05/29/2026 [facility] Comment on above: 1 Occurrences starti ng 05/29/2025 until 05/29/2026 End: 05-29-2026 MTB SCREEN MTB SCREEN Lab Routine PSA (psoriatic arthritis) ([facility]) High risk medication use 1 Occurrences starting 05/29/2025 until 05/29/2026 [facility] Comment on above: 1 Occurrences starti ng 05/29/2025 until 05/29/2026 MTB SCREEN MTB SCREEN Lab R outine PSA (psoriatic arthritis) ([facility]) High risk medication use 05/29/2025 9:[address] [facility] Patient Education ED Rib Contusi on or Minor Fracture [facility] Work Phone: Patient referral [facility] Work Phone: End: 05-29-2026 Rheumatoid factor, quantitative Rheumatoid factor Lab Routine PSA (psoriatic arthritis) ([facility]) 1 Occurrences starting 05/29/2025 until 05/29/2026 [facility] Comment on above: 1 Occurrences starti ng 05/29/2025 until 05/29/2026 End: 05-29-2026 XR Foot - left 3 Views XR Foot Left 3+ Views (Standard) Imaging Routine PSA (psoriatic arthritis) ([facility]) 1 Occurrences starting 05/29/2025 until 05/29/2026 [facility] Comment on above: 1 Occurrences starti ng 05/29/2025 until 05/29/2026 XR Foot - left 3 Views XR Foot L eft 3+ Views (Standard) Imaging Routine PSA (psoriatic arthritis) ([facility]) 05/29/2025 10:[address] [facility] End: 05-29-2026 XR Foot - right 3 Views XR Foot Right 3+ Views (Standard) Imaging Routine PSA (psoriatic arthritis) ([facility]) 1 Occurrences starting 05/29/2025 until 05/29/2026 [facility] Comment on above: 1 Occurrences starti ng 05/29/2025 until 05/29/2026 XR Foot - right 3 Views XR Foot Right 3+ Views (Standard) Imaging Routine PSA (psoriatic arthritis) ([facility]) 05/29/2025 10:[address] [facility] End: 05-29-2026 XR Hand - bilateral PA and Lateral and Ball Catcher XR Hands Bilateral Ball Catchers 2 Views Imaging Routine PSA (psoriatic arthritis) ([facility]) 1 Occurrences starting 05/29/2025 until 05/29/2026 [facility] Comment on above: 1 Occurrences starti ng 05/29/2025 until 05/29/2026 XR Hand - bilateral PA and Lateral and Ball Catcher XR Hands Bilateral Ball Catchers 2 Views Imaging Routine PSA (psoriatic arthritis) ([facility]) 05/29/2025 10:[address] [facility] End: 05-29-2026 XR Sacroiliac Joint 3 Views XR SI Joints 3+ Views Imaging Routine PSA (psoriatic arthritis) ([facility]) 1 Occurrences starting 05/29/2025 until 05/29/2026 [facility] Comment on above: 1 Occurrences starti ng 05/29/2025 until 05/29/2026 XR Sacroiliac Joint 3 Views XR SI Joints 3+ Views Imaging Routine PSA (psoriatic arthritis) ([facility]) 05/29/2025 10:[address] [facility] Immunizations Immunization Date Immunization Notes Care Provider [facility] 09-28-2015 influenza, injectabl e, quadrivalent, preservative free [facility] 09-28-2015 influenza, seasonal, injectable Dr. Reynaldo Gregg Work Phone: [facility] 09-28-2015 influenza virus vaccine, unspecified formulation Liang Lopez DO Work Phone: [facility] 09-28-2010 influenza virus vaccine, unspecified formulation Jean Marie Pyle PA-C Work Phone: [facility] Work Phone: Payers Date Payer Category Payer Self-pay [id number] 2024 Unknown [id number] 2024 Medicaid (Managed Care) [facility] MEDICAID [id number] 2024 Unknown [id number] 2021 Unknown MMO MMO [employer] [id number] 2021-Present [phone] [address] [place] [address] PPO [id number] 2021 Unknown [id number] 2016 Private Health Insurance [facility] [id number] 1966 Unknown [id number] 1966 Unknown [id number] 903 1966 Unknown [id number] 903 1966 Unknown [id number] 903 1966 Unknown [id number] 903 1966 Unknown [id number] 903 1966 Unknown [id number] 903 Unknown [facility] PACKAGE PLAN [id number] Unknown [id number] Unknown [id number] Unknown [id number] 462 Unknown [id number] 462 Social History Date Type Detail Facility Start: 05-19-2025 End: 05-29-2025 Tobacco smoking status NHIS Smokes tobacco daily [facility] History of tobacco use Cigarette Smoker [facility] Start: 03-29-2022 End: 04-15-2022 Alcohol intake Current non-drinker of alcohol (finding) [facility] Start: 11-16-2010 Tobacco Comment Quit previously. [facility] Start: 1965 Sex Assigned At Not on file [facility] Start: 04-05-2022 End: 04-15-2022 Exposure to SARS-CoV-2 (event) Not sure [facility] Work Phone: Start: 06-22-2022 End: 08-14-2022 Tobacco smoking status NHIS Unknown if ever smoked [facility] Start: 11-19-2019 Cigarettes [facility] Start: 1965 Sex Assigned At Female W [facility] Start: 07-02-2018 None [facility] Start: 12-15-2015 Spouse/ Signif icant Other [facility] Start: 05-29-2025 Tobacco use and exposure Smokeless tobacco non-user [place] Start: 05-29-2025 Alcoholic beverage intake Ex-drinker (finding) [facility] Start: 05-29-2025 History of [address] function [facility] Start: 05-29-2025 Tobacco use panel [facility] Goals Date Patient Goal Desired Activity /State Mental Status Date Assessment Result Facility 08-14-2022 Cognitive function Level Of Consciousness Drowsy [facility] Work Phone: 08-14-2022 Cognitive function Voice/Name [facility] Work Phone: Clinical Notes 03-29-2022 to 06-08-2025 Toby Ellington LPN - 06/08/2025 11:35 AM Toby Bruce LPN - 06/08/2025 11:14 AM Toby Bruce LPN - 06/08/2025 11:07 AM Toby Bruce LPN - 06/04/2025 11:32 AM EDT Note Date & Type Note Facility 06-08-2025 History of Presen t illness Narrative P2P call scheduled with Dr. Lopez for 06-09-25 between 8 [address] Lopez has been made aware [facility] states they have no record of her trying Enbrel or Humira. Pt had different insurance at that time. PA was denied despite her trying TWO of the preferred medications first, I did document this in my PA. I am going to submit an appeal with [facility]. Pt has been notified as well as Dr. Lopez. Pt.'s Cosentyx loading and maintenance doses require a PA, the online form was completed/submitted through [employer]. documented in this encounter [facility] 06-08-2025 History of Presen t illness Narrative [facility] states they have no record of her trying Enbrel or Humira. Pt had different insurance at that time. PA was denied despite her trying TWO of the preferred medications first, I did document this in my PA. I am going to submit an appeal with [facility]. Pt has been notified as well as Dr. Lopez. Pt.'s Cosentyx loading and maintenance doses require a PA, the online form was completed/submitted through [employer]. documented in this encounter [facility] 06-08-2025 History of Presen t illness Narrative PA was denied despite her trying TWO of the preferred medications first, I did document this in my PA. I am going to submit an appeal with [facility]. Pt has been notified as well as Dr. Lopez. Pt.'s Cosentyx loading and maintenance doses require a PA, the online form was completed/submitted through [employer]. documented in this encounter [facility] 06-04-2025 History of Presen t illness Narrative Pt.'s Cosentyx loading and maintenance doses require a PA, the online form was completed/submitted through [employer]. documented in this encounter [facility] 06-02-2025 Telephone encounter Note Labs reviewed and acceptable for start of Cosentyx. She does have mild elevation in hemoglobin and alk phos which should continue to be monitored. [facility] 06-02-2025 Miscellaneous Notes Labs reviewed and acceptable for start of Cosentyx. She does have mild elevation in hemoglobin and alk phos which should continue to be monitored. Called [facility] and they are running but still pending. Hand x-rays show suspected damage from the psoriatic arthritis. TB screen negative. Can you please see if the other ordered labs are running as I do not have any other results available? I will need these back prior to restarting the Cosentyx. Thanks. documented in this encounter [facility] 06-01-2025 Telephone encounter Note Called [facility] and they are running but still pending. [facility] 06-01-2025 Telephone encounter Note Hand x-rays show suspected damage from the psoriatic arthritis. TB screen negative. Can you please see if the other ordered labs are running as I do not have any other results available? I will need these back prior to restarting the Cosentyx. Thanks. [facility] 05-29-2025 Note RHEUMATOLOGY NEW PAT IENT VISIT Patient Name: Neli Loving : 1965 Medical Record: [id number] PCP: John Murphy Referring provider: Provider, Dalton Ems REASON FOR REFERRAL Plaque psoriasis, psoriatic arthritis ASSESSMENT AND PLAN Neli Loving is a 59 y.o. female who is being seen for evaluation of plexuses, psoriatic arthritis. Plaque psoriasis Psoriatic arthritis Previously diagnosed initially with skin involvement and then later with joint involvement. She did have improvement with Cosentyx previously, however, insurance quit covering. She had minimal improvement with Enbrel and Humira. She has active skin involvement with plaques on bilateral elbows as well is evidence of synovitis on exam today. Plan: After infectious screenings and baseline labs, will attempt to get Cosentyx 300 mg loading dose (weekly at weeks 0, 1, 2, 3, and 4, and then 300 mg every 28 days thereafter. Did discuss with patient that there is a chance that insurance formulary may prefer Taltz. I have given her handouts on both of these medications and discussed risk as below. Will also get updated x-rays of bilateral hands, feet, and SI joints. Will also check RF/CCP. High risk medication use Infectious screening as above. IL-17 inhibitors discussed with patient today. Discussed infection risk. Discussed holding medication in event of infection. Discussed that there have been reports of inflammatory bowel disease with these medications. Handouts on Cosentyx and Taltz given to patient. Tobacco use Encouraged cessation. Return to clinic in 3 to 4 months. Please do not hesitate to contact me with any questions or concerns. Liang Lopez DO [facility] [address] [place] [address] O: [phone] F: [phone] The above recommendations were discussed with the patient who understands and agrees with the plan. Portions of this note were created with [employer]. Every effort was made to proofread, but sound-alike errors may occasionally occur. Please contact me for any clarification of note contents. My ongoing relationship with Neli Loving requires continued responsibility and cognitive effort of being the focal point for all services related to chronic condition(s). HPI/ROS Neli Loving is a 59 y.o. female with who was referred by Provider, [facility] [place] [facility] for evaluation of psoriatic arthritis. I reviewed the nursing intake form. Any corrections needed have been updated in the HPI. Initial visit: PMH: T2DM, HTN, HLD, carotid artery stenosis (s/p surgery), subclavian stent complicated by right upper extremity DVT, hysterectomy related to fibroids, COPD Patient notes that she developed psoriasis on her elbows and her scalp several years ago. She first saw [facility] dermatology and was placed on Cosentyx. Notes the psoriasis developed in her 40s. This did well for skin and also help with her joints. Because she was having persistent joint symptoms she was referred to rheumatology. Unfortunately, insurance no longer covered Cosentyx, so she was transition to Humira. Humira did not do as well for either her skin or her joints. 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 Currently she notes that she does have active psoriasis particularly on her elbows. She is stiff in the morning. Feels her knuckles are swelling some more than usual. Her feet are causing her pain. She notes that the stiffness did improve with the Cosentyx previously. She is on disability and has been for the past year. She was in a [employer] for 30 years. She is is a current smoker. She is considering quitting. She has a history of a blood clot in her right upper extremity after procedure for subclavian artery stenosis. Maternal grandmother - some type of arthritis. ? Psoriatic arthritis Uncle - psoriatic arthritis Nephew - rheumatoid arthritis Niece - rheumatoid arthritis Prior medications Cosentyx - helped with skin and joints. Had to change because of insurance issues. Took 4 several years. Humira - didn't work as well for skin and joints PHYSICAL EXAM Vitals: 05/29/25 0800 BP: (!) 149/84 Pulse: 84 Weight: 72.6 kg (160 lb) Constitutional: ?No acute distress. Normal appearance. Not?ill-appearing. HENT: Head normocephalic?and atraumatic. Eyes: No discharge.??? Pulmonary: Pulmonary effort is normal. No?respiratory distress. CTAB. Skin: Warm?and dry. She has scaly plaques over elbows bilaterally. She has small lesions scattered over her lower extremities and some scarring noted lower lower extremities. Neurological: Alert. Psychiatric: ???Mood, affect, thought content normal. Musculoskeletal: Please see image below for mcintosh joint exam: AUTHENTICATED BY LIANG LOPEZ ON 05/29/2025 11:11:53 [facility] 05-29-2025 History of Presen t illness Narrative Images from the original note were not included. RHEUMATOLOGY NEW PATIENT VISIT Patient Name: Neli Loving : 1965 Medical Record: [id number] PCP: John Murphy Referring provider: Provider, [facility] [place] [facility] REASON FOR REFERRAL Plaque psoriasis, psoriatic arthritis ASSESSMENT AND PLAN Neli Loving is a 59 y.o. female who is being seen for evaluation of plexuses, psoriatic arthritis. Plaque psoriasis Psoriatic arthritis Previously diagnosed initially with skin involvement and then later with joint involvement. She did have improvement with Cosentyx previously, however, insurance quit covering. She had minimal improvement with Enbrel and Humira. She has active skin involvement with plaques on bilateral elbows as well is evidence of synovitis on exam today. Plan: After infectious screenings and baseline labs, will attempt to get Cosentyx 300 mg loading dose (weekly at weeks 0, 1, 2, 3, and 4, and then 300 mg every 28 days thereafter. Did discuss with patient that there is a chance that insurance formulary may prefer Taltz. I have given her handouts on both of these medications and discussed risk as below. Will also get updated x-rays of bilateral hands, feet, and SI joints. Will also check RF/CCP. High risk medication use Infectious screening as above. IL-17 inhibitors discussed with patient today. Discussed infection risk. Discussed holding medication in event of infection. Discussed that there have been reports of inflammatory bowel disease with these medications. Handouts on Cosentyx and Taltz given to patient. Tobacco use Encouraged cessation. Return to clinic in 3 to 4 months. Please do not hesitate to contact me with any questions or concerns. Liang Lopez, [facility] [address] [place] [address] O: [phone] F: [phone] The above recommendations were discussed with the patient who understands and agrees with the plan. Portions of this note were created with [employer]. Every effort was made to proofread, but sound-alike errors may occasionally occur. Please contact me for any clarification of note contents. My ongoing relationship with Neli Loving requires continued responsibility and cognitive effort of being the focal point for all services related to chronic condition(s). HPI/ROS Neli Loving is a 59 y.o. female with who was referred by Provider, [facility] [place] [facility] for evaluation of psoriatic arthritis. I reviewed the nursing intake form. Any corrections needed have been updated in the HPI. Initial visit: PMH: T2DM, HTN, HLD, carotid artery stenosis (s/p surgery), subclavian stent complicated by right upper extremity DVT, hysterectomy related to fibroids, COPD Patient notes that she developed psoriasis on her elbows and her scalp several years ago. She first saw [facility] dermatology and was placed on Cosentyx. Notes the psoriasis developed in her 40s. This did well for skin and also help with her joints. Because she was having persistent joint symptoms she was referred to rheumatology. Unfortunately, insurance no longer covered Cosentyx, so she was transition to Humira. Humira did not do as well for either her skin or her joints. 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 Currently she notes that she does have active psoriasis particularly on her elbows. She is stiff in the morning. Feels her knuckles are swelling some more than usual. Her feet are causing her pain. She notes that the stiffness did improve with the Cosentyx previously. She is on disability and has been for the past year. She was in a [employer] for 30 years. She is is a current smoker. She is considering quitting. She has a history of a blood clot in her right upper extremity after procedure for subclavian artery stenosis. Maternal grandmother - some type of arthritis. ? Psoriatic arthritis Uncle - psoriatic arthritis Nephew - rheumatoid arthritis Niece - rheumatoid arthritis Prior medications Cosentyx - helped with skin and joints. Had to change because of insurance issues. Took 4 several years. Humira - didn't work as well for skin and joints PHYSICAL EXAM Vitals: 05/29/25 0800 BP: (!) 149/84 Pulse: 84 Weight: 72.6 kg (160 lb) Constitutional: ?No acute distress. Normal appearance. Not?ill-appearing. HENT: Head normocephalic?and atraumatic. Eyes: No discharge.??? Pulmonary: Pulmonary effort is normal. No?respiratory distress. CTAB. Skin: Warm?and dry. She has scaly plaques over elbows bilaterally. She has small lesions scattered over her lower extremities and some scarring noted lower lower extremities. Neurological: Alert. Psychiatric: ???Mood, affect, thought content normal. Musculoskeletal: Please see image below for mcintosh joint exam: RHEUMATOLOGY NEW PATIENT INTAKE: Have you ever been diagnosed with the following? [x] Psoriasis [] Crohn s disease [] Ulcerative Colitis [] Inflammatory eye disease (uveitis, scleritis, episcleritis, iritis) Have you or do you experience any of the following? [] Color changes in your fingers in the cold (Raynaud s) [] Increased thickening of your skin [] Recurrent rash (other than sunburn) when you go into the sun [x] A single finger or toe swelling like a sausage [] Fluid around your heart [] Fluid around your lungs [] Miscarriage (if applicable) [x] Blood clots REVIEW OF SYSTEMS Constitutional:?? []Fever [x]Fatigue []Unexpected weight loss Eyes:?? []Change in visual acuity [x]Dry eyes []Redness HENT:? []Oral/nasal ulcers [x]Dry mouth []Difficulty swallowing Cardiovascular:?? []Chest pain []Palpitations []Edema Respiratory:?? []Cough []Shortness of breath GI:?? []Abdominal pain []Diarrhea [x]Constipation []Bloody stools : []Dysuria []Hematuria Musculoskeletal: [x]Joint pain [x]Joint swelling Integument:?? []Rash []Hair loss Neurologic:?? []Headache []Dizziness Psychiatric:?? []Depression []Anxiety Endocrine:?? []Polydipsia []Polyuria Lymphatic:?? []Swollen glands Allergic/Immunologic: []Seasonal allergies []Frequent infections FAMILY HISTORY Does anyone in your family have a rheumatologic condition (rheumatoid arthritis, psoriatic arthritis, lupus, Sjogren s for example) or skin psoriasis? [x]Yes []No If yes, please list family member and condition: grandma, uncle psoriasis srthritis SOCIAL HISTORY Occupation: [employer] Do you smoke cigarettes or cigars? [x]Yes []No []Previously Please list how long you have smoked and how much per day if applicable: 1 pack per day Do you drink alcohol? []Yes [x]No Please list how much per week if applicable: Do you use marijuana, cocaine, heroin, or any other substances? []Yes [x]No Please list if applicable No show/cancellation policy provided to patient [x]Yes []Patient declined documented in this encounter [facility] 02-12-2023 Note HNO ID: [id number] Author: COLE Garduno Service: ? Author Type: Physician Data Security Consultant Type: Progress Notes Filed: 02/12/2023 3:18 PM Note Text: This note was created using [email or web address]. Subjective Neli Loving is a 57 year old female. HPI 57-year-old female presents for sinus congestion, headaches x2 weeks. Patient states she has had a lot of nasal congestion, sinus pressure and pain for the past 2 weeks. She has not had any fevers. She has a very mild cough, but nothing severe. No shortness of breath. No wheezing. She does have COPD. O2 baseline is 91 to 92%. She does wear oxygen at bedtime. She has not had any increase in cough, sputum production or shortness of breath. No sick contacts that she is aware of. No fevers. No vomiting or diarrhea. PAST MEDICAL HISTORY Diagnosis Date HTN (hypertension) PAST SURGICAL HISTORY Procedure Laterality Date APPENDECTOMY with csection remotely DELIVERY ONLY , low transverse x 3 PAST SURGICAL HISTORY OF 1986 gallbladder removed open PAST SURGICAL HISTORY OF 2008 HIWOT - still has ovaries-fibroid cysts PAST SURGICAL HISTORY OF 2012 BSO for cysts benign SOMMER bowel injury incidental PAST SURGICAL HISTORY OF 10/2014 right cataract extraction with IOL ALLERGIES Penicillins and Tramadol MEDICATIONS adalimumab (HUMIRA) 40 mg/0.8 mL injection Inject 40 mg subcutaneously one time only. famotidine (PEPCID ORAL) Take by mouth. aspirin 81 mg chewable tablet Take 81 mg by mouth once daily. AMLODIPINE BESYLATE (AMLODIPINE ORAL) Take 1 tablet by mouth once daily. ALBUTEROL INHALATION Inhale 2 Puffs as instructed as needed. lovastatin (MEVACOR) 20 mg tablet Take 20 mg by mouth daily at bedtime. MULTIVITAMIN (MULTIPLE VITAMIN ORAL) Take by mouth once daily. metoprolol succinate XL, long acting, (TOPROL XL) 50 mg 24 hr tablet Take 1 tablet by mouth once daily. triamterene-hydrochlorothiazide (DYAZIDE) 37.5-25 mg ORAL per capsule Take 1 capsule by mouth once daily. doxycycline monohydrate 100 mg tablet Take 1 tablet by mouth twice daily for 5 days. secukinumab (COSENTYX SUBCUTANEOUS) Inject subcutaneously. (Patient not taking: Reported on 02/12/2023) fluconazole (DIFLUCAN) 100 mg tablet Initial loading dose of 200 mg on day 1, then 100 mg days 2-7 COMPOUNDED PRESCRIPTION Take 1 tablet by mouth as needed. Taking muscle relaxant prn unsure of name etodolac 400 mg tablet Take 1 tablet by mouth twice daily. (Patient not taking: Reported on 07/02/2018 ) FAMILY HISTORY Problem Relation Age of Onset Arthritis Maternal Grandmother Colon Cancer Father Cancer Father liver Hypertension Brother Stroke Brother Social History Tobacco Use Smoking status: Every Day Packs/day: 1.00 Years: 20.00 Pack years: 20.00 Types: Cigarettes Smokeless tobacco: Never Tobacco comments: Quit previously. Substance Use Topics Alcohol use: No Drug use: No Review of Systems Constitutional: Negative for chills and fever. HENT: Positive for congestion, postnasal drip, sinus pressure and sinus pain. Negative for ear pain and sore throat. Respiratory: Negative for cough and shortness of breath. Cardiovascular: Negative for chest pain. Gastrointestinal: Negative for diarrhea and vomiting. Neurological: Positive for headaches. Objective BP 130/84 Pulse 76 Temp 36.3 ?C (97.4 ?F) Resp 18 Wt 77.1 kg (170 lb) SpO2 91% BMI 34.34 kg/m? Physical Exam Vitals and nursing note reviewed. Constitutional: General: She is not in acute distress. Appearance: Normal appearance. She is not toxic-appearing. HENT: Right Ear: Tympanic membrane and ear canal normal. Left Ear: Tympanic membrane and ear canal normal. Nose: Mucosal edema and congestion present. Right Sinus: Maxillary sinus tenderness present. Left Sinus: Maxillary sinus tenderness present. Mouth/Throat: Mouth: Mucous membranes are moist. Pharynx: No oropharyngeal exudate or posterior oropharyngeal erythema. Eyes: Conjunctiva/sclera: Conjunctivae normal. Cardiovascular: Rate and Rhythm: Normal rate and regular rhythm. Pulmonary: Effort: Pulmonary effort is normal. Breath sounds: Normal breath sounds. Neurological: Mental Status: She is alert. Assessment and Plan ASSESSMENT/PLAN: 1. Bacterial sinusitis - ICD9: 473.9, 041.9, ICD10: J32.9, B96.89 - Will begin treatment with Doxycycline - The patient should also be given OTC decongestants prn for the first 5-7 days of treatment. - Supportive care with plenty of fluids, rest, and analgesia prn. -Oxygen 91 to 92% on room air. Patient states this is her baseline. She uses O2 at bedtime. She has no increase in sputum production, shortness of breath or wheezing. Lungs clear on exam. Low suspicion for COPD exacerbation. -Declines viral testing as symptoms have been for 2 weeks Diagnosis and treatment plan were discussed and questions were answered to the patient's satis (more content not included)... [facility] 04-15-2022 Note HNO ID: [id number] Author: John Alicia PA-C Service: ? Author Type: Physician Data Security Consultant Type: Progress Notes Filed: 04/15/2022 12:33 PM Note Text: Subjective HPI HPI Neli Loving is a 56 year old female who presents today for CC of sores in mouth that started ~1 month ago. Pt is adentulous. She no longer wears her dentures as they were too big, despite having them realigned them 3 times. She tried nystatin rinse on a consistent basis until it was finished, and it didn't seem to eradicate it. It helped temporarily and made it so she could eat softer foods, but seems to be worse again. Pt reports that it's painful when she eats or drinks, and causes burning. She has also made changes to her diet, and is mostly having clear liquids and mashed potatoes, cottage cheese, etc. Does note a hx of fatty liver, for which she ended up seeing a liver specialist. States she will be due for routine bloodwork in about a week and a half. BP 124/72 Pulse 62 Temp 36.1 ?C (96.9 ?F) Resp 16 Wt 74.8 kg (164 lb 12.8 oz) SpO2 94% BMI 33.29 kg/m? ALLERGIES Allergen Reactions - Penicillins Swelling - Tramadol Rash ACTIVE PROBLEM LIST Hypertension Sciatica Sacroiliitis (Hcc) Adjustment Disorder With Mixed Anxiety and Depressed Mood Irritable Bowel Headache(784.0) Asthma Tobacco Use Spinal Stenosis in Cervical Region Displacement of Cervical Intervertebral Disc Without Myelopathy Brachial Neuritis Or Radiculitis NOS Family History Problem Relation Age of Onset - Arthritis Maternal Grandmother - Colon Cancer Father - Cancer Father liver - Hypertension Brother - Stroke Brother Social History Tobacco Use - Smoking status: Current Every Day Smoker Packs/day: 1.00 Years: 20.00 Pack years: 20.00 Types: Cigarettes - Smokeless tobacco: Never Used - Tobacco comment: Quit previously. Substance Use Topics - Alcohol use: No - Drug use: No Review of Systems Constitutional: Negative for chills, fever and malaise/fatigue. Objective BP 124/72 Pulse 62 Temp 36.1 ?C (96.9 ?F) Resp 16 Wt 74.8 kg (164 lb 12.8 oz) SpO2 94% BMI 33.29 kg/m? Physical Exam HENT: Head: Normocephalic. Right Ear: Tympanic membrane, ear canal and external ear normal. No drainage. No middle ear effusion. Tympanic membrane is not perforated, erythematous, retracted or bulging. Left Ear: Tympanic membrane and ear canal normal. No drainage. No middle ear effusion. Tympanic membrane is not perforated, erythematous, retracted or bulging. Nose: Mucosal edema present. No rhinorrhea. Right Sinus: No maxillary sinus tenderness or frontal sinus tenderness. Left Sinus: No maxillary sinus tenderness or frontal sinus tenderness. Mouth/Throat: Pharynx: Uvula midline. Tonsils: No tonsillar abscesses. Comments: White exudated noted on superior aspect of tongue, and left buccal mucosa with superficial apthous ulcer along L buccal lining (~6-7 mm) Eyes: General: Lids are normal. Conjunctiva/sclera: Conjunctivae normal. Cardiovascular: Rate and Rhythm: Normal rate and regular rhythm. Heart sounds: S1 normal and S2 normal. No friction rub. Pulmonary: Effort: Pulmonary effort is normal. Breath sounds: Normal breath sounds. No wheezing, rhonchi or rales. Lymphadenopathy: Head: Right side of head: No submental, submandibular, tonsillar, preauricular, posterior auricular or occipital adenopathy. Left side of head: No submental, submandibular, tonsillar, preauricular, posterior auricular or occipital adenopathy. Cervical: Right cervical: No superficial or posterior cervical adenopathy. Left cervical: No superficial or posterior cervical adenopathy. Neurological: Mental Status: She is oriented to person, place, and time. ASSESSMENT/PLAN: 1. Oral thrush - ICD9: 112.0, ICD10: B37.0 Did not resolve with nystatin rinse Will start on on short course of oral diflucan. .Discussed medication indications, proper use, and potential adverse effects. All questions and concerns addressed to patient satisfaction. Advised close f/u with PCP for repeat labs to monitor liver function, especially due to the fact that she has a history of fatty liver - FLUCONAZOLE 100 MG TABLET Pt advised to see PCP if symptoms persist or progress. Reviewed red flags with patient and when to seek care sooner. The patient indicates understanding of these issues and agrees with the plan. John Alicia PA-C [facility] 04-15-2022 History of Presen t illness Narrative Subjective HPI HPI Neli Loving is a 56 year old female who presents today for CC of sores in mouth that started ~1 month ago. Pt is adentulous. She no longer wears her dentures as they were too big, despite having them realigned them 3 times. She tried nystatin rinse on a consistent basis until it was finished, and it didn't seem to eradicate it. It helped temporarily and made it so she could eat softer foods, but seems to be worse again. Pt reports that it's painful when she eats or drinks, and causes burning. She has also made changes to her diet, and is mostly having clear liquids and mashed potatoes, cottage cheese, etc. Does note a hx of fatty liver, for which she ended up seeing a liver specialist. States she will be due for routine bloodwork in about a week and a half. BP 124/72 Pulse 62 Temp 36.1 C (96.9 F) Resp 16 Wt 74.8 kg (164 lb 12.8 oz) SpO2 94% BMI 33.29 kg/m ALLERGIES Allergen Reactions Penicillins Swelling Tramadol Rash ACTIVE PROBLEM LIST Hypertension Sciatica Sacroiliitis (Hcc) Adjustment Disorder With Mixed Anxiety and Depressed Mood Irritable Bowel Headache(784.0) Asthma Tobacco Use Spinal Stenosis in Cervical Region Displacement of Cervical Intervertebral Disc Without Myelopathy Brachial Neuritis Or Radiculitis NOS Family History Problem Relation Age of Onset Arthritis Maternal Grandmother Colon Cancer Father Cancer Father liver Hypertension Brother Stroke Brother Social History Tobacco Use Smoking status: Current Every Day Smoker Packs/day: 1.00 Years: 20.00 Pack years: 20.00 Types: Cigarettes Smokeless tobacco: Never Used Tobacco comment: Quit previously. Substance Use Topics Alcohol use: No Drug use: No Review of Systems Constitutional: Negative for chills, fever and malaise/fatigue. Objective BP 124/72 Pulse 62 Temp 36.1 C (96.9 F) Resp 16 Wt 74.8 kg (164 lb 12.8 oz) SpO2 94% BMI 33.29 kg/m Physical Exam HENT: Head: Normocephalic. Right Ear: Tympanic membrane, ear canal and external ear normal. No drainage. No middle ear effusion. Tympanic membrane is not perforated, erythematous, retracted or bulging. Left Ear: Tympanic membrane and ear canal normal. No drainage. No middle ear effusion. Tympanic membrane is not perforated, erythematous, retracted or bulging. Nose: Mucosal edema present. No rhinorrhea. Right Sinus: No maxillary sinus tenderness or frontal sinus tenderness. Left Sinus: No maxillary sinus tenderness or frontal sinus tenderness. Mouth/Throat: Pharynx: Uvula midline. Tonsils: No tonsillar abscesses. Comments: White exudated noted on superior aspect of tongue, and left buccal mucosa with superficial apthous ulcer along L buccal lining (~6-7 mm) Eyes: General: Lids are normal. Conjunctiva/sclera: Conjunctivae normal. Cardiovascular: Rate and Rhythm: Normal rate and regular rhythm. Heart sounds: S1 normal and S2 normal. No friction rub. Pulmonary: Effort: Pulmonary effort is normal. Breath sounds: Normal breath sounds. No wheezing, rhonchi or rales. Lymphadenopathy: Head: Right side of head: No submental, submandibular, tonsillar, preauricular, posterior auricular or occipital adenopathy. Left side of head: No submental, submandibular, tonsillar, preauricular, posterior auricular or occipital adenopathy. Cervical: Right cervical: No superficial or posterior cervical adenopathy. Left cervical: No superficial or posterior cervical adenopathy. Neurological: Mental Status: She is oriented to person, place, and time. ASSESSMENT/PLAN: 1. Oral thrush - ICD9: 112.0, ICD10: B37.0 Did not resolve with nystatin rinse Will start on on short course of oral diflucan. .Discussed medication indications, proper use, and potential adverse effects. All questions and concerns addressed to patient satisfaction. Advised close f/u with PCP for repeat labs to monitor liver function, especially due to the fact that she has a history of fatty liver - FLUCONAZOLE 100 MG TABLET Pt advised to see PCP if symptoms persist or progress. Reviewed red flags with patient and when to seek care sooner. The patient indicates understanding of these issues and agrees with the plan. John Alicia PA-C documented in this encounter [facility] 03-29-2022 Note HNO ID: [id number] Author: Jean Marie Pyle PA-C Service: ? Author Type: Physician Data Security Consultant Type: Progress Notes Filed: 03/29/2022 6:09 PM Note Text: This note was created using tipple.meriter. Subjective Neli Loving is a 56 year old female. HPI Patient presents with mouth pain with a white film over the past couple of weeks. She states the past 2 days is gotten significantly worse so she came in for evaluation. She is a smoker. She does use her albuterol inhaler frequently. Denies recent antibiotics or steroids. She has tried mouthwashes without any relief. No fevers or chills. No cough or congestion. Denies history of thrush. She is not diabetic. Review of Systems Constitutional: Negative. HENT: Positive for mouth sores. Negative for congestion, rhinorrhea, sinus pressure, sinus pain and trouble swallowing. Respiratory: Negative. Cardiovascular: Negative. Gastrointestinal: Negative. Genitourinary: Negative. Musculoskeletal: Negative. All other systems reviewed and are negative. PAST MEDICAL HISTORY Diagnosis Date - HTN (hypertension) Current Outpatient Medications Medication Sig Dispense Refill - famotidine (PEPCID ORAL) Take by mouth. - aspirin 81 mg chewable tablet Take 81 mg by mouth once daily. - AMLODIPINE BESYLATE (AMLODIPINE ORAL) Take 1 tablet by mouth once daily. - COMPOUNDED PRESCRIPTION Take 1 tablet by mouth as needed. Taking muscle relaxant prn unsure of name - ALBUTEROL INHALATION Inhale 2 Puffs as instructed as needed. - lovastatin (MEVACOR) 20 mg tablet Take 20 mg by mouth daily at bedtime. - MULTIVITAMIN (MULTIPLE VITAMIN ORAL) Take by mouth once daily. - metoprolol succinate XL, long acting, (TOPROL XL) 50 mg 24 hr tablet Take 1 tablet by mouth once daily. 30 tablet 0 - triamterene-hydrochlorothiazide (DYAZIDE) 37.5-25 mg ORAL per capsule Take 1 capsule by mouth once daily. 30 capsule 5 - nystatin (MYCOSTATIN) 100,000 unit/mL suspension Take 5 mL by mouth four times daily for 14 days. 1tsp swish in mouth for several minutes, then swallow (or expectorate) 4 times daily until gone. 280 mL 0 - etodolac 400 mg tablet Take 1 tablet by mouth twice daily. (Patient not taking: Reported on 07/02/2018 ) 60 tablet 0 No current facility-administered medications for this visit. PAST SURGICAL HISTORY Procedure Laterality Date - APPENDECTOMY with csection remotely - DELIVERY ONLY , low transverse x 3 - PAST SURGICAL HISTORY OF 1986 gallbladder removed open - PAST SURGICAL HISTORY OF 2008 HIWOT - still has ovaries-fibroid cysts - PAST SURGICAL HISTORY OF 2012 BSO for cysts benign SOMMER bowel injury incidental - PAST SURGICAL HISTORY OF 10/2014 right cataract extraction with IOL FAMILY HISTORY Problem Relation Age of Onset - Arthritis Maternal Grandmother - Colon Cancer Father - Cancer Father liver - Hypertension Brother - Stroke Brother Social History Tobacco Use - Smoking status: Current Every Day Smoker Packs/day: 1.00 Years: 20.00 Pack years: 20.00 Types: Cigarettes - Smokeless tobacco: Never Used - Tobacco comment: Quit previously. Substance Use Topics - Alcohol use: No - Drug use: No Objective BP 122/70 Pulse 76 Temp 36.6 ?C (97.9 ?F) (Tympanic) Resp 18 Wt 74.7 kg (164 lb 9.6 oz) SpO2 93% BMI 33.25 kg/m? Physical Exam Vitals reviewed. Constitutional: Appearance: Normal appearance. HENT: Head: Normocephalic and atraumatic. Mouth/Throat: Comments: Diffuse white film with erythema over the mucosal surfaces of the cheeks, soft palate and tongue. Skin: General: Skin is warm and dry. Findings: No rash. Neurological: Mental Status: She is alert. Assessment and Plan ASSESSMENT/PLAN: 1. Thrush - ICD9: 112.0, ICD10: B37.0 Will treat with nystatin mouthwash. If not improving in one week follow up with pcp. Discussed washing mouth out after inhaler use each time. Jean Marie Pyle PA-C [facility] 03-29-2022 History of Presen t illness Narrative This note was created using NoteWriter. Subjective Neli Loving is a 56 year old female. HPI Patient presents with mouth pain with a white film over the past couple of weeks. She states the past 2 days is gotten significantly worse so she came in for evaluation. She is a smoker. She does use her albuterol inhaler frequently. Denies recent antibiotics or steroids. She has tried mouthwashes without any relief. No fevers or chills. No cough or congestion. Denies history of thrush. She is not diabetic. Review of Systems Constitutional: Negative. HENT: Positive for mouth sores. Negative for congestion, rhinorrhea, sinus pressure, sinus pain and trouble swallowing. Respiratory: Negative. Cardiovascular: Negative. Gastrointestinal: Negative. Genitourinary: Negative. Musculoskeletal: Negative. All other systems reviewed and are negative. PAST MEDICAL HISTORY Diagnosis Date HTN (hypertension) Current Outpatient Medications Medication Sig Dispense Refill famotidine (PEPCID ORAL) Take by mouth. aspirin 81 mg chewable tablet Take 81 mg by mouth once daily. AMLODIPINE BESYLATE (AMLODIPINE ORAL) Take 1 tablet by mouth once daily. COMPOUNDED PRESCRIPTION Take 1 tablet by mouth as needed. Taking muscle relaxant prn unsure of name ALBUTEROL INHALATION Inhale 2 Puffs as instructed as needed. lovastatin (MEVACOR) 20 mg tablet Take 20 mg by mouth daily at bedtime. MULTIVITAMIN (MULTIPLE VITAMIN ORAL) Take by mouth once daily. metoprolol succinate XL, long acting, (TOPROL XL) 50 mg 24 hr tablet Take 1 tablet by mouth once daily. 30 tablet 0 triamterene-hydrochlorothiazide (DYAZIDE) 37.5-25 mg ORAL per capsule Take 1 capsule by mouth once daily. 30 capsule 5 nystatin (MYCOSTATIN) 100,000 unit/mL suspension Take 5 mL by mouth four times daily for 14 days. 1tsp swish in mouth for several minutes, then swallow (or expectorate) 4 times daily until gone. 280 mL 0 etodolac 400 mg tablet Take 1 tablet by mouth twice daily. (Patient not taking: Reported on 07/02/2018 ) 60 tablet 0 No current facility-administered medications for this visit. PAST SURGICAL HISTORY Procedure Laterality Date APPENDECTOMY with csection remotely DELIVERY ONLY , low transverse x 3 PAST SURGICAL HISTORY OF 1986 gallbladder removed open PAST SURGICAL HISTORY OF 2008 HIWOT - still has ovaries-fibroid cysts PAST SURGICAL HISTORY OF 2012 BSO for cysts benign SOMMER bowel injury incidental PAST SURGICAL HISTORY OF 10/2014 right cataract extraction with IOL FAMILY HISTORY Problem Relation Age of Onset Arthritis Maternal Grandmother Colon Cancer Father Cancer Father liver Hypertension Brother Stroke Brother Social History Tobacco Use Smoking status: Current Every Day Smoker Packs/day: 1.00 Years: 20.00 Pack years: 20.00 Types: Cigarettes Smokeless tobacco: Never Used Tobacco comment: Quit previously. Substance Use Topics Alcohol use: No Drug use: No Objective BP 122/70 Pulse 76 Temp 36.6 C (97.9 F) (Tympanic) Resp 18 Wt 74.7 kg (164 lb 9.6 oz) SpO2 93% BMI 33.25 kg/m Physical Exam Vitals reviewed. Constitutional: Appearance: Normal appearance. HENT: Head: Normocephalic and atraumatic. Mouth/Throat: Comments: Diffuse white film with erythema over the mucosal surfaces of the cheeks, soft palate and tongue. Skin: General: Skin is warm and dry. Findings: No rash. Neurological: Mental Status: She is alert. Assessment and Plan ASSESSMENT/PLAN: 1. Thrush - ICD9: 112.0, ICD10: B37.0 Will treat with nystatin mouthwash. If not improving in one week follow up with pcp. Discussed washing mouth out after inhaler use each time. Jean Marie Pyle PA-C documented in this encounter [facility] Evaluation note Diagnosis Thrush- Primary Candidiasis of mouth [facility] Diagnosis Oral thrush- Primary Candidiasis of mouth [facility] Diagnosis Onset Date Resolution Status Essential (primary) hypertension chronic Hyperlipemia chronic S/P carotid endarterectomy c onic [facility] Work Phone: Evaluation note* Diagnosis Onset Date Resolution Status Essential (primary) hypertension chronic Hyperlipemia chronic S/P carotid endarterectomy c onic Family history of colon cancer acute GERD (gastroesophageal reflux disease) acute Family history of colon cancer acute GERD (gastroesophageal reflux disease) acute [facility] Work Phone: Evaluation noteNo assessment information available [facility] Work Phone: Evaluation note* Diagnosis PSA (psoriatic arthritis) (HCC)- Primary Psoriatic arthropathy Psoriasis Other psoriasis High risk medication use [facility] P[facility]- Primary Other psoriasis PSA (psoriatic arthritis) (HCC) Psoriatic arthropathy [facility] Instructions You either have bruised ribs or broken ribs on your left side that we cannot see on the x-ray. Ice to your chest wall. Motrin for pain and inflammation. Percocet for more severe pain. CAT scan was a large aneurysm brace to the rib cage on the left with a pillow. You can use the tape also. Follow-up with your primary care provider if not improving or return to emergency department if you are feeling worse. [facility]: Reason for referral (narrative)No reason [facility] referral information [facility] Work Phone: Reason for visit Narrative* Evaluate and Treat (Routine) - Closed Specialty Diagnoses / Procedures Referred By Starr bowie Referred To Contact Rheumatology Diagnoses PSA (psoriatic arthritis) ([facility]) Provider, [facility] [place] [facility] Liang Lopez DO [address] [place] [address] Phone: tel: fax: Referral ID Status Reason Start Date Expiration Date Visits Re quested Visits Authorized [id number] Closed 11/19/2024 11/19/[address] [facility] Summary Purpose Family History Relationship Condition Age at Onset Recorded Date/T demarcus Unknown Family History?No pe rtinent history Unknown December 15, 2015 9:34am Family History?No pe rtinent history Unknown July 02, 2018 4:20pm Relationship Condition Age at Onset Recorded Date/T demarcus Unknown Family History?No pe rtinent history Unknown December 15, 2015 9:34am Family History?No pe rtinent history Unknown August 14, 2022 9:32am Advance Directives Advance Directive Response Recorded Date/ Time Advance Directives Yes November 24, 2015 3:30pm Living Will No December 19 12:45pm Power of Betting Clerks No December 19, 2020 12:45pm Advance Directive Response Recorded Date/ Time Advance Directives Yes November 24, 2015 3:30pm Living Will No August 10 4:13pm Power of Betting Clerks No August 10, 2022 4:13pm Advance Directive Response Recorded Date/ Time Do you have a Healthcare Power of Betting Clerks? No Fanta 22nd, 2025 3:17pm Advance Directives Yes November 24, 2015 3:30pm Chief Complaint and Reason for Visit Chief Complaint cea 1 Y FU Reason for Visit Essential (primary) hypertension Hyperlipemia S/P carotid endarterectomy Chief Complaint cea 1 Y FU UPPER & LOWER SCOPE Reason for Visit Essential (primary) hypertension Hyperlipemia S/P carotid endarterectomy Family history of colon cancer GERD (gastroesophageal reflux disease) Family history of colon cancer GERD (gastroesophageal reflux disease) Chief Complaint SCREENING PAIN-COPY PCP Chief Complaint SCREENING PAIN-COPY PCP ELEVATED LIVER ENZYMES Chief Complaint SCREENING PAIN-COPY PCP ELEVATED LIVER ENZYMES CEA/WBI Chief Complaint ELEVATED LIVER ENZYM ES CEA/WBI PAIN- COPY PCP Chief Complaint CEA/WBI PAIN- COPY PCP Chief Complaint Admit Date fallMay 19, 2025 2:32 pm Chief Complaint Admit Date fallMay 19, 2025 2:32 pm SCREENING July 13, 2025 3:43pm Additional Source Comments INFORMATION SOURCE (unrecogn ized section and content) DATE CREATED AUTHOR 06/25/2020 [facility] DATE CREATED AUTHOR AUTHOR'S ORGANIZ ATION 08/17/2020 [facility] DATE CREATED AUTHOR AUTHOR'S ORGANIZ ATION 05/18/2022 [facility] DATE CREATED AUTHOR AUTHOR'S ORGANIZ ATION 02/13/2023 [facility] DATE CREATED AUTHOR AUTHOR'S ORGANIZ ATION 06/06/2025 [facility] DATE CREATED AUTHOR AUTHOR'S ORGANIZ ATION 07/05/2025 [facility] DATE CREATED AUTHOR AUTHOR'S ORGANIZ ATION 07/22/2025 [facility] Source Comments (unrecognize d section and content) In the event this informatio n is protected by the Federal Confidentiality of Alcohol and Drug Abuse Patient Records regulations: The Federal rules restrict any use of the information to criminally investigate or prosecute any alcohol or drug abuse patient.[facility] the event this information is protected by the Federal Confidentiality of Alcohol and Drug Abuse Patient Records regulations: The Federal rules restrict any use of the information to criminally investigate or prosecute any alcohol or drug abuse patient.[facility] Reason for Visit (unrecogniz ed section and content) Reason Comments Mouth Sores x 2 weeks Reason Comments Mouth Sores seen in 03/29 given sc statin finished on 04/11 Care Teams (unrecognized sec tion and content) Lathe Mechanic Relationship Specialty Start Date End Date Reynaldo Gregg MD [address] [place], [place] [id number] PCP - General 12/29/14 Lathe Mechanic Relationship Specialty Start Date End Date Reynaldo Gregg MD [address] [place], [place] [id number] PCP - General 12/29/14 Team Status: Active Member Role Status Dates Dr. Reynaldo Gregg MD Family Provider Active John Raphael CRATE LINER-C Primary Care Provider Active Team Status: Inactive Member Role Status Dates John Raphael NP-C Primary Care Provide r, Attending Provider, Referring Provider Active Team Status: Inactive Member Role Status Dates John Raphael NP-C Primary Care Provider Active COLE Romeo Attending Provider, Referring Provi otf Active Team Status: Inactive Member Role Status Dates John Raphael NP-C Primary Care Provider Active Dr. Arti Reich MD Attending Provider, Referring Provider Active Team Status: Inactive Member Role Status Dates John Raphael NP-C Primary Care Provider Active Dr. Wilbur Maldonado MD Attending Provider, Referring Provider Active Team Status: Inactive Member Role Status Dates John Raphael CRATE LINER-C Primary Care Provider, Attending Jolie rosas Active Dr. Arti Reich MD Referring Provider Active Team Status: Active Member Role/Relationship Status Dates John Raphael NP-C Primary Care Provider Active Team Status: Inactive Member Role/Relationship Status Dates John Raphael NP-C Primary Care Provider Active Start: May 19, 2025 End: May 19, 2025 Dr. Jose Elliott MD Emergency Provider Active S tart: May 19, 2025 End: May 19, 2025 Lathe Mechanic Relationship Specialty Start Date End Date John Murphy [address] [place] [address] PCP - General Anesthesiology 05/29/25 Lathe Mechanic Relationship Specialty Start Date End Date John Murphy [address] [facility] [place] [address] PCP - General Anesthesiology 05/29/25 Lathe Mechanic Relationship Specialty Start Date End Date John Murphy [address] [facility] [place] [address] PCP - General Anesthesiology 05/29/25 Lathe Mechanic Relationship Specialty Start Date End Date John Murphy [address] [facility] [place] [address] PCP - General Anesthesiology 05/29/25 Lathe Mechanic Relationship Specialty Start Date End Date John Murphy [address] [facility] [place] [address] PCP - General Anesthesiology 05/29/25 Team Status: Active Member Role/Relationship Status Dates John Raphael NP-C Primary care physician Active Team Status: Inactive Member Role/Relationship Status Dates EZEQUIEL MariaC Primary care physician Active Start: May 19, 2025 End: May 19, 2025 Dr. Jose Elliott MD Attending physician Active Start: May 19, 2025 End: May 19, 2025 Dr. Jose Elliott MD Emergency Department Physician Antelmo fritz Start: May 19, 2025 End: May 19, 2025 Team Status: Inactive Member Role/Relationship Status Dates JOSE Maria Primary care physician Active Start: July 13, 2025 End: July 13, 2025 JOSE Maria Attending physician Active S tart: July 13, 2025 End: July 13, 2025 JOSE Maria Referring Provider Active St art: July 13, 2025 End: July 13, 2025 Lathe Mechanic Relationship Specialty Start Date End Date John Murphy [address] [place] [phone] PCP - General Anesthesiology 05/29/25 Goals (unrecognized section and content) Goals may be documented in a n alternate sectionGoals may be documented in an alternate sectionGoals may be documented in an alternate sectionGoals may be documented in an alternate sectionGoals may be documented in an alternate sectionGoals may be documented in an alternate sectionGoals may be documented in an alternate sectionGoals may be documented in an alternate sectionGoals may be documented in an alternate sectionGoals may be documented in an alternate section FOR RECORDS PERTAINING TO PATIENTS WHO ARE OR HAVE BEEN ENROLLED IN A CHEMICAL DEPENDENCY/SUBSTANCEABUSE PROGRAM, SOME INFORMATION MAY BE OMITTED. This clinical summary was aggregated from multiple sources. Caution should be exercised in using it in the provision of clinical care. This summary normalizes information from multiple sources, and as a consequence, information in this document may materially change the coding, format and clinical context of patient data. In addition, data may be omitted in some cases. CLINICAL DECISIONS SHOULD BE BASED ON THE PRIMARY CLINICAL RECORDS. [facility]. provides no warranty or guarantee of the accuracy or completeness of information in this document.
== END | disposition home or self-care (01) ==
LOC: CT 14:03
PROVIDERS: PCP Nurse Practitioner Family; Referring Provider Nurse Practitioner Family; Visit Provider Nurse Practitioner Family
DX: Z12.2 Encounter for screening for malignant neoplasm of respiratory organs (principal); Z87.891 Personal history of nicotine dependence
CPT/HCPCS: 71271